=== PATIENT | female | born 1990 | race Caucasian/White ===

== ENCOUNTER 2020-09-10 03:43 | Emergency (ER) | payer OTHER, SELFPAY ==
[2020-09-10 03:48] VITALS: BP 121/89; PULSE 93; RESP 16; TEMP 37.6; O2SAT 97; BMI 42.9
--- NOTE | 2020-09-10 04:13 | ED.ABDPAIN ---
HPI - Abdominal Pain General Chief Complaint: Abdominal Pain Stated Complaint: Abd pain Time Seen by Provider: 09/10/20 04:13 Source: patient Mode of arrival: ambulatory Limitations: no limitations History of Present Illness MD elicited complaint: abdominal pain Pertinent past history: other (Crohn's disease) Onset (ago): day(s) (5 days started Monday) Pain Consistency: constant Location: epigastric Severity: moderate Quality: cramping Radiation: none Migration to: no migration Exacerbating factors: vomiting Relieving factors: nothing Associated symptoms: nausea and vomiting Related Data Allergies Allergy/AdvReac Type Severity Reaction Status Date / Time No Known Allergies Allergy Unknown UNKNOWN Verified 09/10/20 03:47 Review of Systems Review of Systems Constitutional : No Weight loss, No Fever, No Chills ENT/Mouth : No sore throat, No Rhinorrhea Eyes: No Swelling, No Redness Cardiovascular : No Chest Pain, No SOB, NoEdema Respiratory : No Cough, No Sputum, No Wheezing Gastrointestinal : Positive Nausea, Positive Vomiting, no Diarrhea, positive abdominal Pain, No Hematochezia, No Melena Genitourinary : No Dysuria, No Urinary Frequency, No Hematuria, No Urgency Musculoskeletal : No joint pain, No Myalgias, No Joint Swelling Skin : No Skin Lesions, No rash Neuro : No Weakness, No Numbness, No Dizziness, No Headache Psych : No Anxiety/Panic, No Depression All other systems reviewed and are negative. Physical Exam Vital Signs: Vital Signs: Vital Signs Temp Pulse Resp BP Pulse Ox 09/10/20 05:34 98.0 F 70 18 109/70 98 09/10/20 03:48 99.7 F 93 16 121/89 97 Body Mass Index 42.9 Appearance: Alert. Oriented X3. No acute distress. Eyes: Pupils equal, round and reactive to light. ENT: Pharynx normal. Neck: Normal inspection. Neck supple. CVS: Normal heart rate and rhythm. Pulses normal. Respiratory: No respiratory distress. Breath sounds normal. Abdomen: Soft and mild epigastric ttp, no RUQ pain, neg Olson's Skin: Skin warm and dry. Normal skin color. Normal skin turgor. Extremities: No lower extremity edema. No calf ttp Neuro: Oriented X 3. No motor deficit. No sensory deficit. Course Course Course Narrative: signed out to Dr. Martinez's pending CT scan MDM - Abdominal Pain MDM Narrative Medical decision making narrative: 30 yo female with epigastric pain n/v different from her Crohn's disease (no diarrhea/bloody stool this time) neg Olson's sign at this time will obtain labs, hydrate, IVF, IV morphine for pain Differential Diagnosis Differential diagnosis: Likely abdominal pain, gastritis, pancreatitis and peptic ulcer disease Lab Data Result diagrams: 09/10/20 04:31 09/10/20 04:31 Labs: Lab Results 09/10/20 09/10/20 09/10/20 Range/Units 04:31 04:31 04:31 WBC 10.8 (4.8-10.8) X10*3/uL RBC 4.16 L (4.20-5.50) X10*6/uL Hgb 13.5 (12.0-16.0) g/dl Hct 39.8 (37-47) % MCV 95.7 (80-98) fL MCH 32.5 (27.0-33.0) pg MCHC 33.9 (31.0-35.0) g/dl RDW 12.0 (11.0-16.0) % Plt Count 331 (160-400) X10*3/uL MPV 9.4 (9.4-12.3) fL Immature Gran % (Auto) 0.5 H (0.0-0.4) % Neut % (Auto) 63.7 (45-73) % Lymph % (Auto) 23.2 (20-40) % [place] % (Auto) 8.2 (2-11) % Eos % (Auto) 4.0 (0-4) % Baso % (Auto) 0.4 (0-2) % Lymph # (Auto) 2.5 (1.2-4.9) X10*3/uL [place] # (Auto) 0.9 (0.1-1.2) X10*3/uL Eos # (Auto) 0.4 (0.0-0.4) X10*3/uL Baso # (Auto) 0.0 (0.0-0.2) X10*3/uL Abs Immat Gran (auto) 0.05 H (0.00-0.03) X10*3/uL Absolute Neuts (auto) 6.9 (2.0-8.3) X10*3/uL Absolute Nucleated RBC 0.000 (0.0-0.012) X10*3/uL Nucleated RBC % (auto) 0.0 (0.0-0.2) /100WBC Hold Blue Top SEE NOTE Sodium 137 (135-145) mmol/L Potassium 4.1 (3.3-5.1) mmol/l Chloride 105 (96-108) mmol/L Carbon Dioxide 25 (22-29) mmol/L Anion Gap 11 L (12-20) BUN 17 H (9-16) mg/dL Creatinine 0.80 (0.5-1.4) mg/dL Estim Creat Clear Calc 124.5 Estimated GFR > 60 Random Glucose 114 (60-115) mg/dL Calcium 8.2 L (8.4-10.2) mg/dL Magnesium 2.0 (1.6-2.6) mg/dL Total Bilirubin 0.3 (0.0-1.0) mg/dL Direct Bilirubin < 0.2 (0.0-0.5) mg/dL AST 13 (5-31) U/L ALT 16 (0-31) U/L Alkaline Phosphatase 56 (39-117) U/L Total Protein 6.8 (6.5-8.0) g/dL Albumin 3.7 (3.5-5.0) g/dL Lipase 30 (8-78) U/L Urine Color Urine Appearance Urine pH (5.0-8.0) Ur Specific [place] (1.005-1.025) Urine Protein (NEG-TRACE) MG/DL Urine Glucose (UA) (NEG) MG/DL Urine Ketones (NEG) MG/DL Urine Blood (NEG) Urine Nitrite (NEG) Ur Leukocyte Esterase (NEG) Urine Test (NEGATIVE) 09/10/20 Range/Units 05:46 WBC (4.8-10.8) X10*3/uL RBC (4.20-5.50) X10*6/uL Hgb (12.0-16.0) g/dl Hct (37-47) % MCV (80-98) fL MCH (27.0-33.0) pg MCHC (31.0-35.0) g/dl RDW (11.0-16.0) % Plt Count (160-400) X10*3/uL MPV (9.4-12.3) fL Immature Gran % (Auto) (0.0-0.4) % Neut % (Auto) (45-73) % Lymph % (Auto) (20-40) % [place] % (Auto) (2-11) % Eos % (Auto) (0-4) % Baso % (Auto) (0-2) % Lymph # (Auto) (1.2-4.9) X10*3/uL [place] # (Auto) (0.1-1.2) X10*3/uL Eos # (Auto) (0.0-0.4) X10*3/uL Baso # (Auto) (0.0-0.2) X10*3/uL Abs Immat Gran (auto) (0.00-0.03) X10*3/uL Absolute Neuts (auto) (2.0-8.3) X10*3/uL Absolute Nucleated RBC (0.0-0.012) X10*3/uL Nucleated RBC % (auto) (0.0-0.2) /100WBC Hold Blue Top Sodium (135-145) mmol/L Potassium (3.3-5.1) mmol/l Chloride (96-108) mmol/L Carbon Dioxide (22-29) mmol/L Anion Gap (12-20) BUN (9-16) mg/dL Creatinine (0.5-1.4) mg/dL Estim Creat Clear Calc Estimated GFR Random Glucose (60-115) mg/dL Calcium (8.4-10.2) mg/dL Magnesium (1.6-2.6) mg/dL Total Bilirubin (0.0-1.0) mg/dL Direct Bilirubin (0.0-0.5) mg/dL AST (5-31) U/L ALT (0-31) U/L Alkaline Phosphatase (39-117) U/L Total Protein (6.5-8.0) g/dL Albumin (3.5-5.0) g/dL Lipase (8-78) U/L Urine Color YELLOW Urine Appearance HAZY Urine pH 6.0 (5.0-8.0) Ur Specific [place] >= 1.030 H (1.005-1.025) Urine Protein NEG (NEG-TRACE) MG/DL Urine Glucose (UA) NEG (NEG) MG/DL Urine Ketones NEG (NEG) MG/DL Urine Blood NEG (NEG) Urine Nitrite NEG (NEG) Ur Leukocyte Esterase NEG (NEG) Urine Test NEGATIVE (NEGATIVE) Discharge Plan Discharge Clinical Impression: Abdominal pain Qualifiers: Abdominal location: epigastric Qualified Code(s): R10.13 - Epigastric pain PMFSH Past Medical History Medical History Crohn's disease Multiple sclerosis Social History Social History (Updated 09/10/20 @ 04:23 by Sara Barboza DO) Alcohol intake: current Alcohol intake frequency: a few times a month Smoking Status: Current every day smoker Use of substances other than those prescribed or required for medical reasons: No Advance Directives: No Advance Directives Information Provided: No
--- NOTE | 2020-09-10 04:15 | CT_ITS ---
EXAMINATION: CT ABDOMEN AND PELVIS WITH CONTRAST CLINICAL INFORMATION: Abdominal pain. Diarrhea. Crohn's disease. COMPARISON: 06/06/2020 TECHNIQUE: Multidetector volumetric images were obtained from the superior aspect of the liver through the pubic symphysis following administration 85 mL ofOmnipaque 350 intravenous contrast. Sagittal and coronal reformatted images were obtained on the technologist's workstation. Oral contrast: No This CT examination was performed using dose optimization techniques as appropriate, variously including the following: *Automated exposure control *Adjustment of mA and/or kV according to patient size (this includes techniques or standardized protocols for targeted exams where dose is matched to indication/reason for exam; i.e. extremities or head) *Use of iterative reconstruction technique DLP: 1121 mGy-cm FINDINGS: LUNG BASES: The visualized lung bases are unremarkable. LIVER, GALLBLADDER, AND BILIARY TREE: The liver is normal in size, shape, and attenuation. No focal hepatic lesion or biliary ductal dilatation is present. The gallbladder is unremarkable with no evidence of radiopaque gallstones, gallbladder wall thickening, or obvious pericholecystic inflammatory changes. PANCREAS: Unremarkable. SPLEEN: Unremarkable. ADRENAL GLANDS: Unremarkable. KIDNEYS AND URETERS: The kidneys are normal in size, shape, and attenuation. No hydronephrosis, hydroureter, or calculi seen. No perinephric stranding. BLADDER: Unremarkable. GASTROINTESTINAL TRACT: The stomach is unremarkable. Normal caliber small bowel. There is no obstruction. The small bowel has no wall thickening. There is wall thickening involving the splenic flexure and descending colon. The remainder of the colon is unremarkable. No free air or free fluid. ABDOMINAL WALL: No significant hernia is appreciated. LYMPH NODES: Normal. VASCULAR: Unremarkable. PELVIC VISCERA: IUD in place in the uterus. No adnexal mass. OSSEOUS STRUCTURES: No acute or suspicious osseous abnormality. CT/CT abdomen pelvis w con IMPRESSION: Colitis involving the splenic flexure of the colon and descending colon.
[2020-09-10] MEDS: ondansetron HCL 4 MG/2 ML VIAL IVPUSH (04:34)
[2020-09-10] MEDS: Morphine Sulfate 4 MG/ML CARTRIDGE IVPUSH ×2 (04:34→07:43)
[2020-09-10] MEDS: 0.9 % Sodium Chloride 1,000 ML 999 ML IVCONT (04:34)
[2020-09-10 04:36] LABS: MANUAL DIFF FLAG NO
[2020-09-10 04:43] LABS: Basophils Percent Auto 0.4 % (0-2); Eosinophils Absolute Auto 0.4 X10*3/uL (0.0-0.4); Hematocrit 39.8 % (37-47); Hemoglobin 13.5 g/dl (12.0-16.0); Imm Gran Abs Auto 0.05 X10*3/uL (0.00-0.03); Imm Gran Pct Auto 0.5 % (0.0-0.4); Lymphocytes Absolute Auto 2.5 X10*3/uL (1.2-4.9); Lymphocytes Percent Auto 23.2 % (20-40); Mean Corpuscular HGB Conc 33.9 g/dl (31.0-35.0); Mean Corpuscular Hemoglobin 32.5 pg (27.0-33.0); Mean Corpuscular Volume 95.7 fL (80-98); Mean Platelet Volume 9.4 fL (9.4-12.3); Monocytes Absolute Auto 0.9 X10*3/uL (0.1-1.2); Monocytes Percent Auto 8.2 % (2-11); Neutrophils Absolute Auto 6.9 X10*3/uL (2.0-8.3); Neutrophils Percent Auto 63.7 % (45-73); Platelet Count 331 X10*3/uL (160-400); Red Blood Count 4.16 X10*6/uL (4.20-5.50); White Blood Count 10.8 X10*3/uL (4.8-10.8)
[2020-09-10 05:03] LABS: Alanine Aminotransferase 16 U/L (0-31); Albumin Level 3.7 g/dL (3.5-5.0); Alkaline Phosphatase 56 U/L (39-117); Anion Gap 11 (12-20); Aspartate Amino Transferase 13 U/L (5-31); Bilirubin Direct < 0.2 mg/dL (0.0-0.5); Bilirubin Total 0.3 mg/dL (0.0-1.0); Blood Urea Nitrogen 17 mg/dL (9-16); Calcium 8.2 mg/dL (8.4-10.2); Carbon Dioxide 25 mmol/L (22-29); Chloride 105 mmol/L (96-108); Creatinine Clr Calc Pharmacy 124.5; Estimated Glomerular Filt Rate > 60; Glucose Random 114 mg/dL (60-115); Lipase 30 U/L (8-78); Potassium 4.1 mmol/l (3.3-5.1); Sodium 137 mmol/L (135-145); Total Protein 6.8 g/dL (6.5-8.0)
[2020-09-10 05:34] VITALS: BP 109/70; PULSE 70; RESP 18; TEMP 36.7; O2SAT 98
[2020-09-10 05:58] LABS: Glucose Urine UA NEG (NEG); Leukocyte Esterase Urine NEG (NEG); Nitrite Urine NEG (NEG); Specific Gravity - Urine >= 1.030 (1.005-1.025); Urine Blood NEG (NEG); Urine Ketones NEG (NEG); Urine Protein NEG (NEG-TRACE)
[2020-09-10 06:02] LABS: Appearance Urine HAZY; Color Urine YELLOW; UACC Culture Trigger NO; UPreg QC Valid YES; Urine Pregnancy NEGATIVE (NEGATIVE)
[2020-09-10] MEDS: iohexoL 350 MG/ML 100 ML INFUS..BTL IV (06:37)
--- NOTE | 2020-09-10 07:22 | ED.ABDPAIN ---
HPI - Abdominal Pain General Chief Complaint: Abdominal Pain Stated Complaint: Abd pain Time Seen by Provider: 09/10/20 04:13 Source: patient Mode of arrival: ambulatory Limitations: no limitations History of Present Illness MD elicited complaint: abdominal pain Severity: moderate Quality: cramping Migration to: no migration Exacerbating factors: vomiting Relieving factors: nothing Associated symptoms: nausea and vomiting Related Data Previous Rx's Medication Instructions Recorded hyoscyamine sulfate 0.125 mg PO QID #10 tab 09/10/20 ondansetron 4 mg PO Q8H PRN #20 tab 09/10/20 Allergies Allergy/AdvReac Type Severity Reaction Status Date / Time No Known Allergies Allergy Unknown UNKNOWN Verified 09/10/20 03:47 Physical Exam Vital Signs: Vital Signs: Vital Signs Temp Pulse Resp BP Pulse Ox 09/10/20 05:34 98.0 F 70 18 109/70 98 09/10/20 03:48 99.7 F 93 16 121/89 97 Body Mass Index 42.9 Course Course Course Narrative: I received sign out drom DR. Barboza. scan shows colitis, patient has history of Crohn's disease, colitis is expected. Nothing additional on CT scan. At this time, patient is no longer vomiting, nausea, mild abdominal pain. Patient will follow-up with her primary care MDM - Abdominal Pain Lab Data Result diagrams: 09/10/20 04:31 09/10/20 04:31 Labs: Lab Results 09/10/20 09/10/20 09/10/20 Range/Units 04:31 04:31 04:31 WBC 10.8 (4.8-10.8) X10*3/uL RBC 4.16 L (4.20-5.50) X10*6/uL Hgb 13.5 (12.0-16.0) g/dl Hct 39.8 (37-47) % MCV 95.7 (80-98) fL MCH 32.5 (27.0-33.0) pg MCHC 33.9 (31.0-35.0) g/dl RDW 12.0 (11.0-16.0) % Plt Count 331 (160-400) X10*3/uL MPV 9.4 (9.4-12.3) fL Immature Gran % (Auto) 0.5 H (0.0-0.4) % Neut % (Auto) 63.7 (45-73) % Lymph % (Auto) 23.2 (20-40) % [place] % (Auto) 8.2 (2-11) % Eos % (Auto) 4.0 (0-4) % Baso % (Auto) 0.4 (0-2) % Lymph # (Auto) 2.5 (1.2-4.9) X10*3/uL [place] # (Auto) 0.9 (0.1-1.2) X10*3/uL Eos # (Auto) 0.4 (0.0-0.4) X10*3/uL Baso # (Auto) 0.0 (0.0-0.2) X10*3/uL Abs Immat Gran (auto) 0.05 H (0.00-0.03) X10*3/uL Absolute Neuts (auto) 6.9 (2.0-8.3) X10*3/uL Absolute Nucleated RBC 0.000 (0.0-0.012) X10*3/uL Nucleated RBC % (auto) 0.0 (0.0-0.2) /100WBC Hold Blue Top SEE NOTE Sodium 137 (135-145) mmol/L Potassium 4.1 (3.3-5.1) mmol/l Chloride 105 (96-108) mmol/L Carbon Dioxide 25 (22-29) mmol/L Anion Gap 11 L (12-20) BUN 17 H (9-16) mg/dL Creatinine 0.80 (0.5-1.4) mg/dL Estim Creat Clear Calc 124.5 Estimated GFR > 60 Random Glucose 114 (60-115) mg/dL Calcium 8.2 L (8.4-10.2) mg/dL Magnesium 2.0 (1.6-2.6) mg/dL Total Bilirubin 0.3 (0.0-1.0) mg/dL Direct Bilirubin < 0.2 (0.0-0.5) mg/dL AST 13 (5-31) U/L ALT 16 (0-31) U/L Alkaline Phosphatase 56 (39-117) U/L Total Protein 6.8 (6.5-8.0) g/dL Albumin 3.7 (3.5-5.0) g/dL Lipase 30 (8-78) U/L Urine Color Urine Appearance Urine pH (5.0-8.0) Ur Specific [place] (1.005-1.025) Urine Protein (NEG-TRACE) MG/DL Urine Glucose (UA) (NEG) MG/DL Urine Ketones (NEG) MG/DL Urine Blood (NEG) Urine Nitrite (NEG) Ur Leukocyte Esterase (NEG) Urine Test (NEGATIVE) 09/10/20 Range/Units 05:46 WBC (4.8-10.8) X10*3/uL RBC (4.20-5.50) X10*6/uL Hgb (12.0-16.0) g/dl Hct (37-47) % MCV (80-98) fL MCH (27.0-33.0) pg MCHC (31.0-35.0) g/dl RDW (11.0-16.0) % Plt Count (160-400) X10*3/uL MPV (9.4-12.3) fL Immature Gran % (Auto) (0.0-0.4) % Neut % (Auto) (45-73) % Lymph % (Auto) (20-40) % [place] % (Auto) (2-11) % Eos % (Auto) (0-4) % Baso % (Auto) (0-2) % Lymph # (Auto) (1.2-4.9) X10*3/uL [place] # (Auto) (0.1-1.2) X10*3/uL Eos # (Auto) (0.0-0.4) X10*3/uL Baso # (Auto) (0.0-0.2) X10*3/uL Abs Immat Gran (auto) (0.00-0.03) X10*3/uL Absolute Neuts (auto) (2.0-8.3) X10*3/uL Absolute Nucleated RBC (0.0-0.012) X10*3/uL Nucleated RBC % (auto) (0.0-0.2) /100WBC Hold Blue Top Sodium (135-145) mmol/L Potassium (3.3-5.1) mmol/l Chloride (96-108) mmol/L Carbon Dioxide (22-29) mmol/L Anion Gap (12-20) BUN (9-16) mg/dL Creatinine (0.5-1.4) mg/dL Estim Creat Clear Calc Estimated GFR Random Glucose (60-115) mg/dL Calcium (8.4-10.2) mg/dL Magnesium (1.6-2.6) mg/dL Total Bilirubin (0.0-1.0) mg/dL Direct Bilirubin (0.0-0.5) mg/dL AST (5-31) U/L ALT (0-31) U/L Alkaline Phosphatase (39-117) U/L Total Protein (6.5-8.0) g/dL Albumin (3.5-5.0) g/dL Lipase (8-78) U/L Urine Color YELLOW Urine Appearance HAZY Urine pH 6.0 (5.0-8.0) Ur Specific [place] >= 1.030 H (1.005-1.025) Urine Protein NEG (NEG-TRACE) MG/DL Urine Glucose (UA) NEG (NEG) MG/DL Urine Ketones NEG (NEG) MG/DL Urine Blood NEG (NEG) Urine Nitrite NEG (NEG) Ur Leukocyte Esterase NEG (NEG) Urine Test NEGATIVE (NEGATIVE) Imaging Data CT scan - abdomen: Radiologist's impression: Colitis involving the splenic flexure of the colon and descending colon. LUNG BASES: The visualized lung bases are unremarkable. LIVER, GALLBLADDER, AND BILIARY TREE: The liver is normal in size, shape, and attenuation. No focal hepatic lesion or biliary ductal dilatation is present. The gallbladder is unremarkable with no evidence of radiopaque gallstones, gallbladder wall thickening, or obvious pericholecystic inflammatory changes. PANCREAS: Unremarkable. SPLEEN: Unremarkable. ADRENAL GLANDS: Unremarkable. KIDNEYS AND URETERS: The kidneys are normal in size, shape, and attenuation. No hydronephrosis, hydroureter, or calculi seen. No perinephric stranding. BLADDER: Unremarkable. GASTROINTESTINAL TRACT: The stomach is unremarkable. Normal caliber small bowel. There is no obstruction. The small bowel has no wall thickening. There is wall thickening involving the splenic flexure and descending colon. The remainder of the colon is unremarkable. No free air or free fluid. ABDOMINAL WALL: No significant hernia is appreciated. LYMPH NODES: Normal. VASCULAR: Unremarkable. PELVIC VISCERA: IUD in place in the uterus. No adnexal mass. OSSEOUS STRUCTURES: No acute or suspicious osseous abnormality. Discharge Plan Discharge Clinical Impression: Colitis Abdominal pain Qualifiers: Abdominal location: epigastric Qualified Code(s): R10.13 - Epigastric pain Nausea & vomiting Qualifiers: Vomiting type: unspecified Vomiting Intractability: non-intractable Qualified Code(s): R11.2 - Nausea with vomiting, unspecified Patient Disposition: Home, Self-Care Instructions: Acute Nausea and Vomiting (ED), Abdominal Pain (ED) Prescriptions: New ondansetron 4 mg tablet,disintegrating 4 mg PO Q8H PRN (Reason: nausea and vomiting) Qty: 20 RF: 0 hyoscyamine sulfate 0.125 mg tablet 0.125 mg PO QID Qty: 10 RF: 0 Referrals: Kamran Rm MD [Primary Care Provider] - 2 days (if not better) Stand Alone Forms: Work/School Release [facility] Past Medical History Medical History Crohn's disease Multiple sclerosis Social History Social History (Updated 09/10/20 @ 04:23 by Sara Barboza DO) Alcohol intake: current Alcohol intake frequency: a few times a month Smoking Status: Current every day smoker Use of substances other than those prescribed or required for medical reasons: No Advance Directives: No Advance Directives Information Provided: No
[2020-09-10 07:46] VITALS: BP 112/70; PULSE 76; RESP 16; O2SAT 99
== END 2020-09-10 08:14 | disposition home or self-care (01) ==
PROVIDERS: Emergency Medicine; Emergency Provider Emergency Medicine; PCP Internal Medicine
DX: K52.9 Noninfective gastroenteritis and colitis, unspecified (principal); R10.13 Epigastric pain; R11.2 Nausea with vomiting, unspecified; F17.200 Nicotine dependence, unspecified, uncomplicated; Z71.6 Tobacco abuse counseling
CPT/HCPCS: 36415; 74177; 80048; 80076; 81003; 81025; 83690; 83735; 85025; 96361; 96374; 96375; 96376; 99284; J2270; J2405; Q9967

== ENCOUNTER 2020-09-13 16:55 | Emergency (ER) | payer OTHER, SELFPAY ==
[2020-09-13 17:09] VITALS: BP 127/62; PULSE 88; RESP 18; TEMP 36.9; O2SAT 98; BMI 44.6
--- NOTE | 2020-09-13 17:30 | XR_ITS ---
EXAMINATION: XR ABDOMEN KUB CLINICAL INDICATION: Constipation COMPARISON: CT abdomen pelvis 09/10/2020 TECHNIQUE: AP view of the abdomen. FINDINGS: The bowel gas pattern is normal with no evidence of ileus or obstruction. A moderate amount of stool is present in the right colon. No unusual soft tissue calcifications are noted. An IUD is present in the uterus. The bones are unremarkable. XR/XR KUB IMPRESSION: Unremarkable examination.
--- NOTE | 2020-09-13 17:42 | ED_ITS ---
HPI - Abdominal Pain General Chief Complaint: Abdominal Pain Stated Complaint: ABD PAIN Time Seen by Provider: 09/13/20 17:15 Source: patient Mode of arrival: ambulatory History of Present Illness HPI narrative: 30-year-old female with a past medical history of Crohn's disease, MS c/o diffuse abdominal pain, intermittent bloody diarrhea, and decreased PO intake x3 days. reports was recently seen in the ED for similar complaints on , had labs, and CT scan showing colitis, was prescribed outpatient medications with little relief. reports symptoms are similar to prior Crohn's flares which she has been admitted multiple times for in the past. Reports associated nausea, and constipation without BM in 4 days. Denies vomiting, lightheadedness/dizziness, CP / SOB, dysuria /hematuria Related Data Previous Rx's Medication Instructions Recorded ondansetron 4 mg PO Q8H PRN #20 tab 09/10/20 prednisone See Rx Instructions .ROUTE 09/13/20 .COMPLEX #36 tab Allergies Allergy/AdvReac Type Severity Reaction Status Date / Time No Known Allergies Allergy Unknown UNKNOWN Verified 09/10/20 03:47 Review of Systems Review of Systems Constitutional: No Weight loss, No Fever, No Chills Cardiovascular: No Chest Pain, No SOB, No Dyspnea on Exertion, No Palpitations Respiratory: No Cough, No Sputum, No Dyspnea Gastrointestinal: + Nausea, No Vomiting, No Diarrhea, + Constipation, +Abdominal pain, +bloody stool Genitourinary: No Dysuria, No Urinary Frequency, No Hematuria Musculoskeletal: No joint pain, No Myalgias, No Joint Swelling Skin: No Skin Lesions, No rash Yes all other systems are reviewed and are negative Physical Exam Vital Signs: Vital Signs: Vital Signs Temp Pulse Resp BP Pulse Ox 09/13/20 19:18 18 09/13/20 19:16 98.3 F 73 18 133/70 99 09/13/20 17:09 98.5 F 88 18 127/62 98 Body Mass Index 44.6 Const: General: cooperative and healthy appearing Orientation/con sciousness: patient oriented x3 Limitations: no limitations HENMT: Head: Yes normal to inspection Ears: hearing grossly normal bilaterally General nose exam: Normal external nose present Face and sinus: Yes normal facial exam Eyes: General: appearance normal, both eyes and all related structures EOM: EOMs intact bilaterally Neck: Neck: Yes normal visual inspection Resp: Effort & Inspection: normal respiratory effort GI: Inspection: Yes normal to inspection Palpation (GI): Soft to palpation, Tenderness to palpation present (GI) ( and lower abdomen) in the LLQ, no guarding and not rigid Skin: Rashes: no rashes Wounds: no wounds Neuro: General: patient oriented x3 Gait exam (Neuro): Normal gait present Extrem: General: Yes normal to inspection Course Course Course Narrative: - mild leukocytosis of 12.9, labs otherwise unremarkable, ESR/CRP pending, UA negative -1999-- ESR 14, CRP 11 KUB unremarkable, on re-evaluation patient reports symptomatic improvement after IV medications. Discussed follow-up with Dr. Null which patient reports she has. Will DC on prednisone taper. Worrisome signs and symptoms and strict return precautions discussed. Patient verbalized understanding feel safe for discharge home MDM - Abdominal Pain MDM Narrative Medical decision making narrative: 30-year-old female with a past medical history of Crohn's disease, MS c/o diffuse abdominal pain, intermittent bloody diarrhea, and decreased PO intake x3 days w/associated nausea, and constipation without BM in 4 days. On exam VSS, NAD/ nontoxic appearing, abdomen soft with lower/LLQ ttp, no rebound or guarding. Likely Crohn's flare/colitis vs SBO. Lower concern for acute diverticulitis / appendicitis with recent CT. Rule out other infectious etiology plan: Labs, UA, KUB, IVF, IV Solumedrol, IV morphine, reassess Differential Diagnosis Differential diagnosis: Likely abdominal pain Lab Data Result diagrams: 09/13/20 17:48 09/13/20 17:48 Labs: Lab Results 09/13/20 09/13/20 09/13/20 Range/Units 17:48 17:48 17:48 WBC 12.9 H (4.8-10.8) X10*3/uL RBC 4.16 L (4.20-5.50) X10*6/uL Hgb 13.1 (12.0-16.0) g/dl Hct 39.7 (37-47) % MCV 95.4 (80-98) fL MCH 31.5 (27.0-33.0) pg MCHC 33.0 (31.0-35.0) g/dl RDW 11.7 (11.0-16.0) % Plt Count 358 (160-400) X10*3/uL MPV 9.5 (9.4-12.3) fL Immature Gran % (Auto) 0.5 H (0.0-0.4) % Neut % (Auto) 74.0 H (45-73) % Lymph % (Auto) 16.8 L (20-40) % [place] % (Auto) 5.5 (2-11) % Eos % (Auto) 2.8 (0-4) % Baso % (Auto) 0.4 (0-2) % Lymph # (Auto) 2.2 (1.2-4.9) X10*3/uL [place] # (Auto) 0.7 (0.1-1.2) X10*3/uL Eos # (Auto) 0.4 (0.0-0.4) X10*3/uL Baso # (Auto) 0.1 (0.0-0.2) X10*3/uL Abs Immat Gran (auto) 0.06 H (0.00-0.03) X10*3/uL Absolute Neuts (auto) 9.5 H (2.0-8.3) X10*3/uL Absolute Nucleated RBC 0.000 (0.0-0.012) X10*3/uL Nucleated RBC % (auto) 0.0 (0.0-0.2) /100WBC ESR (0-20) MM/HR Hold Blue Top SEE NOTE Sodium 140 (135-145) mmol/L Potassium 3.9 (3.3-5.1) mmol/l Chloride 103 (96-108) mmol/L Carbon Dioxide 29 (22-29) mmol/L Anion Gap 12 (12-20) BUN 8 L D (9-16) mg/dL Creatinine 0.79 (0.5-1.4) mg/dL Estim Creat Clear Calc 129.0 Estimated GFR > 60 Random Glucose 94 (60-115) mg/dL Calcium 8.0 L (8.4-10.2) mg/dL Magnesium (1.6-2.6) mg/dL Total Bilirubin (0.0-1.0) mg/dL Direct Bilirubin (0.0-0.5) mg/dL AST (5-31) U/L ALT (0-31) U/L Alkaline Phosphatase (39-117) U/L C-Reactive Protein 11.00 H (< or = 0.50) mg/dL Total Protein (6.5-8.0) g/dL Albumin (3.5-5.0) g/dL Lipase (8-78) U/L Urine Color Urine Appearance Urine pH (5.0-8.0) Ur Specific [place] (1.005-1.025) Urine Protein (NEG-TRACE) MG/DL Urine Glucose (UA) (NEG) MG/DL Urine Ketones (NEG) MG/DL Urine Blood (NEG) Urine Nitrite (NEG) Ur Leukocyte Esterase (NEG) 09/13/20 09/13/20 09/13/20 Range/Units 17:48 17:48 19:09 WBC (4.8-10.8) X10*3/uL RBC (4.20-5.50) X10*6/uL Hgb (12.0-16.0) g/dl Hct (37-47) % MCV (80-98) fL MCH (27.0-33.0) pg MCHC (31.0-35.0) g/dl RDW (11.0-16.0) % Plt Count (160-400) X10*3/uL MPV (9.4-12.3) fL Immature Gran % (Auto) (0.0-0.4) % Neut % (Auto) (45-73) % Lymph % (Auto) (20-40) % [place] % (Auto) (2-11) % Eos % (Auto) (0-4) % Baso % (Auto) (0-2) % Lymph # (Auto) (1.2-4.9) X10*3/uL [place] # (Auto) (0.1-1.2) X10*3/uL Eos # (Auto) (0.0-0.4) X10*3/uL Baso # (Auto) (0.0-0.2) X10*3/uL Abs Immat Gran (auto) (0.00-0.03) X10*3/uL Absolute Neuts (auto) (2.0-8.3) X10*3/uL Absolute Nucleated RBC (0.0-0.012) X10*3/uL Nucleated RBC % (auto) (0.0-0.2) /100WBC ESR 14 (0-20) MM/HR Hold Blue Top Sodium (135-145) mmol/L Potassium (3.3-5.1) mmol/l Chloride (96-108) mmol/L Carbon Dioxide (22-29) mmol/L Anion Gap (12-20) BUN (9-16) mg/dL Creatinine (0.5-1.4) mg/dL Estim Creat Clear Calc Estimated GFR Random Glucose (60-115) mg/dL Calcium (8.4-10.2) mg/dL Magnesium 2.1 (1.6-2.6) mg/dL Total Bilirubin < 0.2 (0.0-1.0) mg/dL Direct Bilirubin < 0.2 (0.0-0.5) mg/dL AST 12 (5-31) U/L ALT 13 (0-31) U/L Alkaline Phosphatase 52 (39-117) U/L C-Reactive Protein (< or = 0.50) mg/dL Total Protein 6.9 (6.5-8.0) g/dL Albumin 3.8 (3.5-5.0) g/dL Lipase 18 (8-78) U/L Urine Color YELLOW Urine Appearance CLEAR Urine pH 6.5 (5.0-8.0) Ur Specific [place] 1.020 (1.005-1.025) Urine Protein NEG (NEG-TRACE) MG/DL Urine Glucose (UA) NEG (NEG) MG/DL Urine Ketones NEG (NEG) MG/DL Urine Blood NEG (NEG) Urine Nitrite NEG (NEG) Ur Leukocyte Esterase NEG (NEG) Discharge Plan Discharge Clinical Impression: Acute Crohn's disease Qualifiers: Digestive disease complication type: without complication Qualified Code(s): K50.90 - Crohn's disease, unspecified, without complications Patient Disposition: Home, Self-Care Instructions: Crohn Disease (ED) Additional Instructions: your blood work was reassuring today in the ED. You have mild elevation your inflammatory markers Take prednisone taper as prescribed Continue taking previously prescribed medications including Tylenol and Motrin at home You need to have close follow-up with Dr. Null If symptoms persist or worsen, you have fever, decreased oral intake, or not having bowel movement return to the ED Prescriptions: New prednisone 5 mg tablet See Rx Instructions .ROUTE .COMPLEX Qty: 36 RF: 0 No Action ondansetron 4 mg tablet,disintegrating 4 mg PO Q8H PRN (Reason: nausea and vomiting) Qty: 20 RF: 0 Referrals: Alexandr Null [Physician] - 5 days [facility] Past Medical History Medical History Crohn's disease Multiple sclerosis Social History Social History (Updated 09/10/20 @ 04:23 by Sara Barboza DO) Alcohol intake: unknown Smoking Status: Never smoker Use of substances other than those prescribed or required for medical reasons: No Advance Directives: No Advance Directives Information Provided: No
[2020-09-13] MEDS: 0.9 % Sodium Chloride 1,000 ML 999 ML IVCONT (17:53)
[2020-09-13] MEDS: Morphine Sulfate 4 MG/ML CARTRIDGE 2 MG IVPUSH (17:53)
[2020-09-13 18:08] LABS: MANUAL DIFF FLAG NO
[2020-09-13 18:11] LABS: Basophils Absolute Auto 0.1 X10*3/uL (0.0-0.2); Basophils Percent Auto 0.4 % (0-2); Eosinophils Absolute Auto 0.4 X10*3/uL (0.0-0.4); Eosinophils Percent Auto 2.8 % (0-4); Hematocrit 39.7 % (37-47); Hemoglobin 13.1 g/dl (12.0-16.0); Imm Gran Abs Auto 0.06 X10*3/uL (0.00-0.03); Imm Gran Pct Auto 0.5 % (0.0-0.4); Lymphocytes Absolute Auto 2.2 X10*3/uL (1.2-4.9); Lymphocytes Percent Auto 16.8 % (20-40); Mean Corpuscular Hemoglobin 31.5 pg (27.0-33.0); Mean Corpuscular Volume 95.4 fL (80-98); Mean Platelet Volume 9.5 fL (9.4-12.3); Monocytes Absolute Auto 0.7 X10*3/uL (0.1-1.2); Monocytes Percent Auto 5.5 % (2-11); Neutrophils Absolute Auto 9.5 X10*3/uL (2.0-8.3); Platelet Count 358 X10*3/uL (160-400); Red Blood Count 4.16 X10*6/uL (4.20-5.50); Red Cell Distribution Width 11.7 % (11.0-16.0); White Blood Count 12.9 X10*3/uL (4.8-10.8)
[2020-09-13 18:16] LABS: Glucose Urine UA NEG (NEG); Leukocyte Esterase Urine NEG (NEG); Nitrite Urine NEG (NEG); PH 6.5 (5.0-8.0); Urine Blood NEG (NEG); Urine Ketones NEG (NEG); Urine Protein NEG (NEG-TRACE)
[2020-09-13 18:18] LABS: Appearance Urine CLEAR; Color Urine YELLOW
[2020-09-13 18:34] LABS: Anion Gap 12 (12-20); Blood Urea Nitrogen 8 mg/dL (9-16); Carbon Dioxide 29 mmol/L (22-29); Chloride 103 mmol/L (96-108); Estimated Glomerular Filt Rate > 60; Glucose Random 94 mg/dL (60-115); Potassium 3.9 mmol/l (3.3-5.1); Sodium 140 mmol/L (135-145)
[2020-09-13 18:39] LABS: Alanine Aminotransferase 13 U/L (0-31); Albumin Level 3.8 g/dL (3.5-5.0); Alkaline Phosphatase 52 U/L (39-117); Aspartate Amino Transferase 12 U/L (5-31); Bilirubin Direct < 0.2 mg/dL (0.0-0.5); Bilirubin Total < 0.2 mg/dL (0.0-1.0); Lipase 18 U/L (8-78); Magnesium 2.1 mg/dL (1.6-2.6); Total Protein 6.9 g/dL (6.5-8.0)
[2020-09-13 19:16] VITALS: BP 133/70; PULSE 73; RESP 18; TEMP 36.8; O2SAT 99
[2020-09-13 19:18] VITALS: RESP 18
[2020-09-13] MEDS: Dicyclomine HCl 10 MG CAPSULE PO (19:18)
[2020-09-13] MEDS: methylPREDNISolone Sod Succ/PF 125 MG/2 ML VIAL IVPUSH (19:18)
[2020-09-13] MEDS: Morphine Sulfate 4 MG/ML CARTRIDGE IVPUSH (19:18)
[2020-09-13 19:48] LABS: Erythrocyte Sedimentation Rate 14 MM/HR (0-20)
== END 2020-09-13 20:27 | disposition home or self-care (01) ==
PROVIDERS: Physician Assistant; Emergency Provider Internal Medicine; PCP Internal Medicine
DX: K50.90 Crohn's disease, unspecified, without complications (principal); Z79.899 Other long term (current) drug therapy
CPT/HCPCS: 36415; 74018; 80048; 80076; 81003; 83690; 83735; 85025; 85652; 86140; 96361; 96374; 96375; 96376; 99284; J2270; J2930

== ENCOUNTER 2020-10-01 11:34 | Inpatient (IN) | payer OTHER, SELFPAY ==
[2020-10-01 14:01] VITALS: BP 128/83; PULSE 88; RESP 18; TEMP 36.7; O2SAT 97; BMI 42.9
--- NOTE | 2020-10-01 14:10 | ED_ITS ---
HPI - Abdominal Pain General Chief Complaint: Abdominal Pain Stated Complaint: chron's flare up Time Seen by Provider: 10/01/20 14:10 Source: patient Mode of arrival: ambulatory Limitations: no limitations History of Present Illness MD elicited complaint: abdominal pain Pertinent past history: other (Crohn's taking her mesalamine and does not want to take prednisone, missed her 09/[address] Null) Onset (ago): month(s) (1) Pain Consistency: constant Location: epigastric, LUQ and LLQ Severity: moderate Quality: cramping Radiation: none Migration to: no migration Exacerbating factors: movement Relieving factors: nothing Context: history of similar episodes Associated symptoms: nausea, diarrhea and hematochezia Treatments prior to arrival: other (mesalamine) Related Data Previous Rx's Medication Instructions Recorded ondansetron 4 mg PO Q8H PRN #20 tab 09/10/20 prednisone See Rx Instructions .ROUTE 09/13/20 .COMPLEX #36 tab Allergies Allergy/AdvReac Type Severity Reaction Status Date / Time No Known Allergies Allergy Unknown UNKNOWN Verified 09/10/20 03:47 Review of Systems Review of Systems Constitutional : No Weight loss, No Fever, No Chills ENT/Mouth : No sore throat, No Rhinorrhea Eyes: No Swelling, No Redness Cardiovascular : No Chest Pain, No SOB, NoEdema Respiratory : No Cough, No Sputum, No Wheezing Gastrointestinal : Positive Nausea, no Vomiting, positive Diarrhea, positive abdominal Pain, pos Hematochezia, No Melena Genitourinary : No Dysuria, No Urinary Frequency, No Hematuria, No Urgency Musculoskeletal : No joint pain, No Myalgias, No Joint Swelling Skin : No Skin Lesions, No rash Neuro : No Weakness, No Numbness, No Dizziness, No Headache Psych : No Anxiety/Panic, No Depression Heme/Lymph: No Bruising, No Lymphadenopathy Endocrine : No Polyuria, No Polydipsia All other systems reviewed and are negative. Physical Exam Vital Signs: Vital Signs: Last Vital Signs Temp 98.0 F 10/01/20 14:01 Pulse 88 10/01/20 14:01 Resp 18 10/01/20 14:01 BP 128/83 10/01/20 14:01 Pulse Ox 97 10/01/20 14:01 Body Mass Index 42.9 Appearance: Alert. Oriented X3. No acute distress. Eyes: Pupils equal, round and reactive to light. ENT: Pharynx normal. Neck: Normal inspection. Neck supple. CVS: Normal heart rate and rhythm. Pulses normal. Respiratory: No respiratory distress. Breath sounds normal. Abdomen: Soft and mild diffuse ttp no rebound or guarding Skin: Skin warm and dry. Normal skin color. Normal skin turgor. Extremities: No lower extremity edema. No calf ttp Neuro: Oriented X 3. No motor deficit. No sensory deficit. Course Course Course Narrative: Dr. Null aware, if needs admission would start IV steroids, the patient states she wants to be admitted at this time for pain control, WBC and CRP higher, has not taken steroids for this 1 month flare MDM - Abdominal Pain MDM Narrative Medical decision making narrative: 30 yo female with hx Crohn's on mesalamine does not want to take steroids missed her GI appoitment 4th ED visit in a month still c/o symptoms, will obtain labs and discuss with GI. Will avoid CT scan given 2 in last few weeks Lab Data Result diagrams: 10/01/20 14:19 10/01/20 14:19 Labs: Lab Results 10/01/20 10/01/20 10/01/20 Range/Units 14:19 14:19 14:19 WBC 13.8 H (4.8-10.8) X10*3/uL RBC 4.35 (4.20-5.50) X10*6/uL Hgb 13.7 (12.0-16.0) g/dl Hct 41.0 (37-47) % MCV 94.3 (80-98) fL MCH 31.5 (27.0-33.0) pg MCHC 33.4 (31.0-35.0) g/dl RDW 12.0 (11.0-16.0) % Plt Count 385 (160-400) X10*3/uL MPV 9.3 L (9.4-12.3) fL Immature Gran % (Auto) 0.5 H (0.0-0.4) % Neut % (Auto) 71.4 (45-73) % Lymph % (Auto) 16.2 L (20-40) % [place] % (Auto) 8.3 (2-11) % Eos % (Auto) 3.3 (0-4) % Baso % (Auto) 0.3 (0-2) % Lymph # (Auto) 2.2 (1.2-4.9) X10*3/uL [place] # (Auto) 1.1 (0.1-1.2) X10*3/uL Eos # (Auto) 0.5 H (0.0-0.4) X10*3/uL Baso # (Auto) 0.0 (0.0-0.2) X10*3/uL Abs Immat Gran (auto) 0.07 H (0.00-0.03) X10*3/uL Absolute Neuts (auto) 9.9 H (2.0-8.3) X10*3/uL Absolute Nucleated RBC 0.000 (0.0-0.012) X10*3/uL Nucleated RBC % (auto) 0.0 (0.0-0.2) /100WBC Hold Blue Top SEE NOTE Sodium 135 (135-145) mmol/L Potassium 4.1 (3.3-5.1) mmol/l Chloride 100 (96-108) mmol/L Carbon Dioxide 27 (22-29) mmol/L Anion Gap 12 (12-20) BUN 10 (9-16) mg/dL Creatinine 0.85 (0.5-1.4) mg/dL Estim Creat Clear Calc 117.2 Estimated GFR > 60 Random Glucose 98 (60-115) mg/dL Calcium 8.7 D (8.4-10.2) mg/dL Total Bilirubin 0.4 (0.0-1.0) mg/dL AST 11 (5-31) U/L ALT 16 (0-31) U/L Alkaline Phosphatase 66 D (39-117) U/L C-Reactive Protein (< or = 0.50) mg/dL Total Protein 7.0 (6.5-8.0) g/dL Albumin 3.8 (3.5-5.0) g/dL Lipase 14 (8-78) U/L // Range/Units 14:19 WBC (4.8-10.8) X10*3/uL RBC (4.20-5.50) X10*6/uL Hgb (12.0-16.0) g/dl Hct (37-47) % MCV (80-98) fL MCH (27.0-33.0) pg MCHC (31.0-35.0) g/dl RDW (11.0-16.0) % Plt Count (160-400) X10*3/uL MPV (9.4-12.3) fL Immature Gran % (Auto) (0.0-0.4) % Neut % (Auto) (45-73) % Lymph % (Auto) (20-40) % [place] % (Auto) (2-11) % Eos % (Auto) (0-4) % Baso % (Auto) (0-2) % Lymph # (Auto) (1.2-4.9) X10*3/uL [place] # (Auto) (0.1-1.2) X10*3/uL Eos # (Auto) (0.0-0.4) X10*3/uL Baso # (Auto) (0.0-0.2) X10*3/uL Abs Immat Gran (auto) (0.00-0.03) X10*3/uL Absolute Neuts (auto) (2.0-8.3) X10*3/uL Absolute Nucleated RBC (0.0-0.012) X10*3/uL Nucleated RBC % (auto) (0.0-0.2) /100WBC Hold Blue Top Sodium (135-145) mmol/L Potassium (3.3-5.1) mmol/l Chloride (96-108) mmol/L Carbon Dioxide (22-29) mmol/L Anion Gap (12-20) BUN (9-16) mg/dL Creatinine (0.5-1.4) mg/dL Estim Creat Clear Calc Estimated GFR Random Glucose (60-115) mg/dL Calcium (8.4-10.2) mg/dL Total Bilirubin (0.0-1.0) mg/dL AST (5-31) U/L ALT (0-31) U/L Alkaline Phosphatase (39-117) U/L C-Reactive Protein 15.40 H (< or = 0.50) mg/dL Total Protein (6.5-8.0) g/dL Albumin (3.5-5.0) g/dL Lipase (8-78) U/L Discharge Plan Discharge Clinical Impression: Crohn's disease, Abdominal pain Patient Disposition: Admitted As Inpatient Prescriptions: No Action ondansetron 4 mg tablet,disintegrating 4 mg PO Q8H PRN (Reason: nausea and vomiting) Qty: 20 RF: 0 prednisone 5 mg tablet See Rx Instructions .ROUTE .COMPLEX Qty: 36 RF: 0 PMFSH Past Medical History Attestation statement: The following information was validated with the patient. Medical History (Updated 10/01/20 @ 15:33 by Sara Barboza DO) Crohn's disease Multiple sclerosis Surgical History (Updated 10/01/20 @ 14:33 by Sara Barboza DO) Previous section Social History Social History Alcohol intake: never Smoking Status: Current every day smoker Use of substances other than those prescribed or required for medical reasons: Yes Substance Use Type: Marijuana Substance Use Frequency: Occasionally Advance Directives: Yes Advance Directives Information Provided: Yes Advance Directives on File: No
[2020-10-01] MEDS: 0.9 % Sodium Chloride 1,000 ML 999 ML IVCONT (14:28)
[2020-10-01] MEDS: ondansetron HCL 4 MG/2 ML VIAL IVPUSH (14:28)
[2020-10-01] MEDS: Morphine Sulfate 4 MG/ML CARTRIDGE IVPUSH (14:29)
[2020-10-01 14:30] LABS: MANUAL DIFF FLAG NO
[2020-10-01 14:34] LABS: Basophils Percent Auto 0.3 % (0-2); Eosinophils Absolute Auto 0.5 X10*3/uL (0.0-0.4); Eosinophils Percent Auto 3.3 % (0-4); Hemoglobin 13.7 g/dl (12.0-16.0); Imm Gran Abs Auto 0.07 X10*3/uL (0.00-0.03); Imm Gran Pct Auto 0.5 % (0.0-0.4); Lymphocytes Absolute Auto 2.2 X10*3/uL (1.2-4.9); Lymphocytes Percent Auto 16.2 % (20-40); Mean Corpuscular HGB Conc 33.4 g/dl (31.0-35.0); Mean Corpuscular Hemoglobin 31.5 pg (27.0-33.0); Mean Corpuscular Volume 94.3 fL (80-98); Mean Platelet Volume 9.3 fL (9.4-12.3); Monocytes Absolute Auto 1.1 X10*3/uL (0.1-1.2); Monocytes Percent Auto 8.3 % (2-11); Neutrophils Absolute Auto 9.9 X10*3/uL (2.0-8.3); Neutrophils Percent Auto 71.4 % (45-73); Platelet Count 385 X10*3/uL (160-400); Red Blood Count 4.35 X10*6/uL (4.20-5.50); White Blood Count 13.8 X10*3/uL (4.8-10.8)
[2020-10-01 15:03] LABS: Alanine Aminotransferase 16 U/L (0-31); Albumin Level 3.8 g/dL (3.5-5.0); Alkaline Phosphatase 66 U/L (39-117); Anion Gap 12 (12-20); Aspartate Amino Transferase 11 U/L (5-31); Bilirubin Total 0.4 mg/dL (0.0-1.0); Blood Urea Nitrogen 10 mg/dL (9-16); Calcium 8.7 mg/dL (8.4-10.2); Carbon Dioxide 27 mmol/L (22-29); Chloride 100 mmol/L (96-108); Creatinine Clr Calc Pharmacy 117.2; Estimated Glomerular Filt Rate > 60; Glucose Random 98 mg/dL (60-115); Lipase 14 U/L (8-78); Potassium 4.1 mmol/l (3.3-5.1); Sodium 135 mmol/L (135-145)
--- NOTE | 2020-10-01 15:09 | PC.NURSE ---
PT STS FEELING NO BETTER W PAIN MEDICATION
[2020-10-01] MEDS: methylPREDNISolone Sod Succ/PF 125 MG/2 ML VIAL 60 MG IVPUSH (15:53)
[2020-10-01] MEDS: HYDROmorphone HCl 1 MG/ML SYRINGE IVPUSH (15:53)
--- NOTE | 2020-10-01 17:20 | PC.NURSE ---
pt sts pain is tolerable, not worsening. plan for inpt admission. awaiting bed assignment
--- NOTE | 2020-10-01 17:36 | PM.IMHP ---
History of Present Illness Date of Service: 10/01/20 <CARLOS Oneal - Last Filed: 10/01/20 17:52> Chief Complaint: abdominal pain, diarrhea <CARLOS Oneal - Last Filed: 10/01/20 17:52> this is a 30-year-old female with history of Crohn's disease who presents to the emergency department with abdominal pain and diarrhea. She has been seen in the emergency department on September 10 in September 13 for the same. She has had 1 month of intermittent abdominal pain, diarrhea, bloody stools. Her pain is located in the periumbilical region. she has multiple episodes of diarrhea daily. She intermittently has dark blood mixed with her stool. She has had decreased p.o. intake. She denies any fever or chills. today her white count has increased to 13.8. Her CRP is trending up to 15.4. 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 she has been hesitant to use steroids to control her Crohn's disease. <CARLOS Oneal - Last Filed: 10/01/20 17:52> Review of Systems Review of Systems: Yes all other systems are reviewed and are negative <CARLOS Oneal - Last Filed: 10/01/20 17:52> Constitutional: Constitutional: Denies chills and Denies fever(s) <CARLOS Oneal - Last Filed: 10/01/20 17:52> Cardiovascular: Cardiovascular: Denies chest pain <CARLOS Oneal Last Filed: 10/01/20 17:52> Respiratory: Respiratory: Denies cough <CARLOS Oneal Last Filed: 10/01/20 17:52> Gastrointestinal: Gastrointestinal: Reports abdominal pain and Reports diarrhea <CARLOS Oneal Last Filed: 10/01/20 17:52> [facility] Medical History: Medical History Crohn's disease Multiple sclerosis <CARLOS Oneal Last Filed: 10/01/20 17:52> Functional capacity: independent ambulation <CARLOS Oneal - Last Filed: 10/01/20 17:52> Family History: Family History Maternal Grandmother Crohn's disease <CARLOS Oneal - Last Filed: 10/01/20 17:52> Surgical History: Surgical History History of tonsillectomy Previous section <CARLOS Oneal - Last Filed: 10/01/20 17:52> Social History: Social History Household Members: Children Housing: Apartment Do you presently have visiting nurse or other home services: No Alcohol intake: current Alcohol intake frequency: a few times a month Smoking Status: Current every day smoker Use of substances other than those prescribed or required for medical reasons: Yes Substance Use Type: Marijuana Substance Use Frequency: Daily Last Used Substance: Hours (ago) Currently Displaying Signs/Symptoms of Drug Intoxication Withdrawal: No Any prior treatment program specific to substance use: No Have you been hit, kicked, punched, or otherwise hurt by someone within the past year? If so, by whom?: No Do you feel safe in your current relationship?: No Current Relationship Is there a partner from a previous relationship who is making you feel unsafe now?: No Are you made to feel afraid or neglected: No Advance Directives: No Advance Directives Information Provided: No Advance Directives on File: No Do you have thoughts of harming others: None Do you have a plan to hurt others: No Plan Recently lost weight without trying: Yes service: No Current occupational status: unemployed <CARLOS Oneal - Last Filed: 10/01/20 17:52> Meds Allergies/Adverse reactions: Allergies Allergy/AdvReac Type Severity Reaction Status Date / Time No Known Allergies Allergy Unknown UNKNOWN Verified 09/10/20 03:47 <CARLOS Oneal - Last Filed: 10/01/20 17:52> Home medications: Home Medications Medication Instructions Recorded Confirmed Type St Marcial Wort 10/02/20 History mesalamine [Delzicol] 800 mg PO TID 10/02/20 10/02/20 History <CARLOS Oneal - Last Filed: 10/01/20 17:52> Physical Exam Vital Signs and Narrative: Vital Signs: Last Vital Signs Temp 98.0 F 10/01/20 14:01 Pulse 88 10/01/20 14:01 Resp 18 10/01/20 14:01 BP 128/83 10/01/20 14:01 Pulse Ox 97 10/01/20 14:01 Body Mass Index 42.9 <CARLOS Oneal - Last Filed: 10/01/20 17:52> Const: Nutritional Appearance: well nourished <CARLOS Oneal - Last Filed: 10/01/20 17:52> Orientation/consciousness: patient oriented x3 <CARLOS Oneal - Last Filed: 10/01/20 17:52> HENMT: Head: Yes normocephalic and Yes atraumatic <CARLOS Oneal - Last Filed: 10/01/20 17:52> Eyes: Sclerae: sclerae normal <CARLOS Oneal - Last Filed: 10/01/20 17:52> Chest: Chest palpation & inspection: normal inspection of the chest <CARLOS Oneal - Last Filed: 10/01/20 17:52> Resp: Effort & Inspection: normal respiratory effort and no respiratory distress <CARLOS Oneal - Last Filed: 10/01/20 17:52> Auscultation: clear to auscultation bilaterally <CARLOS Oneal - Last Filed: 10/01/20 17:52> Cardio: Rate: regular rate <CARLOS Oneal - Last Filed: 10/01/20 17:52> Rhythm: regular rhythm <CARLOS Oneal - Last Filed: 10/01/20 17:52> GI: Palpation (GI): Soft to palpation and Tenderness to palpation present (GI) in the LLQ and periumbilically <CARLOS Oneal - Last Filed: 10/01/20 17:52> Skin: General skin exam: no rashes or lesions noted <CARLOS Oneal - Last Filed: 10/01/20 17:52> Neuro: General: patient oriented x3 <CARLOS Oneal - Last Filed: 10/01/20 17:52> Cranial nerves: Yes CN's II-XII intact bilaterally and Yes Bilaterally intact EOM present <CARLOS Oneal - Last Filed: 10/01/20 17:52> Extrem: General: Yes normal to inspection <CARLOS Oneal - Last Filed: 10/01/20 17:52> Results Labs CBC and Chem 7: : 10/12/20 06:12 10/12/20 06:12 <CARLOS Oneal - Last Filed: 10/01/20 17:52> Labs: Laboratory Results - last 24 hr 10/01/20 10/01/20 10/01/20 14:19 14:19 14:19 MCV 94.3 MCH 31.5 MCHC 33.4 RDW 12.0 Plt Count 385 MPV 9.3 L Immature Gran % (Auto) 0.5 H Neut % (Auto) 71.4 Lymph % (Auto) 16.2 L [place] % (Auto) 8.3 Eos % (Auto) 3.3 Baso % (Auto) 0.3 Lymph # (Auto) 2.2 [place] # (Auto) 1.1 Eos # (Auto) 0.5 H Baso # (Auto) 0.0 Abs Immat Gran (auto) 0.07 H Absolute Neuts (auto) 9.9 H Absolute Nucleated RBC 0.000 Nucleated RBC % (auto) 0.0 Hold Blue Top SEE NOTE Anion Gap 12 Estim Creat Clear Calc 117.2 Estimated GFR > 60 Random Glucose 98 Calcium 8.7 D Total Bilirubin 0.4 AST 11 ALT 16 Alkaline Phosphatase 66 D C-Reactive Protein Total Protein 7.0 Albumin 3.8 Lipase 14 10/01/20 14:19 MCV MCH MCHC RDW Plt Count MPV Immature Gran % (Auto) Neut % (Auto) Lymph % (Auto) [place] % (Auto) Eos % (Auto) Baso % (Auto) Lymph # (Auto) [place] # (Auto) Eos # (Auto) Baso # (Auto) Abs Immat Gran (auto) Absolute Neuts (auto) Absolute Nucleated RBC Nucleated RBC % (auto) Hold Blue Top Anion Gap Estim Creat Clear Calc Estimated GFR Random Glucose Calcium Total Bilirubin AST ALT Alkaline Phosphatase C-Reactive Protein 15.40 H Total Protein Albumin Lipase <CARLOS Oneal - Last Filed: 10/01/20 17:52> Assessment and Plan (1) Crohn's disease: Qualifiers: Digestive disease complication type: with rectal bleeding Gastrointestinal tract location: small intestine Qualified Code(s): K50.011 - Crohn's disease of small intestine with rectal bleeding <CARLOS Oneal - Last Filed: 10/01/20 17:52> Status: Acute <CARLOS Oneal - Last Filed: 10/01/20 17:52> this is a 30-year-old female with a history of Crohn's disease and MS who presents to the emergency department for the 3rd time in 3 weeks with abdominal pain, diarrhea and bloody stool acute Crohn's flare - clear liquid diet, advance as tolerated -IV Solu-Cortef 100 mg q.8 hours - pain control - IV fluid -GI consultation to help direct further management MS Not currently on any medication DVT prophylaxis low risk- mechanical devices code status- full code this case was discussed with Dr. Morales <CARLOS Oneal - Last Filed: 10/01/20 17:52>
[2020-10-01] MEDS: Hydrocortisone Sod Succ/PF 100 MG VIAL IVPUSH (17:44)
[2020-10-01] MEDS: Lactated Ringers 1,000 ML 100 ML IVCONT (17:44)
--- NOTE | 2020-10-01 17:50 | PC.NURSE ---
hospitalist at bedside for eval. medicated per emar.
[2020-10-01 18:00] VITALS: BP 95/57; PULSE 96; RESP 16; O2SAT 97
--- NOTE | 2020-10-01 18:09 | PM.EVENT ---
Event Note Date of Service: 10/01/20 Event Note: Patient seen and examined. Case discussed with CARLOS Tapia. Agree with her history and physical. 30 yo F with Crohn's being admitted for flare. IV steriods IVF Diet as tolerated GI consult Remainder per H&P
[2020-10-01 19:21] VITALS: BP 135/77; PULSE 89; RESP 17; TEMP 37.4; O2SAT 97
[2020-10-01 19:29] VITALS: RESP 19
[2020-10-01] MEDS: Morphine Sulfate 2 MG/ML CARTRIDGE IVPUSH ×2 (19:29→23:56)
[2020-10-01 21:03] LABS: Appearance Urine HAZY; Color Urine YELLOW; Glucose Urine UA NEG (NEG); Leukocyte Esterase Urine NEG (NEG); Nitrite Urine NEG (NEG); PH 5.5 (5.0-8.0); Specific Gravity - Urine >= 1.030 (1.005-1.025); Urine Blood 2+ (NEG); Urine Ketones 15 MG/DL (NEG); Urine Protein TRACE MG/DL (NEG-TRACE)
[2020-10-01 21:05] LABS: UPreg QC Valid YES; Urine Pregnancy NEGATIVE (NEGATIVE)
[2020-10-01 21:10] LABS: Bacteria Urine 2+ /LPF; Mucus Urine 2+ /LPF; RBC Urine 0-2 /HPF (0); Squamous Epithelial Cell Urine 2+ /LPF; WBC Urine 0 /HPF (0-4)
[2020-10-01 21:26] LABS: COVID-19 Test Negative (Negative)
[2020-10-01 21:45] VITALS: BP 107/68; PULSE 83; RESP 20; TEMP 36.8; O2SAT 96
[2020-10-01 23:19] VITALS: BP 102/62; PULSE 100; RESP 19; TEMP 36.3; O2SAT 98
[2020-10-02] VITALS (8 sets, daily range): BP systolic 111–148; BP diastolic 70–88; PULSE 71–98; RESP 16–18; TEMP 36–36.7; O2SAT 95–99; BMI 42.9
--- NOTE | 2020-10-02 | XR_ITS ---
EXAMINATION: XR ABDOMEN KUB CLINICAL INDICATION: Crohn's flareup, not passing gas, rule out obstruction. COMPARISON: 09/13/2020 abdominal radiographs, the scan of the abdomen and pelvis dated 09/10/2020. TECHNIQUE: AP view of the abdomen. FINDINGS: There is been interval development of several mildly dilated gas-filled loops of small bowel. A phlebotomy services representative loop in the left midabdomen measures 3.8 cm. Gas and stool are seen within the colon distally to the rectum. The osseous structures are unremarkable. XR/XR KUB IMPRESSION: Interval development of several mildly dilated gas-filled loops of small bowel. Increased gas is seen within the colon, most pronounced in the transverse colon without significant dilatation. Mild mural thickening was seen at the level the colonic splenic flexure on the recent abdominal/pelvic CT scan. These findings could represent ileus however, developing bowel obstruction cannot be completely excluded. Short-term repeat supine/upright abdominal radiographs are recommended within 24 hours to assess for change.
--- NOTE | 2020-10-02 | CT_ITS ---
EXAMINATION: CT ABDOMEN AND PELVIS WITH CONTRAST CLINICAL INFORMATION: Crohn's flare. Abnormal KUB. COMPARISON: Previous KUB from earlier the same day and CT scan of the abdomen and pelvis most recent 09/10/2020 TECHNIQUE: Multidetector volumetric images were obtained from the superior aspect of the liver through the pubic symphysis following administration 85 mL of Omnipaque 350 intravenous contrast. Sagittal and coronal reformatted images were obtained on the technologist's workstation. Oral contrast: Yes This CT examination was performed using dose optimization techniques as appropriate, variously including the following: *Automated exposure control *Adjustment of mA and/or kV according to patient size (this includes techniques or standardized protocols for targeted exams where dose is matched to indication/reason for exam; i.e. extremities or head) *Use of iterative reconstruction technique DLP: 783 mGy-cm FINDINGS: LUNG BASES: The visualized lung bases are unremarkable. LIVER, GALLBLADDER, AND BILIARY TREE: The liver is normal in size, shape, and attenuation. No focal hepatic lesion or biliary ductal dilatation is present. The gallbladder is unremarkable with no evidence of radiopaque gallstones, gallbladder wall thickening, or obvious pericholecystic inflammatory changes. PANCREAS: Unremarkable. SPLEEN: Unremarkable. ADRENAL GLANDS: Unremarkable. KIDNEYS AND URETERS: The kidneys are normal in size, shape, and attenuation. No hydronephrosis, hydroureter, or calculi seen. No perinephric stranding. BLADDER: Unremarkable. GASTROINTESTINAL TRACT: There is increasing mild wall thickening of the left colon and stranding of the surrounding fat suggestive of worsening colitis. There is increasing dilatation of the transverse colon. There is prominent vasa recta adjacent to the colon and prominent pericolic lymph nodes. No evidence of obstruction, perforation or abscess is seen. The small bowel is unremarkable. The rectum is unremarkable. The appendix is unremarkable. The stomach is unremarkable. ABDOMINAL WALL: No significant hernia is appreciated. LYMPH NODES: Normal. VASCULAR: Unremarkable. PELVIC VISCERA: There is an IUD in the uterus in satisfactory position. There is a small amount of fluid in the pelvis. OSSEOUS STRUCTURES: Unremarkable. CT/CT abdomen pelvis w con IMPRESSION: Worsening colitis of the left colon with increased wall thickening and stranding of the surrounding fat and increasing dilatation of the transverse colon.
[2020-10-02] MEDS: Hydrocortisone Sod Succ/PF 100 MG VIAL IVPUSH ×3 (01:35→15:31)
[2020-10-02] MEDS: Lactated Ringers 1,000 ML 100 ML IVCONT ×3 (03:04→22:33)
[2020-10-02] MEDS: Morphine Sulfate 2 MG/ML CARTRIDGE IVPUSH (05:58)
[2020-10-02 06:10] LABS: MANUAL DIFF FLAG NO
[2020-10-02 06:17] LABS: Basophils Percent Auto 0.2 % (0-2); Hematocrit 37.8 % (37-47); Hemoglobin 12.6 g/dl (12.0-16.0); Imm Gran Abs Auto 0.06 X10*3/uL (0.00-0.03); Imm Gran Pct Auto 0.5 % (0.0-0.4); Lymphocytes Absolute Auto 1.3 X10*3/uL (1.2-4.9); Lymphocytes Percent Auto 11.8 % (20-40); Mean Corpuscular HGB Conc 33.3 g/dl (31.0-35.0); Mean Corpuscular Hemoglobin 31.3 pg (27.0-33.0); Mean Corpuscular Volume 93.8 fL (80-98); Mean Platelet Volume 9.2 fL (9.4-12.3); Monocytes Absolute Auto 0.4 X10*3/uL (0.1-1.2); Monocytes Percent Auto 3.4 % (2-11); Neutrophils Absolute Auto 9.5 X10*3/uL (2.0-8.3); Neutrophils Percent Auto 84.1 % (45-73); Platelet Count 370 X10*3/uL (160-400); Red Blood Count 4.03 X10*6/uL (4.20-5.50); Red Cell Distribution Width 11.8 % (11.0-16.0); White Blood Count 11.4 X10*3/uL (4.8-10.8)
[2020-10-02 06:46] LABS: Anion Gap 12 (12-20); Blood Urea Nitrogen 13 mg/dL (9-16); Calcium 8.4 mg/dL (8.4-10.2); Carbon Dioxide 25 mmol/L (22-29); Chloride 103 mmol/L (96-108); Creatinine Clr Calc Pharmacy 134.6; Estimated Glomerular Filt Rate > 60; Glucose Random 153 mg/dL (60-115); Potassium 4.6 mmol/l (3.3-5.1); Sodium 135 mmol/L (135-145)
--- NOTE | 2020-10-02 07:32 | PC.NURSE ---
In to see patient this morning. She states that the morphine she recieved helped but Dilaudid works better for her. Contacted Dr. Morales to see if we can get an order. She also mentioned she has frequent UTI's, alerted him to that as well. Call tristan in reach, will continue to monitor.
--- NOTE | 2020-10-02 09:34 | HO.PM.IMPN ---
Subjective Subjective Date of Service: 10/02/20 Interval History: Seen and examined this morning Reports severe left-sided abdominal pain. Denies any nausea or vomiting. For she has not moved her bowels since hospitalization. Denies passing flatus this morning. Requesting Dilaudid ROS General - no fevers or chills Cardiovascular - no chest pain Respiratory - no shortness of breath or cough Abdominal- abdominal pain, denies n/v/d Physical Exam Vital Signs: Vital Signs: Last Vital Signs Temp 96.8 F 10/02/20 07:11 Pulse 71 10/02/20 07:11 Resp 18 10/02/20 07:11 BP 121/88 10/02/20 07:11 Pulse Ox 97 10/02/20 07:11 Body Mass Index 42.9 General - no acute distress, appears comfortable Cardiovascular - regular rate and rhythm, S1-S2 Lungs - normal respiratory effort, clear to auscultation bilaterally, no wheezing Abdomen -left sided tenderness without rebound or guarding, not distended; hypoactive BS Extremities - no edema bilaterally Neuro - awake and alert, no focal deficits Objective Data Current Medications Generic Name Dose Route Start Last Admin Trade Name Freq PRN Reason Stop Dose Admin Acetaminophen 650 mg 10/01/20 21:40 Acetaminophen 325 Mg Tablet PO Q6H PRN Pain, Mild (Pain Scale 1-3) Docusate Sodium 100 mg 10/01/20 21:40 Docusate Sodium 100 Mg Capsule PO DAILY PRN Constipation Hydrocortisone Sodium Succinate 100 mg 10/01/20 17:20 10/02/20 01:35 Hydrocortisone Sod Succ/Pf 100 Mg Vial IVPUSH 100 mg Q8H JANE Administration Lactated Ringer's 1,000 mls @ 100 mls/hr 10/01/20 17:20 10/02/20 03:04 Lr IVCONT 100 mls/hr .Q10H JANE Administration Morphine Sulfate 4 mg 10/02/20 07:36 Morphine Sulfate 2 Mg/Ml Cartridge IVPUSH Q4H PRN Pain, Severe (Pain Scale 7-10) Ondansetron HCl 4 mg 10/01/20 21:40 Ondansetron Hcl 4 Mg/2 Ml Vial IVPUSH Q8H PRN Nausea and Vomiting Pharmacy Consult 1 each 10/01/20 15:31 Consult Rx Perform Med Rec MISCELLANE ONCE PRN Consult order Sodium Chloride 3 ml 10/02/20 00:00 10/02/20 07:22 0.9 % Sodium Chloride Flush 3 Ml Syringe IVFLUSH Not Given [facility]SHIFT [facility] Labs CBC & Chem 7: 10/02/20 05:55 10/02/20 05:55 Assessment and Plan (1) Crohn's disease: Status: Acute Assessment and Plan: This is a 30 yo F with a history of Crohn's disease who presents to the hospital with comlaints of abdominal pain and diarrhea. She is admitted for suspected Crohn's flare. 1. Suspected Crohn's flare IV steroids IVF pain control reports no diarrhea / flatus this AM; abdominal exam still remains largely unimpressive -- will start with KUB and if any concerns, will check CT scan clear liquids unclear her home meds for Crohn's -- med rec to be completed GI consult 2. ? history of MS -- per pt report doesnt appear to be on any home meds 3. Morbid Obesity needs to join a weight loss program as outpatient Full Code DVT pptx, low risk -- mechanical device + early ambulation
[2020-10-02] MEDS: Morphine Sulfate 2 MG/ML CARTRIDGE 4 MG IVPUSH ×4 (10:55→22:33)
[2020-10-02] MEDS: Acetaminophen 325 MG TABLET 650 MG PO ×2 (10:56→21:15)
--- NOTE | 2020-10-02 13:54 | MHC.CM.PN ---
Met with pt. Quite uncomfortable with Chron's flare-up. Willing to met with CM. Has been in ED 3 times in 3 weeks. Will be here through the weekend. D/C plan is home without services. Pt states she will arrange transportation home when discharged. No HCP. Explained and pt refused to complete HCP at this time. Will continue to follow for D/C needs.
[2020-10-02] MEDS: iohexoL 350 MG/ML 100 ML INFUS..BTL IV (14:23)
[2020-10-02] MEDS: Barium Sulfate Oral (Berry) 450 ML ORAL.SUSP 900 ML PO (14:24)
--- NOTE | 2020-10-02 17:17 | PM.EVENT ---
Event Note Date of Service: 10/02/20 Event Note: GI Consult-Full note dictated Hx via patient and EMR. Imp: Crohn's colitis with refractory symptoms of diarrhea and abdominal pain. Imaging studies show some dilatation of the SI and colon, but no sign of megacolon. Presently her abdominal exam has some left-sided tenderness but is nonacute. She appears well and is hungry. Rec: Continue IV steroids, Delzicol, and supportive care. Start full liquids. F/U labs and Abdominal xrays in AM. We did review that we'll look into starting one the biologic agents, such as Humira, as an outpatient. I will order a Hep B profile and TB test for that. I don't think she needs a colonoscopy at the present time. D/W patient in detail and she is comfortable with this plan. Thanks
[2020-10-02] MEDS: Mesalamine 400 MG CAP.DRTAB. 800 MG PO (19:31)
--- NOTE | 2020-10-02 20:34 | CONS_ITS ---
DATE OF SERVICE: 10/02/2020 REFERRING PHYSICIAN: Julien Morales MD REASON FOR CONSULTATION: Abdominal pain and Crohn's disease's. HISTORY OF PRESENT ILLNESS: The patient is a 30-year-old female, known to me with an underlying history of Crohn's colitis. This was diagnosed in 2014, at which time, she underwent a limited colonoscopy revealing very active Crohn's colitis with ulcerations up to 40 cm. There was colitis proximal to that as well, but the exam did not advance past 40 cm. The rectum was relatively spared. She was initially treated with some azathioprine and prednisone. Over the last few years, she had stopped her medication, but more recently has been using Delzicol. Over the past month or so, she has been having flare-ups of the colitis including abdominal pain, predominantly on the left side, and increasing diarrhea with occasional bleeding. She was seen in the ER several times and was admitted last evening. During this time, she has not had any nausea nor vomiting. Her appetite has actually been fairly good. She denies any melena. She has had no signs of jaundice, fevers, nor urinary complaints. She denies any ill contacts, antibiotic use, chronic use of NSAIDs, nor any travel. Since admission here, she has been started on IV steroids. She feels a little better and she is hungry. However, she is still having some abdominal pain mostly on the left side. She has had no nausea or vomiting. She has been afebrile. CURRENT MEDICATIONS: Her current medications include acetaminophen, hydrocortisone 100 mg IV q.8 hours, morphine p.r.n., Zofran p.r.n. PAST MEDICAL HISTORY: Multiple sclerosis. She describes that she is going to be starting Tysabri infusions. Crohn's disease as above. Status post and tonsillectomy. She denies any history of heart disease, diabetes, stroke, lung disease, nor kidney disease. SOCIAL HISTORY: She smokes marijuana. She does not use any alcohol. She lives by herself. FAMILY HISTORY: Notable for her grandmother with Crohn disease. REVIEW OF SYSTEMS: CONSTITUTIONAL: She has been feeling poorly at home in regard to her abdominal pain. SKIN: No rash. No pruritus. CARDIAC: No chest pain. PULMONARY: No coughing. No hemoptysis. GASTROINTESTINAL: As above. URINARY: No dysuria. No hematuria. PHYSICAL EXAMINATION: GENERAL: The patient is a pleasant, alert, comfortable-appearing female. SKIN: Warm and dry. Nonjaundiced. HEENT: Anicteric sclerae. Moist mucous membranes. CHEST: Clear. CARDIAC: Normal S1, S2. ABDOMEN: Soft. Normal bowel sounds and nondistended. She does have some left-sided tenderness, but there is no mass, rebound, or guarding. LABORATORY DATA: White blood cell count yesterday was 13.8 and today is 11.4. Hemoglobin 12.6. Platelets 370. Normal electrolytes. BUN 13, creatinine 0.7. Normal LFTs. Lipase 14. Her C-reactive protein was 15.4. She did have a CAT scan of the abdomen yesterday describing some wall thickening of the left colon with stranding of the surrounding fat consistent with colitis. There were some dilated areas of colon including the transverse colon. Small bowel appeared unremarkable. There is no intraabdominal fluid nor abscess. She did have a followup abdominal x-ray today that showed some dilated loops of small bowel as well as the transverse colon, but this was not felt to represent megacolon. There is no free air. IMPRESSION: The patient presents with recurrences and persistence of her active Crohn's colitis. Her abdominal exam is fairly benign, although her imaging studies do show some dilated areas of colon and small bowel, although not at the point of a megacolon. She does not appear toxic at all. At this point, I would recommend continue supportive care, IV steroids, and resumption of her outpatient Delzicol. I think she can start full liquids. I have ordered followup laboratories and abdominal x-ray for the morning. Given her clinical course with active Crohn's colitis that has been somewhat refractory to medication including Delzicol and courses of prednisone, I discussed with her the initiation of one of the biologic agents such as Humira as an outpatient. However, we'll have to make sure that doesn't conflict with her MS medication, Tsybari. I will order a hepatitis B profile and TB test in preparation for that. I do not think a colonoscopy is presently required. Hopefully, as things improve, we can advance her diet fairly rapidly and switch over to oral prednisone in preparation for discharge. This has been discussed with the patient in detail. She is comfortable with this plan. Thank you for the consultation. MD BRYSON Garza/JESUS / [id number] SUKH
[2020-10-03] VITALS (13 sets, daily range): BP systolic 101–158; BP diastolic 61–89; PULSE 20–87; RESP 16–76; TEMP 36.2–36.9; O2SAT 96–97
--- NOTE | 2020-10-03 | XR_ITS ---
EXAMINATION: XR ABDOMEN COMPLETE CLINICAL INDICATION: Abdominal pain. Crohn's colitis. COMPARISON: Previous CT of the abdomen and pelvis from yesterday TECHNIQUE: 2 views of the abdomen. FINDINGS: The proximal colon is dilated with air-fluid levels to the level of the splenic flexure. There is mild wall thickening of the left colon. There is a paucity of bowel gas seen in the distal colon. There is mild dilatation of the distal small bowel with air-fluid levels. There is excreted contrast in the bladder from previous CT scan. There is no evidence of free air. There is an IUD in the pelvis. Bony structures are unremarkable. XR/XR abdomen min 2V IMPRESSION: Dilated proximal large bowel with air-fluid levels and mild dilatation of the distal small bowel. Partial large bowel obstruction should be considered. This does not appear appreciably changed from yesterday's CT exam.
[2020-10-03] MEDS: HYDROmorphone HCl 0.5 MG/0.5 ML SYRINGE IVPUSH (00:36)
[2020-10-03] MEDS: Hydrocortisone Sod Succ/PF 100 MG VIAL IVPUSH ×3 (01:40→16:33)
[2020-10-03] MEDS: Morphine Sulfate 2 MG/ML CARTRIDGE 4 MG IVPUSH ×2 (03:55→08:02)
[2020-10-03] MEDS: Acetaminophen 325 MG TABLET 650 MG PO (03:55)
[2020-10-03] MEDS: Mesalamine 400 MG CAP.DRTAB. 800 MG PO ×3 (08:03→20:03)
[2020-10-03 08:42] LABS: MANUAL DIFF FLAG NO
[2020-10-03 08:57] LABS: Basophils Percent Auto 0.2 % (0-2); Eosinophils Percent Auto 0.1 % (0-4); Hematocrit 36.1 % (37-47); Hemoglobin 12.1 g/dl (12.0-16.0); Imm Gran Abs Auto 0.04 X10*3/uL (0.00-0.03); Imm Gran Pct Auto 0.5 % (0.0-0.4); Lymphocytes Absolute Auto 1.5 X10*3/uL (1.2-4.9); Lymphocytes Percent Auto 18.7 % (20-40); Mean Corpuscular HGB Conc 33.5 g/dl (31.0-35.0); Mean Corpuscular Hemoglobin 31.6 pg (27.0-33.0); Mean Corpuscular Volume 94.3 fL (80-98); Mean Platelet Volume 9.6 fL (9.4-12.3); Monocytes Absolute Auto 0.9 X10*3/uL (0.1-1.2); Monocytes Percent Auto 11.2 % (2-11); Neutrophils Absolute Auto 5.5 X10*3/uL (2.0-8.3); Neutrophils Percent Auto 69.3 % (45-73); Platelet Count 344 X10*3/uL (160-400); Red Blood Count 3.83 X10*6/uL (4.20-5.50); Red Cell Distribution Width 11.9 % (11.0-16.0)
[2020-10-03 09:29] LABS: Anion Gap 10 (12-20); Blood Urea Nitrogen 10 mg/dL (9-16); Calcium 7.9 mg/dL (8.4-10.2); Carbon Dioxide 29 mmol/L (22-29); Chloride 102 mmol/L (96-108); Creatinine Clr Calc Pharmacy 142.4; Estimated Glomerular Filt Rate > 60; Glucose Fasting 119 mg/dL (60-99); Potassium 3.9 mmol/l (3.3-5.1); Sodium 137 mmol/L (135-145)
[2020-10-03] MEDS: Lactated Ringers 1,000 ML 100 ML IVCONT ×2 (09:34→20:04)
--- NOTE | 2020-10-03 10:02 | HO.PM.IMPN ---
Subjective Subjective Date of Service: 10/03/20 Interval History: Seen and examined this AM reports she had a terrible night due to pain reports she moved her bowels over night denies any nausea or vomiting ROS General - no fevers or chills Cardiovascular - no chest pain Respiratory - no shortness of breath or cough Abdominal- + Physical Exam Vital Signs: Vital Signs: Last Vital Signs Temp 96.8 F 10/02/20 07:11 Pulse 71 10/02/20 07:11 Resp 18 10/02/20 07:11 BP 121/88 10/02/20 07:11 Pulse Ox 97 10/02/20 07:11 Body Mass Index 42.9 General - no acute distress, appears comfortable Cardiovascular - regular rate and rhythm, S1-S2 Lungs - normal respiratory effort, clear to auscultation bilaterally, no wheezing Abdomen -left sided tenderness without rebound or guarding, not distended; hypoactive BS Extremities - no edema bilaterally Neuro - awake and alert, no focal deficits Objective Data Current Medications Generic Name Dose Route Start Last Admin Trade Name Roelq PRN Reason Stop Dose Admin Acetaminophen 650 mg 10/01/20 21:40 10/03/20 03:55 Acetaminophen 325 Mg Tablet PO 650 mg Q6H PRN Administration Pain, Mild (Pain Scale 1-3) Docusate Sodium 100 mg 10/01/20 21:40 Docusate Sodium 100 Mg Capsule PO DAILY PRN Constipation Hydrocortisone Sodium Succinate 100 mg 10/01/20 17:20 10/03/20 08:04 Hydrocortisone Sod Succ/Pf 100 Mg Vial IVPUSH 100 mg Q8H JANE Administration Hydromorphone HCl 1 mg 10/03/20 09:55 Hydromorphone Hcl 1 Mg/Ml Syringe IVPUSH Q4H PRN Pain, Severe (Pain Scale 7-10) Lactated Ringer's 1,000 mls @ 100 mls/hr 10/01/20 17:20 10/03/20 09:34 Lr IVCONT 100 mls/hr .Q10H JANE Administration Mesalamine 800 mg 10/02/20 21:00 10/03/20 08:03 Mesalamine 400 Mg Cap.Drtab. PO 800 mg TID JANE Administration Ondansetron HCl 4 mg 10/01/20 21:40 Ondansetron Hcl 4 Mg/2 Ml Vial IVPUSH Q8H PRN Nausea and Vomiting Pharmacy Consult 1 each 10/01/20 15:31 Consult Rx Perform Med Rec MISCELLANE ONCE PRN Consult order Pharmacy Consult 1 each 10/02/20 09:37 Consult Rx Perform Med Rec MISCELLANE ONCE PRN Consult order Sodium Chloride 3 ml 10/02/20 00:00 10/03/20 07:26 0.9 % Sodium Chloride Flush 3 Ml Syringe IVFLUSH Not Given QSHIFT [facility] Labs CBC & Chem 7: 10/03/20 08:01 10/03/20 08:01 Assessment and Plan (1) Crohn's disease: Status: Acute Assessment and Plan: This is a 30 yo F with a history of Crohn's disease who presents to the hospital with comlaints of abdominal pain and diarrhea. She is admitted for suspected Crohn's flare. 1. Crohn's flare IV steroids IVF pain control - morphine not working, will change to dilaudid GI input appreciated, to f/u today repeat AXR unchanged 2. ? history of MS -- per pt report doesnt appear to be on any home meds 3. Morbid Obesity needs to join a weight loss program as outpatient Full Code DVT pptx, low risk -- mechanical device + early ambulation
[2020-10-03] MEDS: HYDROmorphone HCl 1 MG/ML SYRINGE IVPUSH ×4 (10:21→22:31)
[2020-10-04] VITALS (9 sets, daily range): BP systolic 109–164; BP diastolic 67–96; PULSE 70–98; RESP 16–22; TEMP 36.2–36.8; O2SAT 96–98
[2020-10-04] MEDS: HYDROmorphone HCl 1 MG/ML SYRINGE IVPUSH ×6 (02:11→22:43)
[2020-10-04] MEDS: Acetaminophen 325 MG TABLET 650 MG PO ×2 (02:12→23:51)
[2020-10-04] MEDS: Hydrocortisone Sod Succ/PF 100 MG VIAL IVPUSH ×3 (02:12→16:30)
[2020-10-04] MEDS: Lactated Ringers 1,000 ML 100 ML IVCONT ×2 (07:15→16:31)
[2020-10-04] MEDS: Mesalamine 400 MG CAP.DRTAB. 800 MG PO ×3 (08:25→21:16)
--- NOTE | 2020-10-04 12:03 | HO.PM.IMPN ---
Subjective Subjective Date of Service: 10/04/20 Interval History: seen and examined reports not feelign well still pain having diarrhea now again General - no fevers or chills Cardiovascular - no chest pain Respiratory - no shortness of breath or cough Abdominal- +abdominal, no n/v; +diarrhea Physical Exam Vital Signs: Vital Signs: Last Vital Signs Temp 98.1 F 10/03/20 23:09 Pulse 70 10/04/20 06:47 Resp 18 10/04/20 10:30 BP 149/80 H 10/04/20 06:47 Pulse Ox 96 10/03/20 23:09 Body Mass Index 42.9 General - no acute distress, appears comfortable Cardiovascular - regular rate and rhythm, S1-S2 Lungs - normal respiratory effort, clear to auscultation bilaterally, no wheezing Abdomen - remains with tenderness, no rebound or guarding Extremities - no edema bilaterally Neuro - awake and alert, no focal deficits Objective Data Current Medications Generic Name Dose Route Start Last Admin Trade Name Freq PRN Reason Stop Dose Admin Acetaminophen 650 mg 10/01/20 21:40 10/04/20 02:12 Acetaminophen 325 Mg Tablet PO 650 mg Q6H PRN Administration Pain, Mild (Pain Scale 1-3) Docusate Sodium 100 mg 10/01/20 21:40 Docusate Sodium 100 Mg Capsule PO DAILY PRN Constipation Hydrocortisone Sodium Succinate 100 mg 10/01/20 17:20 10/04/20 08:25 Hydrocortisone Sod Succ/Pf 100 Mg Vial IVPUSH 100 mg Q8H JANE Administration Hydromorphone HCl 1 mg 10/03/20 09:55 10/04/20 10:30 Hydromorphone Hcl 1 Mg/Ml Syringe IVPUSH 1 mg Q4H PRN Administration Pain, Severe (Pain Scale 7-10) Lactated Ringer's 1,000 mls @ 100 mls/hr 10/01/20 17:20 10/04/20 07:15 Lr IVCONT 100 mls/hr .Q10H JANE Administration Mesalamine 800 mg 10/02/20 21:00 10/04/20 08:25 Mesalamine 400 Mg Cap.Drtab. PO 800 mg TID JANE Administration Ondansetron HCl 4 mg 10/01/20 21:40 Ondansetron Hcl 4 Mg/2 Ml Vial IVPUSH Q8H PRN Nausea and Vomiting Pharmacy Consult 1 each 10/01/20 15:31 Consult Rx Perform Med Rec MISCELLANE ONCE PRN Consult order Pharmacy Consult 1 each 10/02/20 09:37 Consult Rx Perform Med Rec MISCELLANE ONCE PRN Consult order Sodium Chloride 3 ml 10/02/20 00:00 10/04/20 07:15 0.9 % Sodium Chloride Flush 3 Ml Syringe IVFLUSH Not Given QSHIFT [facility] Labs CBC & Chem 7: 10/03/20 08:01 10/03/20 08:01 Assessment and Plan (1) Crohn's disease: Status: Acute Assessment and Plan: This is a 30 yo F with a history of Crohn's disease who presents to the hospital with comlaints of abdominal pain and diarrhea. She is admitted for suspected Crohn's flare. 1. Crohn's flare No significant improvement yet IV steroids, mesalamine, IVF repeat labs, monitor lytes check stool studies, particulary c. diff GI on board 2. History of MS -- per pt report doesn't appear to be on any home meds 3. Morbid Obesity needs to join a weight loss program as outpatient 4. Intractable pain controlled with IV pain meds Full Code DVT pptx, low risk -- mechanical device + early ambulation
[2020-10-04 12:55] LABS: Hematocrit 37.3 % (37-47); Hemoglobin 12.5 g/dl (12.0-16.0); Mean Corpuscular HGB Conc 33.5 g/dl (31.0-35.0); Mean Corpuscular Hemoglobin 31.5 pg (27.0-33.0); Mean Platelet Volume 9.1 fL (9.4-12.3); Platelet Count 349 X10*3/uL (160-400); Red Blood Count 3.97 X10*6/uL (4.20-5.50); Red Cell Distribution Width 11.8 % (11.0-16.0); White Blood Count 7.5 X10*3/uL (4.8-10.8)
[2020-10-04 13:30] LABS: Anion Gap 13 (12-20); Blood Urea Nitrogen 11 mg/dL (9-16); Carbon Dioxide 28 mmol/L (22-29); Chloride 100 mmol/L (96-108); Creatinine Clr Calc Pharmacy 148.8; Estimated Glomerular Filt Rate > 60; Glucose Random 118 mg/dL (60-115); Potassium 3.7 mmol/l (3.3-5.1); Sodium 137 mmol/L (135-145)
--- NOTE | 2020-10-04 15:35 | P.PNGI_ITS ---
Subjective Subjective Date of Service: 10/04/20 Interval History: Patient still c/o left-sided abdominal pain. Had one episode of watery brown stool with some blood yesterday and today. Denies N/V. Physical Exam Vital Signs: Vital Signs: Last Vital Signs Temp 98.1 F 10/03/20 23:09 Pulse 70 10/04/20 06:47 Resp 18 10/04/20 14:28 BP 149/80 H 10/04/20 06:47 Pulse Ox 96 10/03/20 23:09 Body Mass Index 42.9 GI: Inspection: Yes normal to inspection Palpation (GI): Tenderness to palpation present (GI) (Left-sided abdominal tenderness, no mass, no rebound, no guarding) Percussion: Yes normal to percussion Auscultation: normal bowel sounds Skin: Lesions: other (Nonjaundice, warm/dry) Objective Data Labs CBC & Chem 7: 10/04/20 12:36 10/04/20 12:36 Labs: Laboratory Results - last 24 hr 10/04/20 10/04/20 12:36 12:36 WBC 7.5 RBC 3.97 L Hgb 12.5 Hct 37.3 MCV 94.0 MCH 31.5 MCHC 33.5 RDW 11.8 Plt Count 349 MPV 9.1 L Absolute Nucleated RBC 0.000 Nucleated RBC % (auto) 0.0 Sodium 137 Potassium 3.7 Chloride 100 Carbon Dioxide 28 Anion Gap 13 BUN 11 Creatinine 0.67 Estim Creat Clear Calc 148.8 Estimated GFR > 60 Random Glucose 118 H Calcium 8.0 L Progress Note: A&P Assessment and plan (1) Crohn's disease: Problem details: Improving slightly with IV steroids and mesalamine. Continue current treatment, check stools including Cdiff, and F/U labs. Status: Acute (2) Abdominal pain: Problem details: Her abdominal exam is benign despite her abdominal pain. Will repeat abdominal xray in AM. I don't think she needs a repeat CT at this time. Status: Acute Fall Risk Details Current Medications: Current Medications Generic Name Dose Route Start Last Admin Trade Name Freq PRN Reason Stop Dose Admin Acetaminophen 650 mg 10/01/20 21:40 10/04/20 02:12 Acetaminophen 325 Mg Tablet PO 650 mg Q6H PRN Administration Pain, Mild (Pain Scale 1-3) Docusate Sodium 100 mg 11/19/20 21:40 Docusate Sodium 100 Mg Capsule PO DAILY PRN Constipation Hydrocortisone Sodium Succinate 100 mg 10/01/20 17:20 10/04/20 08:25 Hydrocortisone Sod Succ/Pf 100 Mg Vial IVPUSH 100 mg Q8H JANE Administration Hydromorphone HCl 1 mg 10/03/20 09:55 10/04/20 14:28 Hydromorphone Hcl 1 Mg/Ml Syringe IVPUSH 1 mg Q4H PRN Administration Pain, Severe (Pain Scale 7-10) Lactated Ringer's 1,000 mls @ 100 mls/hr 10/01/20 17:20 10/04/20 14:21 Lr IVCONT Not Given .Q10H JANE Mesalamine 800 mg 10/02/20 21:00 10/04/20 14:28 Mesalamine 400 Mg Cap.Drtab. PO 800 mg TID JANE Administration Ondansetron HCl 4 mg 10/01/20 21:40 Ondansetron Hcl 4 Mg/2 Ml Vial IVPUSH Q8H PRN Nausea and Vomiting Pharmacy Consult 1 each 10/01/20 15:31 Consult Rx Perform Med Rec MISCELLANE ONCE PRN Consult order Pharmacy Consult 1 each 10/02/20 09:37 Consult Rx Perform Med Rec MISCELLANE ONCE PRN Consult order Sodium Chloride 3 ml 10/02/20 00:00 10/04/20 15:19 0.9 % Sodium Chloride Flush 3 Ml Syringe IVFLUSH Not Given QSHIFT [facility] Time Spent With Patient Time: Total time spent is greater than 50% in coordination of care (as documented) at patient's floor/unit and/or counseling patient: Time with patient: 15 - 24 minutes Procedures Abscess I/D Date of Service: 10/04/20
[2020-10-05 01:02] LABS: Leukocytes Stool Qualitative MANY: >10/OIF (NEGATIVE)
[2020-10-05 01:18] LABS: CDIFF Ag Negative (Negative)
[2020-10-05 01:19] LABS: CDIFF Internal ctrl Dots and bkg OK (V); CDiff Toxin Negative (Negative)
[2020-10-05] MEDS: Hydrocortisone Sod Succ/PF 100 MG VIAL IVPUSH ×3 (01:26→18:23)
[2020-10-05 03:24] VITALS: BP 132/79; PULSE 75; RESP 18; TEMP 37.2; O2SAT 97
[2020-10-05] MEDS: HYDROmorphone HCl 1 MG/ML SYRINGE IVPUSH ×2 (03:34→07:23)
[2020-10-05 06:51] VITALS: BP 141/70; PULSE 80; RESP 18; TEMP 36.2; O2SAT 97
[2020-10-05 06:53] LABS: Hematocrit 35.6 % (37-47); Hemoglobin 11.8 g/dl (12.0-16.0); Mean Corpuscular HGB Conc 33.1 g/dl (31.0-35.0); Mean Corpuscular Hemoglobin 31.1 pg (27.0-33.0); Mean Corpuscular Volume 93.9 fL (80-98); Mean Platelet Volume 9.2 fL (9.4-12.3); Platelet Count 322 X10*3/uL (160-400); Red Blood Count 3.79 X10*6/uL (4.20-5.50); Red Cell Distribution Width 11.8 % (11.0-16.0); White Blood Count 7.4 X10*3/uL (4.8-10.8)
--- NOTE | 2020-10-05 07:00 | XR_ITS ---
EXAMINATION: XR ABDOMEN WITH DECUBITUS VIEWS CLINICAL INDICATION: Crohn's colitis. Abdominal pain. COMPARISON: Previous abdominal x-ray from yesterday. TECHNIQUE: Supine and upright views of the abdomen and pelvis. FINDINGS: There are dilated loops of large bowel and air-fluid levels to the level of the splenic flexure. The colon is slightly more dilated than seen on prior exams, transverse colon measuring 9 cm compared to 7 cm on previous exam. There is a paucity of bowel gas seen in the distal colon. Appearance is worrisome for large bowel obstruction. There are dilated loops of distal small bowel with air-fluid levels, as well. There is no evidence of free air. No calcifications are seen. Bony structures are unremarkable. XR/XR abdomen w decubitus IMPRESSION: Increasing distal small and large bowel dilatation and air-fluid levels to the level of the splenic flexure. Appearance is concerning for large bowel obstruction.
[2020-10-05 07:22] LABS: Anion Gap 13 (12-20); Blood Urea Nitrogen 10 mg/dL (9-16); Calcium 7.8 mg/dL (8.4-10.2); Carbon Dioxide 27 mmol/L (22-29); Chloride 98 mmol/L (96-108); Creatinine Clr Calc Pharmacy 144.4; Estimated Glomerular Filt Rate > 60; Glucose Random 115 mg/dL (60-115); Potassium 3.4 mmol/l (3.3-5.1); Sodium 135 mmol/L (135-145)
[2020-10-05] MEDS: Mesalamine 400 MG CAP.DRTAB. 800 MG PO ×3 (07:23→20:20)
[2020-10-05] MEDS: 0.9 % Sodium Chloride Flush 3 ML SYRINGE IVFLUSH ×3 (07:23→20:24)
[2020-10-05 08:05] LABS: HBsAGNum1 0.19 S/CO (0.00-0.99); Hepatitis B Surface Antigen Negative (Negative)
[2020-10-05 08:32] LABS: HBS Num1 7.26 mIU/mL (0-7.99); ~Hepatitis B Surface Antibody NONREACTIVE (Nonreactive)
--- NOTE | 2020-10-05 09:53 | HO.PM.IMPN ---
Subjective Subjective Date of Service: 10/05/20 Interval History: seen and examined b/l LE quad pain this AM, dilaudid not working reports she is not taking anything by mouth out of fear loose BM x 1 this AM General - no fevers or chills Cardiovascular - no chest pain Respiratory - no shortness of breath or cough Abdominal- +abdominal pain Physical Exam Vital Signs: Vital Signs: Last Vital Signs Temp 97.1 F 10/05/20 06:51 Pulse 80 10/05/20 06:51 Resp 18 10/05/20 06:51 BP 141/70 H 10/05/20 06:51 Pulse Ox 97 10/05/20 06:51 Body Mass Index 42.9 General - no acute distress, appears comfortable Cardiovascular - regular rate and rhythm, S1-S2 Lungs - normal respiratory effort, clear to auscultation bilaterally, no wheezing Abdomen - bilateral lower abd tenerness without rebound or guarding, soft Extremities - no edema bilaterally Neuro - awake and alert, no focal deficits Objective Data Current Medications Generic Name Dose Route Start Last Admin Trade Name Roelq PRN Reason Stop Dose Admin Acetaminophen 650 mg 10/01/20 21:40 10/04/20 23:51 Acetaminophen 325 Mg Tablet PO 650 mg Q6H PRN Administration Pain, Mild (Pain Scale 1-3) Docusate Sodium 100 mg 10/01/20 21:40 Docusate Sodium 100 Mg Capsule PO DAILY PRN Constipation Hydrocortisone Sodium Succinate 100 mg 10/01/20 17:20 10/05/20 07:23 Hydrocortisone Sod Succ/Pf 100 Mg Vial IVPUSH 100 mg Q8H JANE Administration Hydromorphone HCl 1.5 mg 10/05/20 09:52 Hydromorphone Hcl 1 Mg/Ml Syringe IVPUSH Q4H PRN Pain, Severe (Pain Scale 7-10) Mesalamine 800 mg 10/02/20 21:00 10/05/20 07:23 Mesalamine 400 Mg Cap.Drtab. PO 800 mg TID JANE Administration Ondansetron HCl 4 mg 10/01/20 21:40 Ondansetron Hcl 4 Mg/2 Ml Vial IVPUSH Q8H PRN Nausea and Vomiting Pharmacy Consult 1 each 10/01/20 15:31 Consult Rx Perform Med Rec MISCELLANE ONCE PRN Consult order Pharmacy Consult 1 each 10/02/20 09:37 Consult Rx Perform Med Rec MISCELLANE ONCE PRN Consult order Sodium Chloride 3 ml 10/02/20 00:00 10/05/20 07:23 0.9 % Sodium Chloride Flush 3 Ml Syringe IVFLUSH 3 ml QSHIFT JANE Administration Labs CBC & Chem 7: 10/05/20 06:12 10/05/20 06:12 Microbiology Microbiology Results: Microbiology 10/04/20 23:30 Stool Stool Culture - Preliminary Assessment and Plan (1) Crohn's disease: Problem details: Improving slightly with IV steroids and mesalamine. Continue current treatment, check stools including Cdiff, and F/U labs. Status: Acute Assessment and Plan: This is a 30 yo F with a history of Crohn's disease who presents to the hospital with comlaints of abdominal pain and diarrhea. She is admitted for suspected Crohn's flare. 1. Crohn's flare still with pain, but exam benign IV steroids, mesalamine, IVF monitor lytes and replete as neede c. eiff negative f/u repeat KUB GI on board 2. History of MS -- per pt report doesn't appear to be on any home meds 3. Morbid Obesity needs to join a weight loss program as outpatient 4. Intractable pain controlled with IV pain meds Full Code DVT pptx, low risk -- mechanical device + early ambulation +
[2020-10-05 10:53] VITALS: BP 158/87; PULSE 82; RESP 18; TEMP 36.4; O2SAT 95
[2020-10-05] MEDS: HYDROmorphone HCl 2 MG/ML VIAL 1.5 MG IVPUSH ×4 (11:02→23:34)
--- NOTE | 2020-10-05 12:04 | MHC.CM.PN ---
Met with pt. Abdominal pain continues. Feels no better. Expect eventual D/C home without services. Per MD rounds, pt not improving. GI following. Will need several more days.
[2020-10-05] MEDS: Acetaminophen 325 MG TABLET 650 MG PO (15:07)
[2020-10-05 15:38] VITALS: BP 153/85; PULSE 82; RESP 17; TEMP 37.1; O2SAT 98
--- NOTE | 2020-10-05 17:13 | PM.GIPN ---
Subjective Subjective Date of Service: 10/05/20 Interval History: Patient still with abdominal pain, particularly in the left and periumbilical abdominal areas. Denies N/V. She describes passing flatus and watery BM's. She is receiving pain meds and has not really been getting out of bed very much. Physical Exam Vital Signs: Vital Signs: Last Vital Signs Temp 98.8 F 10/05/20 15:38 Pulse 82 10/05/20 15:38 Resp 17 10/05/20 15:38 BP 153/85 H 10/05/20 15:38 Pulse Ox 98 10/05/20 15:38 Body Mass Index 42.9 Const: General: cooperative, comfortable, no acute distress and alert Eyes: Sclerae: sclerae normal GI: Inspection: Yes normal to inspection Palpation (GI): Soft to palpation and Tenderness to palpation present (GI) (No mass, no reboung, no guarding) in the LLQ, in the LUQ and periumbilically Percussion: Yes tympanic to percussion Auscultation: Hypoactive bowel sounds present Objective Data Labs CBC & Chem 7: 10/05/20 06:12 10/05/20 06:12 Labs: Laboratory Results - last 24 hr 10/04/20 10/04/20 10/04/20 06:49 23:30 23:30 WBC RBC Hgb Hct MCV MCH MCHC RDW Plt Count MPV Absolute Nucleated RBC Nucleated RBC % (auto) Sodium Potassium Chloride Carbon Dioxide Anion Gap BUN Creatinine Estim Creat Clear Calc Estimated GFR Random Glucose Calcium Stool Leukocytes, Qual MANY: >10/OIF C. difficile Toxin A&B Negative C. difficile Antigen Negative C. difficile Interpret SEE NOTE Hep Bs Antigen Negative Hep Bs Antibody NONREACTIVE 10/05/20 10/05/20 06:12 06:12 WBC 7.4 RBC 3.79 L Hgb 11.8 L Hct 35.6 L MCV 93.9 MCH 31.1 MCHC 33.1 RDW 11.8 Plt Count 322 MPV 9.2 L Absolute Nucleated RBC 0.000 Nucleated RBC % (auto) 0.0 Sodium 135 Potassium 3.4 Chloride 98 Carbon Dioxide 27 Anion Gap 13 BUN 10 Creatinine 0.69 Estim Creat Clear Calc 144.4 Estimated GFR > 60 Random Glucose 115 Calcium 7.8 L Stool Leukocytes, Qual C. difficile Toxin A&B C. difficile Antigen C. difficile Interpret Hep Bs Antigen Hep Bs Antibody Microbiology Microbiology Results: Microbiology 10/04/20 23:30 Stool Stool Culture - Preliminary Progress Note: A&P Assessment and plan (1) Crohn's disease: Start date: 10/05/20 Problem details: She is still having significant abdominal discomfort and the abdominal xray today appears more worrisome with a more dilated proximal colon and SI. Her abdominal exam is otherwise benign and she does not describe obstructive symptoms. At this point I don't think she requires a NG tube for decompression. Continue IV steroids, F/U abdominal xrays, surgery consult, and F/U labs in AM. If things worsen we did review the potential need for a NG tube and/or repeat CT scan. I also advised the patient to ambulate in hallway with a mask and minimize use of pain meds to avoid any component of an ileus. D/W patient's RN. D/W patient in detail. Status: Acute Fall Risk Details Current Medications: Current Medications Generic Name Dose Route Start Last Admin Trade Name Roelq PRN Reason Stop Dose Admin Acetaminophen 650 mg 10/01/20 21:40 10/05/20 15:07 Acetaminophen 325 Mg Tablet PO 650 mg Q6H PRN Administration Pain, Mild (Pain Scale 1-3) Docusate Sodium 100 mg 10/01/20 21:40 Docusate Sodium 100 Mg Capsule PO DAILY PRN Constipation Hydrocortisone Sodium Succinate 100 mg 10/01/20 17:20 10/05/20 07:23 Hydrocortisone Sod Succ/Pf 100 Mg Vial IVPUSH 100 mg Q8H JANE Administration Hydromorphone HCl 1.5 mg 10/05/20 09:58 10/05/20 15:08 Hydromorphone Hcl 2 Mg/Ml Vial IVPUSH 1.5 mg Q4H PRN Administration Pain, Severe (Pain Scale 7-10) Mesalamine 800 mg 10/02/20 21:00 10/05/20 15:07 Mesalamine 400 Mg Cap.Drtab. PO 800 mg TID JANE Administration Ondansetron HCl 4 mg 10/01/20 21:40 Ondansetron Hcl 4 Mg/2 Ml Vial IVPUSH Q8H PRN Nausea and Vomiting Pharmacy Consult 1 each 10/01/20 15:31 Consult Rx Perform Med Rec MISCELLANE ONCE PRN Consult order Pharmacy Consult 1 each 10/02/20 09:37 Consult Rx Perform Med Rec MISCELLANE ONCE PRN Consult order Sodium Chloride 3 ml 10/02/20 00:00 10/05/20 15:09 0.9 % Sodium Chloride Flush 3 Ml Syringe IVFLUSH 3 ml QSHIFT JANE Administration Time Spent With Patient Time: Total time spent is greater than 50% in coordination of care (as documented) at patient's floor/unit and/or counseling patient: Time with patient: 15 - 24 minutes No Severe Sepsis: No Severe Sepsis Procedures Abscess I/D Date of Service: 10/05/20
[2020-10-05 20:00] VITALS: BP 157/81; PULSE 76; RESP 18; TEMP 37.2; O2SAT 96
[2020-10-05 23:58] VITALS: BP 156/81; PULSE 77; RESP 18; TEMP 36.6; O2SAT 95
[2020-10-06] VITALS (7 sets, daily range): BP systolic 119–166; BP diastolic 73–99; PULSE 67–86; RESP 17–19; TEMP 36.1–36.7; O2SAT 91–98
--- NOTE | 2020-10-06 | XR_ITS ---
EXAMINATION: XR ABDOMEN WITH DECUBITUS VIEWS CLINICAL INDICATION: Crohn's disease. Follow-up nondilated small and large bowel COMPARISON: Previous KUB most recent from yesterday TECHNIQUE: Supine and lateral decubitus views of the abdomen and pelvis FINDINGS: There are dilated loops of large bowel with air-fluid levels. The transverse colon measures 9.4 cm in diameter not appreciably changed from yesterday's exam. There are dilated loops of small bowel with air-fluid levels also unchanged. There is question of increased wall thickening or colitis of the left colon. There is no evidence of free air. There is oral contrast seen in the proximal right colon that is unchanged. No calcifications are seen. There is an IUD in the uterus. Bony structures are unremarkable. XR/XR abdomen w decubitus IMPRESSION: No appreciable change in distal small and large bowel dilatation and air-fluid levels from yesterday's exam. There may be increased wall thickening/colitis of the left colon. No free air.
[2020-10-06] MEDS: Hydrocortisone Sod Succ/PF 100 MG VIAL IVPUSH ×3 (01:53→17:21)
[2020-10-06] MEDS: HYDROmorphone HCl 2 MG/ML VIAL 1.5 MG IVPUSH ×5 (04:03→20:53)
[2020-10-06 07:09] LABS: Hematocrit 35.9 % (37-47); Mean Corpuscular HGB Conc 33.4 g/dl (31.0-35.0); Mean Corpuscular Volume 92.8 fL (80-98); Mean Platelet Volume 9.1 fL (9.4-12.3); Platelet Count 317 X10*3/uL (160-400); Red Blood Count 3.87 X10*6/uL (4.20-5.50); Red Cell Distribution Width 11.8 % (11.0-16.0); White Blood Count 8.1 X10*3/uL (4.8-10.8)
[2020-10-06] MEDS: Mesalamine 400 MG CAP.DRTAB. 800 MG PO ×3 (07:38→20:53)
[2020-10-06] MEDS: 0.9 % Sodium Chloride Flush 3 ML SYRINGE IVFLUSH ×3 (07:42→20:54)
[2020-10-06 07:44] LABS: Alanine Aminotransferase 8 U/L (0-31); Albumin Level 2.8 g/dL (3.5-5.0); Alkaline Phosphatase 49 U/L (39-117); Amylase 18 U/L (28-100); Anion Gap 14 (12-20); Aspartate Amino Transferase 9 U/L (5-31); Bilirubin Direct 0.2 mg/dL (0.0-0.5); Bilirubin Total 0.3 mg/dL (0.0-1.0); Blood Urea Nitrogen 9 mg/dL (9-16); C Reactive Protein 22.95 mg/dL (< or = 0.50); Calcium 7.6 mg/dL (8.4-10.2); Carbon Dioxide 28 mmol/L (22-29); Chloride 98 mmol/L (96-108); Creatinine Clr Calc Pharmacy 146.5; Estimated Glomerular Filt Rate > 60; Glucose Fasting 114 mg/dL (60-99); Potassium 3.5 mmol/l (3.3-5.1); Sodium 136 mmol/L (135-145); Total Protein 5.3 g/dL (6.5-8.0)
--- NOTE | 2020-10-06 08:02 | P.CONGS_ITS ---
History of Present Illness Consult details Consult date: 10/06/20 Narrative: Marianna Buckley is a 30-year-old female patient with a long history of Crohn's colitis 1st diagnosed in 2014 presenting with complaints of abdominal pain in the left lower quadrant with symptoms extending to the right upper quadrant. She made several visits to the emergency department and was recently admitted to the hospitalist service for further management of a Crohn's flare. Previous colonoscopies performed by Dr. Vergara revealed a colitis in the left colon with sparing of the rectum. She is being treated for a Crohn's flare with a steroid taper and does feel somewhat improved this morning. Pain is mainly in the left abdomen. She does report moving her bowels this morning but reports this was mostly liquid and blood. She denies Nausea, vomiting, fever or chills. CT of the abdomen and pelvis was reviewed and reveals thickening of the left colon with dilated small bowel. She wishes to avoid a nasogastric tube if at all possible. She denies a previous history of abdominal surgeries. Review of Systems Constitutional: Constitutional: Denies chills, Denies fever(s), Denies headache(s) and Denies poor appetite ENT: Denies dizziness and Denies headache(s) Cardiovascular: Cardiovascular: Denies chest pain, Denies rapid heart rate, Denies palpitations and Denies slow heart rate Respiratory: Respiratory: Denies chest congestion, Denies cough, Denies pain on inspiration and Denies wheezing Gastrointestinal: Gastrointestinal: Reports abdominal pain, Reports bloating, Reports change in stool character ( blood, mucus), Reports constipation, Reports diarrhea, Denies nausea, Denies vomiting and Denies hematemesis Musculoskeletal: Musculoskeletal: Denies back pain, Denies arthralgias, Denies joint swelling and Denies numbness Integumentary/Breasts: Skin/Breast: Denies change in pigmentation, Denies erythema and Denies rash Neurologic: Denies confusion, Denies dizziness, Denies headache(s) and Denies numbness Psychiatric: Psychiatric: Denies anxiety, Denies confusion and Denies depression Endocrine: Endocrine: Denies palpitations Hematologic/Lymphatic: Hematologic/Lymphatic: Denies easy bleeding, Denies easy bruising and Denies lymphadenopathy Allergic/Immunologic: Allergic/Immunologic: Denies wheezing PMFSH Past Medical History Medical History Crohn's disease Multiple sclerosis Functional capacity: independent ambulation Family History Family History Maternal Grandmother Crohn's disease Surgical History Surgical History History of tonsillectomy Previous section Social History Social History Household Members: Children Housing: Apartment Do you presently have visiting nurse or other home services: No Alcohol intake: current Alcohol intake frequency: a few times a month Smoking Status: Current every day smoker Use of substances other than those prescribed or required for medical reasons: Yes Substance Use Type: Marijuana Substance Use Frequency: Daily Last Used Substance: Hours (ago) Currently Displaying Signs/Symptoms of Drug Intoxication Withdrawal: No Any prior treatment program specific to substance use: No Have you been hit, kicked, punched, or otherwise hurt by someone within the past year? If so, by whom?: No Do you feel safe in your current relationship?: No Current Relationship Is there a partner from a previous relationship who is making you feel unsafe now?: No Are you made to feel afraid or neglected: No Advance Directives: No Advance Directives Information Provided: No Advance Directives on File: No Do you have thoughts of harming others: None Do you have a plan to hurt others: No Plan Recently lost weight without trying: Yes service: No Current occupational status: unemployed Meds Allergies Allergy/AdvReac Type Severity Reaction Status Date / Time No Known Allergies Allergy Unknown UNKNOWN Verified 09/10/20 03:47 Home Medications Medication Instructions Recorded Confirmed Type St Marcial Wort 10/02/20 History mesalamine [Delzicol] 800 mg PO TID 10/02/20 10/02/20 History Physical Exam Vital Signs: Vital Signs: Last Vital Signs Temp 98.1 F 10/06/20 03:52 Pulse 81 10/06/20 03:52 Resp 18 10/06/20 03:52 BP 139/99 H 10/06/20 03:52 Pulse Ox 96 10/06/20 03:52 Body Mass Index 42.9 Const: General: cooperative, comfortable and well developed; No confusion Nutritional Appearance: well nourished Orientation/consciousness: patient oriented x3 and No confusion Eyes: Sclerae: sclerae normal EOM: EOMs intact bilaterally Neck: Neck: Yes normal visual inspection Resp: Effort & Inspection: normal respiratory effort, no cough and no respiratory distress Cardio: Jugular venous distension: no JVD Rate: regular rate Rhythm: regular rhythm GI: Inspection: Yes normal to inspection Palpation (GI): Soft to palpation, Tenderness to palpation present (GI) in the LLQ and in the LUQ, no guarding and not rigid Percussion: Yes normal to percussion Auscultation: normal bowel sounds Skin: General skin exam: dry skin Rashes: no rashes Neuro: General: patient oriented x3, no focal motor deficits and No confusion Extrem: General: Yes no clubbing, cyanosis or edema Right upper extremity: normal capillary refill Left upper extremity: full ROM Results Labs Result diagrams: 10/06/20 06:34 10/06/20 06:34 Labs: Abnormal lab results 10/06/20 10/06/20 Range/Units 06:34 06:34 RBC 3.87 L (4.20-5.50) X10*6/uL Hct 35.9 L (37-47) % MPV 9.1 L (9.4-12.3) fL Fasting Glucose 114 H (60-99) mg/dL Calcium 7.6 L (8.4-10.2) mg/dL C-Reactive Protein 22.95 H (< or = 0.50) mg/dL Total Protein 5.3 L D (6.5-8.0) g/dL Albumin 2.8 L D (3.5-5.0) g/dL Amylase 18 L (28-100) U/L Short CBC 10/06/20 10/06/20 Range/Units 06:34 06:34 WBC Cancelled 8.1 Hgb Cancelled 12.0 Hct Cancelled 35.9 L Plt Count Cancelled 317 BMP 10/06/20 06:34 Sodium 136 Potassium 3.5 Chloride 98 Carbon Dioxide 28 BUN 9 Creatinine 0.68 Calcium 7.6 L Liver Function 10/06/20 Range/Units 06:34 Total Bilirubin 0.3 (0.0-1.0) mg/dL Direct Bilirubin 0.2 (0.0-0.5) mg/dL AST 9 (5-31) U/L ALT 8 (0-31) U/L Alkaline Phosphatase 49 D (39-117) U/L Albumin 2.8 L D (3.5-5.0) g/dL Urine 10/01/20 10/01/20 Range/Units 20:54 20:54 Urine Color YELLOW Urine Appearance HAZY Urine pH 5.5 (5.0-8.0) Ur Specific [place] >= 1.030 H (1.005-1.025) Urine Protein TRACE (NEG-TRACE) MG/DL Urine Glucose (UA) NEG (NEG) MG/DL Urine Test NEGATIVE (NEGATIVE) All other labs normal. Ordering Physician: ROSALINDA VERGARA MD Date of Service: 10/05/20 Procedure(s): XR abdomen w decubitus Accession Number(s): [id number] cc: ROSALINDA VERGARA MD~ EXAMINATION: XR ABDOMEN WITH DECUBITUS VIEWS CLINICAL INDICATION: Crohn's colitis. Abdominal pain. COMPARISON: Previous abdominal x-ray from yesterday. TECHNIQUE: Supine and upright views of the abdomen and pelvis. FINDINGS: There are dilated loops of large bowel and air-fluid levels to the level of the splenic flexure. The colon is slightly more dilated than seen on prior exams, transverse colon measuring 9 cm compared to 7 cm on previous exam. There is a paucity of bowel gas seen in the distal colon. Appearance is worrisome for large bowel obstruction. There are dilated loops of distal small bowel with air-fluid levels, as well. There is no evidence of free air. No calcifications are seen. Bony structures are unremarkable. XR/XR abdomen w decubitus IMPRESSION: Increasing distal small and large bowel dilatation and air-fluid levels to the level of the splenic flexure. Appearance is concerning for large bowel obstruction. Assessment and Plan (1) Crohn's disease: Qualifiers: Digestive disease complication type: with rectal bleeding David rointestinal tract location: small intestine Qualified Code(s): K50.011 - Crohn's disease of small intestine with rectal bleeding Status: Acute (2) Abdominal pain: Qualifiers: Abdominal location: generalized Qualified Code(s): R10.84 - Generalized abdominal pain Status: Acute 30-year-old female patient with a 5 year history of Crohn's colitis currently admitted for a Crohn's flare involving the left colon. Patient is currently on IV steroid and does feel somewhat improved today after bowel movement. Pain remains mainly in the left lower quadrant. On examination the patient is tender in left lower and left upper quadrants without rebound, guarding, or rigidity. Patient may require nasogastric tube if she develops nausea and vomiting. Surgical intervention is not anticipated at this time but we will follow along during her hospitalization. Procedures Abscess I/D Date of Service: 10/06/20
--- NOTE | 2020-10-06 08:14 | HO.PM.IMPN ---
Subjective Subjective Date of Service: 10/06/20 Interval History: seen and examined still with L sided pain, but reports it has improved had loose BM last night requesting to eat some toast denies nausea/vomiting reports she ambulated in the hallway yesterday General - no fevers or chills Cardiovascular - no chest pain Respiratory - no shortness of breath or cough Abdominal- +abdominal pain, diarrhea Physical Exam Vital Signs: Vital Signs: Last Vital Signs Temp 98.1 F 10/06/20 03:52 Pulse 81 10/06/20 03:52 Resp 18 10/06/20 03:52 BP 139/99 H 10/06/20 03:52 Pulse Ox 96 10/06/20 03:52 Body Mass Index 42.9 General - no acute distress, appears comfortable Cardiovascular - regular rate and rhythm, S1-S2 Lungs - normal respiratory effort, clear to auscultation bilaterally, no wheezing Abdomen - left sided tenderness without rebound or guarding, remains soft Extremities - no edema bilaterally Neuro - awake and alert, no focal deficits Objective Data Current Medications Generic Name Dose Route Start Last Admin Trade Name Roelq PRN Reason Stop Dose Admin Acetaminophen 650 mg 10/01/20 21:40 10/05/20 15:07 Acetaminophen 325 Mg Tablet PO 650 mg Q6H PRN Administration Pain, Mild (Pain Scale 1-3) Docusate Sodium 100 mg 10/01/20 21:40 Docusate Sodium 100 Mg Capsule PO DAILY PRN Constipation Hydrocortisone Sodium Succinate 100 mg 10/01/20 17:20 10/06/20 07:39 Hydrocortisone Sod Succ/Pf 100 Mg Vial IVPUSH 100 mg Q8H JANE Administration Hydromorphone HCl 1.5 mg 10/05/20 09:58 10/06/20 04:03 Hydromorphone Hcl 2 Mg/Ml Vial IVPUSH 1.5 mg Q4H PRN Administration Pain, Severe (Pain Scale 7-10) Mesalamine 800 mg 10/02/20 21:00 10/06/20 07:38 Mesalamine 400 Mg Cap.Drtab. PO 800 mg TID JANE Administration Ondansetron HCl 4 mg 10/01/20 21:40 Ondansetron Hcl 4 Mg/2 Ml Vial IVPUSH Q8H PRN Nausea and Vomiting Pharmacy Consult 1 each 10/01/20 15:31 Consult Rx Perform Med Rec MISCELLANE ONCE PRN Consult order Pharmacy Consult 1 each 10/02/20 09:37 Consult Rx Perform Med Rec MISCELLANE ONCE PRN Consult order Sodium Chloride 3 ml 10/02/20 00:00 10/06/20 07:42 0.9 % Sodium Chloride Flush 3 Ml Syringe IVFLUSH 3 ml QSHIFT JANE Administration Labs CBC & Chem 7: 10/06/20 06:34 10/06/20 06:34 Microbiology Microbiology Results: Microbiology 10/04/20 23:30 Stool Stool Culture - Preliminary Assessment and Plan (1) Crohn's disease: Status: Acute Assessment and Plan: This is a 30 yo F with a history of Crohn's disease who presents to the hospital with comlaints of abdominal pain and diarrhea. She is admitted for suspected Crohn's flare. 1. Crohn's flare pt reports some improvement in her pain IV steroids, mesalamine, IVF monitor lytes and replete as neede c. diff negative serial abdominal XR GI/Gen Surg on board 2. History of MS -- per pt report doesn't appear to be on any home meds 3. Morbid Obesity needs to join a weight loss program as outpatient 4. Intractable pain controlled with IV pain meds Full Code DVT pptx, low risk -- mechanical device + early ambulation (contraindication to pharmacological due to her bloody diarrhea)
[2020-10-06 08:34] LABS: Band Neutrophils Percent 8 % (3-5); Eosinophils Absolute Manual 0.2 X10*3/UL (0.0-0.8); Eosinophils Percent Manual 2 % (0-4); Lymphocytes Percent Manual 12 % (20-40); Monocytes Absolute Manual 0.9 X10*3/uL (0.0-1.2); Monocytes Percent Manual 11 % (2-11); Neutrophils Absolute Manual 6.1 X10*3/uL (2.2-7.9); Neutrophils Percent Manual 67 % (45-73); Platelet Estimate NORMAL (NORMAL)
[2020-10-06 08:35] LABS: Platelet Morphology Comment NORMAL; RBC Morphology NORMAL
--- NOTE | 2020-10-06 15:59 | MHC.CM.PN ---
Pt slowly improving and feels a bit better. Per MD rounds, will probably d/c by . Plan is home without services.
[2020-10-06] MEDS: Acetaminophen 325 MG TABLET 650 MG PO (16:58)
[2020-10-06] MEDS: ondansetron HCL 4 MG/2 ML VIAL IVPUSH (17:14)
--- NOTE | 2020-10-06 18:38 | PM.GIPN ---
Subjective Subjective Date of Service: 10/06/20 Interval History: Patient doing about the same. Still having intermittent bouts of severe abdominal pain, greatest on the left side and midabdomen. Denies N/V. Not passing much flatus nor stool. Physical Exam Vital Signs: Vital Signs: Last Vital Signs Temp 97 F 10/06/20 15:29 Pulse 86 10/06/20 15:29 Resp 18 10/06/20 15:29 BP 132/73 10/06/20 15:29 Pulse Ox 91 L 10/06/20 15:29 Body Mass Index 42.9 Const: General: cooperative, comfortable and well developed Eyes: Sclerae: sclerae normal GI: Inspection: Yes normal to inspection Palpation (GI): Soft to palpation and Tenderness to palpation present (GI) (Tender to palpation along left side and midabdomen--no rebound/guarding) Percussion: Yes normal to percussion Auscultation: Hypoactive bowel sounds present Skin: General skin exam: other (warm and dry) Objective Data Labs CBC & Chem 7: 10/06/20 06:34 10/06/20 06:34 Labs: Laboratory Results - last 24 hr 10/06/20 10/06/20 10/06/20 06:34 06:34 06:34 WBC Cancelled 8.1 RBC Cancelled 3.87 L Hgb Cancelled 12.0 Hct Cancelled 35.9 L MCV Cancelled 92.8 MCH Cancelled 31.0 MCHC Cancelled 33.4 RDW Cancelled 11.8 Plt Count Cancelled 317 MPV Cancelled 9.1 L Immature Gran % (Auto) Cancelled Neut % (Auto) Cancelled Lymph % (Auto) Cancelled [place] % (Auto) Cancelled Eos % (Auto) Cancelled Baso % (Auto) Cancelled Lymph # (Auto) Cancelled [place] # (Auto) Cancelled Eos # (Auto) Cancelled Baso # (Auto) Cancelled Abs Immat Gran (auto) Cancelled Absolute Neuts (auto) Cancelled Absolute Nucleated RBC Cancelled 0.000 Nucleated RBC % (auto) Cancelled 0.0 Neutrophils % (Manual) 67 Band Neutrophils % 8 H Lymphocytes % (Manual) 12 L Monocytes % (Manual) 11 Eosinophils % (Manual) 2 Abs Neuts (Manual) 6.1 Lymphocytes # (Manual) 1.0 Monocytes # (Manual) 0.9 Eosinophils # (Manual) 0.2 Platelet Estimate NORMAL Plt Morphology Comment NORMAL RBC Morphology NORMAL Sodium 136 Potassium 3.5 Chloride 98 Carbon Dioxide 28 Anion Gap 14 BUN 9 Creatinine 0.68 Estim Creat Clear Calc 146.5 Estimated GFR > 60 Fasting Glucose 114 H Calcium 7.6 L Total Bilirubin 0.3 Direct Bilirubin 0.2 AST 9 ALT 8 Alkaline Phosphatase 49 D C-Reactive Protein 22.95 H Total Protein 5.3 L D Albumin 2.8 L D Amylase 18 L Microbiology Microbiology Results: Microbiology 10/04/20 23:30 Stool Stool Culture - Preliminary Culture in progress. Progress Note: A&P Assessment and plan (1) Crohn's disease: Problem details: Clinically patient appears stable but her xrays and pain are not improving despite five days of IV steroids. Also, her CRP has risen and she has a bandemia on her WBC count. Appreciate Dr. Goyal's input. However, I'm concerned she isn't turning the corner. Therefore, I will recheck her CT in AM. May need to consider initiating a biologic, but that may be difficult due to her underlying MS and the fact that she is an inpatient. I will consult neurology to get their opinion re: her MS and use of an anti-TNF agent such as Remicade. Her Hep B is negative and the TB test is pending re: starting a biologic agent. May need to consult pharmacy as well. D/W patient in detail. Thanks Status: Acute Fall Risk Details Current Medications: Current Medications Generic Name Dose Route Start Last Admin Trade Name Freq PRN Reason Stop Dose Admin Acetaminophen 650 mg 10/01/20 21:40 10/06/20 16:58 Acetaminophen 325 Mg Tablet PO 650 mg Q6H PRN Administration Pain, Mild (Pain Scale 1-3) Docusate Sodium 100 mg 10/01/20 21:40 Docusate Sodium 100 Mg Capsule PO DAILY PRN Constipation Hydrocortisone Sodium Succinate 100 mg 10/01/20 17:20 10/06/20 17:21 Hydrocortisone Sod Succ/Pf 100 Mg Vial IVPUSH 100 mg Q8H JANE Administration Hydromorphone HCl 1.5 mg 10/06/20 17:28 Hydromorphone Hcl 2 Mg/Ml Vial IVPUSH Q3H PRN Pain, Severe (Pain Scale 7-10) Mesalamine 800 mg 10/02/20 21:00 10/06/20 14:04 Mesalamine 400 Mg Cap.Drtab. PO 800 mg TID JANE Administration Ondansetron HCl 4 mg 10/01/20 21:40 10/06/20 17:14 Ondansetron Hcl 4 Mg/2 Ml Vial IVPUSH 4 mg Q8H PRN Administration Nausea and Vomiting Pharmacy Consult 1 each 10/01/20 15:31 Consult Rx Perform Med Rec MISCELLANE ONCE PRN Consult order Pharmacy Consult 1 each 10/02/20 09:37 Consult Rx Perform Med Rec MISCELLANE ONCE PRN Consult order Sodium Chloride 3 ml 10/02/20 00:00 10/06/20 14:05 0.9 % Sodium Chloride Flush 3 Ml Syringe IVFLUSH 3 ml QSHIFT JANE Administration Time Spent With Patient Time: Total time spent is greater than 50% in coordination of care (as documented) at patient's floor/unit and/or counseling patient: Time with patient: 15 - 24 minutes
[2020-10-07] VITALS (8 sets, daily range): BP systolic 142–157; BP diastolic 79–83; PULSE 72–94; RESP 16–19; TEMP 36.2–36.9; O2SAT 96–98
--- NOTE | 2020-10-07 | CT_ITS ---
EXAMINATION: CT ABDOMEN AND PELVIS WITH CONTRAST CLINICAL INFORMATION: Crohn's colitis COMPARISON: Previous CT scan most recent 10/02/2020 and previous KUBs most recent 10/06/2020 TECHNIQUE: Multidetector volumetric images were obtained from the superior aspect of the liver through the pubic symphysis following administration 85 mL of Omnipaque 350 intravenous contrast. Sagittal and coronal reformatted images were obtained on the technologist's workstation. Oral contrast: No This CT examination was performed using dose optimization techniques as appropriate, variously including the following: *Automated exposure control *Adjustment of mA and/or kV according to patient size (this includes techniques or standardized protocols for targeted exams where dose is matched to indication/reason for exam; i.e. extremities or head) *Use of iterative reconstruction technique DLP: 2000 mGy-cm FINDINGS: LUNG BASES: The visualized lung bases are unremarkable. LIVER, GALLBLADDER, AND BILIARY TREE: The liver is normal in size, shape, and attenuation. No focal hepatic lesion or biliary ductal dilatation is present. The gallbladder is unremarkable with no evidence of radiopaque gallstones, gallbladder wall thickening, or obvious pericholecystic inflammatory changes. PANCREAS: Unremarkable. SPLEEN: Unremarkable. ADRENAL GLANDS: Unremarkable. KIDNEYS AND URETERS: The kidneys are normal in size, shape, and attenuation. No hydronephrosis, hydroureter, or calculi seen. No perinephric stranding. BLADDER: Unremarkable. GASTROINTESTINAL TRACT: There is increased wall thickening and edema of the transverse colon and left colon. There is minimal stranding of the surrounding fat. There is prominent vasa recta. Findings are consistent with a inflammatory colitis. The transverse colon measures maximum 6.3 cm, distal transverse colon coronal reconstructed image 28. This is slightly increased from 5 cm on September 2020 exam and not appreciably changed from previous KUB exams. There is increasing dilatation of the left colon. There is oral contrast seen in the small and proximal proximal large bowel to the level of the transverse colon/splenic flexure. The small bowel is unremarkable. The appendix is unremarkable. The stomach is unremarkable. There is no evidence of free air. There is trace ascites in the pelvis. ABDOMINAL WALL: No significant hernia is appreciated. LYMPH NODES: There are prominent mesenteric lymph nodes. Larger lymph nodes are upper normal in size measuring 1 cm. There are left upper abdominal retroperitoneal lymph nodes that are upper normal in size as well. VASCULAR: Unremarkable. PELVIC VISCERA: There is an IUD in the uterus. The uterus and adnexa are otherwise unremarkable. OSSEOUS STRUCTURES: Unremarkable. CT/CT abdomen pelvis w con IMPRESSION: Inflammatory colitis of the transverse and left colon. Transverse and left colon appears slightly more dilated than on recent CT 10/02/2020 and not appreciably changed from previous KUBs. There is oral contrast seen in the transverse colon to the level of the splenic flexure. There is no free air. There is trace ascites in the pelvis.
[2020-10-07] MEDS: HYDROmorphone HCl 2 MG/ML VIAL 1.5 MG IVPUSH ×8 (00:07→23:42)
[2020-10-07] MEDS: Acetaminophen 325 MG TABLET 650 MG PO ×2 (00:07→22:08)
[2020-10-07] MEDS: Hydrocortisone Sod Succ/PF 100 MG VIAL IVPUSH ×3 (02:02→16:58)
[2020-10-07 06:47] LABS: Hematocrit 38.5 % (37-47); Mean Corpuscular HGB Conc 33.8 g/dl (31.0-35.0); Mean Corpuscular Hemoglobin 31.2 pg (27.0-33.0); Mean Corpuscular Volume 92.3 fL (80-98); Mean Platelet Volume 9.1 fL (9.4-12.3); Platelet Count 368 X10*3/uL (160-400); Red Blood Count 4.17 X10*6/uL (4.20-5.50); Red Cell Distribution Width 11.8 % (11.0-16.0); White Blood Count 9.6 X10*3/uL (4.8-10.8)
[2020-10-07] MEDS: 0.9 % Sodium Chloride Flush 3 ML SYRINGE IVFLUSH ×3 (07:17→23:43)
[2020-10-07 07:28] LABS: Anion Gap 12 (12-20); Blood Urea Nitrogen 14 mg/dL (9-16); Calcium 7.6 mg/dL (8.4-10.2); Carbon Dioxide 28 mmol/L (22-29); Chloride 97 mmol/L (96-108); Creatinine Clr Calc Pharmacy 144.4; Estimated Glomerular Filt Rate > 60; Glucose Random 142 mg/dL (60-115); Potassium 3.3 mmol/l (3.3-5.1); Sodium 134 mmol/L (135-145)
--- NOTE | 2020-10-07 08:04 | PM.PNGS ---
Subjective Subjective Date of Service: 10/07/20 Interval history: abdominal pain continues today mainly in the left lower, left upper quadrants. Pain seems to improve when lying still. She is requiring pain medication every 3 hours. Did pass a liquid bowel movement and no flatus. Physical Exam Vital Signs: Vital Signs: Last Vital Signs Temp 97.1 F 10/07/20 07:15 Pulse 75 10/07/20 07:15 Resp 17 10/07/20 07:15 BP 144/79 H 10/07/20 07:15 Pulse Ox 97 10/07/20 07:15 Body Mass Index 42.9 Const: Other: Well-nourished, well-developed, in no apparent distress Eyes: Other: sclera nonicteric, normal extraocular motion Neck: Other: normal inspection, no JVD Resp: Other: breathing comfortably on room air, no respiratory distress, no stridor GI: Other: soft, nondistended, tender in the left upper and left lower quadrant, no rebound, no guarding Skin: Other: warm and dry, no rash Extrem: Other: no edema, full range of motion Progress Note: A&P Assessment and plan (1) Abdominal pain: Status: Acute Assessment and Plan: Abdominal pain due to Crohn's flare now much improved this morning. Patient continues to have tenderness on the left side but no peritoneal signs. Patient is having liquid bowel movements with some bleeding. Discussed the possible need for surgery should her symptoms not improve which may include a temporary diverting ostomy. Dr. Null' input appreciated. Fall Risk Details Current Medications: Current Medications Generic Name Dose Route Start Last Admin Trade Name Freq PRN Reason Stop Dose Admin Acetaminophen 650 mg 10/01/20 21:40 10/07/20 00:07 Acetaminophen 325 Mg Tablet PO 650 mg Q6H PRN Administration Pain, Mild (Pain Scale 1-3) Docusate Sodium 100 mg 10/01/20 21:40 Docusate Sodium 100 Mg Capsule PO DAILY PRN Constipation Hydrocortisone Sodium Succinate 100 mg 10/01/20 17:20 10/07/20 02:02 Hydrocortisone Sod Succ/Pf 100 Mg Vial IVPUSH 100 mg Q8H JANE Administration Hydromorphone HCl 1.5 mg 10/06/20 17:28 10/07/20 07:14 Hydromorphone Hcl 2 Mg/Ml Vial IVPUSH 1.5 mg Q3H PRN Administration Pain, Severe (Pain Scale 7-10) Mesalamine 800 mg 10/02/20 21:00 10/06/20 20:53 Mesalamine 400 Mg Cap.Drtab. PO 800 mg TID JANE Administration Ondansetron HCl 4 mg 10/01/20 21:40 10/06/20 17:14 Ondansetron Hcl 4 Mg/2 Ml Vial IVPUSH 4 mg Q8H PRN Administration Nausea and Vomiting Pharmacy Consult 1 each 10/01/20 15:31 Consult Rx Perform Med Rec MISCELLANE ONCE PRN Consult order Pharmacy Consult 1 each 10/02/20 09:37 Consult Rx Perform Med Rec MISCELLANE ONCE PRN Consult order Sodium Chloride 3 ml 10/02/20 00:00 10/07/20 07:17 0.9 % Sodium Chloride Flush 3 Ml Syringe IVFLUSH 3 ml QSHIFT JANE Administration Time Spent With Patient Time: Total time spent is greater than 50% in coordination of care (as documented) at patient's floor/unit and/or counseling patient: Time with patient: 15 - 24 minutes
[2020-10-07] MEDS: Mesalamine 400 MG CAP.DRTAB. 800 MG PO ×3 (09:04→20:12)
--- NOTE | 2020-10-07 10:20 | P.CNNE_ITS ---
History of Present Illness Data of Consult Service Date: 10/07/20 Primary Care Provider: Kamran Rm MD 30 years old woman who I had seen couple of times in 2015 with diagnosis of multiple sclerosis. Presently she was seeing a neurologist at [facility] and wanted to continue with that care. She was hesitant to talk can be interviewed or examined. This consultation was not completed. Apparently she was taking Tysabri for multiple sclerosis and the question was if she could take Humira for her GI problems. I would be very reluctant to use these 2 medicines together. But my recommendation is to consult her primary neurologist for proper onset. I have not seen her for many years and I am not aware of her overall clinical situation. Review of Systems Constitutional: Constitutional: Denies headache(s) ENT: Denies dizziness and Denies headache(s) Musculoskeletal: Musculoskeletal: Denies numbness Neurologic: Denies confusion, Denies dizziness, Denies headache(s) and Denies numbness Psychiatric: Psychiatric: Denies confusion PMFSH Past Medical History Medical History Crohn's disease Multiple sclerosis Functional capacity: independent ambulation Family History Family History Maternal Grandmother Crohn's disease Surgical History Surgical History History of tonsillectomy Previous section Social History Social History Household Members: Children Housing: Apartment Do you presently have visiting nurse or other home services: No Alcohol intake: current Alcohol intake frequency: a few times a month Smoking Status: Current every day smoker Use of substances other than those prescribed or required for medical reasons: Yes Substance Use Type: Marijuana Substance Use Frequency: Daily Last Used Substance: Hours (ago) Currently Displaying Signs/Symptoms of Drug Intoxication Withdrawal: No Any prior treatment program specific to substance use: No Have you been hit, kicked, punched, or otherwise hurt by someone within the past year? If so, by whom?: No Do you feel safe in your current relationship?: No Current Relationship Is there a partner from a previous relationship who is making you feel unsafe now?: No Are you made to feel afraid or neglected: No Advance Directives: No Advance Directives Information Provided: No Advance Directives on File: No Do you have thoughts of harming others: None Do you have a plan to hurt others: No Plan Recently lost weight without trying: Yes service: No Current occupational status: unemployed Meds Allergies Allergy/AdvReac Type Severity Reaction Status Date / Time No Known Allergies Allergy Unknown UNKNOWN Verified 09/10/20 03:47 Home Medications Medication Instructions Recorded Confirmed Type St Marcial Wort 10/02/20 History mesalamine [Delzicol] 800 mg PO TID 10/02/20 10/02/20 History Physical Exam Vital Signs: Vital Signs: Last Vital Signs Temp 97.1 F 10/07/20 07:15 Pulse 75 10/07/20 07:15 Resp 17 10/07/20 07:15 BP 144/79 H 10/07/20 07:15 Pulse Ox 97 10/07/20 07:15 Body Mass Index 42.9 Const: General: No confusion Orientation/consciousness: No confusion Neuro: General: No confusion Results Labs CBC & Chem 7: 10/07/20 06:26 10/07/20 06:26 Labs: Short CBC 10/07/20 Range/Units 06:26 WBC 9.6 (4.8-10.8) X10*3/uL Hgb 13.0 (12.0-16.0) g/dl Hct 38.5 (37-47) % Plt Count 368 (160-400) X10*3/uL BMP 10/07/20 06:26 Sodium 134 L Potassium 3.3 Chloride 97 Carbon Dioxide 28 BUN 14 D Creatinine 0.69 Calcium 7.6 L Microbiology Microbiology Results: Microbiology 10/04/20 23:30 Stool Stool Culture - Preliminary Normal so far.
--- NOTE | 2020-10-07 10:21 | HO.PM.IMPN ---
Subjective Subjective Date of Service: 10/07/20 Interval History: still with pain, no appetite Cardiovascular Cardiovascular: Reports no additional cardiovascular complaints Respiratory Respiratory: Reports no additional respiratory complaints Physical Exam Vital Signs: Vital Signs: Last Vital Signs Temp 97.1 F 10/07/20 07:15 Pulse 75 10/07/20 07:15 Resp 17 10/07/20 07:15 BP 144/79 H 10/07/20 07:15 Pulse Ox 97 10/07/20 07:15 Body Mass Index 42.9 General: lethargic, oriented times 3 Resp: CTA bilateral CVS: S1,S2,RRR GI: soft, diffusely tender, non distended Neuro: motor grossly intact Psych: appropriate affect Objective Data Current Medications Generic Name Dose Route Start Last Admin Trade Name Freq PRN Reason Stop Dose Admin Acetaminophen 650 mg 10/01/20 21:40 10/07/20 00:07 Acetaminophen 325 Mg Tablet PO 650 mg Q6H PRN Administration Pain, Mild (Pain Scale 1-3) Docusate Sodium 100 mg 10/01/20 21:40 Docusate Sodium 100 Mg Capsule PO DAILY PRN Constipation Hydrocortisone Sodium Succinate 100 mg 10/01/20 17:20 10/07/20 09:18 Hydrocortisone Sod Succ/Pf 100 Mg Vial IVPUSH 100 mg Q8H JANE Administration Hydromorphone HCl 1.5 mg 10/06/20 17:28 10/07/20 07:14 Hydromorphone Hcl 2 Mg/Ml Vial IVPUSH 1.5 mg Q3H PRN Administration Pain, Severe (Pain Scale 7-10) Mesalamine 800 mg 10/02/20 21:00 10/07/20 09:04 Mesalamine 400 Mg Cap.Drtab. PO 800 mg TID JANE Administration Ondansetron HCl 4 mg 10/01/20 21:40 10/06/20 17:14 Ondansetron Hcl 4 Mg/2 Ml Vial IVPUSH 4 mg Q8H PRN Administration Nausea and Vomiting Pharmacy Consult 1 each 10/01/20 15:31 Consult Rx Perform Med Rec MISCELLANE ONCE PRN Consult order Pharmacy Consult 1 each 10/02/20 09:37 Consult Rx Perform Med Rec MISCELLANE ONCE PRN Consult order Sodium Chloride 3 ml 10/02/20 00:00 10/07/20 07:17 0.9 % Sodium Chloride Flush 3 Ml Syringe IVFLUSH 3 ml QSHIFT JANE Administration Labs CBC & Chem 7: 10/07/20 06:26 10/07/20 06:26 Microbiology Microbiology Results: Microbiology 10/04/20 23:30 Stool Stool Culture - Preliminary Normal so far. Assessment and Plan (1) Crohn's disease: Status: Acute Assessment and Plan: 30 yo F with a history of Crohn's disease who presents to the hospital with complaints of abdominal pain and diarrhea. Crohn's flare minimal improvement IV steroids, mesalamine, IVF monitor lytes and replete as needed c. 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
[2020-10-07] MEDS: ondansetron HCL 4 MG/2 ML VIAL IVPUSH ×2 (10:33→20:12)
[2020-10-07] MEDS: iohexoL 350 MG/ML 100 ML INFUS..BTL 85 ML IV (12:07)
[2020-10-07] MEDS: Barium Sulfate Oral (Vanilla) 450 ML ORAL.SUSP 900 ML PO (12:08)
--- NOTE | 2020-10-07 14:19 | MHC.CLN ---
F/U VARIABLE PO DIET RX: F/L-APPROPRIATE RECOMMEND 1200 CALORIES PER DAY TO PROMOTE SLOW WT LOSS MAY BENEFIT FROM REFERRAL TO WT MANAGEMENT PROGRAM FOLLOWING
--- NOTE | 2020-10-07 14:35 | MHC.CM.PN ---
Pt continues to have pain needing IV pain medication. Per MD rounds, pt is not improving and my need surgical intervention. Met with patient. Pt does not want a colostomy and is hoping with time, this flare will improve. States surgery would be last option. No D/C at this time. Will continue to follow for D/C needs.
--- NOTE | 2020-10-07 14:50 | P.PNGI_ITS ---
Subjective Subjective Date of Service: 10/07/20 Interval History: Patient still having left-sided and periumbilical abdominal discomfort. Had loose brown stool today, but no bleeding. Denies N/V. Not eating much but wants toast. Afebrile. Physical Exam Vital Signs: Vital Signs: Last Vital Signs Temp 97.1 F 10/07/20 07:15 Pulse 75 10/07/20 07:15 Resp 17 10/07/20 07:15 BP 144/79 H 10/07/20 07:15 Pulse Ox 97 10/07/20 07:15 Body Mass Index 42.9 GI: Inspection: Yes normal to inspection Palpation (GI): Tenderness to palpation present (GI) (Tender along left abdomen), No hepatosplenomegaly present and Other GI palpation findings present (No guarding, no mass, no rebound) Percussion: Yes normal to percussion Auscultation: normal bowel sounds Skin: General skin exam: other (Warm and dry) Objective Data Labs CBC & Chem 7: 10/07/20 06:26 10/07/20 06:26 Labs: Laboratory Results - last 24 hr 10/07/20 10/07/20 06:26 06:26 WBC 9.6 RBC 4.17 L Hgb 13.0 Hct 38.5 MCV 92.3 MCH 31.2 MCHC 33.8 RDW 11.8 Plt Count 368 MPV 9.1 L Absolute Nucleated RBC 0.000 Nucleated RBC % (auto) 0.0 Sodium 134 L Potassium 3.3 Chloride 97 Carbon Dioxide 28 Anion Gap 12 BUN 14 D Creatinine 0.69 Estim Creat Clear Calc 144.4 Estimated GFR > 60 Random Glucose 142 H Calcium 7.6 L Microbiology Microbiology Results: Microbiology 10/04/20 23:30 Stool Stool Culture - Preliminary Normal so far. Progress Note: A&P Assessment and plan (1) Crohn's disease: Problem details: Things seem stable overall, but without significant improvement. Her abdominal exam is somewhat improved with good BS today as compared to yesterday. Her CT scan from earlier today still shows inflammatory changes with a possible component of functional obstruction at the area of the splenic flexure as oral contrast does not seem to progress beyond this area. However, she continues with BM's, she is nondistended, and is without N/V. I remain hesitant to start a biologic agent due to the possibility of exacerbating her MS(we will need to speak to her [facility] neurologist, Dr. Avina). I will continue her IV steroids and Mesalamine, and add nutritional supplements and toast. F/U labs, including CRP, in AM. If things remain stable and she improves somewhat then we can try to advance the diet. I did review Dr. Goyal's note regarding potential surgery if things worsen. Dr. Turpin covering the holiday stretch . D/W patient in detail. Thanks Status: Acute Fall Risk Details Current Medications: Current Medications Generic Name Dose Route Start Last Admin Trade Name Freq PRN Reason Stop Dose Admin Acetaminophen 650 mg 10/01/20 21:40 10/07/20 00:07 Acetaminophen 325 Mg Tablet PO 650 mg Q6H PRN Administration Pain, Mild (Pain Scale 1-3) Docusate Sodium 100 mg 10/01/20 21:40 Docusate Sodium 100 Mg Capsule PO DAILY PRN Constipation Hydrocortisone Sodium Succinate 100 mg 10/01/20 17:20 10/07/20 09:18 Hydrocortisone Sod Succ/Pf 100 Mg Vial IVPUSH 100 mg Q8H JNAE Administration Hydromorphone HCl 1.5 mg 10/06/20 17:28 10/07/20 14:03 Hydromorphone Hcl 2 Mg/Ml Vial IVPUSH 1.5 mg Q3H PRN Administration Pain, Severe (Pain Scale 7-10) Mesalamine 800 mg 10/02/20 21:00 10/07/20 14:41 Mesalamine 400 Mg Cap.Drtab. PO 800 mg TID JANE Administration Ondansetron HCl 4 mg 10/01/20 21:40 10/07/20 10:33 Ondansetron Hcl 4 Mg/2 Ml Vial IVPUSH 4 mg Q8H PRN Administration Nausea and Vomiting Pharmacy Consult 1 each 10/01/20 15:31 Consult Rx Perform Med Rec MISCELLANE ONCE PRN Consult order Pharmacy Consult 1 each 10/02/20 09:37 Consult Rx Perform Med Rec MISCELLANE ONCE PRN Consult order Sodium Chloride 3 ml 10/02/20 00:00 10/07/20 14:42 0.9 % Sodium Chloride Flush 3 Ml Syringe IVFLUSH 3 ml QSHIFT JANE Administration Time Spent With Patient Time: Total time spent is greater than 50% in coordination of care (as documented) at patient's floor/unit and/or counseling patient: Time with patient: 15 - 24 minutes
--- NOTE | 2020-10-08 | XR_ITS ---
EXAMINATION: XR ABDOMEN COMPLETE CLINICAL INDICATION: Crohn's colitis. Reassess colon COMPARISON: October 07, 2020 and October 06, 2020 TECHNIQUE: Supine and upright views of the abdomen. FINDINGS: No free air is identified. There has been some improvement in dilated loops of bowel. Contrast remains within the right colon with no contrast appreciated within the transverse and descending colon and with a small amount within the rectum. There appears to be some thumbprinting about the transverse colon and proximal descending colon related to wall thickening/edema. XR/XR abdomen 3V IMPRESSION: Improving bowel dilatation. Limited transit of contrast within the colon as described. Findings consistent with wall thickening/edema within the transverse and descending colon. There are some remaining loops of bowel with air-fluid levels consistent with some degree of ileus or partial obstruction.
[2020-10-08] MEDS: Hydrocortisone Sod Succ/PF 100 MG VIAL IVPUSH ×3 (01:08→18:30)
[2020-10-08 03:00] VITALS: BP 145/79; PULSE 87; RESP 18; TEMP 36.2; O2SAT 97
[2020-10-08 07:50] VITALS: BP 156/98; PULSE 86; RESP 18; TEMP 36.1; O2SAT 96
[2020-10-08] MEDS: HYDROmorphone HCl 2 MG/ML VIAL 1.5 MG IVPUSH ×2 (08:08→12:13)
[2020-10-08] MEDS: 0.9 % Sodium Chloride Flush 3 ML SYRINGE IVFLUSH ×2 (08:08→15:36)
[2020-10-08 09:40] LABS: Baso%MD 0.7 %; Eos%MD 0.4 %; Hematocrit 37.9 % (37-47); Hemoglobin 12.7 g/dl (12.0-16.0); IG%MD 4.6 %; Lymph%MD 16.7 %; Mean Corpuscular HGB Conc 33.5 g/dl (31.0-35.0); Mean Corpuscular Hemoglobin 31.1 pg (27.0-33.0); Mean Corpuscular Volume 92.7 fL (80-98); Mean Platelet Volume 9.1 fL (9.4-12.3); Mono%MD 12.1 %; Neut%MD 65.5 %; Platelet Count 335 X10*3/uL (160-400); Red Blood Count 4.09 X10*6/uL (4.20-5.50); Red Cell Distribution Width 11.9 % (11.0-16.0); White Blood Count 10.2 X10*3/uL (4.8-10.8)
[2020-10-08] MEDS: Mesalamine 400 MG CAP.DRTAB. 800 MG PO ×3 (10:00→21:48)
[2020-10-08 10:03] LABS: Band Neutrophils Percent 34 % (3-5); Lymphocytes Absolute Manual 1.8 X10*3/uL (0.6-4.8); Lymphocytes Percent Manual 18 % (20-40); Monocytes Absolute Manual 0.7 X10*3/uL (0.0-1.2); Monocytes Percent Manual 7 % (2-11); Neutrophils Absolute Manual 7.7 X10*3/uL (2.2-7.9); Neutrophils Percent Manual 41 % (45-73)
[2020-10-08 10:04] LABS: RBC Morphology NOTED
[2020-10-08 10:05] LABS: Hypochromasia 1+; Platelet Estimate NORMAL (NORMAL); Platelet Morphology Comment NORMAL; Polychromasia 1+
[2020-10-08 10:06] LABS: Toxic Granulation PRESENT; Toxic Vacuolation PRES
[2020-10-08 10:13] LABS: Anion Gap 11 (12-20); Blood Urea Nitrogen 13 mg/dL (9-16); C Reactive Protein 26.83 mg/dL (< or = 0.50); Calcium 7.4 mg/dL (8.4-10.2); Carbon Dioxide 29 mmol/L (22-29); Chloride 97 mmol/L (96-108); Creatinine Clr Calc Pharmacy 160.7; Estimated Glomerular Filt Rate > 60; Glucose Fasting 107 mg/dL (60-99); Magnesium 2.3 mg/dL (1.6-2.6); Potassium 3.4 mmol/l (3.3-5.1); Sodium 134 mmol/L (135-145)
--- NOTE | 2020-10-08 10:18 | HO.PM.IMPN ---
Subjective Subjective Date of Service: 10/08/20 Interval History: unchanged Cardiovascular Cardiovascular: Reports no additional cardiovascular complaints Respiratory Respiratory: Reports no additional respiratory complaints Physical Exam Vital Signs: Vital Signs: Last Vital Signs Temp 97 F 10/08/20 07:50 Pulse 86 10/08/20 07:50 Resp 18 10/08/20 07:50 BP 156/98 H 10/08/20 07:50 Pulse Ox 96 10/08/20 07:50 Body Mass Index 42.9 General: AO X 3, no acute distress Resp: CTA bilateral CVS: S1,S2,RRR GI: soft, tender, non distended Neuro: motor grossly intact Psych: appropriate affect Objective Data Current Medications Generic Name Dose Route Start Last Admin Trade Name Freq PRN Reason Stop Dose Admin Acetaminophen 650 mg 10/01/20 21:40 10/07/20 22:08 Acetaminophen 325 Mg Tablet PO 650 mg Q6H PRN Administration Pain, Mild (Pain Scale 1-3) Docusate Sodium 100 mg 10/01/20 21:40 Docusate Sodium 100 Mg Capsule PO DAILY PRN Constipation Hydrocortisone Sodium Succinate 100 mg 10/01/20 17:20 10/08/20 10:00 Hydrocortisone Sod Succ/Pf 100 Mg Vial IVPUSH 100 mg Q8H JANE Administration Hydromorphone HCl 1.5 mg 10/06/20 17:28 10/08/20 08:08 Hydromorphone Hcl 2 Mg/Ml Vial IVPUSH 1.5 mg Q3H PRN Administration Pain, Severe (Pain Scale 7-10) Mesalamine 800 mg 10/02/20 21:00 10/08/20 10:00 Mesalamine 400 Mg Cap.Drtab. PO 800 mg TID JANE Administration Ondansetron HCl 4 mg 10/01/20 21:40 10/07/20 20:12 Ondansetron Hcl 4 Mg/2 Ml Vial IVPUSH 4 mg Q8H PRN Administration Nausea and Vomiting Pharmacy Consult 1 each 10/01/20 15:31 Consult Rx Perform Med Rec MISCELLANE ONCE PRN Consult order Pharmacy Consult 1 each 10/02/20 09:37 Consult Rx Perform Med Rec MISCELLANE ONCE PRN Consult order Sodium Chloride 3 ml 10/02/20 00:00 10/08/20 08:08 0.9 % Sodium Chloride Flush 3 Ml Syringe IVFLUSH 3 ml QSHIFT JANE Administration Labs CBC & Chem 7: 10/08/20 09:20 10/08/20 09:20 Microbiology Microbiology Results: Microbiology 10/04/20 23:30 Stool Stool Culture - Final Assessment and Plan (1) Crohn's disease: Status: Acute Assessment and Plan: 30 yo F with a history of Crohn's disease who presents to the hospital with complaints of abdominal pain and diarrhea. Crohn's flare minimal improvement conitnue IV steroids, mesalamine, monitor lytes and replete as needed c. diff negative repeat ct showing persistent inflammation will change to NPO and restart IVF GI/Gen Surg on board History of MS neuro eval appreciated Morbid Obesity needs to join a weight loss program as outpatient Full Code DVT pptx, low risk -- mechanical device + early ambulation (contraindication to pharmacological due to her bloody diarrhea)
--- NOTE | 2020-10-08 10:30 | PM.PNGS ---
Subjective Subjective Date of Service: 10/08/20 Interval history: says she still has abdl pain passing watery stools no vomitting feels frustrated Physical Exam Vital Signs: Vital Signs: Last Vital Signs Temp 97 F 10/08/20 07:50 Pulse 86 10/08/20 07:50 Resp 18 10/08/20 07:50 BP 156/98 H 10/08/20 07:50 Pulse Ox 96 10/08/20 07:50 Body Mass Index 42.9 Const: Other: looks depressed General: No no acute distress Cardio: Rhythm: regular rhythm GI: Other: soft, no guarding or rebound, tender on left side and upper abd Progress Note: A&P Assessment and plan (1) Crohn's disease: Problem details: Things seem stable overall, but without significant improvement. Her abdominal exam is somewhat improved with good BS today as compared to yesterday. Her CT scan from earlier today still shows inflammatory changes with a possible component of functional obstruction at the area of the splenic flexure as oral contrast does not seem to progress beyond this area. However, she continues with BM's, she is nondistended, and is without N/V. I remain hesitant to start a biologic agent due to the possibility of exacerbating her MS(we will need to speak to her [facility] neurologist, Dr. Avina). I will continue her IV steroids and Mesalamine, and add nutritional supplements and toast. F/U labs, including CRP, in AM. If things remain stable and she improves somewhat then we can try to advance the diet. I did review Dr. Goyal's note regarding potential surgery if things worsen. Dr. Turpin covering the holiday stretch . D/W patient in detail. Thanks Status: Acute Assessment and Plan: with left sided colitis; review of CT suggests segment of sigmoid with colitis as well CT from last night - suggests some obstruction from the inflamed segment of left colon pt feels frustrated on steroids, but not on biologic agent may need diverting stoma of persistent symptoms keep NPO cecum not markedly dilated Fall Risk Details Current Medications: Current Medications Generic Name Dose Route Start Last Admin Trade Name Freq PRN Reason Stop Dose Admin Acetaminophen 650 mg 10/01/20 21:40 10/07/20 22:08 Acetaminophen 325 Mg Tablet PO 650 mg Q6H PRN Administration Pain, Mild (Pain Scale 1-3) Docusate Sodium 100 mg 10/01/20 21:40 Docusate Sodium 100 Mg Capsule PO DAILY PRN Constipation Hydrocortisone Sodium Succinate 100 mg 10/01/20 17:20 10/08/20 10:00 Hydrocortisone Sod Succ/Pf 100 Mg Vial IVPUSH 100 mg Q8H JANE Administration Hydromorphone HCl 1.5 mg 10/06/20 17:28 10/08/20 08:08 Hydromorphone Hcl 2 Mg/Ml Vial IVPUSH 1.5 mg Q3H PRN Administration Pain, Severe (Pain Scale 7-10) Mesalamine 800 mg 10/02/20 21:00 10/08/20 10:00 Mesalamine 400 Mg Cap.Drtab. PO 800 mg TID JANE Administration Ondansetron HCl 4 mg 10/01/20 21:40 10/07/20 20:12 Ondansetron Hcl 4 Mg/2 Ml Vial IVPUSH 4 mg Q8H PRN Administration Nausea and Vomiting Pharmacy Consult 1 each 10/01/20 15:31 Consult Rx Perform Med Rec MISCELLANE ONCE PRN Consult order Pharmacy Consult 1 each 10/02/20 09:37 Consult Rx Perform Med Rec MISCELLANE ONCE PRN Consult order Sodium Chloride 3 ml 10/02/20 00:00 10/08/20 08:08 0.9 % Sodium Chloride Flush 3 Ml Syringe IVFLUSH 3 ml QSHIFT JANE Administration Time Spent With Patient Time: Total time spent is greater than 50% in coordination of care (as documented) at patient's floor/unit and/or counseling patient: Time with patient: 15 - 24 minutes
[2020-10-08 11:57] VITALS: BP 147/88; PULSE 83; RESP 18; TEMP 36.9; O2SAT 96
[2020-10-08] MEDS: Sodium Chloride 0.45 % 1,000 ML 80 ML IVCONT (12:12)
[2020-10-08] MEDS: HYDROmorphone HCl 2 MG/ML VIAL IVPUSH ×3 (15:27→21:48)
[2020-10-08 15:28] VITALS: BP 136/99; PULSE 87; RESP 18; TEMP 36.2; O2SAT 97
[2020-10-08 20:00] VITALS: BP 148/88; PULSE 84; RESP 18; TEMP 36.2; O2SAT 97
[2020-10-08 20:54] LABS: CDIFF Ag Negative (Negative); CDIFF Internal ctrl Dots and bkg OK (V); CDiff Toxin Negative (Negative)
[2020-10-08 23:34] VITALS: BP 157/93; PULSE 98; RESP 18; TEMP 37.2; O2SAT 98
[2020-10-08] MEDS: ondansetron HCL 4 MG/2 ML VIAL IVPUSH (23:56)
[2020-10-09] VITALS (10 sets, daily range): BP systolic 128–181; BP diastolic 74–86; PULSE 64–111; RESP 16–19; TEMP 35.8–37.3; O2SAT 95–96
[2020-10-09] MEDS: HYDROmorphone HCl 1 MG/ML SYRINGE IVPUSH (00:24)
[2020-10-09] MEDS: Sodium Chloride 0.45 % 1,000 ML 80 ML IVCONT ×2 (00:36→12:48)
[2020-10-09] MEDS: HYDROmorphone HCl 2 MG/ML VIAL IVPUSH ×8 (01:36→23:19)
[2020-10-09] MEDS: Hydrocortisone Sod Succ/PF 100 MG VIAL IVPUSH ×3 (01:37→17:09)
[2020-10-09] MEDS: Acetaminophen 325 MG TABLET 650 MG PO (04:51)
--- NOTE | 2020-10-09 06:25 | PC.NURSE ---
Patient vomiting and diarrhea earlier in 11-7 shift. c.o severe pain. Now dose of Dilaudid ordered and administered. patient requesting to see MD, stating we are not doing enough for her. Carpentry Teacher notified and MD in room. Hospitlaist and I at bedside. Patient was very rude to the MD, told MD she wanted surgery and stated that she wanted to talk to another doctor and dismissed the hospitalist. Patient told doctor that she felt ignored and called the doctor dude , impatient and raised voice when she was speaking with MD. I notified the fast food supervisor of the interaction.
[2020-10-09 07:19] LABS: Hematocrit 38.1 % (37-47); Hemoglobin 12.7 g/dl (12.0-16.0); Mean Corpuscular HGB Conc 33.3 g/dl (31.0-35.0); Mean Corpuscular Hemoglobin 31.1 pg (27.0-33.0); Mean Corpuscular Volume 93.2 fL (80-98); Mean Platelet Volume 9.1 fL (9.4-12.3); Platelet Count 362 X10*3/uL (160-400); Red Blood Count 4.09 X10*6/uL (4.20-5.50); Red Cell Distribution Width 12.1 % (11.0-16.0)
[2020-10-09 08:05] LABS: Anion Gap 12 (12-20); Blood Urea Nitrogen 15 mg/dL (9-16); Calcium 7.1 mg/dL (8.4-10.2); Carbon Dioxide 28 mmol/L (22-29); Chloride 96 mmol/L (96-108); Creatinine Clr Calc Pharmacy 146.5; Estimated Glomerular Filt Rate > 60; Glucose Fasting 113 mg/dL (60-99); Magnesium 2.1 mg/dL (1.6-2.6); Potassium 3.3 mmol/l (3.3-5.1); Sodium 133 mmol/L (135-145)
[2020-10-09 08:08] LABS: Band Neutrophils Percent 37 % (3-5); Lymphocytes Absolute Manual 0.7 X10*3/uL (0.6-4.8); Lymphocytes Percent Manual 6 % (20-40); Monocytes Absolute Manual 1.4 X10*3/uL (0.0-1.2); Monocytes Percent Manual 12 % (2-11); Neutrophils Absolute Manual 9.8 X10*3/uL (2.2-7.9); Neutrophils Percent Manual 45 % (45-73)
[2020-10-09 08:09] LABS: Platelet Estimate NORMAL (NORMAL); Platelet Morphology Comment NORMAL
[2020-10-09 08:10] LABS: RBC Morphology NORMAL
[2020-10-09] MEDS: Mesalamine 400 MG CAP.DRTAB. 800 MG PO ×3 (08:10→20:13)
--- NOTE | 2020-10-09 08:54 | PM.PNGS ---
Subjective Subjective Date of Service: 10/09/20 Interval history: Bad night last night with increased pain, nausea, vomiting. Feels improved this morning. Watching the clock for next dose of medication. Reports pain level 4/10 this morning Physical Exam Vital Signs: Vital Signs: Last Vital Signs Temp 96.4 F L 10/09/20 08:14 Pulse 80 10/09/20 08:14 Resp 18 10/09/20 08:14 BP 129/79 10/09/20 08:14 Pulse Ox 95 10/09/20 08:14 Body Mass Index 42.9 Const: Other: awake and alert; lying very still in bed. General: cooperative Nutritional Appearance: well nourished Orientation/consciousness: patient oriented x3 Eyes: Sclerae: sclerae normal EOM: EOMs intact bilaterally GI: Other: soft, distended, bowel sounds present, tender in the left upper abdomen, no peritoneal signs Skin: General skin exam: no rashes or lesions noted and no erythema Neuro: General: patient oriented x3 Extrem: General: Yes full ROM and No edema Progress Note: A&P Assessment and plan (1) Crohn's disease: Status: Acute (2) Abdominal pain: Status: Acute Assessment and Plan: Marianna continues to report episodes of increased abdominal pain associated with nausea and vomiting. She was very miserable last night and doesn't think she can undergo another night like last night. I again discussed the surgical option which may require a temporary ostomy due to her obstructed bowel, with or without a resection. The patient expressed her understanding of the situation but is not ready to agree wo surgery just let. She wishes to think about her options. Fall Risk Details Current Medications: Current Medications Generic Name Dose Route Start Last Admin Trade Name Freq PRN Reason Stop Dose Admin Acetaminophen 650 mg 10/01/20 21:40 10/09/20 04:51 Acetaminophen 325 Mg Tablet PO 650 mg Q6H PRN Administration Pain, Mild (Pain Scale 1-3) Docusate Sodium 100 mg 10/01/20 21:40 Docusate Sodium 100 Mg Capsule PO DAILY PRN Constipation Hydrocortisone Sodium Succinate 100 mg 10/01/20 17:20 10/09/20 08:10 Hydrocortisone Sod Succ/Pf 100 Mg Vial IVPUSH 100 mg Q8H JANE Administration Hydromorphone HCl 2 mg 10/08/20 12:23 10/09/20 08:10 Hydromorphone Hcl 2 Mg/Ml Vial IVPUSH 2 mg Q3H PRN Administration Pain, Severe (Pain Scale 7-10) Sodium Chloride 1,000 mls @ 80 mls/hr 10/08/20 10:45 10/09/20 00:36 IVCONT 80 mls/hr .[id number] JANE Administration Mesalamine 800 mg 10/02/20 21:00 10/09/20 08:10 Mesalamine 400 Mg Cap.Drtab. PO 800 mg TID JANE Administration Ondansetron HCl 4 mg 10/01/20 21:40 10/08/20 23:56 Ondansetron Hcl 4 Mg/2 Ml Vial IVPUSH 4 mg Q8H PRN Administration Nausea and Vomiting Pharmacy Consult 1 each 10/01/20 15:31 Consult Rx Perform Med Rec MISCELLANE ONCE PRN Consult order Pharmacy Consult 1 each 10/02/20 09:37 Consult Rx Perform Med Rec MISCELLANE ONCE PRN Consult order Sodium Chloride 3 ml 10/02/20 00:00 10/09/20 08:14 0.9 % Sodium Chloride Flush 3 Ml Syringe IVFLUSH Not Given QSHIFT JANE Time Spent With Patient Time: Total time spent is greater than 50% in coordination of care (as documented) at patient's floor/unit and/or counseling patient: Time with patient: 25 - 35 minutes
--- NOTE | 2020-10-09 09:46 | HO.PM.IMPN ---
Subjective Subjective Date of Service: 10/09/20 Interval History: unchnged Cardiovascular Cardiovascular: Reports no additional cardiovascular complaints Respiratory Respiratory: Reports no additional respiratory complaints Physical Exam Vital Signs: Vital Signs: Last Vital Signs Temp 96.4 F L 10/09/20 08:14 Pulse 80 10/09/20 08:14 Resp 18 10/09/20 08:14 BP 129/79 10/09/20 08:14 Pulse Ox 95 10/09/20 08:14 Body Mass Index 42.9 General: AO X 3, no acute distress Resp: CTA bilateral CVS: S1,S2,RRR GI: soft, tender, non distended Neuro: motor grossly intact Psych: appropriate affect Objective Data Current Medications Generic Name Dose Route Start Last Admin Trade Name Freq PRN Reason Stop Dose Admin Acetaminophen 650 mg 10/01/20 21:40 10/09/20 04:51 Acetaminophen 325 Mg Tablet PO 650 mg Q6H PRN Administration Pain, Mild (Pain Scale 1-3) Docusate Sodium 100 mg 10/01/20 21:40 Docusate Sodium 100 Mg Capsule PO DAILY PRN Constipation Hydrocortisone Sodium Succinate 100 mg 10/01/20 17:20 10/09/20 08:10 Hydrocortisone Sod Succ/Pf 100 Mg Vial IVPUSH 100 mg Q8H JANE Administration Hydromorphone HCl 2 mg 10/08/20 12:23 10/09/20 08:10 Hydromorphone Hcl 2 Mg/Ml Vial IVPUSH 2 mg Q3H PRN Administration Pain, Severe (Pain Scale 7-10) Sodium Chloride 1,000 mls @ 80 mls/hr 10/08/20 10:45 10/09/20 00:36 IVCONT 80 mls/hr .[id number] JANE Administration Mesalamine 800 mg 10/02/20 21:00 10/09/20 08:10 Mesalamine 400 Mg Cap.Drtab. PO 800 mg TID JANE Administration Ondansetron HCl 4 mg 10/01/20 21:40 10/08/20 23:56 Ondansetron Hcl 4 Mg/2 Ml Vial IVPUSH 4 mg Q8H PRN Administration Nausea and Vomiting Pharmacy Consult 1 each 10/01/20 15:31 Consult Rx Perform Med Rec MISCELLANE ONCE PRN Consult order Pharmacy Consult 1 each 10/02/20 09:37 Consult Rx Perform Med Rec MISCELLANE ONCE PRN Consult order Sodium Chloride 3 ml 10/02/20 00:00 10/09/20 08:14 0.9 % Sodium Chloride Flush 3 Ml Syringe IVFLUSH Not Given QSHIFT JANE Labs CBC & Chem 7: 10/09/20 06:14 10/09/20 06:14 Microbiology Microbiology Results: Microbiology 10/04/20 23:30 Stool Stool Culture - Final Assessment and Plan (1) Crohn's disease: Status: Acute Assessment and Plan: 30 yo F with a history of Crohn's disease who presents to the hospital with complaints of abdominal pain and diarrhea. Crohn's flare minimal improvement continue IV steroids, mesalamine, monitor lytes and replete as needed c. diff negative repeat ct showing persistent inflammation NPO and IVF GI/Gen Surg on board patient to decide on surgery History of MS neuro eval appreciated Morbid Obesity needs to join a weight loss program as outpatient
--- NOTE | 2020-10-09 11:24 | P.PNGI_ITS ---
Subjective Subjective Date of Service: 10/09/20 Interval History: sharp pain last night feels better after bm today Physical Exam Vital Signs: Vital Signs: Last Vital Signs Temp 96.4 F L 10/09/20 08:14 Pulse 80 10/09/20 08:14 Resp 18 10/09/20 08:14 BP 129/79 10/09/20 08:14 Pulse Ox 95 10/09/20 08:14 Body Mass Index 42.9 Const: Other: alert, appears comfortable GI: Other: abd soft, mild l side tenderness Objective Data Labs CBC & Chem 7: 10/09/20 06:14 10/09/20 06:14 Labs: Laboratory Results - last 24 hr 10/08/20 10/09/20 10/09/20 19:54 06:14 06:14 WBC Cancelled 12.0 H RBC Cancelled 4.09 L Hgb Cancelled 12.7 Hct Cancelled 38.1 MCV Cancelled 93.2 MCH Cancelled 31.1 MCHC Cancelled 33.3 RDW Cancelled 12.1 Plt Count Cancelled 362 MPV Cancelled 9.1 L Immature Gran % (Auto) Cancelled Neut % (Auto) Cancelled Lymph % (Auto) Cancelled [place] % (Auto) Cancelled Eos % (Auto) Cancelled Baso % (Auto) Cancelled Lymph # (Auto) Cancelled [place] # (Auto) Cancelled Eos # (Auto) Cancelled Baso # (Auto) Cancelled Abs Immat Gran (auto) Cancelled Absolute Neuts (auto) Cancelled Absolute Nucleated RBC Cancelled 0.000 Nucleated RBC % (auto) Cancelled 0.0 Neutrophils % (Manual) 45 Band Neutrophils % 37 H Lymphocytes % (Manual) 6 L Monocytes % (Manual) 12 H Abs Neuts (Manual) 9.8 H Lymphocytes # (Manual) 0.7 Monocytes # (Manual) 1.4 H Platelet Estimate NORMAL Plt Morphology Comment NORMAL RBC Morphology NORMAL Sodium Potassium Chloride Carbon Dioxide Anion Gap BUN Creatinine Estim Creat Clear Calc Estimated GFR Fasting Glucose Calcium Magnesium C. difficile Toxin A&B Negative C. difficile Antigen Negative C. difficile Interpret SEE NOTE 10/09/20 06:14 WBC RBC Hgb Hct MCV MCH MCHC RDW Plt Count MPV Immature Gran % (Auto) Neut % (Auto) Lymph % (Auto) [place] % (Auto) Eos % (Auto) Baso % (Auto) Lymph # (Auto) [place] # (Auto) Eos # (Auto) Baso # (Auto) Abs Immat Gran (auto) Absolute Neuts (auto) Absolute Nucleated RBC Nucleated RBC % (auto) Neutrophils % (Manual) Band Neutrophils % Lymphocytes % (Manual) Monocytes % (Manual) Abs Neuts (Manual) Lymphocytes # (Manual) Monocytes # (Manual) Platelet Estimate Plt Morphology Comment RBC Morphology Sodium 133 L Potassium 3.3 Chloride 96 Carbon Dioxide 28 Anion Gap 12 BUN 15 Creatinine 0.68 Estim Creat Clear Calc 146.5 Estimated GFR > 60 Fasting Glucose 113 H Calcium 7.1 L Magnesium 2.1 C. difficile Toxin A&B C. difficile Antigen C. difficile Interpret Microbiology Microbiology Results: Microbiology 10/04/20 23:30 Stool Stool Culture - Final Progress Note: A&P Assessment and plan (1) Crohn's disease: Status: Acute Assessment and Plan: labs and xrays reviewed discussed with Dr Goyal continue iv steroids. try to advance diet tomorrow if clinically better. Fall Risk Details Current Medications: Current Medications Generic Name Dose Route Start Last Admin Trade Name Freq PRN Reason Stop Dose Admin Acetaminophen 650 mg 10/01/20 21:40 10/09/20 04:51 Acetaminophen 325 Mg Tablet PO 650 mg Q6H PRN Administration Pain, Mild (Pain Scale 1-3) Docusate Sodium 100 mg 10/01/20 21:40 Docusate Sodium 100 Mg Capsule PO DAILY PRN Constipation Hydrocortisone Sodium Succinate 100 mg 10/01/20 17:20 10/09/20 08:10 Hydrocortisone Sod Succ/Pf 100 Mg Vial IVPUSH 100 mg Q8H JANE Administration Hydromorphone HCl 2 mg 10/08/20 12:23 10/09/20 11:02 Hydromorphone Hcl 2 Mg/Ml Vial IVPUSH 2 mg Q3H PRN Administration Pain, Severe (Pain Scale 7-10) Sodium Chloride 1,000 mls @ 80 mls/hr 10/08/20 10:45 10/09/20 00:36 IVCONT 80 mls/hr .[id number] JANE Administration Mesalamine 800 mg 10/02/20 21:00 10/09/20 08:10 Mesalamine 400 Mg Cap.Drtab. PO 800 mg TID JANE Administration Ondansetron HCl 4 mg 10/01/20 21:40 10/08/20 23:56 Ondansetron Hcl 4 Mg/2 Ml Vial IVPUSH 4 mg Q8H PRN Administration Nausea and Vomiting Pharmacy Consult 1 each 10/01/20 15:31 Consult Rx Perform Med Rec MISCELLANE ONCE PRN Consult order Pharmacy Consult 1 each 10/02/20 09:37 Consult Rx Perform Med Rec MISCELLANE ONCE PRN Consult order Sodium Chloride 3 ml 10/02/20 00:00 10/09/20 08:14 0.9 % Sodium Chloride Flush 3 Ml Syringe IVFLUSH Not Given QSHIFT JANE Time Spent With Patient Time: Total time spent is greater than 50% in coordination of care (as docume nted) at patient's floor/unit and/or counseling patient: Time with patient: less than 15 minutes
--- NOTE | 2020-10-09 14:11 | MHC.CLN ---
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 discharge plan home 1-2 days once titrated diet advancement, switchinh over to oral analgeics, pcp patient instructed to call for post hospital discharge follow up transporttion family
--- NOTE | 2020-10-09 14:58 | MHC.CM.PN ---
Pt had a very bad night last night, but feels slightly better today. Dr. Goyal met with pt to discuss possible surgery. Pt refuses surgery at this time. Does not want colostomy. Understands she may need to consider this option if she doesn't improve. A bit teary today. Plans to go home without services when discharged. Will continue to follow for d/c needs.
[2020-10-09] MEDS: 0.9 % Sodium Chloride Flush 3 ML SYRINGE IVFLUSH (23:25)
[2020-10-10] VITALS (7 sets, daily range): BP systolic 139–161; BP diastolic 77–91; PULSE 64–85; RESP 16–20; TEMP 36–37.1; O2SAT 69–99
[2020-10-10] MEDS: Sodium Chloride 0.45 % 1,000 ML 80 ML IVCONT ×2 (00:50→12:49)
[2020-10-10] MEDS: Hydrocortisone Sod Succ/PF 100 MG VIAL IVPUSH ×3 (01:15→15:47)
[2020-10-10] MEDS: Acetaminophen 325 MG TABLET 650 MG PO ×2 (01:16→18:10)
[2020-10-10] MEDS: HYDROmorphone HCl 2 MG/ML VIAL IVPUSH ×7 (02:30→22:07)
[2020-10-10 07:34] LABS: Hematocrit 36.4 % (37-47); Hemoglobin 12.2 g/dl (12.0-16.0); Mean Corpuscular HGB Conc 33.5 g/dl (31.0-35.0); Mean Corpuscular Volume 92.6 fL (80-98); Mean Platelet Volume 8.9 fL (9.4-12.3); Platelet Count 332 X10*3/uL (160-400); Red Blood Count 3.93 X10*6/uL (4.20-5.50); Red Cell Distribution Width 11.9 % (11.0-16.0); White Blood Count 8.4 X10*3/uL (4.8-10.8)
[2020-10-10 08:05] LABS: Anion Gap 14 (12-20); Blood Urea Nitrogen 14 mg/dL (9-16); Calcium 7.3 mg/dL (8.4-10.2); Carbon Dioxide 28 mmol/L (22-29); Chloride 95 mmol/L (96-108); Creatinine Clr Calc Pharmacy 155.7; Estimated Glomerular Filt Rate > 60; Glucose Fasting 105 mg/dL (60-99); Potassium 3.5 mmol/l (3.3-5.1); Sodium 133 mmol/L (135-145)
[2020-10-10 08:21] LABS: Band Neutrophils Percent 18 % (3-5); Lymphocytes Absolute Manual 0.8 X10*3/uL (0.6-4.8); Lymphocytes Percent Manual 9 % (20-40); Monocytes Absolute Manual 0.6 X10*3/uL (0.0-1.2); Monocytes Percent Manual 7 % (2-11); Neutrophils Absolute Manual 7.1 X10*3/uL (2.2-7.9); Neutrophils Percent Manual 66 % (45-73)
[2020-10-10 08:22] LABS: Platelet Estimate NORMAL (NORMAL); Platelet Morphology Comment NORMAL; RBC Morphology NORMAL
--- NOTE | 2020-10-10 08:44 | PM.PNGS ---
Subjective Subjective Date of Service: 10/10/20 Interval history: I feel hungry today, reports decreased abdominal pain and continued bowel movements. Does not feel like she needs surgery at this time. Physical Exam Vital Signs: Vital Signs: Last Vital Signs Temp 97.0 F 10/10/20 07:42 Pulse 64 10/10/20 07:42 Resp 18 10/10/20 07:42 BP 141/87 H 10/10/20 07:42 Pulse Ox 96 10/10/20 07:42 Body Mass Index 42.9 Const: Other: Awake, alert, no acute distress, appears well rested Eyes: Other: normal extraocular muscles, normal sclera Resp: Other: breathing comfortably on room air, no respiratory distress GI: Other: soft, mild tenderness in the left lower quadrant, no rebound, no guarding, no palpable mass Skin: Other: warm and dry, no rash Extrem: Other: no edema, full range of motion Psych: Speech and movement: Normal speech and movement present Affect: normal affect Progress Note: A&P Assessment and plan (1) Abdominal pain: Status: Acute Assessment and Plan: overall the patient appears improved today with decreased abdominal discomfort reported. She also reports being hungry and is requesting toast. Abdominal exam is also improved with decreased tenderness and no peritoneal signs. Recommend advancing diet to full liquid diet with the addition of toast. Patient encouraged to stop beating if the pain returns. Patient understands and agrees with the plan. Discussed with Dr. Ball this morning (2) Crohn's disease: Status: Acute Fall Risk Details Current Medications: Current Medications Generic Name Dose Route Start Last Admin Trade Name Freq PRN Reason Stop Dose Admin Acetaminophen 650 mg 10/09/20 20:27 10/10/20 01:16 Acetaminophen 325 Mg Tablet PO 650 mg Q6H PRN Administration Pain and Fever Docusate Sodium 100 mg 10/01/20 21:40 Docusate Sodium 100 Mg Capsule PO DAILY PRN Constipation Hydrocortisone Sodium Succinate 100 mg 10/01/20 17:20 10/10/20 01:15 Hydrocortisone Sod Succ/Pf 100 Mg Vial IVPUSH 100 mg Q8H JANE Administration Hydromorphone HCl 2 mg 10/08/20 12:23 10/10/20 06:39 Hydromorphone Hcl 2 Mg/Ml Vial IVPUSH 2 mg Q3H PRN Administration Pain, Severe (Pain Scale 7-10) Sodium Chloride 1,000 mls @ 80 mls/hr 10/08/20 10:45 10/10/20 00:50 IVCONT 80 mls/hr .[id number] JANE Administration Mesalamine 800 mg 10/02/20 21:00 10/09/20 20:13 Mesalamine 400 Mg Cap.Drtab. PO 800 mg TID JANE Administration Ondansetron HCl 4 mg 10/01/20 21:40 10/08/20 23:56 Ondansetron Hcl 4 Mg/2 Ml Vial IVPUSH 4 mg Q8H PRN Administration Nausea and Vomiting Pharmacy Consult 1 each 10/01/20 15:31 Consult Rx Perform Med Rec MISCELLANE ONCE PRN Consult order Pharmacy Consult 1 each 10/02/20 09:37 Consult Rx Perform Med Rec MISCELLANE ONCE PRN Consult order Sodium Chloride 3 ml 10/02/20 00:00 10/09/20 23:25 0.9 % Sodium Chloride Flush 3 Ml Syringe IVFLUSH 3 ml QSHIFT JANE Administration Time Spent With Patient Time: Total time spent is greater than 50% in coordination of care (as documented) at patient's floor/unit and/or counseling patient: Time with patient: 15 - 24 minutes
--- NOTE | 2020-10-10 09:21 | P.PNIM_ITS ---
Subjective Subjective Date of Service: 10/10/20 Interval History: improved, now hungry Cardiovascular Cardiovascular: Reports no additional cardiovascular complaints Respiratory Respiratory: Reports no additional respiratory complaints Physical Exam Vital Signs: Vital Signs: Last Vital Signs Temp 97.0 F 10/10/20 07:42 Pulse 64 10/10/20 07:42 Resp 18 10/10/20 07:42 BP 141/87 H 10/10/20 07:42 Pulse Ox 96 10/10/20 07:42 Body Mass Index 42.9 General: AO X 3, no acute distress Resp: CTA bilateral CVS: S1,S2,RRR GI: soft, improved tenderness, non distended Neuro: motor grossly intact Psych: appropriate affect Objective Data Current Medications Generic Name Dose Route Start Last Admin Trade Name Freq PRN Reason Stop Dose Admin Acetaminophen 650 mg 10/09/20 20:27 10/10/20 01:16 Acetaminophen 325 Mg Tablet PO 650 mg Q6H PRN Administration Pain and Fever Docusate Sodium 100 mg 10/01/20 21:40 Docusate Sodium 100 Mg Capsule PO DAILY PRN Constipation Hydrocortisone Sodium Succinate 100 mg 10/01/20 17:20 10/10/20 01:15 Hydrocortisone Sod Succ/Pf 100 Mg Vial IVPUSH 100 mg Q8H JANE Administration Hydromorphone HCl 2 mg 10/08/20 12:23 10/10/20 06:39 Hydromorphone Hcl 2 Mg/Ml Vial IVPUSH 2 mg Q3H PRN Administration Pain, Severe (Pain Scale 7-10) Sodium Chloride 1,000 mls @ 80 mls/hr 10/08/20 10:45 10/10/20 00:50 IVCONT 80 mls/hr .[id number] JANE Administration Mesalamine 800 mg 10/02/20 21:00 10/09/20 20:13 Mesalamine 400 Mg Cap.Drtab. PO 800 mg TID JANE Administration Ondansetron HCl 4 mg 10/01/20 21:40 10/08/20 23:56 Ondansetron Hcl 4 Mg/2 Ml Vial IVPUSH 4 mg Q8H PRN Administration Nausea and Vomiting Pharmacy Consult 1 each 10/01/20 15:31 Consult Rx Perform Med Rec MISCELLANE ONCE PRN Consult order Pharmacy Consult 1 each 10/02/20 09:37 Consult Rx Perform Med Rec MISCELLANE ONCE PRN Consult order Sodium Chloride 3 ml 10/02/20 00:00 10/09/20 23:25 0.9 % Sodium Chloride Flush 3 Ml Syringe IVFLUSH 3 ml QSHIFT [facility] Administration Labs CBC & Chem 7: 10/10/20 07:02 10/10/20 07:02 Microbiology Microbiology Results: Microbiology 10/04/20 23:30 Stool Stool Culture - Final Assessment and Plan (1) Crohn's disease: Status: Acute Assessment and Plan: 30 yo F with a history of Crohn's disease who presents to the hospital with complaints of abdominal pain and diarrhea. Crohn's flare minimal improvement continue IV steroids, mesalamine, monitor lytes and replete as needed c. diff negative improved symptoms, will start full liquids GI/Gen Surg on board History of MS neuro eval appreciated Morbid Obesity needs to join a weight loss program as outpatient
[2020-10-10] MEDS: Mesalamine 400 MG CAP.DRTAB. 800 MG PO ×3 (09:28→21:21)
--- NOTE | 2020-10-10 14:39 | MHC.CM.PN ---
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 MET WITH PATIENT . SHE REPORTED FEELING MUCH BETTER TODAY, PER DOCUMENTATION DECREASED ABDOMINAL PAIN ,CONTINUES WITH BOWEL MOVEMENTS, REPORTS BEING HUNGRY AND ASKING FOR FOOD ADVANCING DIET TO FULL LIQUIDS AND T PATIENT WALKING IN THE [address] WAY, PLAN PER DOCUMENTATIONS-CONTINUE WITH IV STEROID Q8HRS,IV HYDROMORPHONE Q3 HRS PRN PAIN MANAGEMENT IV FLUIDS AT 80CC IV ZOFRAN PRN DISCHARGE PLAN 1.ANTICIPATE HOME NO SERVICES VS POSSIBLE NEED FOR VNA (IF PATIENT CONTINUES WITH NO IMPROVEMENT PER DR HUA SURGERY RECOMENDED,(AT THIS TIME PATIENT IS NOT YET WILING TO CONSENT TO SURGERY WITH THE POSSIBILITY OF TEMPORARY OR PERMANENT OSTOMY) PCP -PATIENT TO [facility] DISCHARGE FOLLOW UP TRANSPORTATION FAMILY
--- NOTE | 2020-10-10 15:58 | PM.GIPN ---
Subjective Subjective Date of Service: 10/10/20 Interval History: ate toast and liquids this am feels like she is unable to pass gas rectally. Physical Exam Vital Signs: Vital Signs: Last Vital Signs Temp 96.8 F 10/10/20 15:25 Pulse 80 10/10/20 15:25 Resp 19 10/10/20 15:25 BP 161/89 H 10/10/20 15:25 Pulse Ox 96 10/10/20 15:25 Body Mass Index 42.9 Const: Other: looks comfortable GI: Other: soft bs present, no guarding or rebound Skin: Other: tattoos present Objective Data Labs CBC & Chem 7: 10/10/20 07:02 10/10/20 07:02 Progress Note: A&P Assessment and plan (1) Crohn's disease: Status: Acute Assessment and Plan: continue steroids advised pt to get out of bed and ambulate as narcotics and bedrest are risk factors for ileus in the setting of crohns Time Spent With Patient Time: Total time spent is greater than 50% in coordination of care (as documented) at patient's floor/unit and/or counseling patient: Time with patient: less than 15 minutes
[2020-10-11] VITALS (7 sets, daily range): BP systolic 125–154; BP diastolic 69–87; PULSE 72–93; RESP 16–20; TEMP 36.1–37; O2SAT 96–98
[2020-10-11] MEDS: ondansetron HCL 4 MG/2 ML VIAL IVPUSH (00:25)
[2020-10-11] MEDS: Sodium Chloride 0.45 % 1,000 ML 80 ML IVCONT (01:51)
[2020-10-11] MEDS: Hydrocortisone Sod Succ/PF 100 MG VIAL IVPUSH ×3 (01:51→16:18)
[2020-10-11] MEDS: HYDROmorphone HCl 2 MG/ML VIAL IVPUSH ×2 (02:03→06:16)
[2020-10-11 07:40] LABS: Hematocrit 38.1 % (37-47); Hemoglobin 12.7 g/dl (12.0-16.0); Mean Corpuscular HGB Conc 33.3 g/dl (31.0-35.0); Mean Corpuscular Hemoglobin 30.3 pg (27.0-33.0); Mean Corpuscular Volume 90.9 fL (80-98); Mean Platelet Volume 8.7 fL (9.4-12.3); Platelet Count 401 X10*3/uL (160-400); Red Blood Count 4.19 X10*6/uL (4.20-5.50); Red Cell Distribution Width 11.9 % (11.0-16.0)
[2020-10-11 07:48] LABS: WBC ABN SCTR FOR CBC 1
[2020-10-11 08:07] LABS: Anion Gap 11 (12-20); Blood Urea Nitrogen 11 mg/dL (9-16); Calcium 7.2 mg/dL (8.4-10.2); Carbon Dioxide 26 mmol/L (22-29); Chloride 96 mmol/L (96-108); Creatinine Clr Calc Pharmacy 166.1; Estimated Glomerular Filt Rate > 60; Glucose Fasting 142 mg/dL (60-99); Potassium 3.3 mmol/l (3.3-5.1); Sodium 130 mmol/L (135-145)
[2020-10-11 08:13] LABS: Band Neutrophils Percent 30 % (3-5); Dohle Bodies PRESENT; Lymphocytes Percent Manual 10 % (20-40); Monocytes Percent Manual 12 % (2-11); Neutrophils Percent Manual 48 % (45-73); Toxic Vacuolation PRESENT
[2020-10-11 08:14] LABS: Platelet Estimate SLIGHTLY INCREASED (NORMAL); Platelet Morphology Comment NORMAL; RBC Morphology NORMAL
[2020-10-11 08:15] LABS: Lymphocytes Absolute Manual 0.9 X10*3/uL (0.6-4.8); Neutrophils Absolute Manual 6.8 X10*3/uL (2.2-7.9); White Blood Count 8.7 X10*3/uL (4.8-10.8)
[2020-10-11] MEDS: Mesalamine 400 MG CAP.DRTAB. 800 MG PO ×3 (08:29→19:54)
--- NOTE | 2020-10-11 09:01 | PM.PNGS ---
Subjective Subjective Date of Service: 10/11/20 Interval history: patient reports several liquid bowel movements during the night with crampy abdominal pain in the upper abdomen. Denies blood in her stools. Physical Exam Vital Signs: Vital Signs: Last Vital Signs Temp 97.0 F 10/11/20 07:36 Pulse 79 10/11/20 07:36 Resp 18 10/11/20 07:36 BP 149/77 H 10/11/20 07:36 Pulse Ox 96 10/11/20 07:36 Body Mass Index 42.9 Const: General: cooperative and no acute distress Eyes: Sclerae: sclerae normal Resp: Effort & Inspection: normal respiratory effort and no cough GI: Palpation (GI): Soft to palpation, Tenderness to palpation present (GI) in the LUQ and in the RUQ and no guarding Skin: General skin exam: no rashes or lesions noted and no erythema Extrem: General: Yes full ROM and Yes no pedal edema Progress Note: A&P Assessment and plan (1) Crohn's disease: Status: Acute Assessment and Plan: Slight increased abdominal pain after restarting diet yesterday. Patient reports multiple bowel movements which were liquidy. Encourage patient to get out of bed and ambulate, limit narcotics as recommended by Dr. Turpin. Continue current diet and reassess in a.m.. Discussed with Dr. Ball. Fall Risk Details Current Medications: Current Medications Generic Name Dose Route Start Last Admin Trade Name Freq PRN Reason Stop Dose Admin Acetaminophen 650 mg 10/09/20 20:27 10/10/20 18:10 Acetaminophen 325 Mg Tablet PO 650 mg Q6H PRN Administration Pain and Fever Docusate Sodium 100 mg 10/01/20 21:40 Docusate Sodium 100 Mg Capsule PO DAILY PRN Constipation Hydrocortisone Sodium Succinate 100 mg 10/01/20 17:20 10/11/20 01:51 Hydrocortisone Sod Succ/Pf 100 Mg Vial IVPUSH 100 mg Q8H JANE Administration Hydromorphone HCl 2 mg 10/08/20 12:23 10/11/20 06:16 Hydromorphone Hcl 2 Mg/Ml Vial IVPUSH 2 mg Q3H PRN Administration Pain, Severe (Pain Scale 7-10) Sodium Chloride 1,000 mls @ 80 mls/hr 10/08/20 10:45 10/11/20 01:51 IVCONT 80 mls/hr .[id number] JANE Administration Mesalamine 800 mg 10/02/20 21:00 10/11/20 08:29 Mesalamine 400 Mg Cap.Drtab. PO 800 mg TID JANE Administration Ondansetron HCl 4 mg 10/01/20 21:40 10/11/20 00:25 Ondansetron Hcl 4 Mg/2 Ml Vial IVPUSH 4 mg Q8H PRN Administration Nausea and Vomiting Pharmacy Consult 1 each 10/01/20 15:31 Consult Rx Perform Med Rec MISCELLANE ONCE PRN Consult order Pharmacy Consult 1 each 10/02/20 09:37 Consult Rx Perform Med Rec MISCELLANE ONCE PRN Consult order Sodium Chloride 3 ml 10/02/20 00:00 10/11/20 07:40 0.9 % Sodium Chloride Flush 3 Ml Syringe IVFLUSH Not Given QSHIFT JANE Time Spent With Patient Time: Total time spent is greater than 50% in coordination of care (as documented) at patient's floor/unit and/or counseling patient: Time with patient: 15 - 24 minutes
--- NOTE | 2020-10-11 09:37 | P.PNIM_ITS ---
Subjective Subjective Date of Service: 10/11/20 Interval History: worse today Cardiovascular Cardiovascular: Reports no additional cardiovascular complaints Respiratory Respiratory: Reports no additional respiratory complaints Physical Exam Vital Signs: Vital Signs: Last Vital Signs Temp 97.0 F 10/11/20 07:36 Pulse 79 10/11/20 07:36 Resp 18 10/11/20 07:36 BP 149/77 H 10/11/20 07:36 Pulse Ox 96 10/11/20 07:36 Body Mass Index 42.9 General: AO X 3, no acute distress Resp: CTA bilateral CVS: S1,S2,RRR GI: soft, mildly tender, non distended Neuro: motor grossly intact Psych: appropriate affect Objective Data Current Medications Generic Name Dose Route Start Last Admin Trade Name Freq PRN Reason Stop Dose Admin Acetaminophen 650 mg 10/09/20 20:27 10/10/20 18:10 Acetaminophen 325 Mg Tablet PO 650 mg Q6H PRN Administration Pain and Fever Docusate Sodium 100 mg 10/01/20 21:40 Docusate Sodium 100 Mg Capsule PO DAILY PRN Constipation Hydrocortisone Sodium Succinate 100 mg 10/01/20 17:20 10/11/20 01:51 Hydrocortisone Sod Succ/Pf 100 Mg Vial IVPUSH 100 mg Q8H JANE Administration Hydromorphone HCl 2 mg 10/08/20 12:23 10/11/20 06:16 Hydromorphone Hcl 2 Mg/Ml Vial IVPUSH 2 mg Q3H PRN Administration Pain, Severe (Pain Scale 7-10) Sodium Chloride 1,000 mls @ 80 mls/hr 10/08/20 10:45 10/11/20 01:51 IVCONT 80 mls/hr .[id number] JANE Administration Mesalamine 800 mg 10/02/20 21:00 10/11/20 08:29 Mesalamine 400 Mg Cap.Drtab. PO 800 mg TID JANE Administration Ondansetron HCl 4 mg 10/01/20 21:40 10/11/20 00:25 Ondansetron Hcl 4 Mg/2 Ml Vial IVPUSH 4 mg Q8H PRN Administration Nausea and Vomiting Pharmacy Consult 1 each 10/01/20 15:31 Consult Rx Perform Med Rec MISCELLANE ONCE PRN Consult order Pharmacy Consult 1 each 10/02/20 09:37 Consult Rx Perform Med Rec MISCELLANE ONCE PRN Consult order Sodium Chloride 3 ml 10/02/20 00:00 10/11/20 07:40 0.9 % Sodium Chloride Flush 3 Ml Syringe IVFLUSH Not Given QSHIFT [facility] Labs CBC & Chem 7: 10/11/20 07:28 10/11/20 07:28 Microbiology Microbiology Results: Microbiology 10/04/20 23:30 Stool Stool Culture - Final Assessment and Plan (1) Crohn's disease: Status: Acute Assessment and Plan: 30 yo F with a history of Crohn's disease who presents to the hospital with complaints of abdominal pain and diarrhea. Crohn's flare had some improvement yesterday and started on liquids with toast, but now feeling worse today continue current diet, IV steroids, mesalamine will start weaning dilaudid, decreased from 2gm q3h to 1.5gm gi/surgery following History of MS neuro eval appreciated Morbid Obesity needs to join a weight loss program as outpatient
[2020-10-11] MEDS: HYDROmorphone HCl 2 MG/ML VIAL 1.5 MG IVPUSH ×5 (09:44→23:26)
[2020-10-11] MEDS: Acetaminophen 325 MG TABLET 650 MG PO ×2 (11:04→17:27)
--- NOTE | 2020-10-11 11:27 | MHC.CM.PN ---
nurse urgent care physician note electronic medical record reviewed and case discussed with staff nurse and met with patient , yesterday she was advanced to full liquid dietand with p[atietns request toast, she was taking small intervals at a time and was seen ambulating in the [place]. per [place] as the day went on and through the niught she started to have abdominal craming pain, and liquid stools. per documentation plan is to keep on current diet , increase ambulation and titrate down the use of narcotics . meications remain the same , discharge payne anticipate discharge home no services
--- NOTE | 2020-10-11 12:32 | PM.GIPN ---
Subjective Subjective Date of Service: 10/11/20 Interval History: multiple bm's last night no bleeding feels better ths am Physical Exam Vital Signs: Vital Signs: Last Vital Signs Temp 96.9 F 10/11/20 11:50 Pulse 72 10/11/20 11:50 Resp 18 10/11/20 11:50 BP 146/77 H 10/11/20 11:50 Pulse Ox 96 10/11/20 11:50 Body Mass Index 42.9 Cardio: Other: s1 s2 regular GI: Other: soft nontender focally, bs present Skin: Other: pale Objective Data Labs CBC & Chem 7: 10/11/20 07:28 10/11/20 07:28 Progress Note: A&P Assessment and plan (1) Crohn's disease: Status: Acute Assessment and Plan: advancing diet per patient request continue steroids, consider transition to prednisone when tolerating diet ambulate Time Spent With Patient Time: Total time spent is greater than 50% in coordination of care (as documented) at patient's floor/unit and/or counseling patient: Time with patient: less than 15 minutes
[2020-10-11] MEDS: 0.9 % Sodium Chloride Flush 3 ML SYRINGE IVFLUSH ×2 (16:18→19:55)
[2020-10-11 16:51] LABS: TS Negative Control Passed; TS Panel A 0; TS Panel B 1; TS Positive Control Passed; TSpotTB Negative (SeeBelow)
[2020-10-12] VITALS (7 sets, daily range): BP systolic 122–151; BP diastolic 67–94; PULSE 68–82; RESP 17–20; TEMP 35.7–37; O2SAT 95–98
--- NOTE | 2020-10-12 | XR_ITS ---
EXAMINATION: XR ABDOMEN KUB CLINICAL INDICATION: Abdominal pain COMPARISON: KUB 10/08/[address] abdomen 10/07/2020 TECHNIQUE: AP view of the abdomen. FINDINGS: Dilute barium is present in the right colon as was seen yesterday. Air in nondilated loops of small bowel which appear less distended than on yesterday's CT scan. Left: In rectosigmoid are decompressed. An IUD is present in the uterus. XR/XR KUB IMPRESSION: Air in nondilated small bowel. The left: is empty. No bowel obstruction.
[2020-10-12] MEDS: Hydrocortisone Sod Succ/PF 100 MG VIAL IVPUSH ×3 (01:51→16:25)
[2020-10-12] MEDS: Acetaminophen 325 MG TABLET 650 MG PO ×3 (01:51→16:25)
[2020-10-12] MEDS: HYDROmorphone HCl 2 MG/ML VIAL 1.5 MG IVPUSH ×2 (02:58→07:30)
[2020-10-12 06:46] LABS: Hematocrit 35.3 % (37-47); Hemoglobin 11.7 g/dl (12.0-16.0); Mean Corpuscular HGB Conc 33.1 g/dl (31.0-35.0); Mean Corpuscular Hemoglobin 30.5 pg (27.0-33.0); Mean Corpuscular Volume 91.9 fL (80-98); Mean Platelet Volume 8.9 fL (9.4-12.3); Platelet Count 321 X10*3/uL (160-400); Red Blood Count 3.84 X10*6/uL (4.20-5.50); Red Cell Distribution Width 12.1 % (11.0-16.0); White Blood Count 6.7 X10*3/uL (4.8-10.8)
[2020-10-12 06:53] LABS: Anion Gap 11 (12-20); Blood Urea Nitrogen 9 mg/dL (9-16); Calcium 7.1 mg/dL (8.4-10.2); Carbon Dioxide 29 mmol/L (22-29); Chloride 98 mmol/L (96-108); Creatinine Clr Calc Pharmacy 181.2; Estimated Glomerular Filt Rate > 60; Glucose Fasting 133 mg/dL (60-99); Potassium 3.5 mmol/l (3.3-5.1); Sodium 134 mmol/L (135-145)
[2020-10-12] MEDS: 0.9 % Sodium Chloride Flush 3 ML SYRINGE IVFLUSH ×3 (07:30→21:07)
[2020-10-12 08:05] LABS: Band Neutrophils Percent 26 % (3-5); Eosinophils Absolute Manual 0.1 X10*3/UL (0.0-0.8); Eosinophils Percent Manual 1 % (0-4); Lymphocytes Absolute Manual 0.9 X10*3/uL (0.6-4.8); Lymphocytes Percent Manual 13 % (20-40); Monocytes Absolute Manual 0.7 X10*3/uL (0.0-1.2); Monocytes Percent Manual 10 % (2-11); Neutrophils Absolute Manual 5.1 X10*3/uL (2.2-7.9); Neutrophils Percent Manual 50 % (45-73)
[2020-10-12 08:07] LABS: Platelet Estimate NORMAL (NORMAL); Platelet Morphology Comment NORMAL; RBC Morphology NORMAL
[2020-10-12] MEDS: Mesalamine 400 MG CAP.DRTAB. 800 MG PO ×3 (09:26→21:06)
--- NOTE | 2020-10-12 10:16 | HO.PM.IMPN ---
Subjective Subjective Date of Service: 10/12/20 Interval History: seen and examined reports she feels better daily, but still no where near baseline reports pain improving and diarrhea still watery, but less so hoping she can be discharged over next 1-2 days General - no fevers or chills Cardiovascular - no chest pain Respiratory - no shortness of breath or cough Abdominal- +abdominal pain, diarrhea Physical Exam Vital Signs: Vital Signs: Last Vital Signs Temp 96.8 F 10/12/20 08:00 Pulse 69 10/12/20 08:00 Resp 20 10/12/20 08:00 BP 148/92 H 10/12/20 08:00 Pulse Ox 95 10/12/20 08:00 Body Mass Index 42.9 General - no acute distress, appears comfortable Cardiovascular - regular rate and rhythm, S1-S2 Lungs - normal respiratory effort, clear to auscultation bilaterally, no wheezing Abdomen - L sided tenderness improving Extremities - no edema bilaterally Neuro - awake and alert, no focal deficits Objective Data Current Medications Generic Name Dose Route Start Last Admin Trade Name Roelq PRN Reason Stop Dose Admin Acetaminophen 650 mg 10/09/20 20:27 10/12/20 09:31 Acetaminophen 325 Mg Tablet PO 650 mg Q6H PRN Administration Pain and Fever Docusate Sodium 100 mg 10/01/20 21:40 Docusate Sodium 100 Mg Capsule PO DAILY PRN Constipation Hydrocortisone Sodium Succinate 100 mg 10/01/20 17:20 10/12/20 09:27 Hydrocortisone Sod Succ/Pf 100 Mg Vial IVPUSH 100 mg Q8H JANE Administration Mesalamine 800 mg 10/02/20 21:00 10/12/20 09:26 Mesalamine 400 Mg Cap.Drtab. PO 800 mg TID JANE Administration Ondansetron HCl 4 mg 10/01/20 21:40 10/11/20 00:25 Ondansetron Hcl 4 Mg/2 Ml Vial IVPUSH 4 mg Q8H PRN Administration Nausea and Vomiting Pharmacy Consult 1 each 10/01/20 15:31 Consult Rx Perform Med Rec MISCELLANE ONCE PRN Consult order Pharmacy Consult 1 each 10/02/20 09:37 Consult Rx Perform Med Rec MISCELLANE ONCE PRN Consult order Sodium Chloride 3 ml 10/02/20 00:00 10/12/20 07:30 0.9 % Sodium Chloride Flush 3 Ml Syringe IVFLUSH 3 ml QSHIFT JANE Administration Labs CBC & Chem 7: 10/12/20 06:12 10/12/20 06:12 Microbiology Microbiology Results: Microbiology 10/04/20 23:30 Stool Stool Culture - Final Assessment and Plan (1) Crohn's disease: Status: Acute Assessment and Plan: This is a 30 yo F with a history of Crohn's disease who presents to the hospital with comlaints of abdominal pain and diarrhea. She is admitted for suspected Crohn's flare. 1. Crohn's flare feeling better continue diet, continue steroids on tapering recommendations, continue mesalamine change to PO dilaudid in preparation for d/c GI/Surg inputs apreciated 2. History of MS seen by Neurology. Outpatient f/u with her own neurologist has been recommended 3. Morbid Obesity needs to join a weight loss program as outpatient 4. Intractable pain improving, change to PO Full Code DVT pptx, low risk -- mechanical device + early ambulation (contraindication to pharmacological due to her bloody diarrhea) dispo: hopefully home in the next 1-2 days
--- NOTE | 2020-10-12 11:08 | PC.NURSE ---
Pt refused SCD's Dr. Morales made aware via [place] Text. NNO.
[2020-10-12] MEDS: HYDROmorphone HCl 2 MG TABLET PO ×2 (11:15→16:26)
--- NOTE | 2020-10-12 12:56 | PM.PNGS ---
Subjective Subjective Date of Service: 10/12/20 Interval history: Patient reports decreased abdominal pain but continued abdominal pain in the upper abdomen. This pain comes in waves. She does report liquid bowel movements on a daily basis. She tolerated the full liquid diet without nausea or vomiting. She is considering discharge in the next day or 2. Physical Exam Vital Signs: Vital Signs: Last Vital Signs Temp 96.3 F L 10/12/20 12:00 Pulse 82 10/12/20 12:00 Resp 20 10/12/20 12:00 BP 122/67 10/12/20 12:00 Pulse Ox 96 10/12/20 12:00 Body Mass Index 42.9 Const: Other: awake and alert, no acute distress Resp: Other: breathing comfortably on room air, no respiratory distress GI: Other: soft, nondistended, mild tenderness to deep palpation left lower quadrant. No palpable mass, no rebound, no rigidity. Skin: Other: Warm and dry, no rash Neuro: Other: alert and oriented x3 Progress Note: A&P Assessment and plan (1) Crohn's disease: Status: Acute Assessment and Plan: patient presents with abdominal pain and obstructive symptoms related to her left colonic Crohn's inflammation. She has been on a steroid bolus is now passing liquid stools. She reports improvement in her abdominal pain although not back to baseline. She is tolerating a full liquid diet and probably could be advanced to a low residue diet. We again discussed the surgical options which she wishes to avoid unless absolutely necessary. (2) Abdominal pain: Status: Acute Fall Risk Details Current Medications: Current Medications Generic Name Dose Route Start Last Admin Trade Name Freq PRN Reason Stop Dose Admin Acetaminophen 650 mg 10/09/20 20:27 10/12/20 09:31 Acetaminophen 325 Mg Tablet PO 650 mg Q6H PRN Administration Pain and Fever Docusate Sodium 100 mg 10/01/20 21:40 Docusate Sodium 100 Mg Capsule PO DAILY PRN Constipation Hydrocortisone Sodium Succinate 100 mg 10/01/20 17:20 10/12/20 09:27 Hydrocortisone Sod Succ/Pf 100 Mg Vial IVPUSH 100 mg Q8H JANE Administration Hydromorphone HCl 2 mg 10/12/20 10:15 10/12/20 11:15 Hydromorphone Hcl 2 Mg Tablet PO 2 mg Q6H PRN Administration Pain, Severe (Pain Scale 7-10) Mesalamine 800 mg 10/02/20 21:00 10/12/20 09:26 Mesalamine 400 Mg Cap.Drtab. PO 800 mg TID JANE Administration Ondansetron HCl 4 mg 10/01/20 21:40 10/11/20 00:25 Ondansetron Hcl 4 Mg/2 Ml Vial IVPUSH 4 mg Q8H PRN Administration Nausea and Vomiting Pharmacy Consult 1 each 10/01/20 15:31 Consult Rx Perform Med Rec MISCELLANE ONCE PRN Consult order Pharmacy Consult 1 each 10/02/20 09:37 Consult Rx Perform Med Rec MISCELLANE ONCE PRN Consult order Sodium Chloride 3 ml 10/02/20 00:00 10/12/20 07:30 0.9 % Sodium Chloride Flush 3 Ml Syringe IVFLUSH 3 ml QSHIFT JANE Administration Time Spent With Patient Time: Total time spent is greater than 50% in coordination of care (as documented) at patient's floor/unit and/or counseling patient: Time with patient: 15 - 24 minutes
--- NOTE | 2020-10-12 14:10 | MHC.CM.PN ---
Pt states feeling a bit better today and was able to eat a bit. Is going to rest a bit. Hopeful for d/c tomorrow. Plan is home without services
--- NOTE | 2020-10-12 15:13 | MHC.CLN ---
F/U 100% PO DIET RX: REGULAR-MAY BENEFIT FROM LOW RESIDUE RECOMMEND 1200 CALORIES PER DAY TO PROMOTE SLOW WT LOSS REFERRAL TO WT MANAGEMENT PROGRAM FOLLOWING
--- NOTE | 2020-10-12 16:31 | PC.NURSE ---
Dr. Morales contacted via [employer] text due to patient's pain, gave order to give PO dilaudid 2mg now.
--- NOTE | 2020-10-12 16:38 | P.PNGI_ITS ---
Subjective Subjective Date of Service: 10/12/20 Interval History: Course noted from over the holiday weekend. Patient is still having left-sided abdominal pain, but is tolerating her diet without N/V nor fevers. She reports one loose BM today, but without bleeding. Denies sx. She is obviousy upset about her ongoing pain and being switched to po Dilaudid Physical Exam Vital Signs: Vital Signs: Last Vital Signs Temp 96.8 F 10/12/20 15:27 Pulse 76 10/12/20 15:27 Resp 17 10/12/20 15:27 BP 151/86 H 10/12/20 15:27 Pulse Ox 95 10/12/20 15:27 Body Mass Index 42.9 Const: General: cooperative, healthy appearing, well developed and alert GI: Inspection: Yes normal to inspection Palpation (GI): Soft to palpation and Tenderness to palpation present (GI) (Left-sided tenderness is without change-there is no mass, rebound/guarding) Auscultation: normal bowel sounds Objective Data Labs CBC & Chem 7: 10/12/20 06:12 10/12/20 06:12 Labs: Laboratory Results - last 24 hr 10/05/20 10/12/20 10/12/20 06:12 06:12 06:12 WBC 6.7 RBC 3.84 L Hgb 11.7 L Hct 35.3 L MCV 91.9 MCH 30.5 MCHC 33.1 RDW 12.1 Plt Count 321 MPV 8.9 L Immature Gran % (Auto) Cancelled Neut % (Auto) Cancelled Lymph % (Auto) Cancelled [place] % (Auto) Cancelled Eos % (Auto) Cancelled Baso % (Auto) Cancelled Lymph # (Auto) Cancelled [place] # (Auto) Cancelled Eos # (Auto) Cancelled Baso # (Auto) Cancelled Abs Immat Gran (auto) Cancelled Absolute Neuts (auto) Cancelled Absolute Nucleated RBC 0.000 Nucleated RBC % (auto) 0.0 Neutrophils % (Manual) 50 Band Neutrophils % 26 H Lymphocytes % (Manual) 13 L Monocytes % (Manual) 10 Eosinophils % (Manual) 1 Abs Neuts (Manual) 5.1 Lymphocytes # (Manual) 0.9 Monocytes # (Manual) 0.7 Eosinophils # (Manual) 0.1 Platelet Estimate NORMAL Plt Morphology Comment NORMAL RBC Morphology NORMAL Sodium 134 L Potassium 3.5 Chloride 98 Carbon Dioxide 29 Anion Gap 11 L BUN 9 Creatinine 0.55 Estim Creat Clear Calc 181.2 Estimated GFR > 60 Random Glucose Fasting Glucose 133 H Calcium 7.1 L TB Test (T-Spot) Com Negative TB Test Nil Control Passed TB Test Panel A 0 TB Test Panel B 1 TB Test Positive Cntrl Passed 10/12/20 10/12/20 06:12 06:12 WBC Cancelled RBC Cancelled Hgb Cancelled Hct Cancelled MCV Cancelled MCH Cancelled MCHC Cancelled RDW Cancelled Plt Count Cancelled MPV Cancelled Immature Gran % (Auto) Neut % (Auto) Lymph % (Auto) [place] % (Auto) Eos % (Auto) Baso % (Auto) Lymph # (Auto) [place] # (Auto) Eos # (Auto) Baso # (Auto) Abs Immat Gran (auto) Absolute Neuts (auto) Absolute Nucleated RBC Cancelled Nucleated RBC % (auto) Cancelled Neutrophils % (Manual) Band Neutrophils % Lymphocytes % (Manual) Monocytes % (Manual) Eosinophils % (Manual) Abs Neuts (Manual) Lymphocytes # (Manual) Monocytes # (Manual) Eosinophils # (Manual) Platelet Estimate Plt Morphology Comment RBC Morphology Sodium Cancelled Potassium Cancelled Chloride Cancelled Carbon Dioxide Cancelled Anion Gap Cancelled BUN Cancelled Creatinine Cancelled Estim Creat Clear Calc Cancelled Estimated GFR Cancelled Random Glucose Cancelled Fasting Glucose Calcium Cancelled TB Test (T-Spot) Com TB Test Nil Control TB Test Panel A TB Test Panel B TB Test Positive Cntrl Microbiology Microbiology Results: Microbiology 10/04/20 23:30 Stool Stool Culture - Final Progress Note: A&P Assessment and plan (1) Crohn's disease: Problem details: Imp/Recs: Her Crohn's disease seems clinically stable in regard to her tolerating her diet and her abdominal exam remaining unchanged, albeit still with some tenderness. Will plan to recheck labs and an abdominal xray in the AM. I will try to switch her over to oral prednisone for the AM as well. If stable, she can be discharged. She will need addressing of her pain med regimen. I will speak with her neurologist and try to get her started on Humira for the Crohn's LAURA. She would prefer doing the Humira injections at home, as opposed to the Remicade infusions in Short Stay. D/W patient in detail. D/W her RN. Thanks Status: Acute Fall Risk Details Current Medications: Current Medications Generic Name Dose Route Start Last Admin Trade Name Freq PRN Reason Stop Dose Admin Acetaminophen 650 mg 10/09/20 20:27 10/12/20 16:25 Acetaminophen 325 Mg Tablet PO 650 mg Q6H PRN Administration Pain and Fever Docusate Sodium 100 mg 10/01/20 21:40 Docusate Sodium 100 Mg Capsule PO DAILY PRN Constipation Hydrocortisone Sodium Succinate 100 mg 10/01/20 17:20 10/12/20 16:25 Hydrocortisone Sod Succ/Pf 100 Mg Vial IVPUSH 10/13/20 03:00 100 mg Q8H JANE Administration Hydromorphone HCl 2 mg 10/12/20 10:15 10/12/20 16:26 Hydromorphone Hcl 2 Mg Tablet PO 2 mg Q6H PRN Administration Pain, Severe (Pain Scale 7-10) Mesalamine 800 mg 10/02/20 21:00 10/12/20 14:28 Mesalamine 400 Mg Cap.Drtab. PO 800 mg TID JANE Administration Ondansetron HCl 4 mg 10/01/20 21:40 10/11/20 00:25 Ondansetron Hcl 4 Mg/2 Ml Vial IVPUSH 4 mg Q8H PRN Administration Nausea and Vomiting Pharmacy Consult 1 each 10/01/20 15:31 Consult Rx Perform Med Rec MISCELLANE ONCE PRN Consult order Pharmacy Consult 1 each 10/02/20 09:37 Consult Rx Perform Med Rec MISCELLANE ONCE PRN Consult order Sodium Chloride 3 ml 10/02/20 00:00 10/12/20 16:25 0.9 % Sodium Chloride Flush 3 Ml Syringe IVFLUSH 3 ml QSHIFT JANE Administration Time Spent With Patient Time: Total time spent is greater than 50% in coordination of care (as documented) at patient's floor/unit and/or counseling patient: Time with patient: 15 - 24 minutes
[2020-10-12] MEDS: HYDROmorphone HCl 2 MG TABLET 3 MG PO (21:07)
--- NOTE | 2020-10-13 | XR_ITS ---
EXAMINATION: XR ABDOMEN COMPLETE CLINICAL INDICATION: Crohn's disease. Abdominal pain. Assess distention. COMPARISON: Previous KUB most recent from yesterday TECHNIQUE: Supine and upright views of the abdomen and pelvis FINDINGS: There are slightly dilated loops of small bowel and proximal large bowel with air-fluid levels. This is seen to the level of the splenic flexure. No air in the colon is seen distal to this region. Bowel distention appears similar to yesterday's KUB and decreased from older exam 10/08/2020 There is no evidence of free air. There is an IUD in the pelvis. Bony structures are unremarkable. XR/XR abdomen 3V IMPRESSION: Distended loops of small bowel and proximal large bowel with air-fluid levels. This is seen to the level of the splenic flexure. No air in the colon is seen distal to this region. This is not appreciably changed from yesterday's exam.
[2020-10-13] MEDS: HYDROmorphone HCl 1 MG/ML SYRINGE IVPUSH (00:15)
[2020-10-13] MEDS: Hydrocortisone Sod Succ/PF 100 MG VIAL IVPUSH (00:35)
[2020-10-13 04:00] VITALS: BP 146/83; PULSE 89; RESP 20; TEMP 36.9; O2SAT 98
[2020-10-13 06:53] LABS: Baso%MD 0.5 %; Eos%MD 0.2 %; Hematocrit 33.2 % (37-47); Hemoglobin 11.1 g/dl (12.0-16.0); IG%MD 6.1 %; Lymph%MD 20.5 %; Mean Corpuscular HGB Conc 33.4 g/dl (31.0-35.0); Mean Corpuscular Hemoglobin 30.6 pg (27.0-33.0); Mean Corpuscular Volume 91.5 fL (80-98); Mono%MD 13.5 %; Neut%MD 59.2 %; Platelet Count 327 X10*3/uL (160-400); Red Blood Count 3.63 X10*6/uL (4.20-5.50); Red Cell Distribution Width 12.1 % (11.0-16.0); White Blood Count 6.4 X10*3/uL (4.8-10.8)
[2020-10-13 07:09] LABS: Anion Gap 11 (12-20); Blood Urea Nitrogen 8 mg/dL (9-16); Calcium 7.2 mg/dL (8.4-10.2); Carbon Dioxide 28 mmol/L (22-29); Chloride 100 mmol/L (96-108); Estimated Glomerular Filt Rate > 60; Glucose Fasting 122 mg/dL (60-99); Potassium 3.3 mmol/l (3.3-5.1); Sodium 136 mmol/L (135-145)
[2020-10-13 07:10] LABS: Anion Gap 9 (12-20); Blood Urea Nitrogen 8 mg/dL (9-16); Calcium 7.2 mg/dL (8.4-10.2); Carbon Dioxide 30 mmol/L (22-29); Chloride 100 mmol/L (96-108); Creatinine Clr Calc Pharmacy 181.2; Estimated Glomerular Filt Rate > 60; Glucose Random 122 mg/dL (60-115); Potassium 3.2 mmol/l (3.3-5.1); Sodium 136 mmol/L (135-145)
[2020-10-13] MEDS: Acetaminophen 325 MG TABLET 650 MG PO (07:44)
[2020-10-13] MEDS: HYDROmorphone HCl 2 MG TABLET 3 MG PO (07:44)
[2020-10-13] MEDS: 0.9 % Sodium Chloride Flush 3 ML SYRINGE IVFLUSH (07:44)
[2020-10-13] MEDS: Mesalamine 400 MG CAP.DRTAB. 800 MG PO (07:45)
[2020-10-13] MEDS: predniSONE 20 MG TABLET 40 MG PO (07:45)
--- NOTE | 2020-10-13 07:51 | PM.PNGS ---
Subjective Subjective Date of Service: 10/13/20 Interval history: Patient reports abdominal pain, multiple bowel movements this morning. Just wants to go home today. Feels the oral pain medication is not helping. Understands that she cannot have IV pain meds at home. Not interested in surgery. Physical Exam Vital Signs: Vital Signs: Last Vital Signs Temp 98.4 F 10/13/20 04:00 Pulse 89 10/13/20 04:00 Resp 20 10/13/20 04:00 BP 146/83 H 10/13/20 04:00 Pulse Ox 98 10/13/20 04:00 Body Mass Index 42.9 Const: Other: Sleepy, uncomfortable, in no acute distress, tearful Eyes: Sclerae: sclerae normal EOM: EOMs intact bilaterally Neck: Neck: Yes normal visual inspection and Yes trachea midline Resp: Effort & Inspection: normal respiratory effort Auscultation: no wheezes GI: Other: soft, mild distention, tender to palpation in upper abdomen, no rebound Extrem: Other: no edema Progress Note: A&P Assessment and plan (1) Crohn's disease: Status: Acute Assessment and Plan: left colonic Crohn's disease with obstructive symptoms initially now passing liquid stools. Patient switch to oral pain medications yesterday. Patient wishes to be discharged to home today. She should follow up with surgery as needed. (2) Abdominal pain: Status: Acute Fall Risk Details Current Medications: Current Medications Generic Name Dose Route Start Last Admin Trade Name Freq PRN Reason Stop Dose Admin Acetaminophen 650 mg 10/09/20 20:27 10/13/20 07:44 Acetaminophen 325 Mg Tablet PO 650 mg Q6H PRN Administration Pain and Fever Docusate Sodium 100 mg 10/01/20 21:40 Docusate Sodium 100 Mg Capsule PO DAILY PRN Constipation Hydromorphone HCl 3 mg 10/12/20 18:23 10/13/20 07:44 Hydromorphone Hcl 2 Mg Tablet PO 3 mg Q4H PRN Administration Pain, Severe (Pain Scale 7-10) Mesalamine 800 mg 10/02/20 21:00 10/13/20 07:45 Mesalamine 400 Mg Cap.Drtab. PO 800 mg TID JANE Administration Ondansetron HCl 4 mg 10/01/20 21:40 10/11/20 00:25 Ondansetron Hcl 4 Mg/2 Ml Vial IVPUSH 4 mg Q8H PRN Administration Nausea and Vomiting Pharmacy Consult 1 each 10/01/20 15:31 Consult Rx Perform Med Rec MISCELLANE ONCE PRN Consult order Pharmacy Consult 1 each 10/02/20 09:37 Consult Rx Perform Med Rec MISCELLANE ONCE PRN Consult order Prednisone 40 mg 10/13/20 09:00 10/13/20 07:45 Prednisone 20 Mg Tablet PO 40 mg DAILY JANE Administration Sodium Chloride 3 ml 10/02/20 00:00 10/13/20 07:44 0.9 % Sodium Chloride Flush 3 Ml Syringe IVFLUSH 3 ml QSHIFT JANE Administration Time Spent With Patient Time: Total time spent is greater than 50% in coordination of care (as documented) at patient's floor/unit and/or counseling patient: Time with patient: 15 - 24 minutes
--- NOTE | 2020-10-13 08:15 | HO.PM.IMPN ---
Subjective Subjective Date of Service: 10/13/20 Interval History: seen and examined wants to go home requesting oxycodone instead of dilaudid, denies bloody bowel movements General - no fevers or chills Cardiovascular - no chest pain Respiratory - no shortness of breath or cough Abdominal- non bloody BM, abdominal pain+ Physical Exam Vital Signs: Vital Signs: Last Vital Signs Temp 98.4 F 10/13/20 04:00 Pulse 89 10/13/20 04:00 Resp 20 10/13/20 04:00 BP 146/83 H 10/13/20 04:00 Pulse Ox 98 10/13/20 04:00 Body Mass Index 42.9 Const: Other: General - no acute distress, appears comfortable Cardiovascular - regular rate and rhythm, S1-S2 Lungs - normal respiratory effort, clear to auscultation bilaterally, no wheezing Abdomen - L sided tenderness improving, no rebound or guarding, soft non distended Extremities - no edema bilaterally Neuro - awake and alert, no focal deficits Objective Data Current Medications Generic Name Dose Route Start Last Admin Trade Name Roelq PRN Reason Stop Dose Admin Acetaminophen 650 mg 10/09/20 20:27 10/13/20 07:44 Acetaminophen 325 Mg Tablet PO 650 mg Q6H PRN Administration Pain and Fever Docusate Sodium 100 mg 10/01/20 21:40 Docusate Sodium 100 Mg Capsule PO DAILY PRN Constipation Mesalamine 800 mg 10/02/20 21:00 10/13/20 07:45 Mesalamine 400 Mg Cap.Drtab. PO 800 mg TID JANE Administration Ondansetron HCl 4 mg 10/01/20 21:40 10/11/20 00:25 Ondansetron Hcl 4 Mg/2 Ml Vial IVPUSH 4 mg Q8H PRN Administration Nausea and Vomiting Oxycodone HCl 10 mg 10/13/20 08:09 Oxycodone Hcl Immed Release 5 Mg Tablet PO Q4H PRN Pain, Severe (Pain Scale 7-10) Pharmacy Consult 1 each 10/01/20 15:31 Consult Rx Perform Med Rec MISCELLANE ONCE PRN Consult order Pharmacy Consult 1 each 10/02/20 09:37 Consult Rx Perform Med Rec MISCELLANE ONCE PRN Consult order Prednisone 40 mg 10/13/20 09:00 10/13/20 07:45 Prednisone 20 Mg Tablet PO 40 mg DAILY JANE Administration Sodium Chloride 3 ml 10/02/20 00:00 10/13/20 07:44 0.9 % Sodium Chloride Flush 3 Ml Syringe IVFLUSH 3 ml QSHIFT JANE Administration Labs CBC & Chem 7: 10/13/20 06:18 10/13/20 06:18 Microbiology Microbiology Results: Microbiology 10/04/20 23:30 Stool Stool Culture - Final Assessment and Plan (1) Crohn's disease: Status: Acute Assessment and Plan: This is a 30 yo F with a history of Crohn's disease who presents to the hospital with comlaints of abdominal pain and diarrhea. She is admitted for suspected Crohn's flare. 1. Crohn's flare asking for discharge home changed to oral prednisone change from PO dilaudid to oxycodone, reports oxycodone working better plan for d/c today after her 3 view XR if stable with tapering doses of prednisone. 2. History of MS seen by Neurology. Outpatient f/u with her own neurologist has been recommended 3. Morbid Obesity needs to join a weight loss program as outpatient 4. Intractable pain improving, change to PO Full Code DVT pptx, low risk -- mechanical device + early ambulation (contraindication to pharmacological due to her bloody diarrhea) dispo: possibly d/c home today pending repeat imaging
[2020-10-13 08:18] LABS: Band Neutrophils Percent 17 % (3-5); Lymphocytes Absolute Manual 1.1 X10*3/uL (0.6-4.8); Lymphocytes Percent Manual 17 % (20-40); Monocytes Absolute Manual 0.6 X10*3/uL (0.0-1.2); Monocytes Percent Manual 10 % (2-11); Neutrophils Absolute Manual 4.7 X10*3/uL (2.2-7.9); Neutrophils Percent Manual 56 % (45-73)
[2020-10-13 08:19] LABS: Hypochromasia 1+; Macrocytosis 1+; Platelet Estimate NORMAL (NORMAL); Platelet Morphology Comment NORMAL; RBC Morphology NOTED
--- NOTE | 2020-10-13 10:34 | P.DS_ITS ---
DS: Providers Provider Date of admission: 10/01/20 17:20 Primary care physician: Kamran Rm MD Consults: 10/01/20 17:20 Consult to Gastroenterology Routine Consulting Provider: Alexandr Null Reason for consultation: Crohn's flare 10/05/20 17:04 Consult to General Surgery Routine Consulting Provider: Neville Goyal Reason for consultation: Crohn's disease,progressive colonic and small bowel distention Has provider been notified: No 10/06/20 18:34 Consult to Neurology Routine Consulting Provider: [facility] Reason for consultation: Crohn's disease and history of Multiple sclerosis--? use of Remicade Has provider been notified: No DS: Diagnosis Discharge Diagnosis (1) Crohn's disease: Status: Acute (2) Intractable pain: Status: Acute (3) Morbid obesity: Status: Acute DS: Medications Discharge Medications Home Medications: Home Medications Medication Instructions Recorded Confirmed [facility] 10/02/20 mesalamine 800 mg PO TID 10/02/20 10/02/20 Previous Rx's Medication Instructions Recorded oxycodone 10 mg PO Q6H PRN #20 tab 10/13/20 prednisone See Rx Instructions .ROUTE 10/13/20 .COMPLEX #252 tab DS: Summary Hospital Course Hospital Course: HPI: this is a 30-year-old female with history of Crohn's disease who presents to the emergency department with abdominal pain and diarrhea. She has been seen in the emergency department on September 10 in September 13 for the same. She has had 1 month of intermittent abdominal pain, diarrhea, bloody stools. Her pain is located in the periumbilical region. she has multiple episodes of diarrhea daily. She intermittently has dark blood mixed with her stool. She has had decreased p.o. intake. She denies any fever or chills. today her white count has increased to 13.8. Her CRP is trending up to 15.4. 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 she has been hesitant to use steroids to control her Crohn's disease. Hospital Course: patient was started on IV Solu-Cortef and continued on her home mesalamine. She was treated with increasing doses of IV opiates to control her pain. her hospital course showed very slow progress and improvement in her symptoms. She was followed by both Gastroenterology and General surgery. She had serial abdominal imaging and blood work which guided management. Over the course of 12 days in the hospital, patient's condition slowly improved. He was tolerating solid meals and her diarrhea had improved and no longer had any blood in the stools. clinically her abdominal exam was benign and her abdominal XR imaging showed stability. She will be discharged home with a prednisone taper as recommended by Gastroenterology as follows. 40 mg for 7 days followed by a taper of 5 mg weekly. In regards to the use of Humira as an outpatient, discussion is to be held with her neurologist ( to be done by GI, Dr. Null). she will also be discharged on short course of oral narcotics to control her pain. Time Spent with Patient Time attestation: Total time spent providing and/or coordinating discharge services: Physical Exam Vital Signs: Vital Signs: Last Vital Signs Temp 98.4 F 10/13/20 04:00 Pulse 89 10/13/20 04:00 Resp 20 10/13/20 04:00 BP 146/83 H 10/13/20 04:00 Pulse Ox 98 10/13/20 04:00 Body Mass Index 42.9 General - no acute distress, appears comfortable Cardiovascular - regular rate and rhythm, S1-S2 Lungs - normal respiratory effort, clear to auscultation bilaterally, no wheezing Abdomen - soft, ND; mild L sided tenderness without rebound or guarding Extremities - no edema bilaterally Neuro - awake and alert, no focal deficits DS: Data Data Completed and Pending Labs on day of discharge: Laboratory Last Values WBC 6.4 X10*3/uL (4.8-10.8) 10/13/20 06:18 WBC Cancelled 10/13/20 06:18 RBC 3.63 X10*6/uL (4.20-5.50) L 10/13/20 06:18 RBC Cancelled 10/13/20 06:18 Hgb 11.1 g/dl (12.0-16.0) L 10/13/20 06:18 Hgb Cancelled 10/13/20 06:18 Hct 33.2 % (37-47) L 10/13/20 06:18 Hct Cancelled 10/13/20 06:18 MCV 91.5 fL (80-98) 10/13/20 06:18 MCV Cancelled 10/13/20 06:18 MCH 30.6 pg (27.0-33.0) 10/13/20 06:18 MCH Cancelled 10/13/20 06:18 MCHC 33.4 g/dl (31.0-35.0) 10/13/20 06:18 MCHC Cancelled 10/13/20 06:18 RDW 12.1 % (11.0-16.0) 10/13/20 06:18 RDW Cancelled 10/13/20 06:18 Plt Count 327 X10*3/uL (160-400) 10/13/20 06:18 Plt Count Cancelled 10/13/20 06:18 MPV 9.0 fL (9.4-12.3) L 10/13/20 06:18 MPV Cancelled 10/13/20 06:18 Immature Gran % (Auto) Cancelled 10/12/20 06:12 Neut % (Auto) Cancelled 10/12/20 06:12 Lymph % (Auto) Cancelled 10/12/20 06:12 [place] % (Auto) Cancelled 10/12/20 06:12 Eos % (Auto) Cancelled 10/12/20 06:12 Baso % (Auto) Cancelled 10/12/20 06:12 Lymph # (Auto) Cancelled 10/12/20 06:12 [place] # (Auto) Cancelled 10/12/20 06:12 Eos # (Auto) Cancelled 10/12/20 06:12 Baso # (Auto) Cancelled 10/12/20 06:12 Abs Immat Gran (auto) Cancelled 10/12/20 06:12 Absolute Neuts (auto) Cancelled 10/12/20 06:12 Absolute Nucleated RBC 0.000 X10*3/uL (0.0-0.012) 10/13/20 06:18 Absolute Nucleated RBC Cancelled 10/13/20 06:18 Nucleated RBC % (auto) 0.0 /100WBC (0.0-0.2) 10/13/20 06:18 Nucleated RBC % (auto) Cancelled 10/13/20 06:18 Neutrophils % (Manual) 56 % (45-73) 10/13/20 06:18 Band Neutrophils % 17 % (3-5) H 10/13/20 06:18 Lymphocytes % (Manual) 17 % (20-40) L 10/13/20 06:18 Monocytes % (Manual) 10 % (2-11) 10/13/20 06:18 Eosinophils % (Manual) 1 % (0-4) 10/12/20 06:12 Abs Neuts (Manual) 4.7 X10*3/uL (2.2-7.9) 10/13/20 06:18 Lymphocytes # (Manual) 1.1 X10*3/uL (0.6-4.8) 10/13/20 06:18 Monocytes # (Manual) 0.6 X10*3/uL (0.0-1.2) 10/13/20 06:18 Eosinophils # (Manual) 0.1 X10*3/UL (0.0-0.8) 10/12/20 06:12 Toxic Granulation PRESENT 10/08/20 09:20 Toxic Vacuolation PRESENT 10/11/20 07:28 Dohle Bodies PRESENT 10/11/20 07:28 Platelet Estimate NORMAL (NORMAL) 10/13/20 06:18 Plt Morphology Comment NORMAL 10/13/20 06:18 RBC Morphology NOTED 10/13/20 06:18 Polychromasia 1+ 10/08/20 09:20 Hypochromasia 1+ 10/13/20 06:18 Macrocytosis 1+ 10/13/20 06:18 Hold Blue Top SEE NOTE 10/01/20 14:19 Sodium 136 mmol/L (135-145) 10/13/20 06:18 Sodium 136 mmol/L (135-145) 10/13/20 06:18 Potassium 3.2 mmol/l (3.3-5.1) L 10/13/20 06:18 Potassium 3.3 mmol/l (3.3-5.1) 10/13/20 06:18 Chloride 100 mmol/L (96-108) 10/13/20 06:18 Chloride 100 mmol/L (96-108) 10/13/20 06:18 Carbon Dioxide 28 mmol/L (22-29) 10/13/20 06:18 Carbon Dioxide 30 mmol/L (22-29) H 10/13/20 06:18 Anion Gap 9 (12-20) L 10/13/20 06:18 Anion Gap 11 (12-20) L 10/13/20 06:18 BUN 8 mg/dL (9-16) L 10/13/20 06:18 BUN 8 mg/dL (9-16) L 10/13/20 06:18 Creatinine 0.55 mg/dL (0.5-1.4) 10/13/20 06:18 Creatinine 0.56 mg/dL (0.5-1.4) 10/13/20 06:18 Estim Creat Clear Calc 178.0 10/13/20 06:18 Estim Creat Clear Calc 181.2 10/13/20 06:18 Estimated GFR > 60 10/13/20 06:18 Estimated GFR > 60 10/13/20 06:18 Random Glucose 122 mg/dL (60-115) H 10/13/20 06:18 Fasting Glucose 122 mg/dL (60-99) H 10/13/20 06:18 Calcium 7.2 mg/dL (8.4-10.2) L 10/13/20 06:18 Calcium 7.2 mg/dL (8.4-10.2) L 10/13/20 06:18 Magnesium 2.1 mg/dL (1.6-2.6) 10/09/20 06:14 Total Bilirubin 0.3 mg/dL (0.0-1.0) 10/06/20 06:34 Direct Bilirubin 0.2 mg/dL (0.0-0.5) 10/06/20 06:34 AST 9 U/L (5-31) 10/06/20 06:34 ALT 8 U/L (0-31) 10/06/20 06:34 Alkaline Phosphatase 49 U/L (39-117) D 10/06/20 06:34 C-Reactive Protein 19.00 mg/dL (< or = 0.50) H 10/13/20 06:18 Total Protein 5.3 g/dL (6.5-8.0) L D 10/06/20 06:34 Albumin 2.8 g/dL (3.5-5.0) L D 10/06/20 06:34 Amylase 18 U/L (28-100) L 10/06/20 06:34 Lipase 14 U/L (8-78) 10/01/20 14:19 Urine Color YELLOW 10/01/20 20:54 Urine Appearance HAZY 10/01/20 20:54 Urine pH 5.5 (5.0-8.0) 10/01/20 20:54 Ur Specific Sanders >= 1.030 (1.005-1.025) H 10/01/20 20:54 Urine Protein TRACE MG/DL (NEG-TRACE) 10/01/20 20:54 Urine Glucose (UA) NEG MG/DL (NEG) 10/01/20 20:54 Urine Ketones 15 MG/DL (NEG) 10/01/20 20:54 Urine Blood 2+ (NEG) H 10/01/20 20:54 Urine Nitrite NEG (NEG) 10/01/20 20:54 Ur Leukocyte Esterase NEG (NEG) 10/01/20 20:54 Urine RBC 0-2 /HPF (0) 10/01/20 20:54 Urine WBC 0 /HPF (0-4) 10/01/20 20:54 Ur Squamous Epith Cells 2+ /LPF 10/01/20 20:54 Urine Bacteria 2+ /LPF 10/01/20 20:54 Urine Mucus 2+ /LPF 10/01/20 20:54 Urine Test NEGATIVE (NEGATIVE) 10/01/20 20:54 Stool Leukocytes, Qual MANY: >10/OIF (NEGATIVE) 10/04/20 23:30 C. difficile Toxin A&B Negative (Negative) 10/08/20 19:54 C. difficile Antigen Negative (Negative) 10/08/20 19:54 C. difficile Interpret SEE NOTE 10/08/20 19:54 COVID-19 (ALEJANDRA) Negative (Negative) 10/01/20 20:48 COVID-19 Clin Com See Note 10/01/20 20:48 Hep Bs Antigen Negative (Negative) 10/04/20 06:49 Hep Bs Antibody NONREACTIVE (Nonreactive) 10/04/20 06:49 TB Test (T-Spot) Com Negative (SeeBelow) 10/05/20 06:12 TB Test Nil Control Passed 10/05/20 06:12 TB Test Panel A 0 10/05/20 06:12 TB Test Panel B 1 10/05/20 06:12 TB Test Positive Cntrl Passed 10/05/20 06:12 Discharge Plan Discharge Patient Disposition: Home, Self-Care Referrals: Kamran Rm MD [Primary Care Provider] - Alexandr Null [Physician] - Discharge Medications: New oxycodone 10 mg tablet 10 mg PO Q6H PRN (Reason: pain) Qty: 20 RF: 0 prednisone 5 mg tablet See Rx Instructions .ROUTE .COMPLEX Qty: 252 RF: 0 Continued mesalamine 400 mg Capsule,Delayed Release(Dr/Ec) 800 mg PO TID RF: [address] [facility] RF: 0 Discharge Orders: Discharge Order (Routine); Ordered 10/13/20 Ordered By: Julien Morales Diet: advance to usual diet Activity on Discharge: As tolerated Visit Report Forms: Patient Portal Discharge page Care Plan Goals: To stay healthy and out of the hospital. Health Concerns: Crohn's Disease -- Take Prednisone 40mg daily. Decrease by 5mg every 7 days and stop after you get down to 5mg for 7 days. Follow up with GI clinic. Plan of Treatment: Crohn's Disease -- Take Prednisone 40mg daily. Decrease by 5mg every 7 days and stop after you get down to 5mg for 7 days. Follow up with GI clinic.
[2020-10-13] MEDS: oxyCODONE HCl Immed Release 5 MG TABLET 10 MG PO (11:15)
--- NOTE | 2020-10-13 11:52 | MHC.CM.PN ---
Pt d/c home without services. Spoke with patient at length regarding here continuing pain, her Chron's disease, and that she does not need to live in pain. Pt remains hesitatnt to have any surgery but admits it may be in her future. Will f/u with GI.
== END 2020-10-13 11:35 | disposition home or self-care (01) | DRG 245 ==
LOC: HO.ED 15:33 → HO.S3 20:20
PROVIDERS: Internal Medicine; Physician Assistant Medical; Admitting Provider Family Medicine; Emergency Provider Emergency Medicine; PCP Internal Medicine; Visit Provider Family Medicine
DX: K50.112 Crohn's disease of large intestine with intestinal obstruction (principal); E66.01 Morbid (severe) obesity due to excess calories; K50.111 Crohn's disease of large intestine with rectal bleeding; G35 Multiple sclerosis; F17.210 Nicotine dependence, cigarettes, uncomplicated; Z20.828 Contact with and (suspected) exposure to other viral communicable diseases; Z71.6 Tobacco abuse counseling; Z68.41 Body mass index [BMI] 40.0-44.9, adult; Z79.899 Other long term (current) drug therapy
CPT/HCPCS: 36415; 74018; 74019; 74021; 74177; 80048; 80053; 80076; 81001; 81003; 81025; 82150; 83690; 83735; 85007; 85025; 85027; 86140; 86481; 86706; 87045; 87046; 87077; 87324; 87340; 87449; 87635; 89055; 96361; 96374; 96375; 99232; 99285; J1170; J2270; J2405; J2930; Q9967

== ENCOUNTER 2020-10-19 18:30 | Inpatient (IN) | payer OTHER, SELFPAY ==
[2020-10-19 19:14] VITALS: BP 117/84; PULSE 102; RESP 18; TEMP 36.9; O2SAT 97; BMI 42.9
[2020-10-19 20:45] VITALS: BP 129/75; PULSE 82; RESP 18; TEMP 36.6; O2SAT 100
--- NOTE | 2020-10-19 20:48 | ED_ITS ---
HPI - Abdominal Pain General Chief Complaint: Abdominal Pain Stated Complaint: chron's flare up Time Seen by Provider: 10/19/20 20:48 Source: patient Mode of arrival: ambulatory Limitations: no limitations History of Present Illness HPI narrative: with history of Crohn's disease since 2014 been on Delzicol and intermittent steroids treatment also she has history of MS and she was on Tysabri which is not taking for last few months just discharged on 10/13 after 12 days of stay for acute flare-up of Crohn disease with CRP in the range of [address] scan showed diffuse inflammation transverse colon. Since discharge patient has been on prednisone 40 mg daily and pain control with oxycodone and according to her she is not feeling better vomiting all the time and not able to eat much having 4-5 bowel movements every day without any blood. Since discharge patient followed by a neurologist and plan is to start her on Humira. Patient denies any fever MD elicited complaint: abdominal pain Location: diffuse Severity: moderate Quality: cramping Exacerbating factors: eating Relieving factors: nothing Related Data Home Medications Medication Instructions Recorded Confirmed [facility] Marcial Wort 1 tab PO DAILY 10/02/20 10/19/20 mesalamine 800 mg PO TID 10/02/20 10/19/20 ergocalciferol (vitamin D2) 400 unit PO DAILY 10/19/20 10/19/20 [Vitamin D2] prednisone 40 mg PO DAILY 10/19/20 10/19/20 Allergies Allergy/AdvReac Type Severity Reaction Status Date / Time No Known Allergies Allergy Unknown UNKNOWN Verified 09/10/20 03:47 Review of Systems Review of Systems REVIEW OF SYSTEMS: Pertinent positives and negatives are stated above in the history. GEN: no fevers, chills, fatigue HEENT: no nasal congestion, sore throat, ear pain NEURO: no headache, dizziness, focal weakness PULM: no cough, shortness of breath CV: no chest pain, palpitations, LE edema ABD: vomiting+ diarrhea++ : no dysuria, urgency, frequency SKIN: no rash ROS otherwise negative x 10 Physical Exam Vital Signs: Vital Signs: Last Vital Signs Temp 99.3 F 10/19/20 21:54 Pulse 92 10/19/20 21:54 Resp 16 10/19/20 22:33 BP 133/73 10/19/20 21:54 Pulse Ox 96 10/19/20 21:54 Body Mass Index 42.9 VITAL SIGNS: Reviewed. GENERAL: Well developed, well nourished, in moderate distress. HEAD: Normocephalic/atraumatic, EYES: PERRLA No pallor/icterus noted OROPHARYNX: Oral mucosa moist no oral lesions NECK: Supple, no adenopathy LUNGS: Normal breath sounds. No adventitious sounds or accessory muscle use CARDIOVASCULAR: Regular rate and rhythm without noted murmurs, no JVD or lower extremity edema. ABDOMEN: Soft, diffuse tenderness, non-distended with normal bowel sounds. No rigidity. No guarding. No palpable masses or hernias noted MUSCULOSKELETAL: No tenderness, deformities, EXTREMITIES: No cyanosis or edema. SKIN: no rashes, ulcerations, jaundice, pallor, or petechiae NEUROLOGIC: Alert and oriented x 3. Strength and sensation to light touch were grossly intact Course Reevaluation(s) Reevaluation #1: patient is still complaining of pain asking for pain medication all the labs are stable except for elevated LFTs etiology not very clear CRP is improved. Will admit patient for pain control and Crohn's disease flare up Reevaluation #2: patient is COVID positive denies any respiratory symptoms no fever no hypoxia will admit to Isolation MDM - Abdominal Pain MDM Narrative Medical decision making narrative: patient with Crohn disease flare up just discharged after 12 hours of stay which check her labs to the KUB check the CRP and give IV Solu-Cortef and pain medication plan to admit as patient not able to eat anything for last 1 week Lab Data Result diagrams: 10/19/20 21:13 10/19/20 21:13 Labs: Lab Results 10/19/20 10/19/20 10/19/20 Range/Units 21:13 21:13 23:19 WBC 8.8 (4.8-10.8) X10*3/uL RBC 4.37 D (4.20-5.50) X10*6/uL Hgb 13.1 (12.0-16.0) g/dl Hct 41.6 D (37-47) % MCV 95.2 (80-98) fL MCH 30.0 (27.0-33.0) pg MCHC 31.5 (31.0-35.0) g/dl RDW 12.6 (11.0-16.0) % Plt Count 389 (160-400) X10*3/uL MPV 8.4 L (9.4-12.3) fL Immature Gran % (Auto) 3.2 H (0.0-0.4) % Neut % (Auto) 65.3 (45-73) % Lymph % (Auto) 23.1 (20-40) % [place] % (Auto) 8.2 (2-11) % Eos % (Auto) 0.0 (0-4) % Baso % (Auto) 0.2 (0-2) % Lymph # (Auto) 2.0 (1.2-4.9) X10*3/uL [place] # (Auto) 0.7 (0.1-1.2) X10*3/uL Eos # (Auto) 0.0 (0.0-0.4) X10*3/uL Baso # (Auto) 0.0 (0.0-0.2) X10*3/uL Abs Immat Gran (auto) 0.28 H (0.00-0.03) X10*3/uL Absolute Neuts (auto) 5.7 (2.0-8.3) X10*3/uL Absolute Nucleated RBC 0.000 (0.0-0.012) X10*3/uL Nucleated RBC % (auto) 0.0 (0.0-0.2) /100WBC Sodium 137 (135-145) mmol/L Potassium 4.4 D (3.3-5.1) mmol/l Chloride 96 (96-108) mmol/L Carbon Dioxide 29 (22-29) mmol/L Anion Gap 16 (12-20) BUN 13 D (9-16) mg/dL Creatinine 0.74 (0.5-1.4) mg/dL Estim Creat Clear Calc 134.6 Estimated GFR > 60 Random Glucose 107 (60-115) mg/dL Calcium 8.3 L D (8.4-10.2) mg/dL Total Bilirubin 0.2 (0.0-1.0) mg/dL AST 128 H (5-31) U/L ALT 248 H (0-31) U/L Alkaline Phosphatase 140 H D (39-117) U/L C-Reactive Protein 8.31 H (< or = 0.50) mg/dL Total Protein 6.7 D (6.5-8.0) g/dL Albumin 3.2 L (3.5-5.0) g/dL Lipase 56 (8-78) U/L COVID-19 (ALEJANDRA) Positive A (Negative) COVID-19 Clin Com See Note Discharge Plan Discharge Clinical Impression: COVID-19 Crohn's disease Qualifiers: Gastrointestinal tract location: large intestine Digestive disease complication type: without complication Qualified Code(s): K50.10 - Crohn's disease of large intestine without complications Patient Disposition: Admitted As Inpatient [facility] Past Medical History Medical History Crohn's disease Multiple sclerosis Surgical History History of tonsillectomy Previous section Family History Family History Maternal Grandmother Crohn's disease Social History Social History Household Members: Children Housing: Apartment Alcohol intake: current Alcohol intake frequency: a few times a month Smoking Status: Current every day smoker Substance Use Type: Marijuana Advance Directives: No service: No Current occupational status: unemployed
--- NOTE | 2020-10-19 20:59 | XR_ITS ---
EXAMINATION: XR ABDOMEN KUB CLINICAL INDICATION: Crohn's colitis COMPARISON: Abdomen 10/13/2020, 10/12/2020. TECHNIQUE: AP view of the abdomen. FINDINGS: There is a dilated bowel loop in the left midabdomen is gas filled measuring about 8 cm in diameter. This is indeterminate whether this is a small and large bowel loop, though suspect this is a dilated loop of colon. On the prior abdomen study there there was a larger volume of gas both in large and small bowel loops but none of the bowel loops were previously dilated. There is a small volume of scattered stool and gas in the colon An IUD which was seen on the exam of 10/13/2020 within the pelvis is no longer evident. XR/XR KUB IMPRESSION: 1. Dilated bowel loop in the left midabdomen which is new since prior study 10/13/2020. The volume of gas in the abdomen however has diminished since prior study. 2. Previously seen IUD is no longer evident.
[2020-10-19] MEDS: 0.9 % Sodium Chloride 1,000 ML 999 ML IVCONT (21:12)
[2020-10-19 21:14] VITALS: BP 134/87; PULSE 106; RESP 20; TEMP 37.1; O2SAT 97
[2020-10-19 21:19] LABS: MANUAL DIFF FLAG NO
[2020-10-19 21:23] LABS: Basophils Percent Auto 0.2 % (0-2); Hematocrit 41.6 % (37-47); Hemoglobin 13.1 g/dl (12.0-16.0); Imm Gran Abs Auto 0.28 X10*3/uL (0.00-0.03); Imm Gran Pct Auto 3.2 % (0.0-0.4); Lymphocytes Percent Auto 23.1 % (20-40); Mean Corpuscular HGB Conc 31.5 g/dl (31.0-35.0); Mean Corpuscular Volume 95.2 fL (80-98); Mean Platelet Volume 8.4 fL (9.4-12.3); Monocytes Absolute Auto 0.7 X10*3/uL (0.1-1.2); Monocytes Percent Auto 8.2 % (2-11); Neutrophils Absolute Auto 5.7 X10*3/uL (2.0-8.3); Neutrophils Percent Auto 65.3 % (45-73); Platelet Count 389 X10*3/uL (160-400); Red Blood Count 4.37 X10*6/uL (4.20-5.50); Red Cell Distribution Width 12.6 % (11.0-16.0); White Blood Count 8.8 X10*3/uL (4.8-10.8)
[2020-10-19] MEDS: Hydrocortisone Sod Succ/PF 100 MG VIAL IVPUSH (21:28)
[2020-10-19] MEDS: ondansetron HCL 4 MG/2 ML VIAL IVPUSH (21:28)
[2020-10-19] MEDS: Morphine Sulfate 4 MG/ML CARTRIDGE IVPUSH (21:29)
[2020-10-19 21:54] VITALS: BP 133/73; PULSE 92; RESP 16; TEMP 37.4; O2SAT 96
[2020-10-19 22:00] LABS: Alanine Aminotransferase 248 U/L (0-31); Albumin Level 3.2 g/dL (3.5-5.0); Alkaline Phosphatase 140 U/L (39-117); Anion Gap 16 (12-20); Aspartate Amino Transferase 128 U/L (5-31); Bilirubin Total 0.2 mg/dL (0.0-1.0); Blood Urea Nitrogen 13 mg/dL (9-16); C Reactive Protein 8.31 mg/dL (< or = 0.50); Calcium 8.3 mg/dL (8.4-10.2); Carbon Dioxide 29 mmol/L (22-29); Chloride 96 mmol/L (96-108); Creatinine Clr Calc Pharmacy 134.6; Estimated Glomerular Filt Rate > 60; Glucose Random 107 mg/dL (60-115); Lipase 56 U/L (8-78); Potassium 4.4 mmol/l (3.3-5.1); Sodium 137 mmol/L (135-145); Total Protein 6.7 g/dL (6.5-8.0)
[2020-10-19 22:33] VITALS: RESP 16
[2020-10-19] MEDS: HYDROmorphone HCl 1 MG/ML SYRINGE IVPUSH (22:33)
--- NOTE | 2020-10-19 23:33 | P.HPHOSP_ITS ---
History of Present Illness Date of Service: 10/19/20 Chief Complaint: abdominal pain 30-year-old female with past medical history of Crohn's and MS who presents to the hospital with complaints of abdominal pain. Patient reports that after being discharged on 10/13 she continued to have abdominal pain but has worsened over the past few days. She has no more diarrhea, she has no nausea or vomiting. She describes the pain 10/10, located in the epigastric, left upper and lower abdominal as well as periumbilical. She reports is that she call Dr. Null and he advised her to come to the hospital. She has no fever or chills. No urinary symptoms and no lower extremity edema. She has no shortness of breath, and no chest pain. of note patient was discharged from the hospital on October 13 after a very long hospital stay of 12 days for Crohn's flare. At that time patient was treated with Solu-Cortef and was sent home on steroid taper. 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 She is an ticipated to start this medication in November. On arrival to the ED hemodynamically stable with no significant abnormal vitals except for heart rate of 102. labs are significant for AST of 128, ALT of 248, alk-phos of 140, C-reactive protein of 831 which is significantly lower than her discharge they result which was 19, patient is COVID19 positive, but she is completely asymptomatic past medical history: MS, Crohn's disease past surgical history: family history: Diabetes social history: Comes from home, denies tobacco alcohol or illicit drugs Review of Systems Review of Systems: Yes all other systems are reviewed and are negative [facility] Medical History Crohn's disease Multiple sclerosis Family History Maternal Grandmother Crohn's disease Surgical History History of tonsillectomy Previous section Social History Household Members: Children Housing: Apartment Alcohol intake: current Alcohol intake frequency: a few times a month Smoking Status: Current every day smoker Substance Use Type: Marijuana Advance Directives: No service: No Current occupational status: unemployed Meds Allergies Allergy/AdvReac Type Severity Reaction Status Date / Time No Known Allergies Allergy Unknown UNKNOWN Verified 09/10/20 03:47 Home Medications Medication Instructions Recorded Confirmed Type St Marcial Wort 1 tab PO DAILY 10/02/20 10/19/20 History mesalamine 800 mg PO TID 10/02/20 10/19/20 History ergocalciferol (vitamin D2) 400 unit PO DAILY 10/19/20 10/19/20 History [Vitamin D2] prednisone 40 mg PO DAILY 10/19/20 10/19/20 History Physical Exam Vital Signs and Narrative: Vital Signs: Last Vital Signs Temp 99.3 F 10/19/20 21:54 Pulse 92 10/19/20 21:54 Resp 16 10/19/20 22:33 BP 133/73 10/19/20 21:54 Pulse Ox 96 10/19/20 21:54 Body Mass Index 42.9 Results Labs CBC and Chem 7: 10/19/20 21:13 10/19/20 21:13 Labs: Laboratory Results - last 24 hr 10/19/20 10/19/20 21:13 21:13 MCV 95.2 MCH 30.0 MCHC 31.5 RDW 12.6 Plt Count 389 MPV 8.4 L Immature Gran % (Auto) 3.2 H Neut % (Auto) 65.3 Lymph % (Auto) 23.1 Mcnairy % (Auto) 8.2 Eos % (Auto) 0.0 Baso % (Auto) 0.2 Lymph # (Auto) 2.0 Mcnairy # (Auto) 0.7 Eos # (Auto) 0.0 Baso # (Auto) 0.0 Abs Immat Gran (auto) 0.28 H Absolute Neuts (auto) 5.7 Absolute Nucleated RBC 0.000 Nucleated RBC % (auto) 0.0 Anion Gap 16 Estim Creat Clear Calc 134.6 Estimated GFR > 60 Random Glucose 107 Calcium 8.3 L D Total Bilirubin 0.2 AST 128 H ALT 248 H Alkaline Phosphatase 140 H D C-Reactive Protein 8.31 H Total Protein 6.7 D Albumin 3.2 L Lipase 56 Imaging Radiologist's Impressions: Impressions KUB X-Ray 10/19/20 20:59 IMPRESSION: 1. Dilated bowel loop in the left midabdomen which is new since prior study 10/13/2020. The volume of gas in the abdomen however has diminished since prior study. 2. Previously seen IUD is no longer evident. Assessment and Plan (1) Abdominal pain: Qualifiers: Abdominal location: generalized Qualified Code(s): R10.84 - Generalized abdominal pain Status: Acute (2) COVID-19: Status: Acute (3) Intractable pain: Status: Acute (4) Crohn's disease: Qualifiers: Digestive disease complication type: without complication Gastrointestinal tract location: large intestine Qualified Code(s): K50.10 - Crohn's disease of large intestine without complications Status: Acute 30-year-old female with past medical history of Crohn's, as well as MS who presents to the hospital with intractable abdominal pain # intractable abdominal pain - appears to be secondary to Crohn's disease, although her other symptoms of bloody diarrhea has resolved since being discharged from the hospital on October 13 plan: - will try to control her pain, - treat her underlying Crohn's with steroids # Crohn's disease - the flare appears to be in control, as her bloody diarrhea has resolved, her CRP is also decreased from discharge Plan: - Continue mesalamine - started on Solu-Cortef - will hold off on consulting GI is patient has no acute symptoms and cannot be started on Humira per patient at this time due to insurance issues # MS - no flare at this time DVT prophylaxis: Lovenox
[2020-10-19 23:40] LABS: COVID-19 Test Positive (Negative)
[2020-10-20] VITALS (12 sets, daily range): BP systolic 112–135; BP diastolic 55–78; PULSE 58–84; RESP 12–16; TEMP 35.6–36.8; O2SAT 94–97; BMI 42.9
--- NOTE | 2020-10-20 | CT_ITS ---
EXAMINATION: CT ABDOMEN AND PELVIS WITH CONTRAST CLINICAL INFORMATION: Crohn's colitis. Abdominal pain. COMPARISON: Multiple priors, most recently 10/07/2020 TECHNIQUE: Multidetector volumetric images were obtained from the superior aspect of the liver through the pubic symphysis following administration 85 mL of Omnipaque 350 intravenous contrast. Sagittal and coronal reformatted images were obtained on the technologist's workstation. Oral contrast: No This CT examination was performed using dose optimization techniques as appropriate, variously including the following: *Automated exposure control *Adjustment of mA and/or kV according to patient size (this includes techniques or standardized protocols for targeted exams where dose is matched to indication/reason for exam; i.e. extremities or head) *Use of iterative reconstruction technique DLP: 852 mGy-cm FINDINGS: LUNG BASES: There are rounded groundglass opacities within the lower lungs bilaterally new from the prior exam. LIVER, GALLBLADDER, AND BILIARY TREE: The liver is normal in size, shape, and attenuation. No focal hepatic lesion or biliary ductal dilatation is present. The gallbladder is unremarkable with no evidence of radiopaque gallstones, gallbladder wall thickening, or obvious pericholecystic inflammatory changes. PANCREAS: Unremarkable. SPLEEN: Unremarkable. ADRENAL GLANDS: Unremarkable. KIDNEYS AND URETERS: The kidneys are normal in size, shape, and attenuation. No hydronephrosis, hydroureter, or calculi seen. No perinephric stranding. BLADDER: Unremarkable. GASTROINTESTINAL TRACT: There is mild wall thickening and pericolic fat stranding throughout the transverse and descending colon which appears slightly improved from the prior examination, without dilatation of the current exam. The appendix is normal. Stomach is normal. Small bowel is unremarkable. ABDOMINAL WALL: No significant hernia is appreciated. LYMPH NODES: Mildly prominent but nonpathologically enlarged mesenteric and retroperitoneal lymph nodes redemonstrated, likely reactive. VASCULAR: Unremarkable. PELVIC VISCERA: IUD present within the uterus. Ovaries unremarkable. OSSEOUS STRUCTURES: No acute or suspicious osseous abnormalities. CT/CT abdomen pelvis w con IMPRESSION: * New rounded groundglass opacities within the lower lungs bilaterally. The appearance and pattern of these findings is suggestive of a viral pneumonia, such as can be seen with COVID. * Mildly improved transverse and descending colitis compared 10/07/2020.
[2020-10-20] MEDS: 0.9 % Sodium Chloride 1,000 ML 999 ML IVCONT (00:13)
[2020-10-20] MEDS: Morphine Sulfate 4 MG/ML CARTRIDGE IVPUSH ×4 (00:52→19:45)
[2020-10-20] MEDS: Enoxaparin Sodium 40 MG/0.4 ML SYRINGE SUBCUT (00:53)
[2020-10-20] MEDS: 0.9 % Sodium Chloride Flush 3 ML SYRINGE IVFLUSH ×4 (00:54→23:53)
[2020-10-20] MEDS: Hydrocortisone Sod Succ/PF 100 MG VIAL IVPUSH ×3 (00:54→17:11)
[2020-10-20] MEDS: oxyCODONE HCl Immed Release 5 MG TABLET PO ×3 (05:54→21:37)
[2020-10-20] MEDS: Acetaminophen 325 MG TABLET 650 MG PO (07:35)
--- NOTE | 2020-10-20 08:28 | PC.NURSE ---
nurse to nurse given to socorro (rn), pt aware of plan of care for admission to hosp.
[2020-10-20] MEDS: HYDROmorphone HCl 0.5 MG/0.5 ML SYRINGE IVPUSH ×2 (09:17→17:19)
[2020-10-20 10:09] LABS: Alanine Aminotransferase 148 U/L (0-31); Albumin Level 2.4 g/dL (3.5-5.0); Alkaline Phosphatase 90 U/L (39-117); Anion Gap 12 (12-20); Aspartate Amino Transferase 52 U/L (5-31); Bilirubin Direct < 0.2 mg/dL (0.0-0.5); Bilirubin Total 0.4 mg/dL (0.0-1.0); Blood Urea Nitrogen 13 mg/dL (9-16); Calcium 7.1 mg/dL (8.4-10.2); Carbon Dioxide 24 mmol/L (22-29); Chloride 99 mmol/L (96-108); Creatinine Clr Calc Pharmacy 184.5; Estimated Glomerular Filt Rate > 60; Glucose Random 115 mg/dL (60-115); Potassium 4.2 mmol/l (3.3-5.1); Sodium 131 mmol/L (135-145); Total Protein 5.1 g/dL (6.5-8.0)
[2020-10-20 11:35] LABS: Glucose Urine UA NEG (NEG); Leukocyte Esterase Urine NEG (NEG); Nitrite Urine POS (NEG); Specific Gravity - Urine >= 1.030 (1.005-1.025); Urine Blood NEG (NEG); Urine Ketones NEG (NEG); Urine Protein NEG (NEG-TRACE)
[2020-10-20 11:36] LABS: Appearance Urine HAZY; Color Urine YELLOW
[2020-10-20 11:44] LABS: Bacteria Urine 3+ /LPF; Mucus Urine TRACE /LPF; RBC Urine 0 /HPF (0); Squamous Epithelial Cell Urine 2+ /LPF; WBC Urine 0-2 /HPF (0-4)
[2020-10-20] MEDS: Mesalamine 400 MG CAP.DRTAB. 800 MG PO ×2 (14:17→20:55)
--- NOTE | 2020-10-20 14:27 | MHC.CM.PN ---
Pt readmitted to ICU with continued GI / Crohns flare/abd pain and new COVID + Information obtained from EMR, limited pt via phone, and from pt's mother, Eleonora via phone. Pt resides alone above [place]. She is independent with all care needs including transportation. Eleonora states pt is in process of applying for disability. At this time it is expected that the pt will be able to return to home once medically stable. No services are anticipated however, this may change should pt develop COVID symptoms and decompensate. CM to follow. Family to transport home.
--- NOTE | 2020-10-20 14:57 | PC.NURSE ---
pt A & O x 3. lungs clear bilat, denies SOB. endorses mainly left side abd pain, abd tender to touch and BS active x 4. medicated with PRN diaudid and morphine for 7/10 pain. steady gait, denies any dizziness or h/a.
--- NOTE | 2020-10-20 18:44 | PM.EVENT ---
Event Note Date of Service: 10/20/20 Event Note: Imp: Crohn's colitis/Abdominal pain. +COVID, although asymptomatic. She is not having any active symptoms of Crohn's such as diarrhea, fevers, nor bleeding. Her CRP is much lower than last admission. Her main issue is abdominal pain. Rec: CT abd/pelvis to compare to previous admission. F/U labs in AM. Trial of an antispasmodic for the abdominal pain and possible intestinal spasm. Advance diet and change to oral prednisone tomorrow, 10/21, if CT looks OK and things are stable. She has been approved for the [place] for the Crohn's through her insurance company and we can start that LAURA once she is discharged and the COVID is negative. Please recheck COVID to see if the first one was a false + since she is asymptomatic. D/W patient in detail and she is comfortable with this plan. Thanks
[2020-10-21] VITALS (9 sets, daily range): BP systolic 111–140; BP diastolic 65–81; PULSE 69–98; RESP 13–20; TEMP 36.9–38.9; O2SAT 91–99
[2020-10-21] MEDS: Enoxaparin Sodium 40 MG/0.4 ML SYRINGE SUBCUT ×2 (00:04→23:54)
[2020-10-21] MEDS: Hydrocortisone Sod Succ/PF 100 MG VIAL IVPUSH ×3 (00:05→16:29)
[2020-10-21] MEDS: HYDROmorphone HCl 0.5 MG/0.5 ML SYRINGE IVPUSH ×4 (00:05→20:30)
[2020-10-21] MEDS: iohexoL 350 MG/ML 100 ML INFUS..BTL 85 ML IV (00:44)
[2020-10-21] MEDS: Morphine Sulfate 4 MG/ML CARTRIDGE IVPUSH ×3 (04:01→23:54)
[2020-10-21 05:26] LABS: Baso%MD 0.1 %; Hematocrit 33.9 % (37-47); IG%MD 1.5 %; Lymph%MD 13.5 %; Mean Corpuscular HGB Conc 32.4 g/dl (31.0-35.0); Mean Corpuscular Hemoglobin 30.5 pg (27.0-33.0); Mean Corpuscular Volume 93.9 fL (80-98); Mean Platelet Volume 8.3 fL (9.4-12.3); Mono%MD 5.6 %; Neut%MD 79.3 %; Platelet Count 267 X10*3/uL (160-400); Red Blood Count 3.61 X10*6/uL (4.20-5.50); Red Cell Distribution Width 12.7 % (11.0-16.0); White Blood Count 7.9 X10*3/uL (4.8-10.8)
[2020-10-21 06:02] LABS: Alanine Aminotransferase 113 U/L (0-31); Albumin Level 2.5 g/dL (3.5-5.0); Alkaline Phosphatase 84 U/L (39-117); Amylase 35 U/L (28-100); Anion Gap 14 (12-20); Aspartate Amino Transferase 30 U/L (5-31); Bilirubin Direct < 0.2 mg/dL (0.0-0.5); Bilirubin Total 0.2 mg/dL (0.0-1.0); Blood Urea Nitrogen 12 mg/dL (9-16); C Reactive Protein 3.77 mg/dL (< or = 0.50); Calcium 7.2 mg/dL (8.4-10.2); Carbon Dioxide 24 mmol/L (22-29); Chloride 95 mmol/L (96-108); Creatinine Clr Calc Pharmacy 160.7; Estimated Glomerular Filt Rate > 60; Glucose Fasting 141 mg/dL (60-99); Lipase 8 U/L (8-78); Potassium 3.9 mmol/l (3.3-5.1); Sodium 129 mmol/L (135-145)
[2020-10-21 06:03] LABS: Erythrocyte Sedimentation Rate 26 MM/HR (0-20)
[2020-10-21] MEDS: 0.9 % Sodium Chloride Flush 3 ML SYRINGE IVFLUSH ×3 (07:44→20:30)
[2020-10-21] MEDS: Mesalamine 400 MG CAP.DRTAB. 800 MG PO ×2 (07:44→14:33)
--- NOTE | 2020-10-21 07:59 | PC.NURSE ---
Addendum entered by Carlyn Campoverde RN 10/21/20 16:32: Pt given PRN pain medication for abdomen stating that she felt the Bentyl worked the best for her pain. She was able to eat about 50% of her meals and tolerating them well. She had one large diarrhea BM this shift. VSS. Pt's fever is increasing. Pt moved to isolation unit per request of nursing supervisor cab. Original Note: Pt c/o 08/22 abd pain that is campy/sharp. PRN Dilauded given. CCT sent to basement for heating pad. Pt encouraged and eucated on deep breathing and coughing. This increases her pain but she was educated on splinting her abdomen when doing so.
[2020-10-21] MEDS: Dicyclomine HCl 10 MG CAPSULE PO ×2 (09:22→14:33)
--- NOTE | 2020-10-21 10:09 | P.CDIC_ITS ---
CDI Concurrent Query Service Date: 10/21/20 Documentation Clarification: Please clarify if you are treating a proba ble/suspected/likely or confirmed: BODY MASS INDEX: Morbid obesity Please specify if known PLEASE DO NOT DELETE/MODIFY EXISTING CONTENT Additional information is needed in order to code to the highest accuracy and appropriate Severity of Illness (SOI). Please clarify the information noted below in your progress notes and discharge summary. Risk Factors/Clinical Indicators/Treatments BMI 42.9 Crohns disease CDS: Ale Moctezuma CCS, CDIS Contact Number: [phone] Please Review the information above and exercise your independent professional judgment in responding to the query. If you concur, pleas document in the PROGRESS NOTES and DISCHARGE SUMMARY. If you do not agree with the query, please document in the query above. THIS QUERY IS PART OF THE PERMANENT MEDICAL RECORD
--- NOTE | 2020-10-21 10:48 | HO.PM.IMPN ---
Subjective Subjective Date of Service: 10/21/20 Interval History: abdominal pain, cant tolerate going home Cardiovascular Cardiovascular: Reports no additional cardiovascular complaints Respiratory Respiratory: Reports no additional respiratory complaints Physical Exam Vital Signs: Vital Signs: Last Vital Signs Temp 98.5 F 10/21/20 08:00 Pulse 69 10/21/20 08:00 Resp 20 10/21/20 08:00 BP 129/78 10/21/20 08:00 Pulse Ox 97 10/21/20 08:00 Body Mass Index 42.9 General: AO X 3, no acute distress Resp: CTA bilateral CVS: S1,S2,RRR GI: soft, tender, non distended Neuro: motor grossly intact Psych: appropriate affect Objective Data Current Medications Generic Name Dose Route Start Last Admin Trade Name Freq PRN Reason Stop Dose Admin Acetaminophen 650 mg 10/20/20 00:40 10/20/20 07:35 Acetaminophen 325 Mg Tablet PO 650 mg Q6H PRN Administration Pain, Mild (Pain Scale 1-3) Dicyclomine HCl 10 mg 10/20/20 18:41 10/21/20 09:22 Dicyclomine Hcl 10 Mg Capsule PO 10 mg QIDACHS PRN Administration abdominal pain Docusate Sodium 100 mg 10/20/20 00:40 Docusate Sodium 100 Mg Capsule PO DAILY PRN Constipation Enoxaparin Sodium 40 mg 10/20/20 00:40 10/21/20 00:04 Enoxaparin Sodium 40 Mg/0.4 Ml Syringe SUBCUT 40 mg Q24H JANE Administration Hydrocortisone Sodium Succinate 100 mg 10/20/20 00:40 10/21/20 07:44 Hydrocortisone Sod Succ/Pf 100 Mg Vial IVPUSH 100 mg Q8H JANE Administration Hydromorphone HCl 0.5 mg 10/20/20 00:40 10/21/20 07:44 Hydromorphone Hcl 0.5 Mg/0.5 Ml Syringe IVPUSH 0.5 mg Q4H PRN Administration Pain, Severe (Pain Scale 7-10) Mesalamine 800 mg 10/20/20 15:00 10/21/20 07:44 Mesalamine 400 Mg Cap.Drtab. PO 800 mg TID JANE Administration Morphine Sulfate 4 mg 10/20/20 00:40 10/21/20 04:01 Morphine Sulfate 4 Mg/Ml Cartridge IVPUSH 4 mg Q3H PRN Administration Pain, Severe (Pain Scale 7-10) Ondansetron HCl 4 mg 10/20/20 00:40 Ondansetron Hcl 4 Mg/2 Ml Vial IVPUSH Q8H PRN Nausea and Vomiting Oxycodone HCl 5 mg 10/20/20 00:40 10/20/20 21:37 Oxycodone Hcl Immed Release 5 Mg Tablet PO 5 mg Q6H PRN Administration Pain, Moderate (Pain Scale 4-6 Sodium Chloride 3 ml 10/20/20 00:40 10/21/20 07:44 0.9 % Sodium Chloride Flush 3 Ml Syringe IVFLUSH 3 ml QSHIFT JANE Administration Labs CBC & Chem 7: 10/21/20 05:10 10/21/20 05:10 Assessment and Plan (1) Multiple sclerosis: Status: Acute (2) COVID-19: Status: Acute (3) Morbid obesity: Status: Acute (4) Intractable pain: Status: Acute (5) Crohn's disease: Status: Acute (6) Abdominal pain: Status: Acute Assessment and Plan: 30F presented with persistent abdominal pain after prolonged hopsitalization for crohns flare, also screened in for covid but is asymptomatic crohns inflammatory markers decreased, but still with pain gi following covid given positive test and CT findings, believe this to be true positive, so far asymptomatic, monitor obesity weight loss
[2020-10-21 12:29] LABS: Band Neutrophils Percent 3 % (3-5); Lymphocytes Absolute Manual 0.9 X10*3/uL (0.6-4.8); Lymphocytes Percent Manual 12 % (20-40); Monocytes Absolute Manual 0.2 X10*3/uL (0.0-1.2); Monocytes Percent Manual 2 % (2-11); Neutrophils Absolute Manual 6.8 X10*3/uL (2.2-7.9); Neutrophils Percent Manual 83 % (45-73); Platelet Estimate NORMAL (NORMAL); Platelet Morphology Comment NORMAL; RBC Morphology NORMAL
[2020-10-21] MEDS: oxyCODONE HCl Immed Release 5 MG TABLET PO (14:33)
[2020-10-21] MEDS: Acetaminophen 325 MG TABLET 650 MG PO (17:05)
--- NOTE | 2020-10-21 18:42 | PM.GIPN ---
Subjective Subjective Date of Service: 10/21/20 Interval History: Patient seen at 11:00 AM this morning---She is still having her left-sided abdominal pain but reports that things seem somewhat better. Reports 2 loose BM's this AM but no bleeding. She thinks the dicyclomine helped the abdominal pain somewhat. She ate some food and denies N/V. She denies any respiratory symptoms. Physical Exam Vital Signs: Vital Signs: Last Vital Signs Temp 102.1 F H 10/21/20 16:00 Pulse 81 10/21/20 16:00 Resp 18 10/21/20 16:00 BP 140/77 H 10/21/20 16:00 Pulse Ox 99 10/21/20 16:00 Body Mass Index 42.9 Const: General: cooperative, comfortable and no acute distress GI: Inspection: Yes normal to inspection Palpation (GI): Soft to palpation and Tenderness to palpation present (GI) in the LLQ, in the LUQ and periumbilically Percussion: Yes normal to percussion Auscultation: normal bowel sounds Objective Data Labs CBC & Chem 7: 10/21/20 05:10 10/21/20 05:10 Labs: Laboratory Results - last 24 hr 10/21/20 10/21/20 10/21/20 05:10 05:10 05:10 WBC 7.9 RBC 3.61 L Hgb 11.0 L Hct 33.9 L MCV 93.9 MCH 30.5 MCHC 32.4 RDW 12.7 Plt Count 267 D MPV 8.3 L Absolute Nucleated RBC 0.000 Nucleated RBC % (auto) 0.0 Neutrophils % (Manual) 83 H Band Neutrophils % 3 Lymphocytes % (Manual) 12 L Monocytes % (Manual) 2 Abs Neuts (Manual) 6.8 Lymphocytes # (Manual) 0.9 Monocytes # (Manual) 0.2 Platelet Estimate NORMAL Plt Morphology Comment NORMAL RBC Morphology NORMAL ESR 26 H Sodium 129 L Potassium 3.9 Chloride 95 L Carbon Dioxide 24 Anion Gap 14 BUN 12 Creatinine 0.62 Estim Creat Clear Calc 160.7 Estimated GFR > 60 Fasting Glucose 141 H Calcium 7.2 L Total Bilirubin 0.2 Direct Bilirubin < 0.2 AST 30 D ALT 113 H Alkaline Phosphatase 84 C-Reactive Protein 3.77 H Total Protein 5.0 L Albumin 2.5 L Amylase 35 D Lipase 8 Microbiology Microbiology Results: Microbiology 12/08/20 09:46 Urine clean catch - Clean Catch Midstream Urine Culture - Preliminary Culture in progress. Her CT scan showed less intestinal dilatation and somewhat less changes of colitis. There was no bowel obstruction, abscess, nor intraabdominal fluid. Progress Note: A&P Assessment and plan (1) Crohn's disease: Problem details: Imp/Recs: She seems to be clinically improved, albeit still with abdominal pain. She is not having any significant diarrhea nor bleeding. Her CRP and bandemia have improved significantly. At this point I will change her over to oral steroids and increase the Mesalamine. I would continue the dicyclomine. I will plan to initiate the Humira as an outpatient once she has documented clearance of the COVID infection. D/W patient in detail and she seems comfortable with this plan. Thanks Status: Acute Fall Risk Details Current Medications: Current Medications Generic Name Dose Route Start Last Admin Trade Name Freq PRN Reason Stop Dose Admin Acetaminophen 650 mg 10/20/20 00:40 10/21/20 17:05 Acetaminophen 325 Mg Tablet PO 650 mg Q6H PRN Administration Pain, Mild (Pain Scale 1-3) Dicyclomine HCl 10 mg 10/20/20 18:41 10/21/20 14:33 Dicyclomine Hcl 10 Mg Capsule PO 10 mg QIDACHS PRN Administration abdominal pain Docusate Sodium 100 mg 10/20/20 00:40 Docusate Sodium 100 Mg Capsule PO DAILY PRN Constipation Enoxaparin Sodium 40 mg 10/20/20 00:40 10/21/20 00:04 Enoxaparin Sodium 40 Mg/0.4 Ml Syringe SUBCUT 40 mg Q24H JANE Administration Hydromorphone HCl 0.5 mg 10/20/20 00:40 10/21/20 11:55 Hydromorphone Hcl 0.5 Mg/0.5 Ml Syringe IVPUSH 0.5 mg Q4H PRN Administration Pain, Severe (Pain Scale 7-10) Mesalamine 1,600 mg 10/21/20 21:00 Mesalamine 400 Mg Cap.Drtab. PO TID JANE Morphine Sulfate 4 mg 10/20/20 00:40 10/21/20 16:35 Morphine Sulfate 4 Mg/Ml Cartridge IVPUSH 4 mg Q3H PRN Administration Pain, Severe (Pain Scale 7-10) Ondansetron HCl 4 mg 10/20/20 00:40 Ondansetron Hcl 4 Mg/2 Ml Vial IVPUSH Q8H PRN Nausea and Vomiting Oxycodone HCl 5 mg 10/20/20 00:40 10/21/20 14:33 Oxycodone Hcl Immed Release 5 Mg Tablet PO 5 mg Q6H PRN Administration Pain, Moderate (Pain Scale 4-6 Prednisone 40 mg 10/22/20 09:00 Prednisone 20 Mg Tablet PO DAILY JANE Sodium Chloride 3 ml 10/20/20 00:40 10/21/20 16:29 0.9 % Sodium Chloride Flush 3 Ml Syringe IVFLUSH 3 ml QSHIFT JANE Administration Time Spent With Patient Time: Total time spent is greater than 50% in coordination of care (as documented) at patient's floor/unit and/or counseling patient: Time with patient: 15 - 24 minutes
[2020-10-21] MEDS: Mesalamine 400 MG CAP.DRTAB. 1600 MG PO (20:30)
[2020-10-22 03:30] VITALS: BP 138/81; PULSE 91; RESP 12; TEMP 37.9; O2SAT 96
[2020-10-22] MEDS: Dicyclomine HCl 10 MG CAPSULE PO ×4 (04:04→20:53)
[2020-10-22] MEDS: Acetaminophen 325 MG TABLET 650 MG PO (04:04)
[2020-10-22] MEDS: HYDROmorphone HCl 0.5 MG/0.5 ML SYRINGE IVPUSH ×3 (04:12→20:53)
[2020-10-22 07:58] VITALS: BP 138/80; PULSE 85; RESP 14; TEMP 37.4; O2SAT 95
[2020-10-22] MEDS: Morphine Sulfate 4 MG/ML CARTRIDGE IVPUSH ×2 (08:38→16:51)
[2020-10-22] MEDS: Mesalamine 400 MG CAP.DRTAB. 1600 MG PO ×3 (08:39→20:53)
[2020-10-22] MEDS: predniSONE 20 MG TABLET 40 MG PO (08:40)
[2020-10-22] MEDS: 0.9 % Sodium Chloride Flush 3 ML SYRINGE IVFLUSH ×3 (08:40→21:03)
[2020-10-22 10:36] LABS: MANUAL DIFF FLAG NO
[2020-10-22 10:40] LABS: Hematocrit 35.1 % (37-47); Hemoglobin 11.3 g/dl (12.0-16.0); Imm Gran Abs Auto 0.07 X10*3/uL (0.00-0.03); Imm Gran Pct Auto 1.4 % (0.0-0.4); Lymphocytes Absolute Auto 1.3 X10*3/uL (1.2-4.9); Lymphocytes Percent Auto 25.2 % (20-40); Mean Corpuscular HGB Conc 32.2 g/dl (31.0-35.0); Mean Corpuscular Hemoglobin 29.9 pg (27.0-33.0); Mean Corpuscular Volume 92.9 fL (80-98); Mean Platelet Volume 8.3 fL (9.4-12.3); Monocytes Absolute Auto 0.2 X10*3/uL (0.1-1.2); Monocytes Percent Auto 4.7 % (2-11); Neutrophils Absolute Auto 3.6 X10*3/uL (2.0-8.3); Neutrophils Percent Auto 68.7 % (45-73); Platelet Count 250 X10*3/uL (160-400); Red Blood Count 3.78 X10*6/uL (4.20-5.50); Red Cell Distribution Width 12.7 % (11.0-16.0); White Blood Count 5.2 X10*3/uL (4.8-10.8)
--- NOTE | 2020-10-22 11:06 | CONS_ITS ---
DATE OF SERVICE: 10/20/2020 REQUESTING PHYSICIAN: Jim Ball MD REASON FOR CONSULTATION: Crohn disease and abdominal pain. HISTORY OF PRESENT ILLNESS: The patient is a 30-year-old female well known to me with underlying history of Crohn's colitis. I last saw her when she was hospitalized at the end of September and early October with a flare of the Crohn's colitis. She was here for about 10 days, requiring a long course of IV steroids. She was followed by surgery. Her imaging study showed a somewhat dilated colon and small bowel, but without any definitive obstruction. She eventually improved to the point where she could be discharged on oral prednisone and her oral mesalamine. She did require pain medication. Since being home for about a week now, she did improve in regard to no further diarrhea or bleeding. However, the abdominal pain persisted and required to come back to the ER. She subsequently was admitted. She incidentally tested positive for COVID in the ER. However, she has had no COVID related symptoms such as shortness of breath nor any cardiac issues. Since admission here, she has had no diarrhea, vomiting, nor bleeding. However, she has been requiring a significant amount of pain medications with the left-sided abdominal pain. However she does state that she is actually hungry. MEDICATIONS: At home included prednisone 40 mg daily and mesalamine 800 mg t.i.d. Her current medications include hydrocortisone 100 mg IV q.8 hours, oxycodone p.r.n., Zofran p.r.n., morphine p.r.n., Dilaudid p.r.n., and acetaminophen. PAST MEDICAL HISTORY: Crohn's colitis, obesity, multiple sclerosis. She has a history of . There is no reported history of diabetes, heart disease nor stroke. SOCIAL HISTORY: She does not smoke nor use any significant amounts of alcohol. FAMILY HISTORY: Noncontributory. REVIEW OF SYSTEMS: CONSTITUTIONAL: She has been feeling poorly at home in regard to the abdominal pain. SKIN: No rash. No pruritus. CARDIAC: No chest pain. PULMONARY: No coughing or hemoptysis. GI: As above. URINARY: No dysuria, hematuria. PHYSICAL EXAMINATION: GENERAL: The patient is a pleasant, alert, cooperative female, in no distress. SKIN: Warm and dry. Anicteric sclerae. ABDOMEN: Soft. Normal bowel sounds. She does have a fairly diffuse tenderness but predominantly on the left side. There is no mass nor rebound. She does have some guarding. LABORATORY DATA: White blood cell count 8.8, hemoglobin 13.1, platelets 389,000. Differential showed 65 neutrophils and 23% lymphocytes. Normal electrolytes except for sodium 131. Calcium 7.1. AST 52, ALT 148. AST was 128 with ALT 248 on admission. Total bilirubin 0.4. Albumin 2.4. Alkaline phosphatase 90. C-reactive protein was 8.3. More recent labs during her admission earlier this month, her C-reactive protein is much improved compared to 19 on October 13. She also had a bandemia and that has improved as well in regard to her white blood cell count. Her abdominal x-ray from yesterday described dilated loops of colon although this appeared to be improved compared to the previous studies done during her earlier admission. There is no sign of any obstruction or free air. IMPRESSION: Given the patient's presentation, her Crohn disease does appear to be somewhat improved from a symptomatic standpoint in the sense that her diarrhea and bleeding have seemingly resolved. She is complaining of her ongoing abdominal pain. However, the abdominal exam seems to be fairly benign. At this point, I would recommend continuing the IV steroids. However, I would obtain a CAT scan so we can better objectively assess her abdominal discomfort and compare the imaging to the previous scans on her last admission earlier this month. If things look improved, then we could advance her diet and change her to oral steroids. I will add a low-dose of an antispasmodic to use for abdominal pain in the event, she is having some discomfort in relation to intestinal spasm. I shall also order a followup laboratories in the morning including CBC, sedimentation rate and C-reactive protein. In regard to the elevated LFTs, I suspect this is in relation to perhaps some component of steatohepatitis since she has been on steroids for nearly 3 weeks now. The numbers do seem to be improving. I do not think this reflects any type of biliary disease. She will have repeat LFTs in the morning. In regard to the positive COVID, this is asymptomatic. Of note, she has been approved for Humira injections for the Crohn disease, but we would need to be sure that is negative before starting the Humira. I would recommend repeating a COVID test to see if the 1st was a false-positive. She would need outpatient followup in that regard if the COVID test remains positive here in the hospital. This has all been discussed with her in detail. MD BRYSON Garza/JESUS / [id number]
[2020-10-22 11:17] LABS: Anion Gap 14 (12-20); Blood Urea Nitrogen 8 mg/dL (9-16); Calcium 7.3 mg/dL (8.4-10.2); Carbon Dioxide 28 mmol/L (22-29); Chloride 95 mmol/L (96-108); Creatinine Clr Calc Pharmacy 160.7; Estimated Glomerular Filt Rate > 60; Glucose Fasting 87 mg/dL (60-99); Potassium 3.7 mmol/l (3.3-5.1); Sodium 133 mmol/L (135-145)
[2020-10-22 11:33] VITALS: BP 127/80; PULSE 102; RESP 18; TEMP 37.4; O2SAT 95
--- NOTE | 2020-10-22 13:02 | HO.PM.IMPN ---
Subjective Subjective Date of Service: 10/22/20 Interval History: abd pain Cardiovascular Cardiovascular: Reports no additional cardiovascular complaints Respiratory Respiratory: Reports no additional respiratory complaints Physical Exam Vital Signs: Vital Signs: Last Vital Signs Temp 99.4 F 10/22/20 11:33 Pulse 102 H 10/22/20 11:33 Resp 18 10/22/20 11:33 BP 127/80 10/22/20 11:33 Pulse Ox 95 10/22/20 11:33 Body Mass Index 42.9 General: AO X 3, no acute distress Resp: CTA bilateral CVS: S1,S2,RRR GI: tender Neuro: motor grossly intact Psych: appropriate affect Objective Data Current Medications Generic Name Dose Route Start Last Admin Trade Name Freq PRN Reason Stop Dose Admin Acetaminophen 650 mg 10/20/20 00:40 10/22/20 04:04 Acetaminophen 325 Mg Tablet PO 650 mg Q6H PRN Administration Pain, Mild (Pain Scale 1-3) Dicyclomine HCl 10 mg 10/20/20 18:41 10/22/20 12:35 Dicyclomine Hcl 10 Mg Capsule PO 10 mg QIDACHS PRN Administration abdominal pain Docusate Sodium 100 mg 10/20/20 00:40 Docusate Sodium 100 Mg Capsule PO DAILY PRN Constipation Enoxaparin Sodium 40 mg 10/20/20 00:40 10/21/20 23:54 Enoxaparin Sodium 40 Mg/0.4 Ml Syringe SUBCUT 40 mg Q24H JANE Administration Hydromorphone HCl 0.5 mg 10/20/20 00:40 10/22/20 12:35 Hydromorphone Hcl 0.5 Mg/0.5 Ml Syringe IVPUSH 0.5 mg Q4H PRN Administration Pain, Severe (Pain Scale 7-10) Mesalamine 1,600 mg 10/21/20 21:00 10/22/20 08:39 Mesalamine 400 Mg Cap.Drtab. PO 1,600 mg TID JANE Administration Morphine Sulfate 4 mg 10/20/20 00:40 10/22/20 08:38 Morphine Sulfate 4 Mg/Ml Cartridge IVPUSH 4 mg Q3H PRN Administration Pain, Severe (Pain Scale 7-10) Ondansetron HCl 4 mg 10/20/20 00:40 Ondansetron Hcl 4 Mg/2 Ml Vial IVPUSH Q8H PRN Nausea and Vomiting Oxycodone HCl 5 mg 10/20/20 00:40 10/21/20 14:33 Oxycodone Hcl Immed Release 5 Mg Tablet PO 5 mg Q6H PRN Administration Pain, Moderate (Pain Scale 4-6 Prednisone 40 mg 10/22/20 09:00 10/22/20 08:40 Prednisone 20 Mg Tablet PO 40 mg DAILY JANE Administration Sodium Chloride 3 ml 10/20/20 00:40 10/22/20 08:40 0.9 % Sodium Chloride Flush 3 Ml Syringe IVFLUSH 3 ml QSHIFT JANE Administration Labs CBC & Chem 7: 10/22/20 10:01 10/22/20 10:01 Microbiology Microbiology Results: Microbiology 10/20/20 09:46 Urine clean catch - Clean Catch Midstream Urine Culture - Final Assessment and Plan (1) Multiple sclerosis: Status: Acute (2) COVID-19: Status: Acute (3) Morbid obesity: Status: Acute (4) Intractable pain: Status: Acute (5) Crohn's disease: Problem details: Imp/Recs: She seems to be clinically improved, albeit still with abdominal pain. She is not having any significant diarrhea nor bleeding. Her CRP and bandemia have improved significantly. At this point I will change her over to oral steroids and increase the Mesalamine. I would continue the dicyclomine. I will plan to initiate the Humira as an outpatient once she has documented clearance of the COVID infection. D/W patient in detail and she seems comfortable with this plan. Thanks Status: Acute (6) Abdominal pain: Status: Acute Assessment and Plan: 30F presented with persistent abdominal pain after prolonged hopsitalization for crohns flare, also screened in for covid but is asymptomatic crohns inflammatory markers decreased, but still with pain, not comfortable leaving today, will observe one more day gi following, continue prednisone, mesalamine, bentyl covid given positive test and CT findings, believe this to be true positive, so far asymptomatic, monitor obesity weight loss
[2020-10-22 16:00] VITALS: BP 119/70; PULSE 86; RESP 21; TEMP 36.8; O2SAT 96
[2020-10-22 19:48] VITALS: BP 120/72; PULSE 94; RESP 18; TEMP 36.6; O2SAT 97
[2020-10-22 20:53] VITALS: RESP 20
[2020-10-23] VITALS (10 sets, daily range): BP systolic 115–139; BP diastolic 70–84; PULSE 78–113; RESP 16–22; TEMP 37–38.8; O2SAT 92–94
[2020-10-23] MEDS: Enoxaparin Sodium 40 MG/0.4 ML SYRINGE SUBCUT (00:24)
[2020-10-23] MEDS: Acetaminophen 325 MG TABLET 650 MG PO ×2 (00:30→13:38)
[2020-10-23] MEDS: Morphine Sulfate 4 MG/ML CARTRIDGE IVPUSH ×2 (00:30→06:37)
[2020-10-23] MEDS: HYDROmorphone HCl 0.5 MG/0.5 ML SYRINGE IVPUSH ×2 (03:13→09:29)
[2020-10-23] MEDS: Mesalamine 400 MG CAP.DRTAB. 1600 MG PO (09:30)
[2020-10-23] MEDS: predniSONE 20 MG TABLET 40 MG PO (09:31)
[2020-10-23] MEDS: 0.9 % Sodium Chloride Flush 3 ML SYRINGE IVFLUSH (09:31)
--- NOTE | 2020-10-23 10:57 | P.DS_ITS ---
DS: Providers Provider Date of admission: 10/19/20 22:52 Primary care physician: Kamran Rm MD Consults: 10/20/20 07:00 Consult to Gastroenterology Routine Consulting Provider: Alexandr Null Reason for consultation: crohns DS: Diagnosis Discharge Diagnosis (1) Multiple sclerosis: Status: Acute (2) COVID-19: Status: Acute (3) Morbid obesity: Status: Acute (4) Intractable pain: Status: Acute (5) Crohn's disease: Status: Acute Problem details: Imp/Recs: She seems to be clinically improved, albeit still with abdominal pain. She is not having any significant diarrhea nor bleeding. Her CRP and bandemia have improved significantly. At this point I will change her over to oral steroids and increase the Mesalamine. I would continue the dicyclomine. I will plan to initiate the Humira as an outpatient once she has documented clearance of the COVID infection. D/W patient in detail and she seems comfortable with this plan. Thanks (6) Abdominal pain: Status: Acute DS: Medications Discharge Medications Home Medications: Home Medications Medication Instructions Recorded Confirmed [facility] Marcial Wort 1 tab PO DAILY 10/02/20 10/19/20 ergocalciferol (vitamin D2) 400 unit PO DAILY 10/19/20 10/19/20 Previous Rx's Medication Instructions Recorded dicyclomine 10 mg PO QIDACHS PRN #90 cap 10/23/20 mesalamine [Delzicol] 1,600 mg PO TID #90 ea 10/23/20 oxycodone 5 mg PO Q6H PRN #30 tab 10/23/20 prednisone 40 mg PO DAILY #20 tab 10/23/20 DS: Summary Hospital Course Hospital Course: Patient was admitted for abdominal pain due to continued Crohn's flare. Inflammatory markers were consistent with improving flare. However patient was still in pain. She was seen by Gastroenterology who recommended increasing mesalamine and starting Bentyl. Patient noted improvement on this. She was transitioned from IV steroids to prednisone. Patient was also screened in for COVID on admission. She had minimal symptoms. Towards end of hospitalizations start to have some fevers. But never had any shortness of breath or hypoxia. Patient will be discharged home on prednisone taper, she will follow-up with Gastroenterology. For her COVID she will maintain isolation and monitor her symptoms. Time Spent with Patient Time attestation: Total time spent providing and/or coordinating discharge services: Physical Exam Vital Signs: Vital Signs: Last Vital Signs Temp 99.1 F 10/23/20 08:00 Pulse 78 10/23/20 08:00 Resp 20 10/23/20 09:29 BP 130/70 10/23/20 08:00 Pulse Ox 94 10/23/20 08:00 Body Mass Index 42.9 General: AO X 3, no acute distress Resp: CTA bilateral CVS: S1,S2,RRR GI: soft, non tender, non distended Neuro: motor grossly intact Psych: appropriate affect DS: Data Data Completed and Pending Labs on day of discharge: 10/19/20 20:59 XR KUB Stat 10/19/20 21:00 Hydrocortisone Sod Succ/PF [SOLU-Cortef] 100 mg IVPUSH ONCE ONE Morphine Sulfate 4 mg IVPUSH ONCE ONE ondansetron HCL [Zofran] 4 mg IVPUSH ONCE ONE 10/19/20 21:13 C Reactive Protein Stat Complete Blood Count Auto Diff Stat Comprehensive Met. Panel Stat Lipase Stat 10/19/20 21:15 0.9 % Sodium Chloride [Ns] 1,000 ml IVCONT 999 mls/hr 10/19/20 22:26 HYDROmorphone HCl [Dilaudid] 1 mg IVPUSH ONCE ONE 10/19/20 22:30 0.9 % Sodium Chloride [Ns] 1,000 ml IVCONT 999 mls/hr 10/19/20 22:48 Transfer Order Routine 10/19/20 23:19 COVID-19 ID NOW (Marcelino) Stat 10/20/20 CT abdomen pelvis w con Stat 10/20/20 00:40 Hydrocortisone Sod Succ/PF [SOLU-Cortef] 100 mg IVPUSH Q8H 10/20/20 09:25 Basic Metabolic Panel Routine Liver Panel Stat 10/20/20 09:46 Urine Culture Routine 10/20/20 Breakfast Clear Liquid Diet 10/20/20 15:00 Mesalamine [Delzicol] 800 mg PO TID 10/21/20 00:43 iohexoL 350 MG/ML [Omnipaque 350 MG/ML] 85 ml IV ONCE ONE 10/21/20 05:10 Amylase Routine Basic Metabolic Panel Fasting Routine C Reactive Protein Routine Complete Blood Count Man Dif Routine Erythrocyte Sedimentation Rate Routine Lipase Routine Liver Panel Routine 10/22/20 10:01 BMP [Basic Metabolic Panel Fasting] Routine Complete Blood Count Auto Diff Routine Laboratory Last Values WBC 5.2 X10*3/uL (4.8-10.8) 10/22/20 10: RBC 3.78 X10*6/uL (4.20-5.50) L 10/22/20 10:01 Hgb 11.3 g/dl (12.0-16.0) L 10/22/20 10:01 Hct 35.1 % (37-47) L 10/22/20 10: MCV 92.9 fL (80-98) 10/22/20 10: MCH 29.9 pg (27.0-33.0) 10/22/20 10: MCHC 32.2 g/dl (31.0-35.0) 10/22/20 10: RDW 12.7 % (11.0-16.0) 10/22/20 10:01 Plt Count 250 X10*3/uL (160-400) 10/22/20 10:01 MPV 8.3 fL (9.4-12.3) L 10/22/20 10:01 Immature Gran % (Auto) 1.4 % (0.0-0.4) H 10/22/20 10: Neut % (Auto) 68.7 % (45-73) 10/22/20 10:01 Lymph % (Auto) 25.2 % (20-40) 10/22/20 10:01 [place] % (Auto) 4.7 % (2-11) 10/22/20 10:01 Eos % (Auto) 0.0 % (0-4) 10/22/20 10:01 Baso % (Auto) 0.0 % (0-2) 10/22/20 10:01 Lymph # (Auto) 1.3 X10*3/uL (1.2-4.9) 10/22/20 10: [place] # (Auto) 0.2 X10*3/uL (0.1-1.2) 10/22/20 10:01 Eos # (Auto) 0.0 X10*3/uL (0.0-0.4) 10/22/20 10:01 Baso # (Auto) 0.0 X10*3/uL (0.0-0.2) 10/22/20 10:01 Abs Immat Gran (auto) 0.07 X10*3/uL (0.00-0.03) H 10/22/20 10:01 Absolute Neuts (auto) 3.6 X10*3/uL (2.0-8.3) 10/22/20 10:01 Absolute Nucleated RBC 0.000 X10*3/uL (0.0-0.012) 10/22/20 10:01 Nucleated RBC % (auto) 0.0 /100WBC (0.0-0.2) 10/22/20 10:01 Neutrophils % (Manual) 83 % (45-73) H 10/21/20 05:10 Band Neutrophils % 3 % (3-5) 10/21/20 05:10 Lymphocytes % (Manual) 12 % (20-40) L 10/21/20 05:10 Monocytes % (Manual) 2 % (2-11) 10/21/20 05:10 Abs Neuts (Manual) 6.8 X10*3/uL (2.2-7.9) 10/21/20 05:10 Lymphocytes # (Manual) 0.9 X10*3/uL (0.6-4.8) 10/21/20 05:10 Monocytes # (Manual) 0.2 X10*3/uL (0.0-1.2) 10/21/20 05:10 Platelet Estimate NORMAL (NORMAL) 10/21/20 05:10 Plt Morphology Comment NORMAL 10/21/20 05:10 RBC Morphology NORMAL 10/21/20 05:10 ESR 26 MM/HR (0-20) H 10/21/20 05:10 Sodium 133 mmol/L (135-145) L 10/22/20 10:01 Potassium 3.7 mmol/l (3.3-5.1) 10/22/20 10:01 Chloride 95 mmol/L (96-108) L 10/22/20 10:01 Carbon Dioxide 28 mmol/L (22-29) 10/22/20 10:01 Anion Gap 14 (12-20) 10/22/20 10:01 BUN 8 mg/dL (9-16) L 10/22/20 10:01 Creatinine 0.62 mg/dL (0.5-1.4) 10/22/20 10:01 Estim Creat Clear Calc 160.7 10/22/20 10:01 Estimated GFR > 60 10/22/20 10:01 Random Glucose 115 mg/dL (60-115) 10/20/20 09:25 Fasting Glucose 87 mg/dL (60-99) D 10/22/20 10:01 Calcium 7.3 mg/dL (8.4-10.2) L 10/22/20 10:01 Total Bilirubin 0.2 mg/dL (0.0-1.0) 10/21/20 05:10 Direct Bilirubin < 0.2 mg/dL (0.0-0.5) 10/21/20 05:10 AST 30 U/L (5-31) D 10/21/20 05:10 ALT 113 U/L (0-31) H 10/21/20 05:10 Alkaline Phosphatase 84 U/L (39-117) 10/21/20 05:10 C-Reactive Protein 3.77 mg/dL (< or = 0.50) H 10/21/20 05:10 Total Protein 5.0 g/dL (6.5-8.0) L 10/21/20 05:10 Albumin 2.5 g/dL (3.5-5.0) L 10/21/20 05:10 Amylase 35 U/L (28-100) D 10/21/20 05:10 Lipase 8 U/L (8-78) 10/21/20 05:10 Urine Color YELLOW 10/20/20 09:48 Urine Appearance HAZY 10/20/20 09:48 Urine pH 6.0 (5.0-8.0) 10/20/20 09:48 Ur Specific [place] >= 1.030 (1.005-1.025) H 10/20/20 09:48 Urine Protein NEG MG/DL (NEG-TRACE) 10/20/20 09:48 Urine Glucose (UA) NEG MG/DL (NEG) 10/20/20 09:48 Urine Ketones NEG MG/DL (NEG) 10/20/20 09:48 Urine Blood NEG (NEG) 10/20/20 09:48 Urine Nitrite POS (NEG) H 10/20/20 09:48 Ur Leukocyte Esterase NEG (NEG) 10/20/20 09:48 Urine RBC 0 /HPF (0) 10/20/20 09:48 Urine WBC 0-2 /HPF (0-4) 10/20/20 09:48 Ur Squamous Epith Cells 2+ /LPF 10/20/20 09:48 Urine Bacteria 3+ /LPF 10/20/20 09:48 Urine Mucus TRACE /LPF 10/20/20 09:48 COVID-19 (ALEJANDRA) Positive (Negative) A 10/19/20 23:19 COVID-19 Clin Com See Note 10/19/20 23:19 Discharge Plan Discharge Patient Disposition: Home, Self-Care Referrals: Kamran Rm MD [Primary Care Provider] - 1 Week (11/03/2020 3:15pm Please call and reschedule if you can't keep this appointment.) Alexandr Null [Physician] - Discharge Medications: New dicyclomine 10 mg Capsule 10 mg PO QIDACHS PRN (Reason: abdominal pain) Qty: 90 RF: 0 oxycodone 5 mg Tablet 5 mg PO Q6H PRN (Reason: Pain, Moderate) Qty: 30 RF: 0 mesalamine [Delzicol] 400 mg Capsule (With Del Rel Tablets) 1,600 mg PO TID Qty: 90 RF: 0 prednisone 20 mg Tablet 40 mg PO DAILY Qty: 20 RF: 0 Continued ergocalciferol (vitamin D2) 400 unit Capsule 400 unit PO DAILY RF: 0 St Marcial Wort 1 tab PO DAILY RF: 0 Discontinued prednisone 5 mg tablet 40 mg PO DAILY RF: 0 mesalamine 400 mg Capsule,Delayed Release(Dr/Ec) 800 mg PO TID RF: 0 Discharge Orders: Discharge Order (Routine); Ordered 10/23/20 Ordered By: Jim Ball Activity on Discharge: As tolerated Visit Report Forms: Patient Portal Discharge page Care Plan Goals: Recovery Health Concerns: Crohn's and COVID Plan of Treatment: Increase mesalamine, started on Bentyl, oxycodone for breakthrough pain, follow- up with Gastroenterology. Isolation for COVID, monitor breathing, return to ED if worsening breathing.
--- NOTE | 2020-10-23 11:51 | MHC.CM.PN ---
Pt is medically ready to d/c to home today without services needed. Pt will transfer via [facility] d/t need for isolation precautions r/t + COVID. She will follow up with GI for Crohns issues and contact her PCP if she experiences worsening symptoms. Pt and [facility] RN aware and in agreement of plan.
[2020-10-23] MEDS: Dicyclomine HCl 10 MG CAPSULE PO (13:49)
[2020-10-23] MEDS: oxyCODONE HCl Immed Release 5 MG TABLET PO (13:49)
== END 2020-10-23 16:30 | disposition home or self-care (01) | DRG 245 ==
LOC: HO.ED 22:49 → HO.ICU 10-20 07:28 → HO.ISO 10-21 14:21
PROVIDERS: Internal Medicine; Admitting Provider Internal Medicine; Emergency Provider Internal Medicine; PCP Internal Medicine; Visit Provider Internal Medicine
DX: K50.90 Crohn's disease, unspecified, without complications (principal); U07.1 COVID-19; E66.01 Morbid (severe) obesity due to excess calories; G35 Multiple sclerosis; Z68.41 Body mass index [BMI] 40.0-44.9, adult; Z79.899 Other long term (current) drug therapy
CPT/HCPCS: 36415; 74018; 74177; 80048; 80053; 80076; 81001; 82150; 83690; 85007; 85025; 85027; 85652; 86140; 87086; 87635; 96361; 96374; 96375; 99232; 99284; 99285; J1170; J1650; J2270; J2405; Q9967

== ENCOUNTER 2020-10-30 02:34 | Emergency (ER) | payer OTHER, SELFPAY ==
[2020-10-30 02:42] VITALS: BP 119/86; PULSE 100; RESP 18; TEMP 36.8; O2SAT 96; BMI 42.9
[2020-10-30 02:48] VITALS: BP 119/86; PULSE 101; RESP 18; TEMP 36.8; O2SAT 96
--- NOTE | 2020-10-30 02:54 | ED.ABDPAIN ---
HPI - Abdominal Pain General Chief Complaint: Abdominal Pain Stated Complaint: Abd pain Time Seen by Provider: 10/30/20 02:39 Source: patient Mode of arrival: ambulatory Limitations: no limitations History of Present Illness HPI narrative: This is a 30-year-old female with past medical history significant for MS, Crohn's, and recent COVID-19 infection. She presents this morning with complaints regarding the sensation of stomach fullness and pressure like pain at the epigastrium that she states she has been having for the past 2 weeks but during this time it was noted that she had a Crohn's flare of the transverse and descending colon. However, patient states that this symptom has persisted and ?she does can not take it anymore?. She is still completing her steroid taper and states that today was actually the best that she has felt since she was discharged except for the epigastric discomfort. This is not been associated with any fevers, chills, nausea, vomiting. Related Data Home Medications Medication Instructions Recorded Confirmed ergocalciferol (vitamin D2) 400 unit PO DAILY 10/19/20 10/30/20 prednisone 35 mg PO DAILY 10/30/20 10/30/20 Previous Rx's Medication Instructions Recorded dicyclomine 10 mg PO QIDACHS PRN #90 cap 10/23/20 mesalamine [Delzicol] 1,600 mg PO TID #90 ea 10/23/20 Allergies Allergy/AdvReac Type Severity Reaction Status Date / Time No Known Allergies Allergy Unknown UNKNOWN Verified 09/10/20 03:47 Review of Systems Review of Systems Pertinent positives and negatives as stated in HPI and 10 point review of systems is otherwise negative. Physical Exam Vital Signs: Vital Signs: Last Vital Signs Temp 98.0 F 10/30/20 07:37 Pulse 83 10/30/20 07:37 Resp 15 10/30/20 07:37 BP 129/75 10/30/20 07:37 Pulse Ox 95 10/30/20 07:37 Body Mass Index 42.9 VITAL SIGNS: Reviewed. GENERAL: Well developed, well nourished, in no acute distress. HEAD: Normocephalic/atraumatic, EYES: PERRLA, EOMI intact without pain, no nystagmus/pallor/icterus noted EARS: Ext canals without abnormality, TMs non-bulging and non-erythematous NOSE: Nares patent bilateral OROPHARYNX: no oral lesions noted, posterior pharynx clear and non-erythematous without noted tonsillar enlargement/erythema/exudates NECK: Supple, no adenopathy LUNGS: Normal breath sounds. No adventitious sounds or accessory muscle use. SpO2<96> CARDIOVASCULAR: Regular rate and rhythm without noted murmurs, no JVD or lower extremity edema. ABDOMEN: Soft, mild tenderness to palpation at the epigastrium without rebound, non-distended with bowel sounds. No rigidity. No guarding. No palpable masses or hernias noted MUSCULOSKELETAL: No tenderness, deformities, or effusions noted on gross inspection. EXTREMITIES: No cyanosis, clubbing or edema. SKIN: Inspection of the skin reveals no rashes, ulcerations, jaundice, pallor, or petechiae. NEUROLOGIC: Alert and oriented x 4. Strength and sensation to light touch were grossly intact x 4. Course Course Course Narrative: This is a 30-year-old female with history and clinical presentation consistent with possible dyspepsia, gastritis, ulcer. -labs, inflammatory markers, GI cocktail On review of all investigations there is no leukocytosis an the anemia is chronically stable although there is a noted platelet elevation (acute phase reactant) in combination with rise in both ESR and CRP. Due to patient's continued discomfort despite receiving a GI cocktail as well as Carafate an abdominal ultrasound was ordered and was negative for any acute findings. Patient appeared to be having worsening discomfort and was provided with 5 mg of oxycodone and on review of the CT scan there is an area of stranding at the right hepatic flexure and this was discussed with Dr. Null, gastroenterology. He recommends that patient should continue with the increased dosage of mesalamine as well as bringing her prednisone back up to 40 mg a day for 1 week and to call the office today to schedule for Humira. All these results and findings were discussed with the patient at bedside and she was very frustrated but agreed with the current plan. MDM - Abdominal Pain Lab Data Result diagrams: 10/30/20 03:46 10/30/20 03:46 Labs: Lab Results 10/30/20 10/30/20 10/30/20 Range/Units 03:46 03:46 03:46 WBC 8.4 (4.8-10.8) X10*3/uL RBC 3.65 L (4.20-5.50) X10*6/uL Hgb 11.0 L (12.0-16.0) g/dl Hct 34.0 L (37-47) % MCV 93.2 (80-98) fL MCH 30.1 (27.0-33.0) pg MCHC 32.4 (31.0-35.0) g/dl RDW 12.7 (11.0-16.0) % Plt Count 425 H D (160-400) X10*3/uL MPV 8.3 L (9.4-12.3) fL Immature Gran % (Auto) 1.2 H (0.0-0.4) % Neut % (Auto) 51.4 (45-73) % Lymph % (Auto) 37.0 (20-40) % [place] % (Auto) 9.6 (2-11) % Eos % (Auto) 0.8 (0-4) % Baso % (Auto) 0.0 (0-2) % Lymph # (Auto) 3.1 (1.2-4.9) X10*3/uL [place] # (Auto) 0.8 (0.1-1.2) X10*3/uL Eos # (Auto) 0.1 (0.0-0.4) X10*3/uL Baso # (Auto) 0.0 (0.0-0.2) X10*3/uL Abs Immat Gran (auto) 0.10 H (0.00-0.03) X10*3/uL Absolute Neuts (auto) 4.3 (2.0-8.3) X10*3/uL Absolute Nucleated RBC 0.000 (0.0-0.012) X10*3/uL Nucleated RBC % (auto) 0.0 (0.0-0.2) /100WBC ESR 59 H (0-20) MM/HR Sodium (135-145) mmol/L Potassium (3.3-5.1) mmol/l Chloride (96-108) mmol/L Carbon Dioxide (22-29) mmol/L Anion Gap (12-20) BUN (9-16) mg/dL Creatinine (0.5-1.4) mg/dL Estim Creat Clear Calc Estimated GFR Random Glucose (60-115) mg/dL Calcium (8.4-10.2) mg/dL Total Bilirubin (0.0-1.0) mg/dL AST (5-31) U/L ALT (0-31) U/L Alkaline Phosphatase (39-117) U/L C-Reactive Protein Cancelled Total Protein (6.5-8.0) g/dL Albumin (3.5-5.0) g/dL 18/20 Range/Units 03:46 WBC (4.8-10.8) X10*3/uL RBC (4.20-5.50) X10*6/uL Hgb (12.0-16.0) g/dl Hct (37-47) % MCV (80-98) fL MCH (27.0-33.0) pg MCHC (31.0-35.0) g/dl RDW (11.0-16.0) % Plt Count (160-400) X10*3/uL MPV (9.4-12.3) fL Immature Gran % (Auto) (0.0-0.4) % Neut % (Auto) (45-73) % Lymph % (Auto) (20-40) % [place] % (Auto) (2-11) % Eos % (Auto) (0-4) % Baso % (Auto) (0-2) % Lymph # (Auto) (1.2-4.9) X10*3/uL [place] # (Auto) (0.1-1.2) X10*3/uL Eos # (Auto) (0.0-0.4) X10*3/uL Baso # (Auto) (0.0-0.2) X10*3/uL Abs Immat Gran (auto) (0.00-0.03) X10*3/uL Absolute Neuts (auto) (2.0-8.3) X10*3/uL Absolute Nucleated RBC (0.0-0.012) X10*3/uL Nucleated RBC % (auto) (0.0-0.2) /100WBC ESR (0-20) MM/HR Sodium 137 (135-145) mmol/L Potassium 4.4 (3.3-5.1) mmol/l Chloride 101 (96-108) mmol/L Carbon Dioxide 27 (22-29) mmol/L Anion Gap 13 (12-20) BUN 15 D (9-16) mg/dL Creatinine 0.66 (0.5-1.4) mg/dL Estim Creat Clear Calc 151.0 Estimated GFR > 60 Random Glucose 100 (60-115) mg/dL Calcium 8.1 L D (8.4-10.2) mg/dL Total Bilirubin 0.2 (0.0-1.0) mg/dL AST 16 D (5-31) U/L ALT 33 H (0-31) U/L Alkaline Phosphatase 80 (39-117) U/L C-Reactive Protein 7.07 H Total Protein 6.0 L (6.5-8.0) g/dL Albumin 2.9 L (3.5-5.0) g/dL Discharge Plan Discharge Clinical Impression: Epigastric pressure, Continuous epigastric pain Patient Disposition: Home, Self-Care Additional Instructions: 1. Eat smaller meals more often, avoid fatty foods and carbonated drinks. Dr. Null recommends: -please start the meds alanine that was sent to your pharmacy yesterday. -increase your prednisone to 40 mg/day for 1 week and then resume the 5 mg decrease taper dosing. -call Dr. Null is office to further discuss timing and delivery of the Humira Have been tested for COVID-19 today in an effort to initiate the required negative results to start Humira. Please do not hesitate to return to the emergency department for any acute development of fever, chills, shortness of breath, or abdominal pain. Prescriptions: No [facility] ergocalciferol (vitamin D2) 400 unit Capsule 400 unit PO DAILY RF: 0 dicyclomine 10 mg Capsule 10 mg PO QIDACHS PRN (Reason: abdominal pain) Qty: 90 RF: 0 mesalamine [Delzicol] 400 mg Capsule (With Del Rel Tablets) 1,600 mg PO TID Qty: 90 RF: 0 prednisone 20 mg tablet 35 mg PO DAILY RF: 0 Referrals: Alexandr Null [Physician] - 2 days (Re-evaluation) [facility] Past Medical History Source: nursing notes reviewed Medical History Crohn's disease Crohn's disease Multiple sclerosis Surgical History History of tonsillectomy Previous section Family History Family History Maternal Grandmother Crohn's disease Social History Social History Household Members: Family Housing: House Alcohol intake: never Smoking Status: Never smoker Smoked in Last 30 Days: No Use of substances other than those prescribed or required for medical reasons: Yes Substance Use Type: Marijuana Substance Use Frequency: Socially Last Used Substance: Hours (ago) Advance Directives: No Advance Directives Information Provided: No service: No Current occupational status: unemployed
[2020-10-30] MEDS: Magnesium Hydrox/Alum Hydrox 30 ML ORAL.SUSP PO (03:48)
[2020-10-30] MEDS: Lidocaine HCl Viscous 2 % 15 ML SOLUTION 10 ML MUCOUS MEM (03:48)
[2020-10-30 03:54] VITALS: BP 125/82; PULSE 86; RESP 20; O2SAT 98
[2020-10-30 04:05] LABS: MANUAL DIFF FLAG NO
--- NOTE | 2020-10-30 04:07 | PC.NURSE ---
Patient line and lab'd and patient medicated per emar. Patient states she is having waves of acute pain. Respiratory rate is slightly elevated due to abdominal pain
[2020-10-30 04:12] LABS: Eosinophils Absolute Auto 0.1 X10*3/uL (0.0-0.4); Eosinophils Percent Auto 0.8 % (0-4); Imm Gran Pct Auto 1.2 % (0.0-0.4); Lymphocytes Absolute Auto 3.1 X10*3/uL (1.2-4.9); Mean Corpuscular HGB Conc 32.4 g/dl (31.0-35.0); Mean Corpuscular Hemoglobin 30.1 pg (27.0-33.0); Mean Corpuscular Volume 93.2 fL (80-98); Mean Platelet Volume 8.3 fL (9.4-12.3); Monocytes Absolute Auto 0.8 X10*3/uL (0.1-1.2); Monocytes Percent Auto 9.6 % (2-11); Neutrophils Absolute Auto 4.3 X10*3/uL (2.0-8.3); Neutrophils Percent Auto 51.4 % (45-73); Platelet Count 425 X10*3/uL (160-400); Red Blood Count 3.65 X10*6/uL (4.20-5.50); Red Cell Distribution Width 12.7 % (11.0-16.0); White Blood Count 8.4 X10*3/uL (4.8-10.8)
[2020-10-30 04:33] LABS: Alanine Aminotransferase 33 U/L (0-31); Albumin Level 2.9 g/dL (3.5-5.0); Alkaline Phosphatase 80 U/L (39-117); Anion Gap 13 (12-20); Aspartate Amino Transferase 16 U/L (5-31); Bilirubin Total 0.2 mg/dL (0.0-1.0); Blood Urea Nitrogen 15 mg/dL (9-16); C Reactive Protein 7.07 mg/dL (< or = 0.50); Calcium 8.1 mg/dL (8.4-10.2); Carbon Dioxide 27 mmol/L (22-29); Chloride 101 mmol/L (96-108); Estimated Glomerular Filt Rate > 60; Glucose Random 100 mg/dL (60-115); Potassium 4.4 mmol/l (3.3-5.1); Sodium 137 mmol/L (135-145)
[2020-10-30 04:59] LABS: Erythrocyte Sedimentation Rate 59 MM/HR (0-20)
[2020-10-30] MEDS: Simethicone 80 MG TAB.CHEW PO (05:00)
[2020-10-30] MEDS: Sucralfate Oral Suspension 1 GM/10 ML ORAL.SUSP PO (05:00)
--- NOTE | 2020-10-30 05:03 | PC.NURSE ---
Patient continues to complain of stomach pain not controlled with medication previously administered. Patient medicated per emar as noted. Will reassess in a half hour
--- NOTE | 2020-10-30 05:08 | US_ITS ---
EXAMINATION: ABDOMINAL ULTRASOUND LIMITED CLINICAL INFORMATION: Right upper quadrant pain. COMPARISON: 10/20/2020. TECHNIQUE: Real-time imaging of the right upper quadrant abdominal viscera. FINDINGS: PANCREAS: The visualized pancreatic head and body are normal in appearance. The remainder of the pancreas is obscured from visualization by the overlying bowel gas. LIVER: The liver is of normal size and mild diffuse increased echogenicity without focal lesions nor intrahepatic biliary ductal dilation. GALLBLADDER: Normal. The gallbladder is physiologically distended without evidence of stones, sludge, polyps, wall thickening or pericholecystic fluid. COMMON BILE DUCT: Normal in caliber measuring 0.2 cm in diameter. RIGHT KIDNEY: Normal. No hydronephrosis. No renal calculi or focal parenchymal lesions. The kidney measures 10.2 cm in maximum dimension. FREE FLUID: None. US/US abdomen limited IMPRESSION: Liver of mild diffuse increased echogenicity without focal lesions. The appearance is nonspecific, but consistent with fatty infiltration. Neither cholelithiasis nor cholecystitis.
[2020-10-30 06:35] VITALS: BP 126/78; PULSE 83; RESP 22; TEMP 37.2; O2SAT 100
--- NOTE | 2020-10-30 06:36 | CT_ITS ---
EXAMINATION: CT ABDOMEN AND PELVIS WITH CONTRAST CLINICAL INFORMATION: Epigastric pain. Known Crohn's disease. COMPARISON: None TECHNIQUE: Multidetector volumetric images were obtained from the superior aspect of the liver through the pubic symphysis following administration 85 mL of Omnipaque 350 intravenous contrast. Sagittal and coronal reformatted images were obtained on the technologist's workstation. Oral contrast: No This CT examination was performed using dose optimization techniques as appropriate, variously including the following: *Automated exposure control *Adjustment of mA and/or kV according to patient size (this includes techniques or standardized protocols for targeted exams where dose is matched to indication/reason for exam; i.e. extremities or head) *Use of iterative reconstruction technique DLP: 1044 mGy-cm FINDINGS: LUNG BASES: There is patchy bibasilar, right middle lobe and lingular infiltrates. LIVER, GALLBLADDER, AND BILIARY TREE: The liver is normal in size, shape, and attenuation. No focal hepatic lesion or biliary ductal dilatation is present. The gallbladder is unremarkable with no evidence of radiopaque gallstones, gallbladder wall thickening, or obvious pericholecystic inflammatory changes. PANCREAS: Unremarkable. SPLEEN: Spleen is unremarkable. There is a small accessory splenic nodule inferior to the hilum. ADRENAL GLANDS: Unremarkable. KIDNEYS AND URETERS: The kidneys are normal in size, shape, and attenuation. No hydronephrosis, hydroureter, or calculi seen. No perinephric stranding. BLADDER: Unremarkable. GASTROINTESTINAL TRACT: There is scattered stool and gas seen throughout the colon without any distention. There is nonspecific mild pericolic fat stranding along the hepatic flexure image 38/3 and coronal image 27/7. A punctate 5 mm nodule is seen in the right mesentery axial image 36/3 Small bowel loops are normal caliber. The stomach is nondistended. Appendix is normal caliber. ABDOMINAL WALL: No significant hernia is appreciated. LYMPH NODES: Noted. Lymph nodes seen. A final right mesocolon lymph node seen. VASCULAR: Unremarkable. PELVIC VISCERA: The uterus is anteverted with an IUD well located in endometrial canal. OSSEOUS STRUCTURES: No lytic or sclerotic process seen. CT/CT abdomen pelvis w con IMPRESSION: Nonspecific mild pericolic fat stranding around right hepatic flexure. Nonspecific colitis. No mural thickening. There is scattered stool in the right colon and cecum. Otherwise no acute intra-abdominal process seen. BILATERAL LOWER LOBE INFILTRATES. Correlate with chest x-ray.
[2020-10-30] MEDS: iohexoL 350 MG/ML 100 ML INFUS..BTL 85 ML IV (07:00)
[2020-10-30] MEDS: oxyCODONE HCl Immed Release 5 MG TABLET PO (07:35)
[2020-10-30 07:37] VITALS: BP 129/75; PULSE 83; RESP 15; TEMP 36.7; O2SAT 95
[2020-10-30 08:38] LABS: Lipase 24 U/L (8-78)
== END 2020-10-30 09:09 | disposition home or self-care (01) ==
PROVIDERS: Emergency Provider Student in an Organized Health Care Education/Training Program
DX: U07.1 COVID-19 (principal); R10.13 Epigastric pain; G35 Multiple sclerosis; K50.90 Crohn's disease, unspecified, without complications
CPT/HCPCS: 36415; 74177; 76705; 80053; 83690; 85025; 85652; 86140; 99285; Q9967; U0003

== ENCOUNTER 2021-02-16 11:03 | Outpatient (REF) | payer OTHER, SELFPAY ==
--- NOTE | 2021-02-16 | PFT_ITS ---
Forced vital capacity and FEV1 are slightly increased. PPR36-94 and MVV are normal. Post bronchodilator therapy, there is no change. Total lung capacity and residual volume normal. Diffusion capacity normal. CONCLUSION: Normal pulmonary function test. No evidence of obstructive or restrictive pulmonary disorder. Dave Mcguire MD [facility] / [id number]
== END 2021-02-16 11:04 | disposition home or self-care (01) ==
LOC: HO.RESP 11:03
PROVIDERS: PCP Internal Medicine; Visit Provider Internal Medicine
DX: R06.02 Shortness of breath (principal); Z86.16 Personal history of COVID-19; Z87.891 Personal history of nicotine dependence; R05 Cough
CPT/HCPCS: 94060; 94727; 94729

== ENCOUNTER → 2021-05-28 10:59 | Outpatient (BNVA) | payer OTHER, SELFPAY | PROVIDERS: PCP Internal Medicine; Referring Provider Internal Medicine; Visit Provider Physician Assistant | DX: E66.01 Morbid (severe) obesity due to excess calories (principal); G35 Multiple sclerosis; K50.10 Crohn's disease of large intestine without complications | CPT/HCPCS: 99202 ==

== ENCOUNTER 2021-07-28 09:49 | Outpatient (REF) | payer OTHER, SELFPAY ==
[2021-07-28 10:43] LABS: MANUAL DIFF FLAG NO
[2021-07-28 10:48] LABS: Basophils Percent Auto 0.5 % (0-2); Eosinophils Absolute Auto 0.3 X10*3/uL (0.0-0.4); Eosinophils Percent Auto 3.8 % (0-4); Hematocrit 38.3 % (37-47); Imm Gran Abs Auto 0.03 X10*3/uL (0.00-0.03); Imm Gran Pct Auto 0.4 % (0.0-0.4); Lymphocytes Absolute Auto 2.9 X10*3/uL (1.2-4.9); Lymphocytes Percent Auto 35.7 % (20-40); Mean Corpuscular HGB Conc 33.9 g/dl (31.0-35.0); Mean Corpuscular Volume 94.3 fL (80-98); Mean Platelet Volume 10.3 fL (9.4-12.3); Monocytes Absolute Auto 0.6 X10*3/uL (0.1-1.2); Monocytes Percent Auto 7.3 % (2-11); Neutrophils Absolute Auto 4.3 X10*3/uL (2.0-8.3); Neutrophils Percent Auto 52.3 % (45-73); Platelet Count 285 X10*3/uL (160-400); Red Blood Count 4.06 X10*6/uL (4.20-5.50); White Blood Count 8.2 X10*3/uL (4.8-10.8)
[2021-07-28 10:52] LABS: Estimated Average Glucose 91 mg/dL; Hemoglobin A1c % 4.8 %
[2021-07-28 11:24] LABS: Alanine Aminotransferase 18 U/L (0-31); Albumin Level 3.6 g/dL (3.5-5.0); Alkaline Phosphatase 74 U/L (39-117); Anion Gap 11 (12-20); Aspartate Amino Transferase 17 U/L (5-31); Bilirubin Total 0.5 mg/dL (0.0-1.0); Blood Urea Nitrogen 16 mg/dL (9-16); C Reactive Protein 1.68 mg/dL (< or = 0.50); Calcium 8.4 mg/dL (8.4-10.2); Carbon Dioxide 24 mmol/L (22-29); Chloride 107 mmol/L (96-108); Cholesterol 179 mg/dL; Estimated Glomerular Filt Rate > 60; Glucose Random 105 mg/dL (60-115); HDL Cholesterol 44 mg/dL; Iron 104 mcg/dL (30-160); LDL Cholesterol Calculated 88 mg/dl; Percent Iron Saturation 34 % (15-50); Potassium 4.1 mmol/L (3.3-5.1); Sodium 138 mmol/L (135-145); Total Iron Binding Capacity 304 mcg/dL (228-428); Total Protein 6.6 g/dL (6.5-8.0); Triglycerides 237 mg/dL; Unsaturated Iron Binding 200 ug/dL
[2021-07-28 11:34] LABS: Ferritin 57 ng/mL (10-122); TSH reflex Free T4 1.43 uIU/mL (0.32-4.0); Vitamin D 25-OH Total 22.9 ng/mL (>30)
[2021-07-28 11:52] LABS: Folate 6.8 ng/mL (> or = 4.0); Vitamin B12 244 pg/mL (200-900)
[2021-07-29 17:35] LABS: Insulin Level Total 17.5 uIU/mL
[2021-07-30 12:12] LABS: Calcium (PTHI) 8.6 mg/dL (8.6-10.2); PTHI 52 pg/mL (14-64)
[2021-08-01 01:32] LABS: Zinc 61 mcg/dL (60-130)
[2021-08-01 10:46] LABS: Vitamin B1 15 nmol/L (8-30)
[2021-08-03 16:01] LABS: Vitamin A 37 mcg/dL (38-98)
== END 2021-07-28 09:50 | disposition home or self-care (01) ==
LOC: HO.LAB 09:49
PROVIDERS: PCP Internal Medicine; Visit Provider Physician Assistant
DX: E66.01 Morbid (severe) obesity due to excess calories (principal); Z68.43 Body mass index [BMI] 50.0-59.9, adult; K50.10 Crohn's disease of large intestine without complications; E73.9 Lactose intolerance, unspecified; E55.9 Vitamin D deficiency, unspecified; G35 Multiple sclerosis
CPT/HCPCS: 36415; 80053; 80061; 82306; 82607; 82728; 82746; 83036; 83525; 83540; 83970; 84425; 84443; 84590; 84630; 85025; 86140; 99212

== ENCOUNTER → 2021-08-11 08:08 | Outpatient (BNVA) | payer OTHER, SELFPAY | PROVIDERS: PCP Internal Medicine; Visit Provider Dietitian, Registered ==

== ENCOUNTER → 2021-08-12 11:12 | Outpatient (REF) | payer OTHER, SELFPAY ==
--- NOTE | 2021-08-12 11:16 | ECG_ITS ---
Test Reason : e66.01 Blood Pressure : / mmHG Vent. Rate : 067 BPM Atrial Rate : 067 BPM P-R Int : 140 ms QRS Dur : 090 ms QT Int : 376 ms P-R-T Axes : 033 -07 037 degrees QTc Int : 397 ms Normal sinus rhythm Normal ECG When compared with ECG of 19-MAY-2013 12:38, No significant change was found Referred By: Magalys Brown Electronically Signed By:ROSALINDA CORBIN
[2021-08-13 12:09] LABS: H Pylori Breath Test Negative (Negative)
== END ==
LOC: HO.CARD 11:12
PROVIDERS: PCP Internal Medicine; Visit Provider Physician Assistant
DX: E66.01 Morbid (severe) obesity due to excess calories (principal)
CPT/HCPCS: 36415; 83013; 93005; 99211

== ENCOUNTER → 2021-08-13 08:11 | Outpatient (BNVA) | payer OTHER, SELFPAY | PROVIDERS: PCP Internal Medicine; Visit Provider Dietitian, Registered | DX: E66.01 Morbid (severe) obesity due to excess calories (principal) | CPT/HCPCS: 97802 ==

== ENCOUNTER → 2021-09-15 08:15 | Outpatient (BNVA) | payer OTHER, SELFPAY | PROVIDERS: PCP Internal Medicine; Referring Provider Surgery; Visit Provider Dietitian, Registered | DX: E66.01 Morbid (severe) obesity due to excess calories (principal) | CPT/HCPCS: 97803 ==

== ENCOUNTER 2022-01-19 21:16 | Emergency (ER) | payer OTHER, SELFPAY ==
--- NOTE | 2022-01-19 21:20 | ED.GENADULT ---
HPI - General Adult General Chief complaint: Wound/Laceration Stated complaint: Finger lac at work Time Seen by Provider: 01/19/22 21:19 Source: patient Mode of arrival: ambulatory Limitations: no limitations History of Present Illness HPI narrative: Patient is a 31 year old female presenting to the emergency department today with a left middle finger laceration. Patient states that she was at work this evening when she cut her left middle finger. Patient denies any loss of consciousness with the incident or any other injuries from the incident. Patient states that the pain feels like a stinging pain and she rates it a 3/10. Patient denies any dizziness, lightheadedness, abdominal pain, nausea, vomiting, fever, chills, blurry vision, double vision, loss of vision, chest pain, difficulty breathing, shortness of breath, back pain, night sweats, pain with urination, increased urinary frequency, increased urinary urgency, blood in her urine or stool, syncope or a near syncopal episode, bowel incontinence, bladder incontinence, bowel retention, bladder retention, or any other complaints at this time. Onset (ago): minute(s) Severity: mild Severity scale (1-10): 3 Quality: sharp Pain Consistency: intermittent Relieving factors: none Exacerbating factors: none Associated symptoms: denies other symptoms Related Data Home Medications Medication Instructions Recorded Confirmed ergocalciferol (vitamin D2) 400 400 unit PO DAILY 10/19/20 10/30/20 unit capsule prednisone 20 mg tablet 35 mg PO DAILY 10/30/20 10/30/20 adalimumab 40 mg/0.8 mL 40 mg SUBCUT Q2W 05/24/21 subcutaneous pen kit (Humira Pen) Previous Rx's Medication Instructions Recorded dicyclomine 10 mg capsule 10 mg PO QIDACHS PRN #90 cap 10/23/20 mesalamine 400 mg capsule (with 1,600 mg PO TID #90 ea 10/23/20 delayed release tablets inside) (Delzicol) ketoconazole 2 % topical cream 1 appl TOPICAL BID #60 g 06/28/21 cyanocobalamin (vitamin B-12) 50 50 mcg PO DAILY #30 ea 07/28/21 mcg lozenges (Vitamin B-12) vitamin A palmitate 10,000 unit 10,000 unit PO DAILY 14 Days #14 08/04/21 capsule cap Allergies Allergy/AdvReac Type Severity Reaction Status Date / Time No Known Allergies Allergy Unknown UNKNOWN Verified 01/19/22 21:29 Review of Systems Constitutional: Constitutional: Reports no additional constitutional complaints, Denies chills, Denies fever(s) and Denies night sweats Eyes: Eyes: Reports no additional eye complaints, Denies blurry vision, Denies change in vision, Denies diplopia, Denies eye discharge, Denies loss of vision and Denies eye pain ENT: Denies dizziness Cardiovascular: Cardiovascular: Reports no additional cardiovascular complaints, Denies chest pain, Denies lightheadedness, Denies Loss of Consciousness and Denies dyspnea Respiratory: Respiratory: Reports no additional respiratory complaints and Denies dyspnea Gastrointestinal: Gastrointestinal: Reports no additional gastrointestinal complaints, Denies abdominal pain, Denies melena, Denies hematochezia, Denies change in bowel habits and Denies change in stool character Genitourinary: Genitourinary: Denies hematuria, Denies urinary frequency, Denies dysuria, Denies urinary incontinence, Denies urinary hesitancy and Denies urinary urgency Musculoskeletal: Musculoskeletal: Reports no additional musculoskeletal complaints, Denies numbness and Denies tingling Integumentary/Breasts: Comments: 0.25 laceration to the radial side of the left middle finger Neurologic: Denies dizziness, Denies loss of vision, Denies numbness and Denies tingling Psychiatric: Psychiatric: Reports no additional psychiatric complaints Endocrine: Endocrine: Reports no additional endocrine complaints Hematologic/Lymphatic: Hematologic/Lymphatic: Reports no additional hematologic/lymphatic complaints Allergic/Immunologic: Allergic/Immunologic: Reports no additional allergic/immunologic complaints [facility] Past Medical History Attestation statement: The following information was validated with the patient. Medical History Crohn's disease Crohn's disease Multiple sclerosis Surgical History History of tonsillectomy Previous section Family History Family History Maternal Grandmother Crohn's disease Mother H/O: hysterectomy Primary fibromyalgia Father Diabetes Sister Murder Brother No problems noted. Son No problems noted. Social History Social History (Updated 07/28/21 @ 10:45 by [employer]) Household Members: Family Housing: House Do you presently have visiting nurse or other home services: No Alcohol intake: current Alcohol intake frequency: does not drink Patient Tobacco Use Status: Former Tobacco user Years Smoked: 10 Substance Use Type: Marijuana Advance Directives: No Advance Directives Information Provided: No service: No Current occupational status: unemployed Physical Exam ED Vital Signs: Vital Signs - 24 hr 01/19/22 21:25 Temperature 98 F Pulse Rate 88 Respiratory Rate 18 Blood Pressure 149/95 H Pulse Oximetry 98 BMI result Body Mass Index 54.1 Const General: cooperative, no acute distress, alert and awake Nutritional Appearance: well nourished Orientation/consciousness: patient oriented x3 Limitations: no limitations HENMT Head: Yes normal to inspection and Yes atraumatic Ears: hearing grossly normal bilaterally and external ears normal General nose exam: Normal external nose present, no nasal discharge noted and no epistaxis Face and sinus: Yes normal facial exam, No abrasion and No laceration Mouth: Normal oral and palatal mucosa present, no drooling and no muffled voice Eyes General: appearance normal, both eyes and all related structures Periorbital: periorbital findings normal Eyelids: Yes eyelids normal Conjunctivae: conjunctivae normal Pupils: Equal, round and reactive pupils present EOM: EOMs intact bilaterally Neck Neck: Yes normal visual inspection, Yes full ROM and Yes no lymphadenopathy Chest Chest palpation & inspection: normal inspection of the chest Resp Effort & Inspection: normal respiratory effort and able to speak in complete sentences GI Inspection: Yes normal to inspection Skin Other: left middle finger 0.25 laceration to the radial aspect of the tip of the finger. No finger nail or nail matrix involvement. No active bleeding. No gaping areas. Neuro General: patient oriented x3 and moves all extremities Cranial nerves: Yes Equal, round and reactive pupils present Cognition (Neuro): normal cognition Motor exam (neuro): 5/5 motor strength present throughout Sensory Exam: Normal double simultaneous stimulation for sensation Coordination: [id number] test normal Extrem General: Yes normal to inspection, Yes full ROM and Yes capillary refill normal Psych Appearance: grossly normal Mental Status: mental status grossly normal Affect: normal affect Attitude: cooperative Thought process: Normal thought process present Thought content: Normal thought content present Insight: Good insight present (Psych) Procedures Laceration Laceration 1: Site: other (middle finger) Side (If applicable): left Size (cm): 0.25 Description: linear Depth: simple, single layer Pre-repair: irrigated extensively Skin layer closed with: other (dermabond) Medical Decision Making MDM Narrative Medical decision making narrative: Patient is a 31 year old female presenting to the emergency department today with a left middle finger laceration. Patient's physical exam showed a left middle finger 0.25 laceration to the radial aspect of the tip of the finger, no finger nail or nail matrix involvement. No active bleeding. No gaping areas. I explained my physical exam findings to the patient. I answered all questions asked by the patient. Patient's laceration was repaired via dermabond, per procedure note, without incident I stressed the importance of the patient taking her medication as prescribed. I stressed the importance of the patient keeping the repaired area dry for 7 days and NOT soaking it. I stressed the importance of the patient following up with her primary care provider. I stressed the importance of the patient returning to the emergency department immediately if her symptoms were to worsen or if she were to develop any dizziness, shortness of breath, difficulty breathing, chest pain, blurry vision, loss of vision, nausea, vomiting, abdominal pain, fever, chills, back pain, or any other complaints. Patient verbalized agreement and understanding with this treatment plan and discharge. Differential Diagnosis Differential Diagnosis: laceration, abrasion Medical Records Medical records reviewed: Yes I reviewed the patient's medical records. Discharge Plan Discharge Clinical Impression: Laceration of finger Patient Disposition: Home, Self-Care Instructions: Finger Laceration (ED), Skin Adhesive Care (ED) Additional Instructions: Do NOT get the reparied area wet for 7 days. Do not soak the repaired area for 7 days. Follow up with your primary care provider. Return to the emergency department immediately if your symptoms worsen or if you develop any dizziness, shortness of breath, difficulty breathing, chest pain, blurry vision, loss of vision, nausea, vomiting, abdominal pain, fever, chills, back pain, or any other complaints. Prescriptions: No Action Vitamin B-12 50 mcg lozenge 50 mcg PO DAILY Qty: 30 6RF vitamin A palmitate 10,000 unit capsule 10,000 unit PO DAILY 14 Days Qty: 14 0RF ergocalciferol (vitamin D2) 400 unit Capsule 400 unit PO DAILY 0RF dicyclomine 10 mg Capsule 10 mg PO QIDACHS PRN (Reason: abdominal pain) Qty: 90 0RF mesalamine [Delzicol] 400 mg Capsule (With Del Rel Tablets) 1,600 mg PO TID Qty: 90 0RF prednisone 20 mg tablet 35 mg PO DAILY 0RF ketoconazole 2 % cream 1 appl topical BID Qty: 60 2RF Referrals: Kamran Rm MD [Primary Care Provider] - 2 days Print Language: Macedonian
[2022-01-19 21:25] VITALS: BP 149/95; PULSE 88; RESP 18; TEMP 36.6; O2SAT 98; BMI 54.1
[2022-01-19] MEDS: Diphth,Pertus(ACell),Tet Adult 0.5 ML SYRINGE IM (21:43)
== END 2022-01-19 21:49 | disposition home or self-care (01) ==
PROVIDERS: Emergency Provider Emergency Medicine Emergency Medical Services; PCP Internal Medicine
DX: S61.213A Laceration without foreign body of left middle finger without damage to nail, initial encounter (principal); S60.512A Abrasion of left hand, initial encounter; M79.642 Pain in left hand; W26.9XXA Contact with unspecified sharp object(s), initial encounter; Y99.0 Civilian activity done for income or pay; Y93.9 Activity, unspecified; Y92.9 Unspecified place or not applicable; Z79.899 Other long term (current) drug therapy; Z87.891 Personal history of nicotine dependence
CPT/HCPCS: 90471; 90715; 99283; 99284

== ENCOUNTER 2022-06-02 13:16 | Outpatient (REF) | payer OTHER, SELFPAY ==
[2022-06-02 13:46] LABS: MANUAL DIFF FLAG NO
[2022-06-02 13:58] LABS: Basophils Percent Auto 0.4 % (0-2); Eosinophils Absolute Auto 0.2 X10*3/uL (0.0-0.4); Eosinophils Percent Auto 2.4 % (0-4); Hematocrit 40.4 % (37.0-47.0); Hemoglobin 13.6 g/dl (12.0-16.0); Imm Gran Abs Auto 0.08 X10*3/uL (0.00-0.03); Imm Gran Pct Auto 0.8 % (0.0-0.4); Lymphocytes Absolute Auto 2.5 X10*3/uL (1.2-4.9); Lymphocytes Percent Auto 25.7 % (20-40); Mean Corpuscular HGB Conc 33.7 g/dl (31.0-35.0); Mean Corpuscular Hemoglobin 31.6 pg (27.0-33.0); Mean Platelet Volume 9.6 fL (9.4-12.3); Monocytes Absolute Auto 0.6 X10*3/uL (0.1-1.2); Monocytes Percent Auto 6.3 % (2-11); Neutrophils Absolute Auto 6.4 x10*3/uL (2.0-8.3); Neutrophils Percent Auto 64.4 % (45-73); Platelet Count 309 X10*3/uL (160-400); Red Cell Distribution Width 11.9 % (11.0-16.0); White Blood Count 9.9 X10*3/uL (4.8-10.8)
[2022-06-02 14:27] LABS: Alanine Aminotransferase 29 U/L (0-31); Albumin Level 3.8 g/dL (3.5-5.0); Alkaline Phosphatase 75 U/L (39-117); Aspartate Amino Transferase 22 U/L (5-31); Bilirubin Direct 0.2 mg/dL (0.0-0.5); Bilirubin Total 0.5 mg/dL (0.0-1.0); C Reactive Protein 2.53 mg/dL (< or = 0.50); Total Protein 7.2 g/dL (6.5-8.0)
[2022-06-02 14:40] LABS: Erythrocyte Sedimentation Rate 12 MM/HR (0-20)
== END 2022-06-02 13:17 | disposition home or self-care (01) ==
LOC: HO.HMGCLDS 13:16
PROVIDERS: PCP Internal Medicine; Visit Provider Internal Medicine
DX: K50.10 Crohn's disease of large intestine without complications (principal)
CPT/HCPCS: 36415; 80076; 85025; 85652; 86140

== ENCOUNTER 2022-08-17 12:01 | Outpatient (REF) | payer OTHER, SELFPAY ==
[2022-08-17 14:16] LABS: MANUAL DIFF FLAG NO
[2022-08-17 14:23] LABS: Basophils Absolute Auto 0.1 X10*3/uL (0.0-0.2); Basophils Percent Auto 0.7 % (0-2); Eosinophils Absolute Auto 0.3 X10*3/uL (0.0-0.4); Eosinophils Percent Auto 3.8 % (0-4); Hematocrit 40.7 % (37.0-47.0); Hemoglobin 13.7 g/dl (12.0-16.0); Imm Gran Abs Auto 0.05 X10*3/uL (0.00-0.03); Imm Gran Pct Auto 0.6 % (0.0-0.4); Lymphocytes Absolute Auto 2.5 X10*3/uL (1.2-4.9); Lymphocytes Percent Auto 27.2 % (20-40); Mean Corpuscular HGB Conc 33.7 g/dl (31.0-35.0); Mean Corpuscular Hemoglobin 32.1 pg (27.0-33.0); Mean Corpuscular Volume 95.3 fL (80.0-98.0); Mean Platelet Volume 10.6 fL (9.4-12.3); Monocytes Absolute Auto 0.8 X10*3/uL (0.1-1.2); Monocytes Percent Auto 8.3 % (2-11); Neutrophils Absolute Auto 5.4 x10*3/uL (2.0-8.3); Neutrophils Percent Auto 59.4 % (45-73); Platelet Count 300 X10*3/uL (160-400); Red Blood Count 4.27 X10*6/uL (4.20-5.50); Red Cell Distribution Width 12.5 % (11.0-16.0)
[2022-08-17 14:45] LABS: Alanine Aminotransferase 18 U/L (0-31); Albumin Level 3.9 g/dL (3.5-5.0); Alkaline Phosphatase 83 U/L (39-117); Anion Gap 14 (12-20); Aspartate Amino Transferase 19 U/L (5-31); Bilirubin Total 0.3 mg/dL (0.0-1.0); Blood Urea Nitrogen 15 mg/dL (9-16); Calcium 8.8 mg/dL (8.4-10.2); Carbon Dioxide 25 mmol/L (22-29); Chloride 106 mmol/L (96-108); Cholesterol 190 mg/dL; Estimated Glomerular Filt Rate > 60; Glucose Random 101 mg/dL (60-115); Potassium 4.6 mmol/L (3.3-5.1); Sodium 140 mmol/L (135-145); Total Protein 7.2 g/dL (6.5-8.0)
[2022-08-17 15:06] LABS: Thyroid Stimulating Hormone 1.18 uIU/mL (0.32-4.0)
[2022-08-17 15:16] LABS: Vitamin B12 292 pg/mL (200-900)
== END 2022-08-17 12:02 | disposition home or self-care (01) ==
LOC: HO.HMGCLDS 12:01
PROVIDERS: PCP Internal Medicine; Visit Provider Internal Medicine
DX: G35 Multiple sclerosis (principal); M79.606 Pain in leg, unspecified; K50.90 Crohn's disease, unspecified, without complications
CPT/HCPCS: 36415; 80053; 82465; 82550; 82607; 84443; 85025; 86140

== ENCOUNTER 2022-10-16 16:03 | Emergency (ER) | payer OTHER, SELFPAY ==
--- NOTE | ~2022-10-16 | CT_ITS ---
EXAMINATION: CT ABDOMEN AND PELVIS WITH CONTRAST CLINICAL INFORMATION: Abdominal pain with history of Crohn's disease COMPARISON: 10/30/2020 TECHNIQUE: Multidetector volumetric images were obtained from the superior aspect of the liver through the pubic symphysis following administration 100 mL of Omnipaque 350 intravenous contrast. Sagittal and coronal reformatted images were obtained on the technologist's workstation. Oral contrast: No This CT examination was performed using dose optimization techniques as appropriate, variously including the following: *Automated exposure control *Adjustment of mA and/or kV according to patient size (this includes techniques or standardized protocols for targeted exams where dose is matched to indication/reason for exam; i.e. extremities or head) *Use of iterative reconstruction technique DLP: 1749 mGy-cm FINDINGS: LUNG BASES: The visualized lung bases are unremarkable. LIVER, GALLBLADDER, AND BILIARY TREE: The liver is normal in size, shape, and attenuation. No focal hepatic lesion or biliary ductal dilatation is present. The gallbladder is unremarkable with no evidence of radiopaque gallstones, gallbladder wall thickening, or obvious pericholecystic inflammatory changes. PANCREAS: Unremarkable. SPLEEN: Unremarkable. ADRENAL GLANDS: Unremarkable. KIDNEYS AND URETERS: The kidneys are normal in size, shape, and attenuation. No hydronephrosis, hydroureter, or calculi seen. No perinephric stranding. BLADDER: Unremarkable. GASTROINTESTINAL TRACT: The small and large bowel are unremarkable. The appendix is not identified and may be absent. ABDOMINAL WALL: No significant hernia is appreciated. LYMPH NODES: Normal. VASCULAR: Unremarkable. PELVIC VISCERA: Unremarkable. OSSEOUS STRUCTURES: Unremarkable. CT/CT abdomen pelvis w IV con IMPRESSION: No focal inflammatory process or obstruction.
[2022-10-16 16:06] VITALS: BP 138/77; PULSE 87; RESP 18; TEMP 36.6; O2SAT 97; BMI 51.5
--- NOTE | 2022-10-16 16:07 | ED_ITS ---
HPI - Abdominal Pain General Chief Complaint: Abdominal Pain <Natasha Fernandes NP - Last Filed: 10/16/22 16:08> Stated Complaint: ? Crohn's flareup <Natasha Fernandes NP - Last Filed: 10/16/22 16:08> Time Seen by Provider: 10/16/22 19:42 <Natasha Fernandes NP - Last Filed: 10/16/22 16:08> Source: patient <Zelalem Lee MD - Last Filed: 10/17/22 01:26> Mode of arrival: ambulatory <Zelalem Lee MD - Last Filed: 10/17/22 01:26> Limitations: no limitations <Zelalem Lee MD - Last Filed: 10/17/22 01:26> History of Present Illness HPI narrative: With history of Crohn's disease diagnosed in 2016 on Humira for last 1 year did not have any flare up since then since yesterday patient noticed diffuse abdominal cramping pain with blood in the stool last night today has had more diarrhea with diffuse cramping no fever no chills <Zelalem Lee MD - Last Filed: 10/17/22 01:26> Related Data Home Medications: Home Medications Medication Instructions Recorded Confirmed ergocalciferol (vitamin D2) 400 400 unit PO DAILY 10/19/20 10/30/20 unit capsule prednisone 20 mg tablet 35 mg PO DAILY 10/30/20 10/30/20 adalimumab 40 mg/0.8 mL 40 mg subcut Q2W 05/24/21 subcutaneous pen kit (Humira Pen) Previous Rx's Medication Instructions Recorded dicyclomine 10 mg capsule 10 mg PO QIDACHS PRN abdominal 10/23/20 pain #90 caps mesalamine 400 mg capsule (with 1,600 mg PO TID #90 ea 10/23/20 delayed release tablets inside) (Delzicol) ketoconazole 2 % topical cream 1 appl topical BID #60 grams 06/28/21 cyanocobalamin (vitamin B-12) 50 50 mcg PO DAILY #30 ea 07/28/21 mcg lozenges (Vitamin B-12) vitamin A palmitate 10,000 unit 10,000 unit PO DAILY 2 weeks #14 08/04/21 capsule caps oxycodone 5 mg tablet 5 mg PO Q6H PRN pain #20 tabs 10/16/22 prednisone 20 mg tablet 40 mg PO DAILY #10 tabs 10/16/22 <Natasha Fernandes NP - Last Filed: 10/16/22 16:08> Allergies/Adverse Reactions: Allergies Allergy/AdvReac Type Severity Reaction Status Date / Time No Known Allergies Allergy Unknown UNKNOWN Verified 01/19/22 21:29 <Natasha Fernandes NP - Last Filed: 10/16/22 16:08> Review of Systems Review of Systems Yes all other systems are reviewed and are negative <Zelalem Lee MD - Last Filed: 10/17/22 01:26> [facility] Past Medical History Medical History: Medical History Crohn's disease Crohn's disease Multiple sclerosis <Natasha Fernnades NP - Last Filed: 10/16/22 16:08> Surgical History: Surgical History History of tonsillectomy Previous section <Natasha Fernandes NP - Last Filed: 10/16/22 16:08> Family History Family History: Family History Maternal Grandmother Crohn's disease Mother H/O: hysterectomy Primary fibromyalgia Father Diabetes Sister Murder Brother No problems noted. Son No problems noted. <Natasha Fernandes NP - Last Filed: 10/16/22 16:08> Social History Social History: Social History Household Members: Family Housing: House Do you presently have visiting nurse or other home services: No Alcohol intake: current Alcohol intake frequency: does not drink Patient Tobacco Use Status: Former Tobacco user Years Smoked: 10 Substance Use Type: Marijuana Advance Directives: No Advance Directives Information Provided: Yes service: No Current occupational status: unemployed <Natasha Fernandes NP - Last Filed: 10/16/22 16:08> Physical Exam ED Vital Signs: Vital Signs - 24 hr 10/16/22 16:06 12/04/22 20:36 10/16/22 23:14 Temperature 97.9 F 98.9 F 98.8 F Pulse Rate 87 87 74 Respiratory Rate 18 17 16 Blood Pressure 138/77 154/99 H Pulse Oximetry 97 97 97 Oxygen Delivery Method Room Air Room Air Room Air BMI result Body Mass Index 51.5 <Natasha Fernandes NP - Last Filed: 10/16/22 16:08> Vital Signs - 24 hr 10/16/22 16:06 10/16/22 20:36 10/16/22 23:14 Temperature 97.9 F 98.9 F 98.8 F Pulse Rate 87 87 74 Respiratory Rate 18 17 16 Blood Pressure 138/77 154/99 H Pulse Oximetry 97 97 97 Oxygen Delivery Method Room Air Room Air Room Air BMI result Body Mass Index 51.5 <Zelalem Lee MD - Last Filed: 10/17/22 01:26> Appearance: Alert. Oriented X3. No acute distress. Eyes: No pallor or icterus ENT: Pharynx normal. Oral Mucosa moist Neck: Normal inspection. Neck supple. CVS: Normal heart rate and rhythm. Pulses normal. Respiratory: No respiratory distress. Equal air entry bilateral, no wheezing/rales/rhonchi Abdomen: Soft diffuse upper abdominal tenderness no rebound tenderness guarding. Bowel sounds are increased no mass palpable, no CVA tenderness Skin: Skin warm and dry. Normal skin color. Normal skin turgor. Extremities: No lower extremity edema. Neuro: Oriented X 3. <Zelalem Lee MD - Last Filed: 10/17/22 01:26> Course Course Course Narrative: This is a rapid medical exam. Deferred HPI, ROS, PE to primary provider. 32 yo female with history of chrohns on humira here with bloody stools, abdominal cramping with concern for flare. GI is Dr Null. Will check labs, UA, ur preg. VSS <Natasha Fernandes NP - Last Filed: 10/16/22 16:08> Medications Administered Discontinued Medications Generic Name Dose Route Start Last Admin Trade Name Freq PRN Reason Stop Dose Admin Sodium Chloride 1,000 mls @ 999 mls/hr 10/16/22 20:00 10/16/22 21:37 Ns IV 10/16/22 21:00 Infused .Q1H1M ONE Infusion Iohexol 100 ml 10/16/22 21:32 10/16/22 21:32 Iohexol 350 Mg/Ml 100 Ml Infus..Btl IV 10/16/22 21:33 100 ml ONCE ONE Administration Methylprednisolone Sodium Succinate 125 mg 10/16/22 20:00 10/16/22 20:24 Methylprednisolone Sod Succ 125 Mg/2 Ml Vial IVPUSH 10/16/22 20:01 125 mg ONCE ONE Administration Morphine Sulfate 4 mg 10/16/22 20:00 10/16/22 20:24 Morphine Sulfate 4 Mg/Ml Cartridge IVPUSH 10/16/22 20:01 4 mg ONCE ONE Administration Protocol Ondansetron HCl 4 mg 10/16/22 20:00 10/16/22 20:24 Ondansetron Hcl 4 Mg/2 Ml Vial IVPUSH 10/16/22 20:01 4 mg ONCE ONE Administration <Natasha Fernandes NP - Last Filed: 10/16/22 16:08> Medications Administered Discontinued Medications Generic Name Dose Route Start Last Admin Trade Name Freq PRN Reason Stop Dose Admin Sodium Chloride 1,000 mls @ 999 mls/hr 10/16/22 20:00 10/16/22 21:37 Ns IV 10/16/22 21:00 Infused .Q1H1M ONE Infusion Iohexol 100 ml 10/16/22 21:32 10/16/22 21:32 Iohexol 350 Mg/Ml 100 Ml Infus..Btl IV 10/16/22 21:33 100 ml ONCE ONE Administration Methylprednisolone Sodium Succinate 125 mg 10/16/22 20:00 10/16/22 20:24 Methylprednisolone Sod Succ 125 Mg/2 Ml Vial IVPUSH 10/16/22 20:01 125 mg ONCE ONE Administration Morphine Sulfate 4 mg 10/16/22 20:00 10/16/22 20:24 Morphine Sulfate 4 Mg/Ml Cartridge IVPUSH 10/16/22 20:01 4 mg ONCE ONE Administration Protocol Ondansetron HCl 4 mg 10/16/22 20:00 10/16/22 20:24 Ondansetron Hcl 4 Mg/2 Ml Vial IVPUSH 10/16/22 20:01 4 mg ONCE ONE Administration <Zelalem Lee MD - Last Filed: 10/17/22 01:26> MDM - Abdominal Pain MDM Narrative Medical decision making narrative: Patient's CT scan negative for any acute had slightly elevated CRP with history of Crohn disease discharge patient home on prednisone patient feeling much better now will follow with columnist/commentator <Zelalem Lee MD - Last Filed: 10/17/22 01:26> Differential Diagnosis Differential diagnosis: Likely abdominal pain <Zelalem Lee MD - Last Filed: 10/17/22 01:26> Lab Data Attestation: I reviewed the patient's lab results. <Zelalem Lee MD - Last Filed: 10/17/22 01:26> Result diagrams: : 10/16/22 16:17 10/16/22 16:17 <Natasha Fernandes NP - Last Filed: 10/16/22 16:08> Labs: Lab Results 10/16/22 10/16/22 10/16/22 Range/Units 16:17 16:17 16:18 WBC 14.4 H (4.8-10.8) X10*3/uL RBC 4.48 (4.20-5.50) X10*6/uL Hgb 14.4 (12.0-16.0) g/dl Hct 41.5 (37.0-47.0) % MCV 92.6 (80.0-98.0) fL MCH 32.1 (27.0-33.0) pg MCHC 34.7 (31.0-35.0) g/dl RDW 12.0 (11.0-16.0) % Plt Count 336 (160-400) X10*3/uL MPV 9.6 (9.4-12.3) fL Immature Gran % (Auto) 0.5 H (0.0-0.4) % Neut % (Auto) 68.1 (45-73) % Lymph % (Auto) 22.4 (20-40) % [place] % (Auto) 6.8 (2-11) % Eos % (Auto) 1.7 (0-4) % Baso % (Auto) 0.5 (0-2) % Lymph # (Auto) 3.2 (1.2-4.9) X10*3/uL [place] # (Auto) 1.0 (0.1-1.2) X10*3/uL Eos # (Auto) 0.2 (0.0-0.4) X10*3/uL Baso # (Auto) 0.1 (0.0-0.2) X10*3/uL Abs Immat Gran (auto) 0.07 H (0.00-0.03) X10*3/uL Absolute Neuts (auto) 9.8 H (2.0-8.3) x10*3/uL Absolute Nucleated RBC 0.000 (0.0-0.012) X10*3/uL Nucleated RBC % (auto) 0.0 (0.0-0.2) /100WBC Sodium 132 L (135-145) mmol/L Potassium 4.2 (3.3-5.1) mmol/L Chloride 104 (96-108) mmol/L Carbon Dioxide 23 (22-29) mmol/L Anion Gap 9 L (12-20) BUN 17 H (9-16) mg/dL Creatinine 0.83 (0.5-1.4) mg/dL Estim Creat Clear Calc 131.5 Estimated GFR > 60 Random Glucose 102 (60-115) mg/dL Calcium 9.6 D (8.4-10.2) mg/dL Total Bilirubin 0.5 (0.0-1.0) mg/dL Direct Bilirubin < 0.2 (0.0-0.5) mg/dL AST 22 (5-31) U/L ALT 30 (0-31) U/L Alkaline Phosphatase 92 (39-117) U/L C-Reactive Protein 2.26 H (< or = 0.50) mg/dL Total Protein 7.7 (6.5-8.0) g/dL Albumin 4.2 (3.5-5.0) g/dL Lipase 13 (8-78) U/L Urine Color Urine Appearance Urine pH (5.0-9.0) Ur Specific [place] (1.005-1.025) Urine Protein (Neg-Trace) mg/dL Urine Glucose (UA) (Negative) mg/dL Urine Ketones (Negative) mg/dL Urine Blood (Negative) Urine Nitrite (Negative) Ur Leukocyte Esterase (Negative) Urine RBC (0-2) /HPF Urine WBC (0-5) /HPF Ur Squamous Epith Cells (0-2) /HPF Urine Bacteria (None Seen) Hyaline Casts (0-2) /LPF Urine Test (NEGATIVE) COVID-19 (ALEJANDRA) Negative (Negative) COVID-19 Clin Com See Note 10/16/22 10/16/22 Range/Units 16:18 16:18 WBC (4.8-10.8) X10*3/uL RBC (4.20-5.50) X10*6/uL Hgb (12.0-16.0) g/dl Hct (37.0-47.0) % MCV (80.0-98.0) fL MCH (27.0-33.0) pg MCHC (31.0-35.0) g/dl RDW (11.0-16.0) % Plt Count (160-400) X10*3/uL MPV (9.4-12.3) fL Immature Gran % (Auto) (0.0-0.4) % Neut % (Auto) (45-73) % Lymph % (Auto) (20-40) % [place] % (Auto) (2-11) % Eos % (Auto) (0-4) % Baso % (Auto) (0-2) % Lymph # (Auto) (1.2-4.9) X10*3/uL [place] # (Auto) (0.1-1.2) X10*3/uL Eos # (Auto) (0.0-0.4) X10*3/uL Baso # (Auto) (0.0-0.2) X10*3/uL Abs Immat Gran (auto) (0.00-0.03) X10*3/uL Absolute Neuts (auto) (2.0-8.3) x10*3/uL Absolute Nucleated RBC (0.0-0.012) X10*3/uL Nucleated RBC % (auto) (0.0-0.2) /100WBC Sodium (135-145) mmol/L Potassium (3.3-5.1) mmol/L Chloride (96-108) mmol/L Carbon Dioxide (22-29) mmol/L Anion Gap (12-20) BUN (9-16) mg/dL Creatinine (0.5-1.4) mg/dL Estim Creat Clear Calc Estimated GFR Random Glucose (60-115) mg/dL Calcium (8.4-10.2) mg/dL Total Bilirubin (0.0-1.0) mg/dL Direct Bilirubin (0.0-0.5) mg/dL AST (5-31) U/L ALT (0-31) U/L Alkaline Phosphatase (39-117) U/L C-Reactive Protein (< or = 0.50) mg/dL Total Protein (6.5-8.0) g/dL Albumin (3.5-5.0) g/dL Lipase (8-78) U/L Urine Color Dark Yellow Urine Appearance Cloudy Urine pH 5.5 (5.0-9.0) Ur Specific [place] >= 1.030 H (1.005-1.025) Urine Protein 30 (1+) H (Neg-Trace) mg/dL Urine Glucose (UA) Negative (Negative) mg/dL Urine Ketones Negative (Negative) mg/dL Urine Blood Negative (Negative) Urine Nitrite Negative (Negative) Ur Leukocyte Esterase Negative (Negative) Urine RBC 0-2 (0-2) /HPF Urine WBC 6-10 H (0-5) /HPF Ur Squamous Epith Cells >20 (0-2) /HPF Urine Bacteria 4+ (None Seen) Hyaline Casts 0-2 (0-2) /LPF Urine Test NEGATIVE (NEGATIVE) COVID-19 (ALEJANDRA) (Negative) COVID-19 Clin Com <Natasha Fernandes, [employer]GET[employer]OR - Last Filed: 10/16/22 16:08> Lab Results 10/16/22 10/16/22 10/16/22 Range/Units 16:17 16:17 16:18 WBC 14.4 H (4.8-10.8) X10*3/uL RBC 4.48 (4.20-5.50) X10*6/uL Hgb 14.4 (12.0-16.0) g/dl Hct 41.5 (37.0-47.0) % MCV 92.6 (80.0-98.0) fL MCH 32.1 (27.0-33.0) pg MCHC 34.7 (31.0-35.0) g/dl RDW 12.0 (11.0-16.0) % Plt Count 336 (160-400) X10*3/uL MPV 9.6 (9.4-12.3) fL Immature Gran % (Auto) 0.5 H (0.0-0.4) % Neut % (Auto) 68.1 (45-73) % Lymph % (Auto) 22.4 (20-40) % [place] % (Auto) 6.8 (2-11) % Eos % (Auto) 1.7 (0-4) % Baso % (Auto) 0.5 (0-2) % Lymph # (Auto) 3.2 (1.2-4.9) X10*3/uL [place] # (Auto) 1.0 (0.1-1.2) X10*3/uL Eos # (Auto) 0.2 (0.0-0.4) X10*3/uL Baso # (Auto) 0.1 (0.0-0.2) X10*3/uL Abs Immat Gran (auto) 0.07 H (0.00-0.03) X10*3/uL Absolute Neuts (auto) 9.8 H (2.0-8.3) x10*3/uL Absolute Nucleated RBC 0.000 (0.0-0.012) X10*3/uL Nucleated RBC % (auto) 0.0 (0.0-0.2) /100WBC Sodium 132 L (135-145) mmol/L Potassium 4.2 (3.3-5.1) mmol/L Chloride 104 (96-108) mmol/L Carbon Dioxide 23 (22-29) mmol/L Anion Gap 9 L (12-20) BUN 17 H (9-16) mg/dL Creatinine 0.83 (0.5-1.4) mg/dL Estim Creat Clear Calc 131.5 Estimated GFR > 60 Random Glucose 102 (60-115) mg/dL Calcium 9.6 D (8.4-10.2) mg/dL Total Bilirubin 0.5 (0.0-1.0) mg/dL Direct Bilirubin < 0.2 (0.0-0.5) mg/dL AST 22 (5-31) U/L ALT 30 (0-31) U/L Alkaline Phosphatase 92 (39-117) U/L C-Reactive Protein 2.26 H (< or = 0.50) mg/dL Total Protein 7.7 (6.5-8.0) g/dL Albumin 4.2 (3.5-5.0) g/dL Lipase 13 (8-78) U/L Urine Color Urine Appearance Urine pH (5.0-9.0) Ur Specific [place] (1.005-1.025) Urine Protein (Neg-Trace) mg/dL Urine Glucose (UA) (Negative) mg/dL Urine Ketones (Negative) mg/dL Urine Blood (Negative) Urine Nitrite (Negative) Ur Leukocyte Esterase (Negative) Urine RBC (0-2) /HPF Urine WBC (0-5) /HPF Ur Squamous Epith Cells (0-2) /HPF Urine Bacteria (None Seen) Hyaline Casts (0-2) /LPF Urine Test (NEGATIVE) COVID-19 (ALEJANDRA) Negative (Negative) COVID-19 Clin Com See Note 10/16/22 10/16/22 Range/Units 16:18 16:18 WBC (4.8-10.8) X10*3/uL RBC (4.20-5.50) X10*6/uL Hgb (12.0-16.0) g/dl Hct (37.0-47.0) % MCV (80.0-98.0) fL MCH (27.0-33.0) pg MCHC (31.0-35.0) g/dl RDW (11.0-16.0) % Plt Count (160-400) X10*3/uL MPV (9.4-12.3) fL Immature Gran % (Auto) (0.0-0.4) % Neut % (Auto) (45-73) % Lymph % (Auto) (20-40) % [place] % (Auto) (2-11) % Eos % (Auto) (0-4) % Baso % (Auto) (0-2) % Lymph # (Auto) (1.2-4.9) X10*3/uL [place] # (Auto) (0.1-1.2) X10*3/uL Eos # (Auto) (0.0-0.4) X10*3/uL Baso # (Auto) (0.0-0.2) X10*3/uL Abs Immat Gran (auto) (0.00-0.03) X10*3/uL Absolute Neuts (auto) (2.0-8.3) x10*3/uL Absolute Nucleated RBC (0.0-0.012) X10*3/uL Nucleated RBC % (auto) (0.0-0.2) /100WBC Sodium (135-145) mmol/L Potassium (3.3-5.1) mmol/L Chloride (96-108) mmol/L Carbon Dioxide (22-29) mmol/L Anion Gap (12-20) BUN (9-16) mg/dL Creatinine (0.5-1.4) mg/dL Estim Creat Clear Calc Estimated GFR Random Glucose (60-115) mg/dL Calcium (8.4-10.2) mg/dL Total Bilirubin (0.0-1.0) mg/dL Direct Bilirubin (0.0-0.5) mg/dL AST (5-31) U/L ALT (0-31) U/L Alkaline Phosphatase (39-117) U/L C-Reactive Protein (< or = 0.50) mg/dL Total Protein (6.5-8.0) g/dL Albumin (3.5-5.0) g/dL Lipase (8-78) U/L Urine Color Dark Yellow Urine Appearance Cloudy Urine pH 5.5 (5.0-9.0) Ur Specific [place] >= 1.030 H (1.005-1.025) Urine Protein 30 (1+) H (Neg-Trace) mg/dL Urine Glucose (UA) Negative (Negative) mg/dL Urine Ketones Negative (Negative) mg/dL Urine Blood Negative (Negative) Urine Nitrite Negative (Negative) Ur Leukocyte Esterase Negative (Negative) Urine RBC 0-2 (0-2) /HPF Urine WBC 6-10 H (0-5) /HPF Ur Squamous Epith Cells >20 (0-2) /HPF Urine Bacteria 4+ (None Seen) Hyaline Casts 0-2 (0-2) /LPF Urine Test NEGATIVE (NEGATIVE) COVID-19 (ALEJANDRA) (Negative) COVID-19 Clin Com <Zelalem Lee MD - Last Filed: 10/17/22 01:26> Discharge Plan Discharge Clinical Impression: Crohn's colitis <Natasha Fernandes NP - Last Filed: 10/16/22 16:08> Patient Disposition: Home, Self-Care <Natasha Fernandes NP - Last Filed: 10/16/22 16:08> Instructions: Crohn Disease (ED) <Natasha Fernandes NP - Last Filed: 10/16/22 16:08> Additional Instructions: Continue her Humira start taking prednisone for 5 days Drink plenty of fluids Oxycodone for pain Report to the ER/columnist/commentator if worsening of the pain/bleeding <Natasha Fernandes NP - Last Filed: 10/16/22 16:08> Prescriptions: New prednisone 20 mg tablet 40 mg PO DAILY Qty: 10 0RF oxycodone 5 mg tablet 5 mg PO Q6H PRN (Reason: pain) Qty: 20 0RF Rx Instructions: Partial Fill upon patient request. No Action Vitamin B-12 50 mcg lozenge 50 mcg PO DAILY Qty: 30 6RF vitamin A palmitate 10,000 unit capsule 10,000 unit PO DAILY 14 Days Qty: 14 0RF ergocalciferol (vitamin D2) 400 unit Capsule 400 unit PO DAILY dicyclomine 10 mg Capsule 10 mg PO QIDACHS PRN (Reason: abdominal pain) Qty: 90 0RF mesalamine [Delzicol] 400 mg Capsule (With Del Rel Tablets) 1,600 mg PO TID Qty: 90 0RF prednisone 20 mg tablet 35 mg PO DAILY ketoconazole 2 % cream 1 appl topical BID Qty: 60 2RF <Natasha Fernandes NP - Last Filed: 10/16/22 16:08> Interventions: ED Discharge Assessment Last Done: 10/16/22 23:21 <Natasha Fernandes NP - Last Filed: 10/16/22 16:08> Discharge Date/Time: 10/16/22 23:22 <Natasha Fernandes NP - Last Filed: 10/16/22 16:08>
[2022-10-16 16:23] LABS: MANUAL DIFF FLAG NO
[2022-10-16 16:25] LABS: Basophils Absolute Auto 0.1 X10*3/uL (0.0-0.2); Basophils Percent Auto 0.5 % (0-2); Eosinophils Absolute Auto 0.2 X10*3/uL (0.0-0.4); Eosinophils Percent Auto 1.7 % (0-4); Hematocrit 41.5 % (37.0-47.0); Hemoglobin 14.4 g/dl (12.0-16.0); Imm Gran Abs Auto 0.07 X10*3/uL (0.00-0.03); Imm Gran Pct Auto 0.5 % (0.0-0.4); Lymphocytes Absolute Auto 3.2 X10*3/uL (1.2-4.9); Lymphocytes Percent Auto 22.4 % (20-40); Mean Corpuscular HGB Conc 34.7 g/dl (31.0-35.0); Mean Corpuscular Hemoglobin 32.1 pg (27.0-33.0); Mean Corpuscular Volume 92.6 fL (80.0-98.0); Mean Platelet Volume 9.6 fL (9.4-12.3); Monocytes Percent Auto 6.8 % (2-11); Neutrophils Absolute Auto 9.8 x10*3/uL (2.0-8.3); Neutrophils Percent Auto 68.1 % (45-73); Platelet Count 336 X10*3/uL (160-400); Red Blood Count 4.48 X10*6/uL (4.20-5.50); White Blood Count 14.4 X10*3/uL (4.8-10.8)
[2022-10-16 16:26] LABS: Appearance Urine Cloudy; Color Urine Dark Yellow; Glucose Urine UA Negative (Negative); Leukocyte Esterase Urine Negative (Negative); Nitrite Urine Negative (Negative); PH 5.5 (5.0-9.0); Specific Gravity - Urine >= 1.030 (1.005-1.025); UMIC TRIGGER UACC YES; Urine Blood Negative (Negative); Urine Ketones Negative (Negative); Urine Protein 30 (1+) mg/dL (Neg-Trace)
[2022-10-16 16:28] LABS: UPreg QC Valid YES; Urine Pregnancy NEGATIVE (NEGATIVE)
[2022-10-16 16:31] LABS: Bacteria Urine 4+ (None Seen); Hyaline Casts Urine 0-2 /LPF (0-2); RBC Urine 0-2 /HPF (0-2); Squamous Epithelial Cell Urine >20 /HPF (0-2); UACC Culture Trigger YES
[2022-10-16 16:44] LABS: COVID-19 Test Negative (Negative); IDNOW Serial# 16C4AD1C
[2022-10-16 17:04] LABS: Alanine Aminotransferase 30 U/L (0-31); Albumin Level 4.2 g/dL (3.5-5.0); Alkaline Phosphatase 92 U/L (39-117); Anion Gap 9 (12-20); Aspartate Amino Transferase 22 U/L (5-31); Bilirubin Direct < 0.2 mg/dL (0.0-0.5); Bilirubin Total 0.5 mg/dL (0.0-1.0); Blood Urea Nitrogen 17 mg/dL (9-16); Calcium 9.6 mg/dL (8.4-10.2); Carbon Dioxide 23 mmol/L (22-29); Chloride 104 mmol/L (96-108); Creatinine Clr Calc Pharmacy 131.5; Estimated Glomerular Filt Rate > 60; Glucose Random 102 mg/dL (60-115); Lipase 13 U/L (8-78); Potassium 4.2 mmol/L (3.3-5.1); Sodium 132 mmol/L (135-145); Total Protein 7.7 g/dL (6.5-8.0)
[2022-10-16 20:10] LABS: C Reactive Protein 2.26 mg/dL (< or = 0.50)
[2022-10-16] MEDS: Morphine Sulfate 4 MG/ML CARTRIDGE IVPUSH (20:24)
[2022-10-16] MEDS: methylPREDNISolone Sod Succ 125 MG/2 ML VIAL IVPUSH (20:24)
[2022-10-16] MEDS: 0.9 % Sodium Chloride 1,000 ML 999 ML IV (20:24)
[2022-10-16] MEDS: ondansetron HCL 4 MG/2 ML VIAL IVPUSH (20:24)
[2022-10-16 20:36] VITALS: PULSE 87; RESP 17; TEMP 37.2; O2SAT 97
[2022-10-16] MEDS: iohexoL 350 MG/ML 100 ML INFUS..BTL IV (21:32)
[2022-10-16 23:14] VITALS: BP 154/99; PULSE 74; RESP 16; TEMP 37.1; O2SAT 97
== END 2022-10-16 23:22 | disposition home or self-care (01) ==
PROVIDERS: Emergency Provider Internal Medicine; PCP Internal Medicine
DX: K50.10 Crohn's disease of large intestine without complications (principal); K92.1 Melena; Z20.822 Contact with and (suspected) exposure to COVID-19; Z79.899 Other long term (current) drug therapy; Z87.891 Personal history of nicotine dependence
CPT/HCPCS: 74177; 80053; 81001; 81025; 82248; 83690; 85025; 86140; 87086; 87635; 96374; 96375; 99284; J2270; J2405; J2930; Q9967

== ENCOUNTER 2022-10-26 12:23 | Emergency (ER) | payer OTHER, SELFPAY ==
[2022-10-26 13:57] VITALS: BP 147/86; PULSE 93; RESP 17; TEMP 36; O2SAT 96; BMI 51.5
--- NOTE | 2022-10-26 13:57 | ED.ABDPAIN ---
HPI - Abdominal Pain General Chief Complaint: Abdominal Pain Stated Complaint: crohn's flare Time Seen by Provider: 10/26/22 19:20 Related Data Home Medications Medication Instructions Recorded Confirmed ergocalciferol (vitamin D2) 400 400 unit PO DAILY 10/19/20 10/30/20 unit capsule prednisone 20 mg tablet 35 mg PO DAILY 10/30/20 10/30/20 adalimumab 40 mg/0.8 mL 40 mg subcut Q2W 05/24/21 subcutaneous pen kit (Humira Pen) Previous Rx's Medication Instructions Recorded dicyclomine 10 mg capsule 10 mg PO QIDACHS PRN abdominal 10/23/20 pain #90 caps mesalamine 400 mg capsule (with 1,600 mg PO TID #90 ea 10/23/20 delayed release tablets inside) (Delzicol) ketoconazole 2 % topical cream 1 appl topical BID #60 grams 06/28/21 cyanocobalamin (vitamin B-12) 50 50 mcg PO DAILY #30 ea 07/28/21 mcg lozenges (Vitamin B-12) vitamin A palmitate 10,000 unit 10,000 unit PO DAILY 2 weeks #14 08/04/21 capsule caps oxycodone 5 mg tablet 5 mg PO Q6H PRN pain #20 tabs 10/16/22 prednisone 20 mg tablet 40 mg PO DAILY #10 tabs 10/16/22 oxycodone 5 mg tablet 5 mg PO TID PRN pain #14 tabs 10/26/22 prednisone 20 mg tablet 40 mg PO DAILY #20 tabs 10/26/22 Allergies Allergy/AdvReac Type Severity Reaction Status Date / Time No Known Allergies Allergy Unknown UNKNOWN Verified 01/19/22 21:29 [facility] Past Medical History Medical History Crohn's disease Crohn's disease Multiple sclerosis Surgical History History of tonsillectomy Previous section Family History Family History Maternal Grandmother Crohn's disease Mother H/O: hysterectomy Primary fibromyalgia Father Diabetes Sister Murder Brother No problems noted. Son No problems noted. Social History Social History Household Members: Family Housing: House Do you presently have visiting nurse or other home services: No Alcohol intake: current Alcohol intake frequency: a few times a week Alcohol type: hard liquor Patient Tobacco Use Status: Former Tobacco user Years Smoked: 10 Smoked in Last 30 Days: No Use of substances other than those prescribed or required for medical reasons: Yes Substance Use Type: Marijuana Substance Use Frequency: Weekly Advance Directives: No Advance Directives Information Provided: No Patient : No service: No Current occupational status: unemployed Physical Exam ED Vital Signs: BMI result Body Mass Index 51.5 Course Course Course Narrative: This is a?rapid medical exam.? Deferred HPI, ROS, PE to primary provider. 32 yo female with history of crohns on humira here with bloody stools, abdominal cramping with concern for flare. GI is Dr Null. Will check labs, UA, ur preg. VSS? Seen here 10/16/22 started on oral prednisone 40 mg daily for 5 days. Patient reports no improvement of symptoms and returns for same symptoms as above. Medical Decision Making Lab Data Result Diagrams: 10/26/22 15:47 10/26/22 15:47 Labs: Lab Results 10/26/22 10/26/22 10/26/22 Range/Units 15:47 15:47 15:47 WBC 12.2 H (4.8-10.8) X10*3/uL RBC 4.52 (4.20-5.50) X10*6/uL Hgb 14.7 (12.0-16.0) g/dl Hct 42.2 (37.0-47.0) % MCV 93.4 (80.0-98.0) fL MCH 32.5 (27.0-33.0) pg MCHC 34.8 (31.0-35.0) g/dl RDW 11.9 (11.0-16.0) % Plt Count 313 (160-400) X10*3/uL MPV 9.8 (9.4-12.3) fL Immature Gran % (Auto) 0.5 H (0.0-0.4) % Neut % (Auto) 66.4 (45-73) % Lymph % (Auto) 27.1 (20-40) % [place] % (Auto) 4.3 (2-11) % Eos % (Auto) 1.4 (0-4) % Baso % (Auto) 0.3 (0-2) % Lymph # (Auto) 3.3 (1.2-4.9) X10*3/uL [place] # (Auto) 0.5 (0.1-1.2) X10*3/uL Eos # (Auto) 0.2 (0.0-0.4) X10*3/uL Baso # (Auto) 0.0 (0.0-0.2) X10*3/uL Abs Immat Gran (auto) 0.06 H (0.00-0.03) X10*3/uL Absolute Neuts (auto) 8.1 (2.0-8.3) x10*3/uL Absolute Nucleated RBC 0.000 (0.0-0.012) X10*3/uL Nucleated RBC % (auto) 0.0 (0.0-0.2) /100WBC ESR 9 (0-20) MM/HR PT 11.5 (10.0-13.1) SEC INR 1.0 (0.9-1.1) Sodium (135-145) mmol/L Potassium (3.3-5.1) mmol/L Chloride (96-108) mmol/L Carbon Dioxide (22-29) mmol/L Anion Gap (12-20) BUN (9-16) mg/dL Creatinine (0.5-1.4) mg/dL Estim Creat Clear Calc Estimated GFR Random Glucose (60-115) mg/dL Calcium (8.4-10.2) mg/dL Total Bilirubin (0.0-1.0) mg/dL Direct Bilirubin (0.0-0.5) mg/dL AST (5-31) U/L ALT (0-31) U/L Alkaline Phosphatase (39-117) U/L C-Reactive Protein (< or = 0.50) mg/dL Total Protein (6.5-8.0) g/dL Albumin (3.5-5.0) g/dL Urine Color Urine Appearance Urine pH (5.0-9.0) Ur Specific [place] (1.005-1.025) Urine Protein (Neg-Trace) mg/dL Urine Glucose (UA) (Negative) mg/dL Urine Ketones (Negative) mg/dL Urine Blood (Negative) Urine Nitrite (Negative) Ur Leukocyte Esterase (Negative) Urine Test (NEGATIVE) COVID-19 (ALEJANDRA) (Negative) COVID-19 Clin Com 10/26/22 10/26/22 10/26/22 Range/Units 15:47 15:47 21:35 WBC (4.8-10.8) X10*3/uL RBC (4.20-5.50) X10*6/uL Hgb (12.0-16.0) g/dl Hct (37.0-47.0) % MCV (80.0-98.0) fL MCH (27.0-33.0) pg MCHC (31.0-35.0) g/dl RDW (11.0-16.0) % Plt Count (160-400) X10*3/uL MPV (9.4-12.3) fL Immature Gran % (Auto) (0.0-0.4) % Neut % (Auto) (45-73) % Lymph % (Auto) (20-40) % [place] % (Auto) (2-11) % Eos % (Auto) (0-4) % Baso % (Auto) (0-2) % Lymph # (Auto) (1.2-4.9) X10*3/uL [place] # (Auto) (0.1-1.2) X10*3/uL Eos # (Auto) (0.0-0.4) X10*3/uL Baso # (Auto) (0.0-0.2) X10*3/uL Abs Immat Gran (auto) (0.00-0.03) X10*3/uL Absolute Neuts (auto) (2.0-8.3) x10*3/uL Absolute Nucleated RBC (0.0-0.012) X10*3/uL Nucleated RBC % (auto) (0.0-0.2) /100WBC ESR (0-20) MM/HR PT (10.0-13.1) SEC INR (0.9-1.1) Sodium 136 (135-145) mmol/L Potassium 4.1 (3.3-5.1) mmol/L Chloride 104 (96-108) mmol/L Carbon Dioxide 24 (22-29) mmol/L Anion Gap 12 (12-20) BUN 14 (9-16) mg/dL Creatinine 0.85 (0.5-1.4) mg/dL Estim Creat Clear Calc 128.4 Estimated GFR > 60 Random Glucose 143 H (60-115) mg/dL Calcium 9.3 (8.4-10.2) mg/dL Total Bilirubin 0.5 (0.0-1.0) mg/dL Direct Bilirubin < 0.2 (0.0-0.5) mg/dL AST 18 (5-31) U/L ALT 27 (0-31) U/L Alkaline Phosphatase 86 (39-117) U/L C-Reactive Protein 2.58 H (< or = 0.50) mg/dL Total Protein 7.2 (6.5-8.0) g/dL Albumin 4.0 (3.5-5.0) g/dL Urine Color Yellow Urine Appearance Turbid Urine pH 5.5 (5.0-9.0) Ur Specific [place] >= 1.030 H (1.005-1.025) Urine Protein Trace (Neg-Trace) mg/dL Urine Glucose (UA) Negative (Negative) mg/dL Urine Ketones Trace (Negative) mg/dL Urine Blood Negative (Negative) Urine Nitrite Negative (Negative) Ur Leukocyte Esterase Negative (Negative) Urine Test (NEGATIVE) COVID-19 (ALEJANDRA) Negative (Negative) COVID-19 Clin Com See Note 10/26/22 Range/Units 21:35 WBC (4.8-10.8) X10*3/uL RBC (4.20-5.50) X10*6/uL Hgb (12.0-16.0) g/dl Hct (37.0-47.0) % MCV (80.0-98.0) fL MCH (27.0-33.0) pg MCHC (31.0-35.0) g/dl RDW (11.0-16.0) % Plt Count (160-400) X10*3/uL MPV (9.4-12.3) fL Immature Gran % (Auto) (0.0-0.4) % Neut % (Auto) (45-73) % Lymph % (Auto) (20-40) % [place] % (Auto) (2-11) % Eos % (Auto) (0-4) % Baso % (Auto) (0-2) % Lymph # (Auto) (1.2-4.9) X10*3/uL [place] # (Auto) (0.1-1.2) X10*3/uL Eos # (Auto) (0.0-0.4) X10*3/uL Baso # (Auto) (0.0-0.2) X10*3/uL Abs Immat Gran (auto) (0.00-0.03) X10*3/uL Absolute Neuts (auto) (2.0-8.3) x10*3/uL Absolute Nucleated RBC (0.0-0.012) X10*3/uL Nucleated RBC % (auto) (0.0-0.2) /100WBC ESR (0-20) MM/HR PT (10.0-13.1) SEC INR (0.9-1.1) Sodium (135-145) mmol/L Potassium (3.3-5.1) mmol/L Chloride (96-108) mmol/L Carbon Dioxide (22-29) mmol/L Anion Gap (12-20) BUN (9-16) mg/dL Creatinine (0.5-1.4) mg/dL Estim Creat Clear Calc Estimated GFR Random Glucose (60-115) mg/dL Calcium (8.4-10.2) mg/dL Total Bilirubin (0.0-1.0) mg/dL Direct Bilirubin (0.0-0.5) mg/dL AST (5-31) U/L ALT (0-31) U/L Alkaline Phosphatase (39-117) U/L C-Reactive Protein (< or = 0.50) mg/dL Total Protein (6.5-8.0) g/dL Albumin (3.5-5.0) g/dL Urine Color Urine Appearance Urine pH (5.0-9.0) Ur Specific [place] (1.005-1.025) Urine Protein (Neg-Trace) mg/dL Urine Glucose (UA) (Negative) mg/dL Urine Ketones (Negative) mg/dL Urine Blood (Negative) Urine Nitrite (Negative) Ur Leukocyte Esterase (Negative) Urine Test NEGATIVE (NEGATIVE) COVID-19 (ALEJANDRA) (Negative) COVID-19 Clin Com Medications Administered Discontinued Medications Generic Name Dose Route Start Last Admin Trade Name Freq PRN Reason Stop Dose Admin Sodium Chloride 1,000 mls @ 999 mls/hr 10/26/22 19:45 10/26/22 21:53 Ns IV 10/26/22 20:45 Infused .Q1H1M JANE Infusion Methylprednisolone Sodium Succinate 125 mg 10/26/22 19:39 10/26/22 19:50 Methylprednisolone Sod Succ 125 Mg/2 Ml Vial IVPUSH 10/26/22 19:40 125 mg ONCE ONE Administration Morphine Sulfate 4 mg 10/26/22 19:39 10/26/22 19:50 Morphine Sulfate 4 Mg/Ml Cartridge IVPUSH 10/26/22 19:40 4 mg ONCE ONE Administration Protocol Ondansetron HCl 4 mg 10/26/22 19:39 10/26/22 19:50 Ondansetron Hcl 4 Mg/2 Ml Vial IVPUSH 10/26/22 19:40 4 mg ONCE ONE Administration Discharge Plan Discharge Clinical Impression: Crohn's disease, Abdominal pain Patient Disposition: Home, Self-Care Instructions: Crohn Disease (ED), Abdominal Pain (ED) Additional Instructions: Be sure to follow-up with her guest services coordinator, Dr. Null, as soon as possible. Prednisone is for inflammation. We will started 40 mg and taper to 20 mg. Adjust dose based on recommendations from Dr. Null Prescriptions: New prednisone 20 mg tablet 40 mg PO DAILY Qty: 20 0RF Rx Instructions: Take 2 tablets, 40 mg, daily for the 1st 5 days. After that take 1 tablet, 20 mg, daily oxycodone 5 mg tablet 5 mg PO TID PRN (Reason: pain) Qty: 14 0RF Rx Instructions: Partial Fill upon patient request. No Action Vitamin B-12 50 mcg lozenge 50 mcg PO DAILY Qty: 30 6RF vitamin A palmitate 10,000 unit capsule 10,000 unit PO DAILY 14 Days Qty: 14 0RF ergocalciferol (vitamin D2) 400 unit Capsule 400 unit PO DAILY dicyclomine 10 mg Capsule 10 mg PO QIDACHS PRN (Reason: abdominal pain) Qty: 90 0RF mesalamine [Delzicol] 400 mg Capsule (With Del Rel Tablets) 1,600 mg PO TID Qty: 90 0RF prednisone 20 mg tablet 35 mg PO DAILY prednisone 20 mg tablet 40 mg PO DAILY Qty: 10 0RF oxycodone 5 mg tablet 5 mg PO Q6H PRN (Reason: pain) Qty: 20 0RF Rx Instructions: Partial Fill upon patient request. ketoconazole 2 % cream 1 appl topical BID Qty: 60 2RF Interventions: ED Discharge Assessment Last Done: 10/26/22 22:00 Discharge Date/Time: 10/26/22 22:00
--- OUTSIDE RECORDS SUMMARY | 2022-10-26 15:46 | XMS_ITS | Continuity of Care Document ---
:1990 Author Organization [facility] Address [address] [facility], 3[address] [facility], [address] [place] [address]- Care Team Providers Name Role Phone Kamran Rm MD Primary Care Physician [place] [facility] [place] Date(s): 03/16/20 - 03/23/20 [facility] [address] [place], [address] [facility], [address] [place] [address]- [facility] Attending Physician: Essie Avina MD Admitting Physician: Essie Avina MD Allergies, Adverse Reactions, Alerts Substance Reaction Severity Status NKA Active Medications baclofen 10 mg oral tablet 15 mg, 1.5, tablet, By Mouth, 3 times a day, # 135 tablet, Refills 3, Tot. Refills 3, Maintenance, 01/20/17 13:13:41, Route to Pharmacy Electronically, [id number], [facility] [id number], Dose increase Start Date: 01/20/17 Status: OrderedDelzicol See Instructions, By Mouth3 times a day, 0 Refills, Maintenance, 04/25/17 8:23:03 Start Date: 04/25/17 Status: OrderedMagnesium Chloride Daily, 0 Refills, Maintenance, 07/08/19 15:37:21 EDT Start Date: 07/08/19 Status: Orderednortriptyline 25 mg oral capsule 25 mg, 1, capsule, By Mouth, Daily at bedtime, # 30 capsule, Refills 5, Tot. Refills 5, Maintenance,05/19/17 13:43:32, Route to Pharmacy Electronically, [id number], [facility] [address] Start Date: 05/19/17 Status: OrderedPotassium Chloride Daily, 0 Refills, Maintenance, 07/08/19 15:37:46 EDT Start Date: 07/08/19 Status: OrderedSlow Fe (as elemental iron) 45 mg oral tablet, extended release 1 tablet = 45 mg, By Mouth, Every other day, # 45 tablet, 1 Refills, Maintenance, 03/16/20 22:00:00 EDT, ER Tablet, [facility][id number], 160, cm, 07/08/19 17:01:00 EDT, Height, 129.2, kg, 07/08/19 15:40:00 EDT, Dry Weight Start Date: 03/16/20 Status: OrderedTysabri 300 mg/15 mL intravenous concentrate See Instructions, 300 mg IV Infusion per prescribing information every 4 weeks, # 1 Doses, 5 Refills, Maintenance, 07/01/19 15:33:08 EDT Start Date: 07/01/19 Status: OrderedVitamin D3 2000 intl units oral capsule 1 capsule = 2,000 International_Units, By Mouth, Daily, # 30 capsule, 5 Refills, Maintenance, 06/17/19 15:30:26 EDT Start Date: 06/17/19 Status: Ordered Problem List Condition Effective Dates Status Health Status Informant Multiple sclerosis(Confirmed) Active Social History Social History Type Response Smoking Status Former smoker entered on: 08/03/15 Sex
--- OUTSIDE RECORDS SUMMARY | 2022-10-26 15:46 | XMS_ITS | Continuity of Care Document ---
:1990 Author Organization [facility] Address [address] [place] [address], [address] [facility], [address] [place] [address]- Care Team Providers Name Role Phone Kamran Rm MD Primary Care Physician [place] [facility] [place] [id number] Date(s): 07/09/19 - 11/06/19 [facility] [address] [facility], [address] [facility], [address] [place] [address]- [facility] Attending Physician: Essie Avina MD Admitting Physician: Essie Avina MD Allergies, Adverse Reactions, Alerts Substance Reaction Severity Status NKA Active Medications baclofen 10 mg oral tablet 15 mg, 1.5, tablet, By Mouth, 3 times a day, # 135 tablet, Refills 3, Tot. Refills 3, Maintenance, 01/20/17 13:13:41, Route to Pharmacy Electronically, [id number], [facility] [address], Dose increase Start Date: 01/20/17 Status: OrderedDelzicol [...] 5, Maintenance,05/19/17 13:43:32, Route to Pharmacy Electronically, [id number], [facility] [address] Start Date: 7/7/17 Status: OrderedPotassium Chloride Daily, 0 Refills, Maintenance, 07/08/19 15:37:46 EDT Start Date: 07/08/19 Status: OrderedTysabri 300 mg/15 mL intravenous concentrate [...]
--- OUTSIDE RECORDS SUMMARY | 2022-10-26 15:46 | XMS_ITS | Continuity of Care Document ---
:1990 Author Organization [facility] Address [address] [facility], 3rd Floor, [address] [place] [address]- Care Team Providers Name Role Phone Kamran Rm MD Primary Care Physician [place] [facility] [place] [id number] Date(s): 04/25/20 - 08/23/20 [facility] [address] [place], 3rd Floor, [address] [place] [address]- [facility] Attending Physician: Essie Avina MD Admitting Physician: Essie Avina MD Allergies, Adverse Reactions, Alerts Substance Reaction Severity Status NKA Active Medications baclofen 10 mg oral tablet 15 mg, 1.5, tablet, By Mouth, 3 times a day, # 135 tablet, Refills 3, Tot. Refills 3, Maintenance, 01/20/17 13:13:41, Route to Pharmacy Electronically, [id number], [facility] [address], Dose increase Start Date: 01/20/17 Status: OrderedDelzicol [...] 5, Maintenance,05/19/17 13:43:32, Route to Pharmacy Electronically, [id number], [facility] [address] Start Date: 7/7/17 Status: Orderedondansetron 4 mg oral tablet, disintegrating 1 tablet = 4 mg, By Mouth, 3 times a day, PRN Nausea & Vomiting, # 15 tablet, 0 Refills, Maintenance, 04/16/20 14:40:00 EDT, [facility] #[id number], 160, cm, 07/08/19 17:01:00 EDT, Height, 122.3, kg, 04/13/20 17:36:00 EDT, Dry Weight Start Date: 04/16/20 Status: OrderedPotassium Chloride Daily, 0 Refills, Maintenance, 07/08/19 15:37:46 EDT Start Date: 07/08/19 Status: OrderedSlow Fe (as elemental iron) 45 mg oral tablet, extended release 1 tablet = 45 mg, By Mouth, Every other day, # 45 tablet, 1 Refills, Maintenance, 03/16/20 22:00:00 EDT, ER Tablet, [facility] #[id number], 160, cm, 07/08/19 17:01:00 EDT, Height, 129.2, [...] Condition Effective Dates Status Health Status Informant Adjustment disorder with depressed Active mood(Confirmed) Multiple sclerosis(Confirmed) Active Social History Social History Type Response Smoking Status Former smoker entered on: 08/03/15 Sex
--- OUTSIDE RECORDS SUMMARY | 2022-10-26 15:46 | XMS_ITS | Continuity of Care Document ---
:1990 Author Organization [facility] Address [address] [facility], 3rd [facility], [address] [place] [address]- Care Team Providers Name Role Phone Kamran Rm MD Primary Care Physician Encounter [facility] [place] Date(s): 07/10/20 - 08/09/20 [facility] [address] [facility], 3rd [facility], [address] [place] [address]- [facility] Allergies, Adverse Reactions, Alerts Substance Reaction Severity Status NKA Active Medications baclofen 10 mg oral tablet 15 mg, 1.5, tablet, By Mouth, 3 times a day, # 135 tablet, Refills 3, Tot. Refills 3, Maintenance, 01/20/17 13:13:41, Route to Pharmacy Electronically, [id number], [facility] [id number], Dose increase Start Date: 01/20/17 Status: OrderedDelzicol [...] 5, Maintenance,05/19/17 13:43:32, Route to Pharmacy Electronically, [id number], [facility] [address] Start Date: 05/19/17 Status: Orderedondansetron 4 mg oral tablet, disintegrating 1 tablet = 4 mg, By Mouth, 3 times a day, PRN Nausea & Vomiting, # 15 tablet, 0 Refills, Maintenance, 04/16/20 14:40:00 EDT, [facility] #[id number], 160, cm, 07/08/19 17:01:00 EDT, Height, 122.3, kg, 04/13/20 17:36:00 EDT, Dry Weight Start Date: 04/16/20 Status: OrderedPotassium Chloride Daily, 0 Refills, Maintenance, 07/08/19 15:37:46 EDT Start Date: 07/08/19 Status: OrderedSlow Fe (as elemental iron) 45 mg oral tablet, extended release 1 tablet = 45 mg, By Mouth, Every other day, # 45 tablet, 1 Refills, Maintenance, 03/16/20 22:00:00 EDT, ER Tablet, [facility] #[id number], 160, cm, 07/08/19 17:01:00 EDT, Height, 129.2, [...]
--- OUTSIDE RECORDS SUMMARY | 2022-10-26 15:46 | XMS_ITS | Continuity of Care Document ---
:1990 Author Organization [facility] Address [address] [place] [address]- Care Team Providers Name Role Phone Kamran Rm MD Primary Care Physician En[place] [facility] [place] Date(s): 09/03/20 - 12/18/[address] [address]- Encounter Diagnosis Multiple sclerosis (Final) - Discharge Disposition: A-D/C Home Attending Physician: Essie Avina MD Admitting Physician: Essie Avina MD Referring Physician: Kamran Rm MD Allergies, Adverse Reactions, Alerts Substance Reaction Severity Status NKA Active Medications baclofen 10 mg oral tablet 15 mg, 1.5, tablet, By Mouth, 3 times a day, # 135 tablet, Refills 3, Tot. Refills 3, Maintenance, 01/20/17 13:13:41, Route to Pharmacy Electronically, [id number], [facility] [id number], Dose increase Start Date: 01/20/17 Status: OrderedDelzicol [...] 5, Maintenance,05/19/17 13:43:32, Route to Pharmacy Electronically, [id number], [employer] [facility] [address] Start Date: 05/19/17 Status: Orderedondansetron 4 mg oral tablet, disintegrating 1 tablet = 4 mg, By Mouth, 3 times a day, PRN Nausea & Vomiting, # 15 tablet, 0 Refills, Maintenance, 04/16/20 14:40:00 EDT, [facility] #[id number], 160, cm, 07/08/19 17:01:00 EDT, Height, 122.3, kg, 04/13/20 17:36:00 EDT, Dry Weight Start Date: 04/16/20 Status: OrderedPotassium Chloride Daily, 0 Refills, Maintenance, 07/08/19 15:37:46 EDT Start Date: 07/08/19 Status: OrderedSlow Fe (as elemental iron) 45 mg oral tablet, extended release 1 tablet = 45 mg, By Mouth, Every other day, # 45 tablet, 1 Refills, Maintenance, 03/16/20 22:00:00 EDT, ER Tablet, [facility] #[id number], 160, cm, 07/08/19 17:01:00 EDT, Height, 129.2, [...]
--- OUTSIDE RECORDS SUMMARY | 2022-10-26 15:46 | XMS_ITS | Continuity of Care Document ---
:1990 Author Organization [facility] Address [address] [place] [address]- Care Team Providers Name Role Phone Kamran Rm MD Primary Care Physician En[place] [facility] [place] Date(s): 11/18/19 - 12/25/[address] [address]- [facility] Attending Physician: Essie Avina MD Admitting Physician: Essie Avina MD Referring Physician: Essie Avina MD Allergies, Adverse Reactions, Alerts Substance Reaction Severity Status NKA Active Medications baclofen 10 mg oral tablet 15 mg, 1.5, tablet, By Mouth, 3 times a day, # 135 tablet, Refills 3, Tot. Refills 3, Maintenance, 01/20/17 13:13:41, Route to Pharmacy Electronically, [id number], [facility] [id number], Dose increase Start Date: 01/20/17 Status: OrderedDelzicol [...] 5, Maintenance,05/19/17 13:43:32, Route to Pharmacy Electronically, [id number], [facility] [id number] Start Date: 05/19/17 Status: OrderedPotassium Chloride Daily, [...]
--- OUTSIDE RECORDS SUMMARY | 2022-10-26 15:46 | XMS_ITS | Continuity of Care Document ---
:1990 Author Organization [facility] Address [address] [place] [address], 3rd [facility], [address] [place] [address]- Care Team Providers Name Role Phone Kamran Rm MD Primary Care Physician Encounter [facility] [place] Date(s): 04/29/21 - 05/29/21 [facility] [address] [facility], 3[address] [facility], [address] [place] [address]- Allergies, Adverse Reactions, Alerts Substance Reaction Severity Status NKA Active Medications baclofen 10 mg oral tablet 15 mg, 1.5, tablet, By Mouth, 3 times a day, # 135 tablet, Refills 3, Tot. Refills 3, Maintenance, 01/20/17 13:13:41, Route to Pharmacy Electronically, [id number], [facility] [id number], Dose increase Start Date: 01/20/17 Status: OrderedDelzicol [...] 5, Maintenance,05/19/17 13:43:32, Route to Pharmacy Electronically, [id number], [facility] [address] Start Date: 05/19/17 Status: Orderedondansetron 4 mg oral tablet, disintegrating 1 tablet = 4 mg, By Mouth, 3 times a day, PRN Nausea & Vomiting, # 15 tablet, 0 Refills, Maintenance, 04/16/20 14:40:00 EDT, [facility] #[id number], 160, cm, 07/08/19 17:01:00 EDT, Height, 122.3, kg, 04/13/20 17:36:00 EDT, Dry Weight Start Date: 04/16/20 Status: OrderedPotassium Chloride Daily, 0 Refills, Maintenance, 07/08/19 15:37:46 EDT Start Date: 07/08/19 Status: OrderedSlow Fe (as elemental iron) 45 mg oral tablet, extended release 1 tablet = 45 mg, By Mouth, Every other day, # 45 tablet, 1 Refills, Maintenance, 03/16/20 22:00:00 EDT, ER Tablet, [facility] #[id number], 160, cm, 07/08/19 17:01:00 EDT, Height, 129.2, [...]
--- OUTSIDE RECORDS SUMMARY | 2022-10-26 15:46 | XMS_ITS | Continuity of Care Document ---
:1990 Author Organization [facility] Address [address] [place] [address], 3rd [facility], [address] [place] [id number]- Care Team Providers Name Role Phone Kamran Rm MD Primary Care Physician Encounter [facility] Date(s): 02/26/21 - 03/28/21 [facility] [address] [facility], 3rd [facility], [address] [place] [id number]- Allergies, Adverse Reactions, Alerts Substance Reaction Severity Status NKA Active Medications baclofen 10 mg oral tablet 15 mg, 1.5, tablet, By Mouth, 3 times a day, # 135 tablet, Refills 3, Tot. Refills 3, Maintenance, 01/20/17 13:13:41, Route to Pharmacy Electronically, [id number], [facility] [id number], Dose increase Start Date: 01/20/17 Status: OrderedDelzicol [...] 5, Maintenance,05/19/17 13:43:32, Route to Pharmacy Electronically, [id number], [facility] [id number] Start Date: 05/19/17 Status: Orderedondansetron 4 mg oral tablet, disintegrating 1 tablet = 4 mg, By Mouth, 3 times a day, PRN Nausea & Vomiting, # 15 tablet, 0 Refills, Maintenance, 04/16/20 14:40:00 EDT, [facility] #[id number], 160, cm, 07/08/19 17:01:00 EDT, Height, 122.3, kg, 04/13/20 17:36:00 EDT, Dry Weight Start Date: 04/16/20 Status: OrderedPotassium Chloride Daily, 0 Refills, Maintenance, 07/08/19 15:37:46 EDT Start Date: 07/08/19 Status: OrderedSlow Fe (as elemental iron) 45 mg oral tablet, extended release 1 tablet = 45 mg, By Mouth, Every other day, # 45 tablet, 1 Refills, Maintenance, 03/16/20 22:00:00 EDT, ER Tablet, [facility] #[id number], 160, cm, 07/08/19 17:01:00 EDT, Height, 129.2, [...]
--- OUTSIDE RECORDS SUMMARY | 2022-10-26 15:46 | XMS_ITS | Continuity of Care Document ---
:1990 Author Organization [facility] Address [address] [facility], 3rd [facility], [address] [place] [id number]- Care Team Providers Name Role Phone Kamran Rm MD Primary Care Physician En[place] [facility] [id number] Date(s): 07/24/20 - 08/23/20 [facility] [address] [facility], 3rd [facility], [address] [place] [id number]- [facility] Attending Physician: Admtr, Ar8 Admitting Physician: Admtr, Ar8 Referring Physician: Admtr, Ar8 Allergies, Adverse Reactions, Alerts Substance Reaction Severity Status NKA Active Medications baclofen 10 mg oral tablet 15 mg, 1.5, tablet, By Mouth, 3 times a day, # 135 tablet, Refills 3, Tot. Refills 3, Maintenance, 01/20/17 13:13:41, Route to Pharmacy Electronically, [id number], [facility] [address], Dose increase Start Date: 01/20/17 Status: OrderedDelzicol [...] 5, Maintenance,05/19/17 13:43:32, Route to Pharmacy Electronically, [id number], [facility] [place] [address] Start Date: 05/19/17 Status: Orderedondansetron 4 mg oral tablet, disintegrating 1 tablet = 4 mg, By Mouth, 3 times a day, PRN Nausea & Vomiting, # 15 tablet, 0 Refills, Maintenance, 04/16/20 14:40:00 EDT, [facility] #[id number], 160, cm, 07/08/19 17:01:00 EDT, Height, 122.3, kg, 04/13/20 17:36:00 EDT, Dry Weight Start Date: 04/16/20 Status: OrderedPotassium Chloride Daily, 0 Refills, Maintenance, 07/08/19 15:37:46 EDT Start Date: 07/08/19 Status: OrderedSlow Fe (as elemental iron) 45 mg oral tablet, extended release 1 tablet = 45 mg, By Mouth, Every other day, # 45 tablet, 1 Refills, Maintenance, 03/16/20 22:00:00 EDT, ER Tablet, [facility] #[id number], 160, cm, 07/08/19 17:01:00 EDT, Height, 129.2, [...]
--- OUTSIDE RECORDS SUMMARY | 2022-10-26 15:46 | XMS_ITS | Continuity of Care Document ---
:1990 Author Organization [facility] Address [address] [place] [phone]- Care Team Providers Name Role Phone Kamran Rm MD Primary Care Physician Encounter [facility] Date(s): 04/14/22 - 05/18/[address] [address] Attending Physician: Cody LUNA, January Admitting Physician: Cody LUNA, January Referring Physician: Cody LUNA, January Allergies, Adverse Reactions, Alerts No Known Allergies Medications baclofen 10 mg oral tablet 15 mg, 1.5, tablet, By Mouth, 3 times a day, # 135 tablet, Refills 3, Tot. Refills 3, Maintenance, 01/20/17 13:13:41, Route to Pharmacy Electronically, [id number], [facility] [place] [place] [address], Dose increase Start Date: 01/20/17 Status: OrderedDelzicol [...] 5, Maintenance,05/19/17 13:43:32, Route to Pharmacy Electronically, [id number], [facility] [place] [place] [id number] Start Date: 05/19/17 Status: Orderedondansetron 4 mg oral tablet, disintegrating 1 tablet = 4 mg, By Mouth, 3 times a day, PRN Nausea & Vomiting, # 15 tablet, 0 Refills, Maintenance, 04/16/20 14:40:00 EDT, [facility] #[id number], 160, cm, 07/08/19 17:01:00 EDT, Height, 122.3, kg, 04/13/20 17:36:00 EDT, Dry Weight Start Date: 04/16/20 Status: OrderedPotassium Chloride Daily, 0 Refills, Maintenance, 07/08/19 15:37:46 EDT Start Date: 07/08/19 Status: OrderedSlow Fe (as elemental iron) 45 mg oral tablet, extended release 1 tablet = 45 mg, By Mouth, Every other day, # 45 tablet, 1 Refills, Maintenance, 03/16/20 22:00:00 EDT, ER Tablet, [facility] #[id number], 160, cm, 07/08/19 17:01:00 EDT, Height, 129.2, [...]
--- OUTSIDE RECORDS SUMMARY | 2022-10-26 15:46 | XMS_ITS ---
:1990 Author Organization [facility] Address [address] [place] [address] Care Team Providers Name Role Phone Alexandr Burrows Unavailable Unavailable PROBLEMS Type Condition ICD9-CM Code [id number] Code Onset Condition SNO MED Code Dates Status Problem Crohn''s disease K50.10 Active of large intestine without complication Problem GERD K21.9 Active [id number] (gastroesophageal reflux disease) Problem Crohns colitis, K50.111 Active 7620 006 with rectal bleeding Problem Crohns colitis, K50.10 Active 7620 006 without complications Problem Crohn's disease of K50.111 Active large intestine with rectal bleeding Problem Diarrhea, R19.7 Active [id number] unspecified type ALLERGIES No Known Allergies ENCOUNTERS Encounter Location Date Diagnosis [address] Oct, [facility] [address] [place] [address] Sep, Crohns c olitis, without [facility] [address] [place], [place] complicati ons K50.10 and [address] GERD (gastroesop hageal reflux disease) K21.[address] Aug, [facility] [address] [place] [address] [place] [address] May, [facility] [address] [place] [address] [place] [address] May, Crohn''s disease of large [facility] [address] [place], [place] intestine without [address] complication K50 .10 [facility] [address] 15 Apr, 2022 [facility] [address] [place] [address] [facility] [address] Nov, [facility] [address] [place] [address] [facility] [address] Sep, [facility] [address] [place] [address] [facility] [address] Jun, [facility] [address] [place] [address] [facility] [address] Jun, [facility] [address] [place] [address] [facility] [address] Apr, Crohns c olitis, without [facility] [address] [place] complicati ons K50.10 [address] [facility] [address] Feb, [facility] [address] [place] [address] [facility] [address] Feb, [facility] [address] [place] [address] [facility] [address] Feb, [facility] [address] [place] [address] [facility] [address] Jan, [facility] [address] [place] [address] [facility] [address] Jan, [facility] [address] [place] [address] [facility] [address] Jan, [facility] [address] [place] [address] [facility] [address] Nov, Crohns c olitis, with rectal [facility] [address] [place] bleeding K 50.111 [address] [facility] [address] Nov, [facility] [address] [place] [address] [facility] [address] Oct, [facility] [address] [place] [address] [facility] [address] Oct, [facility] [address] [place] [address] [facility] [address] Oct, [facility] [address] [place] [address] [facility] [address] Oct, [facility] [address] [place] [address] [facility] [address] Oct, [facility] [address] [place] [address] [facility] [address] Sep, [facility] [address] [place] [address] [facility] [address] Sep, [facility] [address] [place] [address] [facility] [address] Jul, [facility] [address] [place] [address] [facility] [address] Jun, Diarrhea , unspecified type [facility] [address] [place] R19.7 [address] [facility] [address] May, [facility] [address] [place] [address] [facility] [address] Oct, [facility] [address] [place] [address] [facility] [address] Sep, [facility] [address] [place] [address] [facility] [address] Sep, [facility] [address] [place] [address] [facility] [address] Jun, [facility] [address] [place] [address] [facility] [address] May, [facility] [address] [place] [address] [facility] [address] Apr, Crohn's disease of large [facility] [address] [place] intestine with rectal [address] bleeding K50.111 [facility] [address] Apr, [facility] [address] [place] [address] [facility] [address] Dec, Crohn's disease of large [facility] [address] [place] intestine with rectal [address] bleeding K50.111 [facility] [address] Nov, [facility] [address] [place] [address] [facility] [address] Aug, Crohn's disease of large [facility] [address] [place] intestine with rectal [address] bleeding K50.111 [facility] [address] Jul, [facility] [address] [place] [address] [facility] [address] May, Crohn's disease of large [facility] [address] [place] intestine with rectal [address] bleeding K50.111 [facility] [address] March, [facility] [address] [place] [address] [facility] [address] Feb, Crohn's disease of large [facility] [address] [place] intestine with rectal [address] bleeding K50.111 [facility] [address] Jan, [facility] [address] [place] [address] [facility] [address] Jan, [facility] [address] [place] [address] [facility] [address] Dec, Crohns c olitis, without [facility] [address] [place] complicati ons K50.10 [address] [facility] [address] Dec, Crohns c olitis, with rectal [facility] [address] [place] bleeding K 50.111 [address] [facility] [address] Dec, Crohns c olitis, with rectal [facility] [address] [place] bleeding K 50.111 [address] [facility] [address] Dec, Crohns c olitis, without [facility] [address] [place] complicati ons K50.10 [address] [facility] [address] Oct, Crohns c olitis, with rectal [facility] [address] [place] bleeding K 50.111 [address] [facility] [address] Oct, [facility] [address] [place] [address] [facility] [address] Sep, Crohns c olitis, with rectal [facility] [address] [place] bleeding K 50.111 [address] [facility] [address] Jun, [facility] [address] [place] [address] [facility] [address] March, [facility] [address] [place] [address] [facility] [address] Feb, [facility] [address] [place] [address] [facility] [address] Feb, CC (Croh n's colitis) 555.[address] [facility] [address] [place] [address] [facility] [address] Feb, [facility] [address] [place] [address] IMMUNIZATIONS No Known Immunizations SOCIAL HISTORY Never Assessed REASON FOR REFERRAL FUNCTIONAL STATUS PLAN OF CARE Activity Details Follow Up 6 Months Reason: Future Appointment Provider Name:Alexandr Burrows , 2023-03-21 01:00:00 PM, [address], [address], [place], [address], Pending Test HUMIRA LEVEL/AB (ADALIMUMAB LEVEL/AB) Pending Test LIVER PROFILE Pending Test CRP Pending Test CBC w DIFF Pending Test SED RATE (ESR) Pending Test LIVER PROFILE Pending Test CRP Pending Test CBC w DIFF Pending Test SED RATE (ESR) Pending Test CHEM 7 PROFILE Pending Test LIVER PROFILE Pending Test CRP Pending Test CBC w DIFF Pending Test SED RATE (ESR) Pending Test GIARDIA AG, STOOL EIA Pending Test OVA & PARASITES (O&P) Pending Test CULTURE, STOOL Pending Test STOOL WBC Pending Test C DIFFICILE RFLX PCR Pending Test LIVER PROFILE Pending Test CRP Pending Test CBC with MANUAL DIFFERENTIAL Pending Test SED RATE (ESR) Pending Test CLOSTRIDIUM DIFF TOXIN A&B ( C DIFF) Pending Test STOOL WBC Pending Test CULTURE, STOOL Pending Test LIVER PROFILE Pending Test CBC w DIFF Pending Test LIVER PROFILE Pending Test CBC w DIFF Pending Test LIVER PROFILE Pending Test AMYLASE Pending Test LIPASE Pending Test LIVER PROFILE Pending Test CBC w DIFF Pending Test LIVER PROFILE Pending Test CRP Pending Test CBC with MANUAL DIFFERENTIAL Pending Test SED RATE (ESR) Pending Test PROMETHEUS THIOPURINE METABO LITES (TPMT) Pending Test PROMETHEUS TPMT ENZYME Pending Test PROMETHEUS TPMT GENETICS Pending Test XR GI SMALL BOWEL SERIES Pending Test ELECTROLYTES Pending Test BUN Pending Test CREATININE Pending Test LIVER PROFILE Pending Test AMYLASE Pending Test LIPASE Pending Test CRP Pending Test CBC with MANUAL DIFFERENTIAL Pending Test SED RATE (ESR) Pending Test CLOSTRIDIUM DIFF TOXIN A&B ( C DIFF) Pending Test STOOL WBC Pending Test CULTURE, STOOL VITAL SIGNS Weight 302 lbs 2022-09-21 Weight 302 lbs 2021-04-29 Weight 260 lbs 2020-11-24 Weight 243 lbs 2017-05-04 Weight 239 lbs 2017-01-10 Weight 218 lbs 2016-06-01 Weight 212 lbs 2016-02-16 Weight 228 lbs 2015-11-10 Weight 232 lbs 2015-03-03 Height 64.5 in 2022-09-21 Height 64.5 in 2021-04-29 Height 64.5 in 2020-11-24 Height 64.5 in 2017-05-04 Height 64.5 in 2017-01-10 Height 64.5 in 2016-06-01 Height 64.5 in 2016-02-16 Height 64.5 in 2015-11-10 Height 64.5 in 2015-03-03 BMI 51.03 kg/m2 2022-09-21 BMI 51.03 kg/m2 2021-04-29 BMI 43.93 kg/m2 2020-11-24 BMI 41.06 kg/m2 2017-05-04 BMI 40.39 kg/m2 2017-01-10 BMI 36.84 kg/m2 2016-06-01 BMI 35.82 kg/m2 2016-02-16 BMI 38.53 kg/m2 2015-11-10 BMI 39.20 kg/m2 2015-03-03 Heart Rate 88 /min 2015-03-03 Temperature 97.8 degrees Fahrenheit 2022-09-21 Temperature 98.0 degrees Fahrenheit 2021-04-29 Blood pressure systolic 000 mm Hg 2022-09-21 Blood pressure diastolic 00 mm Hg 2022-09-21 MEDICATIONS Medication Instructions Dosage Frequency Start End Duration Statu s Date Date Delzicol 400 MG Orally three 4 capsule 8h 30 days N ot-Takin times a day g ProAir HFA 108 17 Active (90 Base) MCG/ACT Tylenol Active Zofran 4 MG Orally Q 4-6 1 tablet 30 Aug, day(s) Not- Takin hours prn 2015 g nausea Omeprazole 40 Orally Once a 1 Sep, day(s) Ac tive MG day for 2021 heartburn and reflux Cannabus Active Medical Marijuana CBD Humira Pen 40 Subcutaneous 1 Sep, 28 days Activ e MG/0.8ML Every other 2020 week Vitamin D Active Humira Pen 40 Subcutaneous Q 1 Act shama MG/0.8ML 2 weeks Dicyclomine HCl Orally Three 2 capsules 8h 29 Oct, day(s ) Active 10 MG times a day 2019 Imodium A-D 2 Orally Take 1 1 or 2 Sep, days Acti ve MG or 2 every 2021 morning and every afternoon to try to prevent diarrhea Omeprazole 40 Orally BID 1 capsule 12h Activ e MG Mesalamine 800 Orally Three 2 tablets 8h Oct, days No t-Takin MG times a day 2019 g PROCEDURES Procedure Date Ordered Result Body Site TV 21+ Minutes Nov 24, 2020 PATIENT NOT ELIG D/T ACTIVE DX HTN April 29, 2021 Pt scrn tbco id as non user April 29, 2021 SIGMOIDOSCOPY AND BIOPSY February 23, 2015 DOC MEDS VERIFIED W/PT OR RE April 29, 2021 RESULTS Name Result Date Reference Range Complete Blood Count Auto Diff 2022-06-02 White Blood Count 9.9 4.8-10.8 Red Blood Count 4.30 4.20-5.50 Hemoglobin 13.6 12.0-16.0 Hematocrit 40.4 37.0-47.0 Mean Corpuscular Volume 94.0 80.0-98. 0 Mean Corpuscular Hemoglobin 31.6 27.0 -33.0 Mean Corpuscular HGB Conc 33.7 31.0-3 5.0 Red Cell Distribution Width 11.9 11.0 -16.0 Platelet Count 309 160-400 Mean Platelet Volume 9.6 9.4-12.3 Neutrophils Percent Auto 64.4 45-73 Imm Gran Pct Auto 0.8 0.0-0.4 Lymphocytes Percent Auto 25.7 20-40 Monocytes Percent Auto 6.3 2-11 Eosinophils Percent Auto 2.4 0-4 Basophils Percent Auto 0.4 0-2 NRBC Pct Auto 0.0 0.0-0.2 Neutrophils Absolute Auto 6.4 2.0-8. 3 Imm Gran Abs Auto 0.08 0.00-0.03 Lymphocytes Absolute Auto 2.5 1.2-4. 9 Monocytes Absolute Auto 0.6 0.1-1.2 Eosinophils Absolute Auto 0.2 0.0-0. 4 Basophils Absolute Auto 0.0 0.0-0.2 NRBC Abs Auto 0.000 0.0-0.012 Erythrocyte Sedimentation Rate 2022-06-02 Erythrocyte Sedimentation Rate 12 0 -20 Liver Panel 2022-06-02 Bilirubin Total 0.5 0.0-1.0 Bilirubin Direct 0.2 0.0-0.5 Aspartate Amino Transferase 22 5-31 Alanine Aminotransferase 29 0-31 Total Protein 7.2 6.5-8.0 Albumin Level 3.8 3.5-5.0 Alkaline Phosphatase 75 39-117 C Reactive Protein 2022-06-02 C Reactive Protein 2.53 < or = 0.50 CT abdomen pelvis w con 2020-10-20 BASIC METABOLIC PROFILE FAST 2020-06-09 NA 138 135-145 K 4.1 3.3-5.1 CL 107 96-108 CO2 24 22-29 ANION GAP 11 12-20 FASTING BLOOD SUGAR 161 60-99 BUN 15 9-16 CREATININE 0.76 0.5-1.4 ESTIMATED GFR > 60 ESTIMATED CrCl 133.0 CALCIUM 8.1 8.4-10.2 IRON + IBC (FE) 2020-06-09 IRON 83 30-160 IBC 256 228-428 % SATURATION 32 15-50 FERRITIN 2020-06-09 FERRITIN 91 10-122 CRP 2020-06-09 CRP 0.95 < OR = 0.50 VITAMIN B12 AND FOLATE 2020-06-09 B12 394 200-900 FOLATE 10.4 > OR = 4.0 CBC w DIFF 2020-06-09 WBC 12.0 4.8-10.8 RBC 3.77 4.20-5.50 HEMOGLOBIN 11.8 12.0-16.0 HEMATOCRIT 35.2 37-47 MCV 93.4 80-98 MCH 31.3 27.0-33.0 MCHC 33.5 31.0-35.0 PLATELET COUNT 285 160-400 RDW 12.4 11.0-16.0 NEUTROPHILS 84.5 45-73 LYMPHOCYTES 10.9 20-40 MONOCYTES 2.6 2-11 EOSINOPHILS 0.0 0-4 BASOPHILS 0.1 0-2 ABSOLUTE NEUTROPHIL COUNT 10.1 2.0-8. 3 ABSOLUTE LYMPHOCYTE COUNT 1.3 1.2-4. 9 ABSOLUTE MONOCYTE COUNT 0.3 0.1-1.2 ABSOLUTE EOSINOPHIL COUNT 0.0 0.0-0. 4 ABSOLUTE BASOPHIL COUNT 0.0 0.0-0.2 SED RATE (ESR) 2020-06-09 SED RATE 7 0-20 CLOSTRIDIUM DIFF TOXIN A&B (C 2016-11-03 DIFF) CLOSTRIDIUM DIFF TOXIN A&B NEGATIVE NEGAT SHAMA STOOL WBC 2016-11-03 STOOL WBC NEGATIVE NEGATIVE CULTURE, STOOL 2016-10-31 CULTURE, STOOL STOOL CULTURE RESULT CULTURE, STOOL No Salmonella, Shigella, Campylobacter isolated. CULTURE, STOOL No Sorbitol-neg E. coli isolated. CULTURE, STOOL Contact lab if other pathogens are suspected. CULTURE, STOOL LIVER PROFILE 2016-10-26 PROTEIN, TOTAL 7.1 6.5-8.0 ALBUMIN 3.9 3.5-5.0 BILIRUBIN, TOTAL 0.4 0.0-1.0 BILIRUBIN, DIRECT < 0.2 0.0-0.5 ALK. PHOS. 114 39-117 GOT 17 5-31 GPT 22 0-31 CRP 2016-10-26 CRP 0.72 < OR = 0.50 CBC with MANUAL DIFFERENTIAL 2016-10-26 WBC 8.7 4.8-10.8 ABSOLUTE NEUTROPHIL COUNT 6.2 2.2-7. 9 RBC 4.08 4.20-5.50 HEMOGLOBIN 13.1 12.0-16.0 HEMATOCRIT 39.9 37-47 MCV 97.8 80-98 MCH 32.2 27.0-33.0 MCHC 32.9 31.0-35.0 PLATELET COUNT 254 160-400 RDW 12.1 11.0-16.0 SEGS 70 45-73 LYMPHOCYTES 13 20-40 MONOCYTES 9 2-11 EOSINOPHILS 8 0-4 PLATELET ESTIMATE NORMAL NORMAL PLATELET MORPHOLOGY NORMAL NORMAL RBC MORPHOLOGY NORMAL NORMAL SED RATE (ESR) 2016-10-26 SED RATE 6 0-20 CHEM 7 PROFILE 2016-02-04 NA 136 135-145 K 4.0 3.3-5.1 CL 104 96-108 CO2 25 22-29 ANION GAP 11 12-20 GLUCOSE,RANDOM 102 60-115 BUN 16 9-16 CREATININE 0.7 0.5-1.4 ESTIMATED GFR > 60 LIVER PROFILE 2016-02-04 PROTEIN, TOTAL 5.8 6.5-8.0 ALBUMIN 3.2 3.5-5.0 BILIRUBIN, TOTAL 0.4 0.0-1.0 BILIRUBIN, DIRECT 0.2 0.0-0.5 ALK. PHOS. 77 39-117 GOT 15 5-31 GPT 15 0-31 AMYLASE 2016-02-04 AMYLASE 31 28-100 LIPASE 2016-02-04 LIPASE < 4 8-78 CBC w DIFF 2016-02-04 WBC 4.5 4.8-10.8 ABSOLUTE NEUTROPHIL COUNT 2.7 2.2-7. 9 RBC 3.13 4.20-5.50 HEMOGLOBIN 10.2 12.0-16.0 HEMATOCRIT 30.8 37-47 MCV 98.3 80-98 MCH 32.5 27.0-33.0 MCHC 33.0 31.0-35.0 PLATELET COUNT 322 160-400 RDW 14.4 11.0-16.0 NEUTROPHILS 60.1 45-73 LYMPHOCYTES 29.3 20-40 MONOCYTES 8.4 2-11 EOSINOPHILS 1.2 0-4 BASOPHILS 0.9 0-2 PROMETHEUS THIOPURINE 2016-02-04 METABOLITES (TPMT) PROM THIOPURINE METABOLITES SEE NOTE PROMETHEUS TPMT ENZYME 2016-02-04 PROM TPMT ENZYME SEE NOTE PROMETHEUS TPMT GENETICS 2016-02-04 PROM TPMT GENETICS SEE NOTE BASIC METABOLIC PROFILE FAST 2016-01-12 NA 137 135-145 K 3.3 3.3-5.1 CL 100 96-108 CO2 28 22-29 ANION GAP 12 12-20 FASTING BLOOD SUGAR 81 60-99 BUN 15 9-16 CREATININE 0.7 0.5-1.4 ESTIMATED GFR > 60 ESTIMATED CrCl 138.6 CALCIUM 7.7 8.4-10.2 CBC with MANUAL DIFFERENTIAL 2016-01-12 WBC 8.8 4.8-10.8 ABSOLUTE NEUTROPHIL COUNT 5.3 2.2-7. 9 RBC 3.37 4.20-5.50 HEMOGLOBIN 10.7 12.0-16.0 HEMATOCRIT 33.0 37-47 MCV 97.9 80-98 MCH 31.9 27.0-33.0 MCHC 32.6 31.0-35.0 PLATELET COUNT 302 160-400 RDW 11.5 11.0-16.0 SEGS 47 45-73 BANDS 14 3-5 LYMPHOCYTES 26 20-40 MONOCYTES 12 2-11 EOSINOPHILS 1 0-4 PLATELET ESTIMATE NORMAL NORMAL PLATELET MORPHOLOGY NORMAL NORMAL RBC MORPHOLOGY 1+ ANISO NORMAL RBC MORPHOLOGY 1+ POIK NORMAL CBC with MANUAL DIFFERENTIAL 2016-01-11 WBC 8.3 4.8-10.8 ABSOLUTE NEUTROPHIL COUNT 5.3 2.2-7. 9 RBC 3.42 4.20-5.50 HEMOGLOBIN 10.8 12.0-16.0 HEMATOCRIT 33.6 37-47 MCV 98.2 80-98 MCH 31.4 27.0-33.0 MCHC 32.0 31.0-35.0 PLATELET COUNT 321 160-400 RDW 11.5 11.0-16.0 SEGS 45 45-73 BANDS 18 3-5 LYMPHOCYTES 28 20-40 MONOCYTES 9 2-11 WBC MORPHOLOGY TOXIC GRANULATION PLATELET ESTIMATE NORMAL NORMAL PLATELET MORPHOLOGY NORMAL NORMAL RBC MORPHOLOGY 1+ ANISO NORMAL RBC MORPHOLOGY 1+ MACRO NORMAL RBC MORPHOLOGY 1+ HYPO NORMAL CBC with MANUAL DIFFERENTIAL 2016-01-10 WBC 8.1 4.8-10.8 ABSOLUTE NEUTROPHIL COUNT 6.2 2.2-7. 9 RBC 3.44 4.20-5.50 HEMOGLOBIN 10.8 12.0-16.0 HEMATOCRIT 33.4 37-47 MCV 97.0 80-98 MCH 31.4 27.0-33.0 MCHC 32.4 31.0-35.0 PLATELET COUNT 313 160-400 RDW 11.8 11.0-16.0 SEGS 47 45-73 BANDS 26 3-5 LYMPHOCYTES 15 20-40 MONOCYTES 12 2-11 WBC MORPHOLOGY TOXIC GRANULATION PLATELET ESTIMATE NORMAL NORMAL PLATELET MORPHOLOGY NORMAL NORMAL RBC MORPHOLOGY 1+ HYPO NORMAL CBC with MANUAL DIFFERENTIAL 2016-01-09 WBC 8.5 4.8-10.8 ABSOLUTE NEUTROPHIL COUNT 6.6 2.2-7. 9 RBC 3.58 4.20-5.50 HEMOGLOBIN 11.4 12.0-16.0 HEMATOCRIT 34.8 37-47 MCV 97.3 80-98 MCH 32.0 27.0-33.0 MCHC 32.8 31.0-35.0 PLATELET COUNT 323 160-400 RDW 11.6 11.0-16.0 SEGS 52 45-73 BANDS 21 3-5 LYMPHOCYTES 12 20-40 MONOCYTES 15 2-11 PLATELET ESTIMATE NORMAL NORMAL PLATELET MORPHOLOGY NORMAL NORMAL RBC MORPHOLOGY NORMAL NORMAL BASIC METABOLIC PROFILE FAST 2016-01-08 NA 137 135-145 K 3.8 3.3-5.1 CL 102 96-108 CO2 26 22-29 ANION GAP 13 12-20 FASTING BLOOD SUGAR 122 60-99 BUN 11 9-16 CREATININE 0.6 0.5-1.4 ESTIMATED GFR > 60 ESTIMATED CrCl 161.7 CALCIUM 7.9 8.4-10.2 CBC with MANUAL DIFFERENTIAL 2016-01-08 WBC 10.1 4.8-10.8 ABSOLUTE NEUTROPHIL COUNT 8.1 2.2-7. 9 RBC 3.38 4.20-5.50 HEMOGLOBIN 11.0 12.0-16.0 HEMATOCRIT 33.2 37-47 MCV 98.4 80-98 MCH 32.6 27.0-33.0 MCHC 33.1 31.0-35.0 PLATELET COUNT 291 160-400 RDW 12.1 11.0-16.0 SEGS 63 45-73 BANDS 22 3-5 LYMPHOCYTES 10 20-40 MONOCYTES 5 2-11 PLATELET ESTIMATE NORMAL NORMAL PLATELET MORPHOLOGY NORMAL NORMAL RBC MORPHOLOGY 1+ HYPO NORMAL CLOSTRIDIUM DIFF TOXIN A&B (C 2016-01-08 DIFF) CLOSTRIDIUM DIFF TOXIN A&B NEGATIVE NEGAT SHAMA CULTURE, STOOL 2016-01-08 CULTURE, STOOL STOOL CULTURE RESULT CULTURE, STOOL No Salmonella, Shigella, Campylobacter isolated. CULTURE, STOOL No Sorbitol-neg E. coli isolated. CULTURE, STOOL Contact lab if other pathogens are suspected. CULTURE, STOOL CRP 2016-01-07 CRP 15.21 < OR = 0.50 SED RATE (ESR) 2016-01-07 SED RATE 23 0-20 XR ABD UPRIGHT AND CHEST 2016-01-07 CHEM 7 PROFILE 2016-01-07 NA 136 135-145 K 4.4 3.3-5.1 CL 105 96-108 CO2 24 22-29 ANION GAP 11 12-20 GLUCOSE,RANDOM 102 60-115 BUN 12 9-16 CREATININE 0.7 0.5-1.4 ESTIMATED GFR > 60 ESTIMATED CrCl 138.6 CBC w DIFF 2016-01-07 WBC 7.9 4.8-10.8 ABSOLUTE NEUTROPHIL COUNT 5.2 2.2-7. 9 RBC 3.32 4.20-5.50 HEMOGLOBIN 10.9 12.0-16.0 HEMATOCRIT 32.9 37-47 MCV 99.3 80-98 MCH 32.8 27.0-33.0 MCHC 33.0 31.0-35.0 PLATELET COUNT 305 160-400 RDW 12.4 11.0-16.0 NEUTROPHILS 66.0 45-73 LYMPHOCYTES 18.2 20-40 MONOCYTES 14.4 2-11 EOSINOPHILS 0.7 0-4 BASOPHILS 0.8 0-2 SED RATE (ESR) 2015-12-24 SED RATE 14 0-20 XR GI HIGH DENSITY SMALL BOWEL 2015-11-17 BASIC METABOLIC PROFILE FAST 2015-02-27 NA 138 135-145 K 3.2 3.3-5.1 CL 101 96-108 CO2 28 22-29 ANION GAP 12 12-20 FASTING BLOOD SUGAR 128 60-99 BUN 8 9-16 CREATININE 0.56 0.5-1.4 ESTIMATED GFR > 60 ESTIMATED CrCl 184.6 CALCIUM 7.6 8.4-10.2 LIVER PROFILE 2015-02-27 PROTEIN, TOTAL 4.9 6.5-8.0 ALBUMIN 2.5 3.5-5.0 BILIRUBIN, TOTAL 0.3 0.0-1.0 BILIRUBIN, DIRECT < 0.2 0.0-0.5 ALK. PHOS. 63 39-117 GOT 21 5-31 GPT 35 0-31 CRP 2015-02-27 CRP 2.57 < OR = 0.50 CBC with MANUAL DIFFERENTIAL 2015-02-27 WBC 10.3 4.8-10.8 RBC 3.78 4.20-5.50 HEMOGLOBIN 11.9 12.0-16.0 HEMATOCRIT 35.6 37-47 MCV 94.2 80-98 MCH 31.3 27.0-33.0 MCHC 33.3 31.0-35.0 PLATELET COUNT 376 160-400 RDW 11.3 11.0-16.0 SEGS 53 45-73 BANDS 17 3-5 METAMYELOCYTES 3 0-0 LYMPHOCYTES 22 20-40 MONOCYTES 5 2-11 PLATELET ESTIMATE NORMAL NORMAL PLATELET MORPHOLOGY NORMAL NORMAL RBC MORPHOLOGY NORMAL NORMAL ABSOLUTE NEUTROPHIL COUNT 7.2 2.2-7. 9 BASIC METABOLIC PROFILE FAST 2015-02-25 NA 139 135-145 K 3.3 3.3-5.1 CL 103 96-108 CO2 28 22-29 ANION GAP 11 12-20 FASTING BLOOD SUGAR 159 60-99 BUN 7 9-16 CREATININE 0.57 0.5-1.4 ESTIMATED GFR > 60 ESTIMATED CrCl 181.4 CALCIUM 7.9 8.4-10.2 CBC with MANUAL DIFFERENTIAL 2015-02-25 WBC 6.5 4.8-10.8 ABSOLUTE NEUTROPHIL COUNT 3.8 2.2-7. 9 RBC 3.70 4.20-5.50 HEMOGLOBIN 11.4 12.0-16.0 HEMATOCRIT 34.9 37-47 MCV 94.3 80-98 MCH 30.9 27.0-33.0 MCHC 32.7 31.0-35.0 PLATELET COUNT 370 160-400 RDW 11.5 11.0-16.0 SEGS 46 45-73 BANDS 15 3-5 LYMPHOCYTES 20 20-40 MONOCYTES 19 2-11 WBC MORPHOLOGY TOXIC GRANULATION PLATELET ESTIMATE NORMAL NORMAL PLATELET MORPHOLOGY NORMAL NORMAL RBC MORPHOLOGY 1+ HYPO NORMAL BASIC METABOLIC PROFILE FAST 2015-02-24 NA 135 135-145 K 3.4 3.3-5.1 CL 100 96-108 CO2 28 22-29 ANION GAP 10 12-20 FASTING BLOOD SUGAR 173 60-99 BUN 4 9-16 CREATININE 0.56 0.5-1.4 ESTIMATED GFR > 60 ESTIMATED CrCl 184.6 CALCIUM 8.0 8.4-10.2 CRP 2015-02-24 CRP 23.25 < OR = 0.50 CBC with MANUAL DIFFERENTIAL 2015-02-24 WBC 8.0 4.8-10.8 ABSOLUTE NEUTROPHIL COUNT 6.1 2.2-7. 9 RBC 3.76 4.20-5.50 HEMOGLOBIN 11.9 12.0-16.0 HEMATOCRIT 35.7 37-47 MCV 95.0 80-98 MCH 31.6 27.0-33.0 MCHC 33.3 31.0-35.0 PLATELET COUNT 328 160-400 RDW 11.3 11.0-16.0 SEGS 38 45-73 BANDS 33 3-5 METAMYELOCYTES 1 0-0 LYMPHOCYTES 15 20-40 MONOCYTES 13 2-11 WBC MORPHOLOGY TOXIC GRANULATION PLATELET ESTIMATE NORMAL NORMAL PLATELET MORPHOLOGY NORMAL NORMAL RBC MORPHOLOGY 1+ POLY NORMAL RBC MORPHOLOGY 1+ HYPO NORMAL SED RATE (ESR) 2015-02-24 SED RATE 21 0-20 GI BIOPSY 2015-02-23 G.I. BIOPSY REASON FOR VISIT crohn's, in hospital on 10/15/2022, Patient presents today for a f/u crohns, treatment for her Multiple Sclerosis, requesting lab results, pt called/ needs her humira , script, Pt no show waiting on ptcall back, Patient presents today for crohns, Patient presents today for crohn's, rash under armpit,? allergic reaction, Patient presents today for Crohn's, Pt no show, Crohn's , Crohn's, COVID Screen, symptoms/ Call later in week/ update, starting Humira today, needs order, PATIENT PRESENTS TODAY FOR crohn's, COVID Screen, patient presents today for f/u from crohns, COVID Ques. , fyi/can be addressed/needs script for dicyclomine. dr. burrows pt, please refill Mesalamine again, uncovered medicine, /HUMIRA APPPROVED . WAITING ON PT , Pt no show, patient presents today for Crohn's disease, abdominal pain, Crohn's disease, R/S OV, diarrhea with bright red blood. 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, r/s o/v, 3 month f/u, f/u from hospital from october cancellation, 4 month f/u, labs, Humira , She is worse, Crohn's fair up , f/u from [facility] of of colitis and crohns, patient cancelled and rescheduled/update patient coming in , waiting on cancellation for October appt for patient, no show, FOLLOW UP, Crohn's Insurance Providers [facility] Health Health Member Patient Patient Patient Patient Patient Subscriber Subscriber Subscriber Group Insurance Plan Plan Plan Plan ID Relationship Address Phone Name Date of ID Name Date of No Type Insurance Insurance Insurance Coverage to Subscriber Address Phone Name Dates [facility] [phone] [facility] self AIMEELEE [id number] [facility] [id number] [id number] Health PLASSE Plan DON'T USE DON'T Plan DON'T USE USE USE [facility] [id number] [facility] [phone] [facility] self [place] [id number] [address] [place] [address] [phone] MEDICAID self [place] 004 [id number] OF [place] [id number] [address] [place] [address] [facility] [id number] [facility] [phone] HEALTH NEW self [place] [id number] [place] [address] [facility] [place] [phone] [employer] [phone] [employer] [facility] CLAUDIA [id number] [place] [address]
--- OUTSIDE RECORDS SUMMARY | 2022-10-26 15:46 | XMS_ITS | Continuity of Care Document ---
:1990 Author Organization [facility] Address Unavailable , Care Team Providers Name Role Phone Kamran Rm MD Primary Care Physician Encounter [facility] Date(s): 08/17/21 - 09/16/21 [facility] Attending Physician: Juanita Riley Admitting Physician: Juanita Riley Referring Physician: Juanita Riley Allergies, Adverse Reactions, Alerts Substance Reaction Severity Status NKA Active Medications baclofen 10 mg oral tablet 15 mg, 1.5, tablet, By Mouth, 3 times a day, # 135 tablet, Refills 3, Tot. Refills 3, Maintenance, 01/20/17 13:13:41, Route to Pharmacy Electronically, [id number], [facility] [id number], Dose increase Start Date: 01/20/17 Status: OrderedDelzicol [...] 5, Maintenance,05/19/17 13:43:32, Route to Pharmacy Electronically, [id number], [facility] [id number] Start Date: 05/19/17 Status: Orderedondansetron 4 mg oral tablet, disintegrating 1 tablet = 4 mg, By Mouth, 3 times a day, PRN Nausea & Vomiting, # 15 tablet, 0 Refills, Maintenance, 04/16/20 14:40:00 EDT, [facility][id number], 160, cm, 07/08/19 17:01:00 EDT, Height, 122.3, kg, 04/13/20 17:36:00 EDT, Dry Weight Start Date: 04/16/20 Status: OrderedPotassium Chloride Daily, 0 Refills, Maintenance, 07/08/19 15:37:46 EDT Start Date: 07/08/19 Status: OrderedSlow Fe (as elemental iron) 45 mg oral tablet, extended release 1 tablet = 45 mg, By Mouth, Every other day, # 45 tablet, 1 Refills, Maintenance, 03/16/20 22:00:00 EDT, ER Tablet, [facility] #[id number], 160, cm, 07/08/19 17:01:00 EDT, Height, 129.2, [...]
--- OUTSIDE RECORDS SUMMARY | 2022-10-26 15:46 | XMS_ITS | Continuity of Care Document ---
:1990 Author Organization [facility] Address [address] [place] [address]- Care Team Providers Name Role Phone Kamran Rm MD Primary Care Physician Encounter [facility] Date(s): 10/18/19 - 01/27/[address] [address]- [facility] Encounter Diagnosis Multiple sclerosis (Final) - Discharge Disposition: A-D/C Home Attending Physician: Essei Avina MD Admitting Physician: Essie Avina MD Referring Physician: Kamran Rm MD Allergies, Adverse Reactions, Alerts Substance Reaction Severity Status NKA Active Medications baclofen 10 mg oral tablet 15 mg, 1.5, tablet, By Mouth, 3 times a day, # 135 tablet, Refills 3, Tot. Refills 3, Maintenance, 01/20/17 13:13:41, Route to Pharmacy Electronically, [id number], [facility] [address], Dose increase Start Date: 01/20/17 Status: OrderedDelzicol [...] 5, Maintenance,05/19/17 13:43:32, Route to Pharmacy Electronically, [id number], [facility] [address] Start Date: 05/19/17 Status: OrderedPotassium Chloride Daily, [...] Status Health Status Informant Multiple sclerosis(Confirmed) Active Vital Signs Most recent to oldest 1 2 3 [Reference Range]: Weight 124.3 kg 118 kg (11/25/19 5:28 PM) (10/28/19 6:24 PM) Oxygen Saturation [94-100 100 % 96 % 98 % %] (12/30/19 7:28 PM) (12/30/19 5:48 PM) (11/25/19 7:1 2 PM) Pulse Rate [55-90 bpm] 84 bpm 79 bpm 69 bpm (12/30/19 7:28 PM) (12/30/19 5:48 PM) (11/25/19 7:1 2 PM) Blood Pressure 129/85 mm Hg 134/75 mm Hg 129/79 mm Hg [90-138/55-84 mm Hg] (12/30/19 7:28 PM) (12/30/19 5:48 PM) ( 0 7:12 PM) Respiratory Rate [16-30 18 br/min 18 br/min 18 br/mi n br/min] (12/30/19 7:28 PM) (12/30/19 5:48 PM) (11/25/19 7:1 2 PM) Temperature [96.8-100.4 98 DegF 97.6 DegF 98.0 Deg F DegF] (12/30/19 7:28 PM) (12/30/19 5:48 PM) (11/25/19 7:1 2 PM) Mode of Delivery (Oxygen) Room air Room air Room a ir (12/30/19 7:28 PM) (11/25/19 7:12 PM) (11/25/19 5:2 8 PM) Blood pressure sites Arm, right Arm, left Arm, left (12/30/19 7:28 PM) (11/25/19 7:12 PM) (11/25/19 5:2 8 PM) Temperature Route Oral Oral Oral (12/30/19 7:28 PM) (12/30/19 5:48 PM) (11/25/19 7:1 2 PM) Weight Obtained Via Patient/family stated (10/28/19 6:24 PM) Social History Social History Type Response Smoking Status Former smoker entered on: 08/03/15 Sex
--- OUTSIDE RECORDS SUMMARY | 2022-10-26 15:46 | XMS_ITS | Continuity of Care Document ---
:1988 Author Organization [facility] Address [address] [place] [address]- Care Team Providers Name Role Phone Kamran Rm MD Primary Care Physician Encounter [facility] Date(s): 07/25/19 - 10/30/[address] [address]- [facility] Attending Physician: Essie Avina MD Admitting Physician: Essie Avina MD Referring Physician: Essie Avina MD Allergies, Adverse Reactions, Alerts Substance Reaction Severity Status NKA Active Medications baclofen 10 mg oral tablet 15 mg, 1.5, tablet, By Mouth, 3 times a day, # 135 tablet, Refills 3, Tot. Refills 3, Maintenance, 01/20/17 13:13:41, Route to Pharmacy Electronically, [id number], [facility] [address], Dose increase Start Date: 01/20/17 Status: OrderedDelzicol [...] 5, Maintenance,05/19/17 13:43:32, Route to Pharmacy Electronically, [id number], [facility] [address] Start Date: 7/7/17 Status: OrderedPotassium Chloride Daily, [...]
--- OUTSIDE RECORDS SUMMARY | 2022-10-26 15:46 | XMS_ITS | Continuity of Care Document ---
:1990 Author Organization [facility] Address Unavailable , Care Team Providers Name Role Phone Kamran Rm MD Primary Care Physician [facility] [facility] Date(s): 05/19/21 - 09/16/21 [facility] Attending Physician: Essie Avina MD Admitting Physician: Essie Avina MD Allergies, Adverse Reactions, Alerts Substance Reaction Severity Status NKA Active Medications baclofen 10 mg oral tablet 15 mg, 1.5, tablet, By Mouth, 3 times a day, # 135 tablet, Refills 3, Tot. Refills 3, Maintenance, 01/20/17 13:13:41, Route to Pharmacy Electronically, [id number], [facility] [id number], Dose increase Start Date: 01/20/17 Status: OrderedDelzicol [...] 5, Maintenance,05/19/17 13:43:32, Route to Pharmacy Electronically, [id number], [facility] [address] Start Date: 05/19/17 Status: Orderedondansetron 4 mg oral tablet, disintegrating 1 tablet = 4 mg, By Mouth, 3 times a day, PRN Nausea & Vomiting, # 15 tablet, 0 Refills, Maintenance, 04/16/20 14:40:00 EDT, [facility] #[id number], 160, cm, 07/08/19 17:01:00 EDT, Height, 122.3, kg, 04/13/20 17:36:00 EDT, Dry Weight Start Date: 04/16/20 Status: OrderedPotassium Chloride Daily, 0 Refills, Maintenance, 07/08/19 15:37:46 EDT Start Date: 07/08/19 Status: OrderedSlow Fe (as elemental iron) 45 mg oral tablet, extended release 1 tablet = 45 mg, By Mouth, Every other day, # 45 tablet, 1 Refills, Maintenance, 03/16/20 22:00:00 EDT, ER Tablet, [facility] #[id number], 160, cm, 07/08/19 17:01:00 EDT, Height, 129.2, [...]
--- OUTSIDE RECORDS SUMMARY | 2022-10-26 15:46 | XMS_ITS | Continuity of Care Document ---
:1990 Author Organization [facility] Address [address] [place] [address], [address] Floor, [address] [place] [address]- Care Team Providers Name Role Phone Kamran Rm MD Primary Care Physician Encounter [facility] Date(s): 11/18/20 - 12/18/20 [facility] [address] [facility], 3rd [facility], [address] [place] [address] Allergies, Adverse Reactions, Alerts Substance Reaction Severity Status NKA Active Medications baclofen 10 mg oral tablet 15 mg, 1.5, tablet, By Mouth, 3 times a day, # 135 tablet, Refills 3, Tot. Refills 3, Maintenance, 01/20/17 13:13:41, Route to Pharmacy Electronically, [id number], [facility] [id number], Dose increase Start Date: 01/20/17 Status: OrderedDelzicol [...] 5, Maintenance,05/19/17 13:43:32, Route to Pharmacy Electronically, [id number], [facility] [id number] Start Date: 05/19/17 Status: Orderedondansetron 4 mg oral tablet, disintegrating 1 tablet = 4 mg, By Mouth, 3 times a day, PRN Nausea & Vomiting, # 15 tablet, 0 Refills, Maintenance, 04/16/20 14:40:00 EDT, [facility] #[id number], 160, cm, 07/08/19 17:01:00 EDT, Height, 122.3, kg, 04/13/20 17:36:00 EDT, Dry Weight Start Date: 04/16/20 Status: OrderedPotassium Chloride Daily, 0 Refills, Maintenance, 07/08/19 15:37:46 EDT Start Date: 07/08/19 Status: OrderedSlow Fe (as elemental iron) 45 mg oral tablet, extended release 1 tablet = 45 mg, By Mouth, Every other day, # 45 tablet, 1 Refills, Maintenance, 03/16/20 22:00:00 EDT, ER Tablet, [facility] #[id number], 160, cm, 07/08/19 17:01:00 EDT, Height, 129.2, [...]
--- OUTSIDE RECORDS SUMMARY | 2022-10-26 15:46 | XMS_ITS | Continuity of Care Document ---
:1988 Author Organization [facility] Address [address] [place] [address]- Care Team Providers Name Role Phone Kamran Rm MD Primary Care Physician Encounter [facility] Date(s): 02/10/20 - 09/03/[address] [address]- [facility] Encounter Diagnosis Multiple sclerosis (Final) - [...] Maintenance, 01/20/17 13:13:41, Route to Pharmacy Electronically, [id number], [facility] [id number], Dose increase Start Date: 01/20/17 Status: OrderedDelzicol [...] 5, Maintenance,05/19/17 13:43:32, Route to Pharmacy Electronically, [id number], [facility] [address] Start Date: 05/19/17 Status: Orderedondansetron 4 mg oral tablet, disintegrating 1 tablet = 4 mg, By Mouth, 3 times a day, PRN Nausea & Vomiting, # 15 tablet, 0 Refills, Maintenance, 04/16/20 14:40:00 EDT, [facility] #[id number], 160, cm, 07/08/19 17:01:00 EDT, Height, 122.3, kg, 04/13/20 17:36:00 EDT, Dry Weight Start Date: 04/16/20 Status: OrderedPotassium Chloride Daily, 0 Refills, Maintenance, 07/08/19 15:37:46 EDT Start Date: 07/08/19 Status: OrderedSlow Fe (as elemental iron) 45 mg oral tablet, extended release 1 tablet = 45 mg, By Mouth, Every other day, # 45 tablet, 1 Refills, Maintenance, 03/16/20 22:00:00 EDT, ER Tablet, [facility] #[id number], 160, cm, 07/08/19 17:01:00 EDT, Height, 129.2, [...] with depressed Active mood(Confirmed) Multiple sclerosis(Confirmed) Active Vital Signs Most recent to oldest [Reference 1 2 3 Range]: Oxygen Saturation [94-100 %] 100 % 98 % 99 % (04/13/20 7:38 PM) (04/13/20 5:36 PM) (03/13/20 8:47 P M) Pulse Rate [55-90 bpm] 66 bpm 64 bpm 91 bpm (04/13/20 7:38 PM) (04/13/20 5:36 PM) *H* (03/13/20 8:47 PM) Blood Pressure [90-138/55-84 mm 124/77 mm Hg 134/97 mm Hg 113/51 mm Hg Hg] (04/13/20 7:38 PM) (04/13/20 5:36 PM) (03/13/20 8:47 P M) Respiratory Rate [16-30 br/min] 20 br/min 18 br/min 18 br/min (04/13/20 7:38 PM) (04/13/20 5:36 PM) (03/13/20 8:47 P M) Temperature [96.8-100.4 DegF] 97.6 DegF 97.9 DegF 98 .6 DegF (04/13/20 7:38 PM) (04/13/20 5:36 PM) (03/13/20 8:47 P M) Mode of Delivery (Oxygen) Room air Room air Room a ir (04/13/20 7:38 PM) (04/13/20 5:36 PM) (03/13/20 8:47 P M) Blood pressure sites Arm, right Arm, right Arm, left (04/13/20 7:38 PM) (04/13/20 5:36 PM) (03/13/20 8:47 P M) Temperature Route Oral Oral Oral (04/13/20 7:38 PM) (04/13/20 5:36 PM) (03/13/20 8:47 P M) Dry Weight 122.3 kg (04/13/20 5:36 PM) Social History Social History Type Response Smoking Status Former smoker entered on: 08/03/15 Sex
--- OUTSIDE RECORDS SUMMARY | 2022-10-26 15:46 | XMS_ITS | Continuity of Care Document ---
:1988 Author Organization [facility] Address [address] [place] [address], [address]rd [facility], [address] [place] [address]- Care Team Providers Name Role Phone Kamran Rm MD Primary Care Physician Encounter [facility] Date(s): 10/13/20 - 11/12/20 [facility] [address] [facility], [address]rd [facility], [address] [place] [id number] Allergies, Adverse Reactions, Alerts Substance Reaction Severity Status NKA Active Medications baclofen 10 mg oral tablet 15 mg, 1.5, tablet, By Mouth, 3 times a day, # 135 tablet, Refills 3, Tot. Refills 3, Maintenance, 01/20/17 13:13:41, Route to Pharmacy Electronically, [id number], [facility] [id number], Dose increase Start Date: 01/20/17 Status: OrderedDelzicol [...] 5, Maintenance,05/19/17 13:43:32, Route to Pharmacy Electronically, [id number], [facility] [id number] Start Date: 05/19/17 Status: Orderedondansetron 4 mg oral tablet, disintegrating 1 tablet = 4 mg, By Mouth, 3 times a day, PRN Nausea & Vomiting, # 15 tablet, 0 Refills, Maintenance, 04/16/20 14:40:00 EDT, [facility] #[id number], 160, cm, 07/08/19 17:01:00 EDT, Height, 122.3, kg, 04/13/20 17:36:00 EDT, Dry Weight Start Date: 04/16/20 Status: OrderedPotassium Chloride Daily, 0 Refills, Maintenance, 07/08/19 15:37:46 EDT Start Date: 07/08/19 Status: OrderedSlow Fe (as elemental iron) 45 mg oral tablet, extended release 1 tablet = 45 mg, By Mouth, Every other day, # 45 tablet, 1 Refills, Maintenance, 03/16/20 22:00:00 EDT, ER Tablet, [facility] #[id number], 160, cm, 07/08/19 17:01:00 EDT, Height, 129.2, [...]
[2022-10-26 15:54] LABS: MANUAL DIFF FLAG NO
[2022-10-26 15:56] LABS: Basophils Percent Auto 0.3 % (0-2); Eosinophils Absolute Auto 0.2 X10*3/uL (0.0-0.4); Eosinophils Percent Auto 1.4 % (0-4); Hematocrit 42.2 % (37.0-47.0); Hemoglobin 14.7 g/dl (12.0-16.0); Imm Gran Abs Auto 0.06 X10*3/uL (0.00-0.03); Imm Gran Pct Auto 0.5 % (0.0-0.4); Lymphocytes Absolute Auto 3.3 X10*3/uL (1.2-4.9); Lymphocytes Percent Auto 27.1 % (20-40); Mean Corpuscular HGB Conc 34.8 g/dl (31.0-35.0); Mean Corpuscular Hemoglobin 32.5 pg (27.0-33.0); Mean Corpuscular Volume 93.4 fL (80.0-98.0); Mean Platelet Volume 9.8 fL (9.4-12.3); Monocytes Absolute Auto 0.5 X10*3/uL (0.1-1.2); Monocytes Percent Auto 4.3 % (2-11); Neutrophils Absolute Auto 8.1 x10*3/uL (2.0-8.3); Neutrophils Percent Auto 66.4 % (45-73); Platelet Count 313 X10*3/uL (160-400); Red Blood Count 4.52 X10*6/uL (4.20-5.50); Red Cell Distribution Width 11.9 % (11.0-16.0); White Blood Count 12.2 X10*3/uL (4.8-10.8)
[2022-10-26 16:02] LABS: Prothrombin Time 11.5 SEC (10.0-13.1)
[2022-10-26 16:12] LABS: COVID-19 Test Negative (Negative)
[2022-10-26 16:13] LABS: Alanine Aminotransferase 27 U/L (0-31); Alkaline Phosphatase 86 U/L (39-117); Anion Gap 12 (12-20); Aspartate Amino Transferase 18 U/L (5-31); Bilirubin Direct < 0.2 mg/dL (0.0-0.5); Bilirubin Total 0.5 mg/dL (0.0-1.0); Blood Urea Nitrogen 14 mg/dL (9-16); C Reactive Protein 2.58 mg/dL (< or = 0.50); Calcium 9.3 mg/dL (8.4-10.2); Carbon Dioxide 24 mmol/L (22-29); Chloride 104 mmol/L (96-108); Creatinine Clr Calc Pharmacy 128.4; Estimated Glomerular Filt Rate > 60; Glucose Random 143 mg/dL (60-115); Potassium 4.1 mmol/L (3.3-5.1); Sodium 136 mmol/L (135-145); Total Protein 7.2 g/dL (6.5-8.0)
[2022-10-26 16:51] LABS: Erythrocyte Sedimentation Rate 9 MM/HR (0-20)
[2022-10-26 19:29] VITALS: BP 139/88; PULSE 94; RESP 16; TEMP 37.2; O2SAT 100
--- NOTE | 2022-10-26 19:41 | ED_ITS ---
HPI - Abdominal Pain General Chief Complaint: Abdominal Pain Stated Complaint: crohn's flare Time Seen by Provider: 10/26/22 19:20 Source: patient History of Present Illness HPI narrative: Patient presents complaining of abdominal pain. She states the pain started this morning and feels like a typical Crohn's flare. She says the last few weeks she has been having issues with abdominal pain. She was seen here in this emergency department and given a 5 day prednisone course. She finished that 2 days ago. She states she felt better while on the prednisone. But today the pain returned. She states she has chronic low-grade GI bleeding and has not had a significant change in matter the diarrhea. No nausea vomiting this time but did have some nausea prior to her last ER visit. Denies fevers or chills. She spoke with her stonecutter assistant, Dr. Null today. She will be making a follow-up appointment shortly. In the meantime she is requesting treatment for the discomfort and to restart the prednisone, this time with a longer-term taper. Precipitating factors for her Crohn's flares typically are foods as well as stressors. Related Data Home Medications Medication Instructions Recorded Confirmed ergocalciferol (vitamin D2) 400 400 unit PO DAILY 10/19/20 10/30/20 unit capsule prednisone 20 mg tablet 35 mg PO DAILY 10/30/20 10/30/20 adalimumab 40 mg/0.8 mL 40 mg subcut Q2W 05/24/21 subcutaneous pen kit (Humira Pen) Previous Rx's Medication Instructions Recorded dicyclomine 10 mg capsule 10 mg PO QIDACHS PRN abdominal 10/23/20 pain #90 caps mesalamine 400 mg capsule (with 1,600 mg PO TID #90 ea 10/23/20 delayed release tablets inside) (Delzicol) ketoconazole 2 % topical cream 1 appl topical BID #60 grams 06/28/21 cyanocobalamin (vitamin B-12) 50 50 mcg PO DAILY #30 ea 07/28/21 mcg lozenges (Vitamin B-12) vitamin A palmitate 10,000 unit 10,000 unit PO DAILY 2 weeks #14 08/04/21 capsule caps oxycodone 5 mg tablet 5 mg PO Q6H PRN pain #20 tabs 10/16/22 prednisone 20 mg tablet 40 mg PO DAILY #10 tabs 10/16/22 oxycodone 5 mg tablet 5 mg PO TID PRN pain #14 tabs 10/26/22 prednisone 20 mg tablet 40 mg PO DAILY #20 tabs 10/26/22 Allergies Allergy/AdvReac Type Severity Reaction Status Date / Time No Known Allergies Allergy Unknown UNKNOWN Verified 01/19/22 21:29 Review of Systems Comments: No fevers or chills Comments: No Chest pain Comments: No dyspnea or cough Comments: Abdominal pain. No nausea vomiting. Chronic diarrhea and chronic bright red blood per rectum without recent change Comments: No urinary symptoms Comments: No rash Comments: History of MS with some left-sided numbness which is unchanged from her [facility] Past Medical History Medical History Crohn's disease Crohn's disease Multiple sclerosis Surgical History History of tonsillectomy Previous section Family History Family History Maternal Grandmother Crohn's disease Mother H/O: hysterectomy Primary fibromyalgia Father Diabetes Sister Murder Brother No problems noted. Son No problems noted. Social History Social History Household Members: Family Housing: House Do you presently have visiting nurse or other home services: No Alcohol intake: current Alcohol intake frequency: a few times a week Alcohol type: hard liquor Patient Tobacco Use Status: Former Tobacco user Years Smoked: 10 Smoked in Last 30 Days: No Use of substances other than those prescribed or required for medical reasons: Yes Substance Use Type: Marijuana Substance Use Frequency: Weekly Advance Directives: No Advance Directives Information Provided: No Patient : No service: No Current occupational status: unemployed Physical Exam ED Vital Signs: Vital Signs - 24 hr 10/26/22 13:57 10/26/22 19:29 Temperature 96.8 F 98.9 F Pulse Rate 93 94 Respiratory Rate 17 16 Blood Pressure 147/86 H 139/88 Pulse Oximetry 96 100 Oxygen Delivery Method Room Air Room Air BMI result Body Mass Index 51.5 Const Other: Awake and alert in no acute distress Resp Other: Clear and equal bilaterally without wheezes rales or rhonchi Cardio Other: Regular rate and rhythm without murmurs rubs or gallops GI Other: Soft. Some left upper quadrant tenderness without guarding or rebound. Nondistended. Normal bowel sounds Skin Other: Warm pink and dry without obvious rash Neuro Other: No obvious focal neuro deficits Course Course Course Narrative: Probable Crohn's flare but with CT scan 10 days ago that showed no obvious inflammatory changes or other acute abnormalities. Patient is stable. White count is mildly elevated consistent with recent steroids. No obvious signs of infection. I agree with plan to restart prednisone, but with a taper and further guidance by Gastroenterology. In the meantime in emergency department will treat for comfort with IV fluids, low-dose IV morphine, and Zofran. IV Solu-Medrol for 1st dose of steroids 21:38. Patient is feeling better after IV fluids and pain medication and IV steroids. She is stable for discharge home Medical Decision Making Lab Data Result Diagrams: 10/26/22 15:47 10/26/22 15:47 Labs: Lab Results 10/26/22 10/26/22 10/26/22 Range/Units 15:47 15:47 15:47 WBC 12.2 H (4.8-10.8) X10*3/uL RBC 4.52 (4.20-5.50) X10*6/uL Hgb 14.7 (12.0-16.0) g/dl Hct 42.2 (37.0-47.0) % MCV 93.4 (80.0-98.0) fL MCH 32.5 (27.0-33.0) pg MCHC 34.8 (31.0-35.0) g/dl RDW 11.9 (11.0-16.0) % Plt Count 313 (160-400) X10*3/uL MPV 9.8 (9.4-12.3) fL Immature Gran % (Auto) 0.5 H (0.0-0.4) % Neut % (Auto) 66.4 (45-73) % Lymph % (Auto) 27.1 (20-40) % Lane % (Auto) 4.3 (2-11) % Eos % (Auto) 1.4 (0-4) % Baso % (Auto) 0.3 (0-2) % Lymph # (Auto) 3.3 (1.2-4.9) X10*3/uL Lane # (Auto) 0.5 (0.1-1.2) X10*3/uL Eos # (Auto) 0.2 (0.0-0.4) X10*3/uL Baso # (Auto) 0.0 (0.0-0.2) X10*3/uL Abs Immat Gran (auto) 0.06 H (0.00-0.03) X10*3/uL Absolute Neuts (auto) 8.1 (2.0-8.3) x10*3/uL Absolute Nucleated RBC 0.000 (0.0-0.012) X10*3/uL Nucleated RBC % (auto) 0.0 (0.0-0.2) /100WBC ESR 9 (0-20) MM/HR PT 11.5 (10.0-13.1) SEC INR 1.0 (0.9-1.1) Sodium (135-145) mmol/L Potassium (3.3-5.1) mmol/L Chloride (96-108) mmol/L Carbon Dioxide (22-29) mmol/L Anion Gap (12-20) BUN (9-16) mg/dL Creatinine (0.5-1.4) mg/dL Estim Creat Clear Calc Estimated GFR Random Glucose (60-115) mg/dL Calcium (8.4-10.2) mg/dL Total Bilirubin (0.0-1.0) mg/dL Direct Bilirubin (0.0-0.5) mg/dL AST (5-31) U/L ALT (0-31) U/L Alkaline Phosphatase (39-117) U/L C-Reactive Protein (< or = 0.50) mg/dL Total Protein (6.5-8.0) g/dL Albumin (3.5-5.0) g/dL COVID-19 (ALEJANDRA) (Negative) COVID-19 Clin Com 10/26/22 10/26/22 Range/Units 15:47 15:47 WBC (4.8-10.8) X10*3/uL RBC (4.20-5.50) X10*6/uL Hgb (12.0-16.0) g/dl Hct (37.0-47.0) % MCV (80.0-98.0) fL MCH (27.0-33.0) pg MCHC (31.0-35.0) g/dl RDW (11.0-16.0) % Plt Count (160-400) X10*3/uL MPV (9.4-12.3) fL Immature Gran % (Auto) (0.0-0.4) % Neut % (Auto) (45-73) % Lymph % (Auto) (20-40) % Lane % (Auto) (2-11) % Eos % (Auto) (0-4) % Baso % (Auto) (0-2) % Lymph # (Auto) (1.2-4.9) X10*3/uL Lane # (Auto) (0.1-1.2) X10*3/uL Eos # (Auto) (0.0-0.4) X10*3/uL Baso # (Auto) (0.0-0.2) X10*3/uL Abs Immat Gran (auto) (0.00-0.03) X10*3/uL Absolute Neuts (auto) (2.0-8.3) x10*3/uL Absolute Nucleated RBC (0.0-0.012) X10*3/uL Nucleated RBC % (auto) (0.0-0.2) /100WBC ESR (0-20) MM/HR PT (10.0-13.1) SEC INR (0.9-1.1) Sodium 136 (135-145) mmol/L Potassium 4.1 (3.3-5.1) mmol/L Chloride 104 (96-108) mmol/L Carbon Dioxide 24 (22-29) mmol/L Anion Gap 12 (12-20) BUN 14 (9-16) mg/dL Creatinine 0.85 (0.5-1.4) mg/dL Estim Creat Clear Calc 128.4 Estimated GFR > 60 Random Glucose 143 H (60-115) mg/dL Calcium 9.3 (8.4-10.2) mg/dL Total Bilirubin 0.5 (0.0-1.0) mg/dL Direct Bilirubin < 0.2 (0.0-0.5) mg/dL AST 18 (5-31) U/L ALT 27 (0-31) U/L Alkaline Phosphatase 86 (39-117) U/L C-Reactive Protein 2.58 H (< or = 0.50) mg/dL Total Protein 7.2 (6.5-8.0) g/dL Albumin 4.0 (3.5-5.0) g/dL COVID-19 (ALEJANDRA) Negative (Negative) COVID-19 Clin Com See Note Medications Administered Discontinued Medications Generic Name Dose Route Start Last Admin Trade Name Freq PRN Reason Stop Dose Admin Sodium Chloride 1,000 mls @ 999 mls/hr 10/26/22 19:45 10/26/22 19:49 Ns IV 10/26/22 20:45 999 mls/hr .Q1H1M JANE Administration Methylprednisolone Sodium Succinate 125 mg 10/26/22 19:39 10/26/22 19:50 Methylprednisolone Sod Succ 125 Mg/2 Ml Vial IVPUSH 10/26/22 19:40 125 mg ONCE ONE Administration Morphine Sulfate 4 mg 10/26/22 19:39 10/26/22 19:50 Morphine Sulfate 4 Mg/Ml Cartridge IVPUSH 10/26/22 19:40 4 mg ONCE ONE Administration Protocol Ondansetron HCl 4 mg 10/26/22 19:39 10/26/22 19:50 Ondansetron Hcl 4 Mg/2 Ml Vial IVPUSH 10/26/22 19:40 4 mg ONCE ONE Administration Discharge Plan Discharge Clinical Impression: Crohn's disease, Abdominal pain Patient Disposition: Home, Self-Care Instructions: Crohn Disease (ED), Abdominal Pain (ED) Additional Instructions: Be sure to follow-up with her stonecutter assistant, Dr. Null, as soon as possible. Prednisone is for inflammation. We will started 40 mg and taper to 20 mg. Adjust dose based on recommendations from Dr. Null Prescriptions: New prednisone 20 mg tablet 40 mg PO DAILY Qty: 20 0RF Rx Instructions: Take 2 tablets, 40 mg, daily for the 1st 5 days. After that take 1 tablet, 20 mg, daily oxycodone 5 mg tablet 5 mg PO TID PRN (Reason: pain) Qty: 14 0RF Rx Instructions: Partial Fill upon patient request. No Action Vitamin B-12 50 mcg lozenge 50 mcg PO DAILY Qty: 30 6RF vitamin A palmitate 10,000 unit capsule 10,000 unit PO DAILY 14 Days Qty: 14 0RF ergocalciferol (vitamin D2) 400 unit Capsule 400 unit PO DAILY dicyclomine 10 mg Capsule 10 mg PO QIDACHS PRN (Reason: abdominal pain) Qty: 90 0RF mesalamine [Delzicol] 400 mg Capsule (With Del Rel Tablets) 1,600 mg PO TID Qty: 90 0RF prednisone 20 mg tablet 35 mg PO DAILY prednisone 20 mg tablet 40 mg PO DAILY Qty: 10 0RF oxycodone 5 mg tablet 5 mg PO Q6H PRN (Reason: pain) Qty: 20 0RF Rx Instructions: Partial Fill upon patient request. ketoconazole 2 % cream 1 appl topical BID Qty: 60 2RF
[2022-10-26] MEDS: 0.9 % Sodium Chloride 1,000 ML 999 ML IV (19:49)
[2022-10-26] MEDS: ondansetron HCL 4 MG/2 ML VIAL IVPUSH (19:50)
[2022-10-26] MEDS: methylPREDNISolone Sod Succ 125 MG/2 ML VIAL IVPUSH (19:50)
[2022-10-26] MEDS: Morphine Sulfate 4 MG/ML CARTRIDGE IVPUSH (19:50)
[2022-10-26 21:38] VITALS: BP 122/57; PULSE 78; TEMP 37.2; O2SAT 96
[2022-10-26 21:43] LABS: Appearance Urine Turbid; Color Urine Yellow; Glucose Urine UA Negative (Negative); Leukocyte Esterase Urine Negative (Negative); Nitrite Urine Negative (Negative); PH 5.5 (5.0-9.0); Specific Gravity - Urine >= 1.030 (1.005-1.025); Urine Blood Negative (Negative); Urine Ketones Trace mg/dL (Negative); Urine Protein Trace mg/dL (Neg-Trace)
[2022-10-26 21:44] LABS: UPreg QC Valid YES; Urine Pregnancy NEGATIVE (NEGATIVE)
--- NOTE | 2022-10-26 21:59 | PC.NURSE ---
IV access removed. Pt tolerated well. Discharge instructions reviewed with pt. Pt verbalizes understanding.
== END 2022-10-26 22:00 | disposition home or self-care (01) ==
PROVIDERS: Nurse Practitioner Family; Emergency Provider Emergency Medicine; PCP Internal Medicine
DX: R10.9 Unspecified abdominal pain (principal); K50.90 Crohn's disease, unspecified, without complications; Z20.822 Contact with and (suspected) exposure to COVID-19; G35 Multiple sclerosis; F12.90 Cannabis use, unspecified, uncomplicated; E66.01 Morbid (severe) obesity due to excess calories; Z68.43 Body mass index [BMI] 50.0-59.9, adult; Z87.891 Personal history of nicotine dependence; Z79.899 Other long term (current) drug therapy
CPT/HCPCS: 80048; 80076; 81003; 81025; 85025; 85610; 85652; 86140; 87635; 96361; 96374; 96375; 99284; J2270; J2405; J2930

== ENCOUNTER 2024-08-06 20:14 | Emergency (ER) | payer OTHER, SELFPAY ==
[2024-08-06 20:17] VITALS: BP 136/84; PULSE 84; RESP 18; TEMP 37.1; O2SAT 97; BMI 51.5
[2024-08-06 20:35] LABS: MANUAL DIFF FLAG NO
[2024-08-06 20:37] LABS: Basophils Absolute Auto 0.1 X10*3/uL (0.0-0.2); Basophils Percent Auto 0.5 % (0-2); Eosinophils Absolute Auto 0.4 X10*3/uL (0.0-0.4); Eosinophils Percent Auto 3.7 % (0-4); Hematocrit 39.1 % (37.0-47.0); Hemoglobin 13.8 g/dl (12.0-16.0); Imm Gran Abs Auto 0.03 X10*3/uL (0.00-0.03); Imm Gran Pct Auto 0.3 % (0.0-0.4); Lymphocytes Absolute Auto 2.7 X10*3/uL (1.2-4.9); Lymphocytes Percent Auto 26.9 % (20-40); Mean Corpuscular HGB Conc 35.3 g/dl (31.0-35.0); Mean Corpuscular Hemoglobin 32.6 pg (27.0-33.0); Mean Corpuscular Volume 92.4 fL (80.0-98.0); Mean Platelet Volume 9.5 fL (9.4-12.3); Monocytes Absolute Auto 0.5 X10*3/uL (0.1-1.2); Monocytes Percent Auto 4.9 % (2-11); Neutrophils Absolute Auto 6.3 x10*3/uL (2.0-8.3); Neutrophils Percent Auto 63.7 % (45-73); Platelet Count 350 X10*3/uL (160-400); Red Blood Count 4.23 X10*6/uL (4.20-5.50); Red Cell Distribution Width 11.9 % (11.0-16.0); White Blood Count 9.9 X10*3/uL (4.8-10.8)
--- NOTE | 2024-08-06 20:46 | ED.ABDPAIN ---
HPI - Abdominal Pain General Chief Complaint: Abdominal Pain Stated Complaint: abd pain h/o Chrohns Time Seen by Provider: 08/07/24 01:21 Source: patient Mode of arrival: ambulatory Limitations: no limitations History of Present Illness ED Provider: edwin HARP narrative: Patient's history of Crohn's disease used to and Humira about 2 years ago stopped taking it was doing good for last 2 years for last few weeks noticed diffuse lower abdominal cramps and for last few days noticed small amount of blood when she moves her bowel with nausea vomiting no abdominal distention no vomiting does have nausea no fever no chills Related Data Home Medications ?Medication ?Instructions ?Recorded ?Confirmed ergocalciferol (vitamin D2) 400 400 unit PO DAILY 10/19/20 10/30/20 unit capsule prednisone 20 mg tablet 35 mg PO DAILY 10/30/20 10/30/20 adalimumab 40 mg/0.8 mL 40 mg subcut Q2W 05/24/21 subcutaneous pen kit (Humira Pen) Previous Rx's ?Medication ?Instructions ?Recorded dicyclomine 10 mg capsule 10 mg PO QIDACHS PRN abdominal 10/23/20 pain #90 caps mesalamine 400 mg capsule (with 1,600 mg (4 x 400 mg) PO TID #90 ea 10/23/20 delayed release tablets inside) (Delzicol) ketoconazole 2 % topical cream 1 appl topical BID #60 grams 06/28/21 cyanocobalamin (vitamin B-12) 50 50 mcg PO DAILY #30 ea 07/28/21 mcg lozenges (Vitamin B-12) vitamin A palmitate 3,000 mcg 10,000 unit PO DAILY 2 weeks #14 08/04/21 (10,000 unit) capsule caps oxycodone 5 mg tablet 5 mg PO Q6H PRN pain #20 tabs 10/16/22 prednisone 20 mg tablet 40 mg (2 x 20 mg) PO DAILY #10 tabs 10/16/22 oxycodone 5 mg tablet 5 mg PO TID PRN pain #14 tabs 10/26/22 prednisone 20 mg tablet 40 mg (2 x 20 mg) PO DAILY #20 tabs 10/26/22 prednisone 10 mg tablet 10 mg PO DIRECTED #30 tabs 08/07/24 Allergies Allergy/AdvReac Type Severity Reaction Status Date / Time No Known Allergies Allergy Unknown UNKNOWN Verified 08/06/24 20:20 Review of Systems Review of Systems Yes all other systems are reviewed and are negative [facility] Past Medical History Medical History Crohn's disease Multiple sclerosis Crohn's disease Surgical History History of tonsillectomy Previous section Family History Family History Maternal Grandmother Crohn's disease Mother H/O: hysterectomy Primary fibromyalgia Father Diabetes Sister Murder Brother No problems noted. Son No problems noted. Social History Social History Household Members: Family Housing: House Do you presently have visiting nurse or other home services: No Alcohol intake: current Alcohol intake frequency: a few times a week Alcohol type: hard liquor Comment: pt awake, lying in bed Patient Tobacco Use Status: Former Tobacco user Years Smoked: 10 Smoked in Last 30 Days: No Use of substances other than those prescribed or required for medical reasons: No Substance Use Type: Marijuana Advance Directives: No Advance Directives Information Provided: No Do you have a plan to hurt others: No Plan Patient : No service: No Current occupational status: unemployed Physical Exam ED Vital Signs: Vital Signs - 24 hr 08/06/24 20:17 08/07/24 02:24 08/07/24 03:49 Temperature 98.7 F 98.2 F 98.5 F Pulse Rate 84 80 79 Respiratory Rate 18 17 18 Blood Pressure 136/84 128/75 131/77 Pulse Oximetry 97 95 97 Oxygen Delivery Method Room Air Room Air Room Air 08/07/24 04:19 Temperature 98.5 F Pulse Rate 79 Respiratory Rate 18 Blood Pressure 131/77 Pulse Oximetry 97 Oxygen Delivery Method Room Air BMI result Body Mass Index 51.5 Appearance: Alert. Oriented X3. No acute distress. Eyes: No pallor or icterus ENT: Pharynx normal. Oral Mucosa moist Neck: Normal inspection. Neck supple. CVS: Normal heart rate and rhythm. Pulses normal. Respiratory: No respiratory distress. Equal air entry bilateral, no wheezing/rales/rhonchi Abdomen: Soft and deep tenderness suprapubic right lower abdomen no guarding no rebound tenderness Bowel sounds are present, no mass palpable, no CVA tenderness Skin: Skin warm and dry. Normal skin color. Normal skin turgor. Extremities: No lower extremity edema. No calf tenderness Neuro: Oriented X 3. Course Course Course Narrative: Rapid medical exam performed by Torri Kulkarni PA-C. 33-year-old female with a history of Crohn's disease presents with abdominal pain x3 days. Pain most prominent over lower abdomen, associated nausea vomiting and bloody bowel movements. Denies fever. On exam, patient's abdomen is soft, obese, generalized tenderness to palpation, no objective guarding. We will be screening basic labs including inflammatory markers. Patient is hemodynamically stable, she can return to the weight room pending further assessment, she will likely require CT scan. Medical Decision Making Medical Decision Making [facility] Narrative: Patient with Crohn disease not taking any medication comes here with over abdominal pain with blood in stool stable labs slightly elevated CRP abdomen soft no rebound tenderness. Patient was given IV steroids in the ER will discharge patient home on oral prednisone advised to follow up with her internal review and audit compliance Differential Diagnosis Differential Diagnoses: The differential diagnosis associated with the presentation includes Lab Data [facility] Lab Attestation statement: I reviewed the patient's lab results. 08/06/24 20:31 08/06/24 20:31 Labs: Lab Results 08/06/24 Range/Units 20:31 WBC 9.9 (4.8-10.8) X10*3/uL RBC 4.23 (4.20-5.50) X10*6/uL Hgb 13.8 (12.0-16.0) g/dl Hct 39.1 (37.0-47.0) % MCV 92.4 (80.0-98.0) fL MCH 32.6 (27.0-33.0) pg MCHC 35.3 H (31.0-35.0) g/dl RDW 11.9 (11.0-16.0) % Plt Count 350 (160-400) X10*3/uL MPV 9.5 (9.4-12.3) fL Immature Gran % (Auto) 0.3 (0.0-0.4) % Neut % (Auto) 63.7 (45-73) % Lymph % (Auto) 26.9 (20-40) % [place] % (Auto) 4.9 (2-11) % Eos % (Auto) 3.7 (0-4) % Baso % (Auto) 0.5 (0-2) % Lymph # (Auto) 2.7 (1.2-4.9) X10*3/uL [place] # (Auto) 0.5 (0.1-1.2) X10*3/uL Eos # (Auto) 0.4 (0.0-0.4) X10*3/uL Baso # (Auto) 0.1 (0.0-0.2) X10*3/uL Abs Immat Gran (auto) 0.03 (0.00-0.03) X10*3/uL Absolute Neuts (auto) 6.3 (2.0-8.3) x10*3/uL Absolute Nucleated RBC 0.000 (0.0-0.012) X10*3/uL Nucleated RBC % (auto) 0.0 (0.0-0.2) /100WBC ESR 16 (0-20) MM/HR Sodium 139 (135-145) mmol/L Potassium 4.1 (3.3-5.1) mmol/L Chloride 108 (96-108) mmol/L Carbon Dioxide 25 (22-29) mmol/L Anion Gap 10 L (12-20) BUN 14 (9-16) mg/dL Creatinine 0.74 (0.5-1.4) mg/dL Estim Creat Clear Calc 146.1 Estimated GFR > 60 Random Glucose 113 (60-115) mg/dL Calcium 9.1 (8.4-10.2) mg/dL Magnesium 1.9 (1.6-2.6) mg/dL Total Bilirubin 0.1 (0.0-1.0) mg/dL AST 17 (5-31) U/L ALT 26 (0-31) U/L Alkaline Phosphatase 103 (39-117) U/L C-Reactive Protein 3.32 H (< or = 0.50) mg/dL Total Protein 7.5 (6.5-8.0) g/dL Albumin 3.8 (3.5-5.0) g/dL Beta HCG, Quant < 2 mIU/mL Medications Administered Discontinued Medications Generic Name Dose Route Start Last Admin Trade Name Freq PRN Reason Stop Dose Admin Sodium Chloride 1,000 mls @ 999 mls/hr 08/07/24 01:53 08/07/24 04:01 Ns IV 08/07/24 02:53 Infused .Q1H1M ONE Infusion Ketorolac Tromethamine 30 mg 08/07/24 01:53 08/07/24 02:36 Ketorolac Tromethamine 30 Mg/Ml Vial IVPUSH 08/07/24 01:54 30 mg ONCE ONE Administration Methylprednisolone Sodium Succinate 125 mg 08/07/24 01:53 08/07/24 02:36 Methylprednisolone Sod Succ 125 Mg/2 Ml Vial IVPUSH 08/07/24 01:54 125 mg ONCE ONE Administration Discharge Plan Discharge Clinical Impression: Crohn's disease Patient Disposition: Home, Self-Care Instructions: Crohn Disease (ED) Additional Instructions: Take prednisone tapering doses as prescribed Follow up with your internal review and audit compliance Prescriptions: New prednisone 10 mg tablet 10 mg PO DIRECTED Qty: 30 0RF Rx Instructions: see taper instructions; 40 mg Daily x3 days, 30 mg daily x3 days, 20 mg daily x3 days, 10 mg daily x3 days No Action Vitamin B-12 50 mcg lozenge 50 mcg PO DAILY Qty: 30 6RF vitamin A palmitate 10,000 unit capsule 10,000 unit PO DAILY 14 Days Qty: 14 0RF ergocalciferol (vitamin D2) 400 unit Capsule 400 unit PO DAILY dicyclomine 10 mg Capsule 10 mg PO QIDACHS PRN (Reason: abdominal pain) Qty: 90 0RF mesalamine [Delzicol] 400 mg Capsule (With Del Rel Tablets) 1,600 mg PO TID Qty: 90 0RF prednisone 20 mg tablet 35 mg PO DAILY prednisone 20 mg tablet 40 mg PO DAILY Qty: 10 0RF oxycodone 5 mg tablet 5 mg PO Q6H PRN (Reason: pain) Qty: 20 0RF Rx Instructions: Partial Fill upon patient request. prednisone 20 mg tablet 40 mg PO DAILY Qty: 20 0RF Rx Instructions: Take 2 tablets, 40 mg, daily for the 1st 5 days. After that take 1 tablet, 20 mg, daily oxycodone 5 mg tablet 5 mg PO TID PRN (Reason: pain) Qty: 14 0RF Rx Instructions: Partial Fill upon patient request. ketoconazole 2 % cream 1 appl topical BID Qty: 60 2RF Interventions: ED Discharge Assessment Last Done: 08/07/24 04:19 Discharge Date/Time: 08/07/24 04:26 Print Language: Lithuanian
[2024-08-06 20:52] LABS: Alanine Aminotransferase 26 U/L (0-31); Albumin Level 3.8 g/dL (3.5-5.0); Alkaline Phosphatase 103 U/L (39-117); Anion Gap 10 (12-20); Aspartate Amino Transferase 17 U/L (5-31); Bilirubin Total 0.1 mg/dL (0.0-1.0); Blood Urea Nitrogen 14 mg/dL (9-16); C Reactive Protein 3.32 mg/dL (< or = 0.50); Calcium 9.1 mg/dL (8.4-10.2); Carbon Dioxide 25 mmol/L (22-29); Chloride 108 mmol/L (96-108); Creatinine Clr Calc Pharmacy 146.1; Estimated Glomerular Filt Rate > 60; Glucose Random 113 mg/dL (60-115); Magnesium 1.9 mg/dL (1.6-2.6); Potassium 4.1 mmol/L (3.3-5.1); Sodium 139 mmol/L (135-145); Total Protein 7.5 g/dL (6.5-8.0)
[2024-08-06 21:11] LABS: HCG Quantitative < 2 mIU/mL
[2024-08-06 22:01] LABS: Erythrocyte Sedimentation Rate 16 MM/HR (0-20)
[2024-08-07 02:24] VITALS: BP 128/75; PULSE 80; RESP 17; TEMP 36.8; O2SAT 95
[2024-08-07] MEDS: Ketorolac Tromethamine 30 MG/ML VIAL IVPUSH (02:36)
[2024-08-07] MEDS: 0.9 % Sodium Chloride 1,000 ML 999 ML IV (02:36)
[2024-08-07] MEDS: methylPREDNISolone Sod Succ 125 MG/2 ML VIAL IVPUSH (02:36)
[2024-08-07 03:49] VITALS: BP 131/77; PULSE 79; RESP 18; TEMP 36.9; O2SAT 97
[2024-08-07 04:19] VITALS: BP 131/77; PULSE 79; RESP 18; TEMP 36.9; O2SAT 97
== END 2024-08-07 04:26 | disposition home or self-care (01) ==
PROVIDERS: Physician Assistant Medical; Emergency Provider Internal Medicine; PCP Internal Medicine
DX: K50.90 Crohn's disease, unspecified, without complications (principal); R11.2 Nausea with vomiting, unspecified; Z79.899 Other long term (current) drug therapy; Z87.891 Personal history of nicotine dependence
CPT/HCPCS: 36415; 80053; 83735; 84702; 85025; 85652; 86140; 96361; 96374; 96375; 99284; 99285; J1885; J2919

== ENCOUNTER 2024-11-14 22:30 | Emergency (ER) | payer OTHER, SELFPAY ==
--- NOTE | ~2024-11-14 | XR_ITS ---
CLINICAL HISTORY: fecal impaction 1 view abdomen Comparison: CR - XR KUB - 10/19/20 21:26 EST Findings: No pneumoperitoneum or pneumatosis. No dilated loops of bowel or evidence for bowel obstruction. Moderate colonic stool burden identified over the right hemiabdomen. Radiopaque IUD in place over the pelvis. No acute fractures. IMPRESSION: 1. Nonobstructed bowel-gas pattern. 2. Moderate colonic stool burden visualized over the right hemiabdomen. This document has been electronically signed by: Noble Gutierrez MD on 11/15/2024 04:13:03
[2024-11-14 22:32] VITALS: BP 127/97; PULSE 98; RESP 19; TEMP 36.9; O2SAT 98; BMI 51.5
[2024-11-15] VITALS: BP 153/104; PULSE 91; RESP 20; TEMP 36.7; O2SAT 97
--- NOTE | 2024-11-15 00:31 | ED_ITS ---
HPI - Abdominal Pain General Chief Complaint: Abdominal Pain Stated Complaint: constipation Time Seen by Provider: 11/15/24 00:30 Source: patient Mode of arrival: ambulatory Limitations: no limitations History of Present Illness ED Provider: HPI narrative: Patient's history of Crohn's disease been constipated for last 1 week was seen at [facility] yesterday had a CT scan which showed constipation patient has tried Dulcolax , comes here for constipation no nausea no vomiting Related Data Home Medications ?Medication ?Instructions ?Recorded ?Confirmed ergocalciferol (vitamin D2) 400 400 unit PO DAILY 10/19/20 10/30/20 unit capsule prednisone 20 mg tablet 35 mg PO DAILY 10/30/20 10/30/20 adalimumab 40 mg/0.8 mL 40 mg subcut Q2W 05/24/21 subcutaneous pen kit (Humira Pen) Previous Rx's ?Medication ?Instructions ?Recorded dicyclomine 10 mg capsule 10 mg PO QIDACHS PRN abdominal 10/23/20 pain #90 caps mesalamine 400 mg capsule (with 1,600 mg (4 x 400 mg) PO TID #90 ea 10/23/20 delayed release tablets inside) (Delzicol) ketoconazole 2 % topical cream 1 appl topical BID #60 grams 06/28/21 cyanocobalamin (vitamin B-12) 50 50 mcg PO DAILY #30 ea 07/28/21 mcg lozenges (Vitamin B-12) vitamin A palmitate 3,000 mcg 10,000 unit PO DAILY 2 weeks #14 08/04/21 (10,000 unit) capsule caps oxycodone 5 mg tablet 5 mg PO Q6H PRN pain #20 tabs 10/16/22 prednisone 20 mg tablet 40 mg (2 x 20 mg) PO DAILY #10 tabs 10/16/22 oxycodone 5 mg tablet 5 mg PO TID PRN pain #14 tabs 10/26/22 prednisone 20 mg tablet 40 mg (2 x 20 mg) PO DAILY #20 tabs 10/26/22 prednisone 10 mg tablet 10 mg PO DIRECTED #30 tabs 08/07/24 Allergies Allergy/AdvReac Type Severity Reaction Status Date / Time No Known Allergies Allergy Unknown UNKNOWN Verified 11/14/24 22:39 Review of Systems Review of Systems Yes all other systems are reviewed and are negative PMFSH Past Medical History Medical History Crohn's disease Multiple sclerosis Crohn's disease Surgical History History of tonsillectomy Previous section Family History Family History Maternal Grandmother Crohn's disease Mother H/O: hysterectomy Primary fibromyalgia Father Diabetes Sister Murder Brother No problems noted. Son No problems noted. Social History Social History Household Members: Family Housing: House Do you presently have visiting nurse or other home services: No Alcohol intake: current Alcohol intake frequency: a few times a week Alcohol type: hard liquor Comment: pt awake, lying in bed Patient Tobacco Use Status: Former Tobacco user Years Smoked: 10 Smoked in Last 30 Days: No Use of substances other than those prescribed or required for medical reasons: Yes Substance Use Type: Marijuana Substance Use Frequency: Weekly Any prior treatment program specific to substance use: No Advance Directives: No Advance Directives Information Provided: Yes Do you have a plan to hurt others: No Plan service: No Current occupational status: unemployed Physical Exam ED Vital Signs: Vital Signs - 24 hr 11/14/24 22:32 11/15/24 00:00 Temperature 98.4 F 98.1 F Pulse Rate 98 91 Respiratory Rate 19 20 Blood Pressure 127/97 H 153/104 H Pulse Oximetry 98 97 Oxygen Delivery Method Room Air Room Air BMI result Body Mass Index 51.5 Appearance: Alert. Oriented X3. No acute distress obese Eyes: PERRLA, No Nystagmus ENT: Pharynx normal. Oral Mucosa moist Neck: Normal inspection. Neck supple. CVS: Normal heart rate and rhythm. Pulses normal. Respiratory: No respiratory distress. Equal air entry bilateral, no wheezing/rales/rhonchi Abdomen: Soft and nontender. Bowel sounds are present, no mass palpable, no CVA tenderness Skin: Skin warm and dry. Normal skin color. Normal skin turgor. Extremities: No lower extremity edema. No calf tenderness Neuro: Oriented X 3. No motor deficit. Medical Decision Making Medical Decision Making MDM Narrative: Patient with constipation with no fecal impaction was given milk of magnesia and Senokot in the ER advised to follow up as outpatient Medications Administered Discontinued Medications Generic Name Dose Route Start Last Admin Trade Name Freq PRN Reason Stop Dose Admin Lidocaine HCl 10 ml 11/15/24 02:10 11/15/24 02:36 Lidocaine Hcl 2 % Urojet 10 Ml Jel.Pf.Romario TOPICAL 11/15/24 02:11 10 ml ONCE ONE Administration Magnesium Citrate 300 ml 11/15/24 01:45 11/15/24 02:11 Magnesium Citrate 300 Ml Solution PO 11/15/24 01:46 300 ml ONCE ONE Administration Ondansetron HCl 4 mg 11/15/24 03:46 11/15/24 03:49 Ondansetron Odt 4 Mg Tab.Rapdis TRANSLINGU 11/15/24 03:47 4 mg ONCE ONE Administration Senna 17.2 mg 11/15/24 03:38 11/15/24 04:13 Sennosides 8.6 Mg Tablet PO 11/15/24 03:39 Not Given ONCE ONE Discharge Plan Discharge Clinical Impression: Constipation Patient Disposition: Home, Self-Care Instructions: Constipation (ED) Additional Instructions: Take stool softener as advised MiraLax and senna Follow up with your PCP/senior stock plan administrator Prescriptions: No Action Vitamin B-12 50 mcg lozenge 50 mcg PO DAILY Qty: 30 6RF vitamin A palmitate 10,000 unit capsule 10,000 unit PO DAILY 14 Days Qty: 14 0RF ergocalciferol (vitamin D2) 400 unit Capsule 400 unit PO DAILY dicyclomine 10 mg Capsule 10 mg PO QIDACHS PRN (Reason: abdominal pain) Qty: 90 0RF mesalamine [Delzicol] 400 mg Capsule (With Del Rel Tablets) 1,600 mg PO TID Qty: 90 0RF prednisone 20 mg tablet 35 mg PO DAILY prednisone 20 mg tablet 40 mg PO DAILY Qty: 10 0RF oxycodone 5 mg tablet 5 mg PO Q6H PRN (Reason: pain) Qty: 20 0RF Rx Instructions: Partial Fill upon patient request. prednisone 20 mg tablet 40 mg PO DAILY Qty: 20 0RF Rx Instructions: Take 2 tablets, 40 mg, daily for the 1st 5 days. After that take 1 tablet, 20 mg, daily oxycodone 5 mg tablet 5 mg PO TID PRN (Reason: pain) Qty: 14 0RF Rx Instructions: Partial Fill upon patient request. prednisone 10 mg tablet 10 mg PO DIRECTED Qty: 30 0RF Rx Instructions: see taper instructions; 40 mg Daily x3 days, 30 mg daily x3 days, 20 mg daily x3 days, 10 mg daily x3 days ketoconazole 2 % cream 1 appl topical BID Qty: 60 2RF Interventions: ED Discharge Assessment Last Done: 11/15/24 04:17 Discharge Date/Time: 11/15/24 04:18 Print Language: French
[2024-11-15 02:00] VITALS: BP 152/93; PULSE 101; RESP 16; TEMP 36.7; O2SAT 99
[2024-11-15] MEDS: Magnesium Citrate 300 ML SOLUTION PO (02:11)
[2024-11-15] MEDS: Lidocaine HCl 2 % Urojet 10 ML JEL.PF.APP TOPICAL (02:36)
[2024-11-15] MEDS: Ondansetron ODT 4 MG TAB.RAPDIS TRANSLINGU (03:49)
[2024-11-15 04:00] VITALS: BP 116/62; PULSE 93; RESP 18; TEMP 36.8; O2SAT 94
[2024-11-15 04:17] VITALS: BP 116/62; PULSE 93; RESP 18; TEMP 36.8; O2SAT 94
== END 2024-11-15 04:18 | disposition home or self-care (01) ==
PROVIDERS: Emergency Provider Internal Medicine; PCP Internal Medicine
DX: K59.00 Constipation, unspecified (principal); G35 Multiple sclerosis; Z87.891 Personal history of nicotine dependence; Z79.899 Other long term (current) drug therapy
CPT/HCPCS: 74018; 99284

== ENCOUNTER → 2024-11-15 02:47 | Outpatient (BNV) | payer OTHER, SELFPAY | PROVIDERS: Emergency Provider Internal Medicine; PCP Internal Medicine; Visit Provider Radiology Diagnostic Radiology | DX: K56.41 Fecal impaction (principal) | CPT/HCPCS: 74018 ==

== ENCOUNTER 2024-11-27 14:16 | Outpatient (REF) | payer OTHER, SELFPAY ==
[2024-11-27 16:06] LABS: MANUAL DIFF FLAG NO
[2024-11-27 16:09] LABS: Basophils Percent Auto 0.2 % (0-2); Hematocrit 39.2 % (37.0-47.0); Hemoglobin 12.9 g/dl (12.0-16.0); Imm Gran Abs Auto 0.07 X10*3/uL (0.00-0.03); Imm Gran Pct Auto 0.6 % (0.0-0.4); Lymphocytes Absolute Auto 0.9 X10*3/uL (1.2-4.9); Lymphocytes Percent Auto 8.2 % (20-40); Mean Corpuscular HGB Conc 32.9 g/dl (31.0-35.0); Mean Corpuscular Hemoglobin 30.5 pg (27.0-33.0); Mean Corpuscular Volume 92.7 fL (80.0-98.0); Mean Platelet Volume 9.4 fL (9.4-12.3); Monocytes Absolute Auto 0.2 X10*3/uL (0.1-1.2); Monocytes Percent Auto 1.7 % (2-11); Neutrophils Percent Auto 89.3 % (45-73); Platelet Count 469 X10*3/uL (160-400); Red Blood Count 4.23 X10*6/uL (4.20-5.50); Red Cell Distribution Width 11.8 % (11.0-16.0); White Blood Count 11.2 X10*3/uL (4.8-10.8)
[2024-11-27 16:50] LABS: Erythrocyte Sedimentation Rate 30 MM/HR (0-20)
[2024-11-27 17:02] LABS: Alanine Aminotransferase 18 U/L (0-31); Albumin Level 3.6 g/dL (3.5-5.0); Alkaline Phosphatase 77 U/L (39-117); Anion Gap 8 (12-20); Aspartate Amino Transferase 15 U/L (5-31); Bilirubin Direct < 0.2 mg/dL (0.0-0.5); Bilirubin Total 0.2 mg/dL (0.0-1.0); Blood Urea Nitrogen 14 mg/dL (9-16); C Reactive Protein 6.78 mg/dL (< or = 0.50); Carbon Dioxide 27 mmol/L (22-29); Chloride 105 mmol/L (96-108); Estimated Glomerular Filt Rate > 60; Glucose Random 183 mg/dL (60-115); Sodium 136 mmol/L (135-145); Total Protein 7.3 g/dL (6.5-8.0)
== END 2024-11-27 14:17 | disposition home or self-care (01) ==
LOC: HO.HMGCLDS 14:16
PROVIDERS: PCP Internal Medicine; Visit Provider Internal Medicine
DX: K50.111 Crohn's disease of large intestine with rectal bleeding (principal)
CPT/HCPCS: 36415; 80051; 80076; 82565; 82947; 84520; 85025; 85652; 86140

== ENCOUNTER 2024-11-29 05:30 | Outpatient (REF) | payer OTHER, SELFPAY ==
[2024-11-29 11:38] LABS: CDiff Gene PCR NEGATIVE (Negative)
[2024-11-29 12:45] LABS: Adenovirus F 40/41 Not Detected (Not Detect.); Astrovirus Not Detected (Not Detect.); Campylobacter Not Detected (Not Detect.); Cryptosporidium Not Detected (Not Detect.); Cyclospora cayetanensis Not Detected (Not Detect.); E. coli EAEC Not Detected (Not Detect.); E. coli EPEC Not Detected (Not Detect.); E. coli ETEC Not Detected (Not Detect.); E. coli STEC Not Detected (Not Detect.); Entamoeba histolytica Not Detected (Not Detect.); Giardia lamblia Not Detected (Not Detect.); Norovirus GI/GII Not Detected (Not Detect.); Plesiomonas shigelloides Not Detected (Not Detect.); Rotavirus A Not Detected (Not Detect.); Salmonella Not Detected (Not Detect.); Sapovirus Not Detected (Not Detect.); Shigella sp./EIEC Not Detected (Not Detect.); Vibrio Not Detected (Not Detect.); Vibrio Cholerae Not Detected (Not Detect.); Yersinia enterocolitica Not Detected (Not Detect.)
== END 2024-11-29 05:31 | disposition home or self-care (01) ==
LOC: HO.HMGCLNP 05:30
PROVIDERS: Visit Provider Internal Medicine
DX: K50.111 Crohn's disease of large intestine with rectal bleeding (principal)
CPT/HCPCS: 83993; 87493; 87507

== ENCOUNTER 2025-02-19 12:09 | Outpatient (REF) | payer OTHER, SELFPAY ==
[2025-02-19 13:24] LABS: MANUAL DIFF FLAG NO
[2025-02-19 13:45] LABS: Basophils Percent Auto 0.2 % (0-2); Eosinophils Percent Auto 0.1 % (0-4); Hematocrit 38.7 % (37.0-47.0); Hemoglobin 12.9 g/dl (12.0-16.0); Imm Gran Abs Auto 0.07 X10*3/uL (0.00-0.03); Imm Gran Pct Auto 0.5 % (0.0-0.4); Lymphocytes Absolute Auto 1.1 X10*3/uL (1.2-4.9); Lymphocytes Percent Auto 8.2 % (20-40); Mean Corpuscular HGB Conc 33.3 g/dl (31.0-35.0); Mean Corpuscular Hemoglobin 31.2 pg (27.0-33.0); Mean Corpuscular Volume 93.7 fL (80.0-98.0); Mean Platelet Volume 9.9 fL (9.4-12.3); Monocytes Absolute Auto 0.2 X10*3/uL (0.1-1.2); Monocytes Percent Auto 1.8 % (2-11); Neutrophils Percent Auto 89.2 % (45-73); Platelet Count 306 X10*3/uL (160-400); Red Blood Count 4.13 X10*6/uL (4.20-5.50); Red Cell Distribution Width 13.7 % (11.0-16.0); White Blood Count 13.4 X10*3/uL (4.8-10.8)
--- OUTSIDE RECORDS SUMMARY | 2025-02-19 14:11 | XMS_ITS | Encounter Summary ---
Author Organization [facility] Address [address] [place] [address] Phone Care Team Providers Care Sr. Social Media & Mobile Manager Name Role Phone Unavailable Primary Care Provider Unavailabl e Encounter Details Date Type Department Care Team ([facility] Contact Info) Description 06/29/2017 Conversion Encounter [facility] - [address] [address] Social History Tobacco Use Types Packs/Day Years Used Date Smoking Tobacco: Never Assessed Comments Unknown Sex and Gender Information Value Date Recorded Sex Assigned at Not on file Legal Sex Female 4:11 PM EDT Gender Identity Not on file Sexual Orientation Not on file documented as of this encounter Plan of Treatment Not on file documented as of this encounter Visit Diagnoses Not on filedocumented in this encounter
--- OUTSIDE RECORDS SUMMARY | 2025-02-19 14:11 | XMS_ITS ---
Author Organization [facility] Address [address] [place] [address] Care Team Providers Care Dog Hair Clipper Name Role Phone Jag LUNA, Kamran Primary Care Provider Rishabha Alexandr Phelps Unavailable [phone] REASON FOR VISIT Update on Stelara/ update01/31/2025 increase dicyclomine? stelara approved Medications Medication SIG (Take, Route, Fr equency, Duration) Notes Start Date End Date Status predniSONE 5 MG 8 pills(40mg) daily for 1 week, and the decrease by 1 pill(5mg) per week Orally Once a day for 56 days 06/09/2020 Active Imodium A-D 2 MG 1 or 2 capsules ever y 6 hours if needed for diarrhea Orally Every 6 hours if needed for diarrhea for 30 days 01/20/2025 Active Dicyclomine HCl 10 MG 1 or 2 capsules ev katerin 6 hours for abdominal pain and cramps Orally Every 6 hours for abdominal pain and cramps for 30 days 01/20/2025 Active Problems Problem Type SNOMED Code ICD Code Onset Dates Problem Status W/U Status Risk Notes Problem Crohn's disease of large bowel (4181800) Crohn''s disease of colon with other complication (K50.118) Active confirmed Encounters Encounter Location Date Provider Diagnosis [facility] [address] [place] [phone] 01/03/2025 Alexandr Null Crohn''s disease of colon with other complication K50.118 Assessments Encounter Date Diagnosis (ICD Code) Assessment Notes Treatment Notes Treatment Clinical Notes Section Notes 01/03/2025 Crohn''s disease of colon with other complication (ICD-10 - K50.118) Plan Of Treatment Medication Medication Name Sig Start Date Stop Date Notes predniSONE 5 MG 8 pills(40mg) daily for 1 week, and the decrease by 1 pill(5mg) per week Orally Once a day for 56 days 06/09/2020 Imodium A-D 2 MG 1 or 2 capsules ever y 6 hours if needed for diarrhea Orally Every 6 hours if needed for diarrhea for 30 days 01/20/2025 Dicyclomine HCl 10 MG 1 or 2 capsules ev katerin 6 hours for abdominal pain and cramps Orally Every 6 hours for abdominal pain and cramps for 30 days 01/20/2025 Pending Test Test Name Order Date CBC w DIFF 01/03/2025 T Spot TB 01/03/2025 Hepatitis B Profile 01/03/2025 Next Appt Details Provider Name:Alexandr Null , 05/09/2025 01:40:00 PM, [address] [place] [address], [address], [phone], Progress Notes * ABDIMARCOOB:[birth year] (34 yo F)Acc No.[id number]:01/03/2025 Patient:?TRAM NEWTONMARY :1990???Age:34 Y???Sex:Female Address:[address] [place] [address], [address] * Refills? Refill predniSONE Tablet, 5 MG, Orally, 275, 8 pills(40mg) daily for 1 week, and the decrease by 1 pill(5mg) per week, Once a day, 56 days, Refills=0 Start Dicyclomine HCl Capsule, 10 MG, Orally, 120, 1 or 2 capsules every 6 hours for abdominal pain and cramps, Every 6 hours for abdominal pain and cramps, 30 days, Refills=5 Start Imodium A-D Capsule, 2 MG, Orally, 120, 1 or 2 capsules every 6 hours if needed for diarrhea, Every 6 hours if needed for diarrhea, 30 days, Refills=5 Subjective: * Chief Complaints: * ???Update on Stelara/ upda te01/31/2025 increase dicyclomine? stelara approved * Medical History:? * Surgical History:? * Hospitalization/Major Diagno stic Procedure:? * Medications:? Objective: * Vitals:? * Physical Examination:? Assessment: * Assessment: 1.?Crohn''s disease of colon with other complication - K50.118 (Primary)??? Plan: * Treatment: 2.?Others? Refill predniSONE Tablet, 5 MG, 8 pills(40mg) daily for 1 week, and the decrease by 1 pill(5mg) per week, Orally, Once a day, 56 days, 275, Refills 0;?Start Dicyclomine HCl Capsule, 10 MG, 1 or 2 capsules every 6 hours for abdominal pain and cramps, Orally, Every 6 hours for abdominal pain and cramps, 30 days, 120, Refills 5;?Start Imodium A-D Capsule, 2 MG, 1 or 2 capsules every 6 hours if needed for diarrhea, Orally, Every 6 hours if needed for diarrhea, 30 days, 120, Refills 5.?? * Procedure Codes:? * true * Date:? Generated for Beckie hines/Kathy/eTransmitting on:?02/19/2025 02:11 PM EDT
--- OUTSIDE RECORDS SUMMARY | 2025-02-19 14:11 | XMS_ITS ---
Author Organization [facility] Address [address] [facility] [address] [place] [address] Care Team Providers Care Sales Support Coordinator Name Role Phone Kamran Rm MD Primary Care Provider Alexandr Dutta [phone] Encounters Encounter Location Date Provider Diagnosis [facility] [address] [place] [address] [address] [place] [address] 02/07/2025 Alexandr Null Plan Of Treatment Next Appt Details Provider Name:Alexandr Null , 05/09/2025 01:40:00 PM, [address] [facility] [address] [facility], [address], [place], [address], Progress Notes * LUCILA NEWTONEDOB:[birth year] (34 yo F)Acc No.[id number]:02/07/2025 Patient:?CLAUDIA NEWTON :1990???Age:34 Y???Sex:Female Address:[address] [place] [address], [address] * true * Date:? Generated for Printi donny/Kathy/eTransmitting on:?02/19/2025 02:11 PM EDT
--- OUTSIDE RECORDS SUMMARY | 2025-02-19 14:11 | XMS_ITS | Clinical Summary ---
Author Organization [facility] Address [address] [place] [address] Phone Care Team Providers Care Crosscutter Name Role Phone Unavailable Primary Care Provider Unavailabl e Immunizations Immunization Administration Dates Next Due DTP 05/12/1999, 9,01/10/1999,1992,12/13/1990 Hep B, ped/adol 02/07/2000,12/08/1999,05/25/1999 Hib (PRP-T) 09/12/1990 IPV 06/12/1999, 9,02/10/1999,1992,12/13/1990 MMR 02/27/2001,12/08/1999,08/12/1999 Td (adult) (MBL), 2 Lf tetan us toxoid, PF, adsorbed 12/08/1999 Family History Relation Name Status Comments Brother Alive Brother: Alive and well Father Alive Father: Alive a nd well Half-Sister Alive Half sister (P) : Alive and well Maternal Grandmother Materna l grandmother: ovarian cysts Mother Alive Mother: ovarian cysts Paternal Grandfather Paterna l grandfather: Diabetes mellitus, Paternal Grandmother Paterna l grandmother: thyroid Sister Alive Sister: Alive a nd well Social History Tobacco Use Types Packs/Day Years Used Date Smoking Tobacco: Never Assessed Comments Unknown Sex and Gender Information Value Date Recorded Sex Assigned at Not on file Legal Sex Female 4:11 PM EDT Gender Identity Not on file Sexual Orientation Not on file Plan of Treatment Health Maintenance Due Date Last Done Comments Varicella Vaccines (1 of 2 - 13+ 2-dose series) 2001 DTaP,Tdap,and Td Vaccines (7 - Tdap) 12/08/2009 12/08/1999, 05/12/1999, 03/12/1999, Additional history exists Influenza Vaccines (#1) 2024 COVID-19 Vaccine ( season) 2024 HIB Vaccines Completed 09/12/1990 IPV Vaccines Completed 06/12/1999, 03/15, 02/10/1999, Additional history exists Hepatitis B Vaccines Completed 02/07/2000, 12/08/1999, 05/25/1999 MMR Vaccines Completed 02/27/2001, 11/14, 08/12/1999 HPV Vaccines Aged Out No longer eligi ble based on patient's age to complete this topic Hepatitis A Vaccines Aged Out No long er eligible based on patient's age to complete this topic Men B Vaccine Aged Out No longer elig ible based on patient's age to complete this topic Meningococcal Vaccine Aged Out No ulysses frances eligible based on patient's age to complete this topic Pneumococcal Vaccine Aged Out No long er eligible based on patient's age to complete this topic
--- OUTSIDE RECORDS SUMMARY | 2025-02-19 14:11 | XMS_ITS ---
Author Organization [facility] Address [address] [facility] [address] [place] [address] Care Team Providers Care Clerical Adjudicator Name Role Phone Kamran Rm MD Primary Care Provider Alexandr Dutta [phone] REASON FOR VISIT infusion orders are all set Encounters Encounter Location Date Provider Diagnosis [facility] [address] [place] [address] [address] [place] [address] 02/07/2025 Alexandr Null Plan Of Treatment Next Appt Details Provider Name:Alexandr Null , 05/09/2025 01:40:00 PM, [address] [place] [address], [address], [place], [address], Progress Notes * LUCILA NEWTONEDOB:[birth year] (34 yo F)Acc No.[id number]:02/07/2025 Patient:?CLAUDIA NEWTON :1990???Age:34 Y???Sex:Female Address:[address] [place] [address], [address] * * Date:?
[2025-02-20 05:29] LABS: HBS Num1 0.72 mIU/mL (0-7.99); HBc Num1 0.19 S/CO (0.00-0.79); HBsAGNum1 0.28 S/CO (0.00-0.99); Hepatitis B Core Antibody Nonreactive (Nonreactive); Hepatitis B Surface Antigen Negative (Negative); ~Hepatitis B Surface Antibody NONREACTIVE (Nonreactive)
[2025-02-22 10:10] LABS: TS Negative Control Passed; TS Panel A 0; TS Panel B 0; TS Positive Control Passed; TSpotTB Negative (Negative)
== END 2025-02-19 12:10 | disposition home or self-care (01) ==
LOC: HO.HMGCLDS 12:09
PROVIDERS: Visit Provider Internal Medicine
DX: K50.118 Crohn's disease of large intestine with other complication (principal)
CPT/HCPCS: 36415; 85025; 86481; 86704; 86706; 87340

== ENCOUNTER 2025-02-21 12:01 | Outpatient (RCR) | payer OTHER, SELFPAY ==
[2025-02-21 12:07] VITALS: BP 152/103; PULSE 82; RESP 16; TEMP 36.7; O2SAT 97
[2025-02-21] MEDS: Ustekinumab 520 MG in 0.9 % Sodium Chloride 146 ML 250 MG IV (12:54)
== END 2025-02-21 13:59 | disposition home or self-care (01) ==
LOC: HO.INF 12:01
PROVIDERS: Visit Provider Internal Medicine
DX: K50.90 Crohn's disease, unspecified, without complications (principal)
CPT/HCPCS: 96365; J3358

== ENCOUNTER 2025-03-03 12:53 | Outpatient (REF) | payer OTHER, SELFPAY ==
--- OUTSIDE RECORDS SUMMARY | 2025-03-03 13:20 | XMS_ITS | Clinical Summary ---
Author Organization [facility] Address [address] [place] [address] Phone Care Team Providers Care Cyber Threat Analyst Name Role Phone Unavailable Primary Care Provider [...]
[2025-03-03 16:46] LABS: Influenza A PCR NEGATIVE (Negative); Influenza B PCR NEGATIVE (Negative); Resp Syncy Virus RNA Qual PCR NEGATIVE (Negative); SARS COV2 PCR INHOUSE NEGATIVE (Negative)
== END 2025-03-03 12:54 | disposition home or self-care (01) ==
LOC: HO.LAB 12:53
PROVIDERS: Nurse Practitioner Family; PCP Internal Medicine
DX: J06.9 Acute upper respiratory infection, unspecified (principal)
CPT/HCPCS: 0241U

== ENCOUNTER 2025-03-03 12:53 | Outpatient (AMB) | payer OTHER, SELFPAY ==
--- NOTE | 2025-03-03 12:54 | AM.OFFWIN_ITS ---
Intake Vital Signs 03/03/25 12:55 Weight 300 lb BP 124/90 H Blood Pressure Location Lt brachial Position Sitting Pulse 92 Pulse Source Pulse Oximeter Temp 98.0 F Temp Source Oral Pulse Oximetry (%) 98 Oxygen Delivery Method Room Air Intake Visit Reasons: EP-nose congestion, cough, red eyes Intake Note: Patient here for red eyes w/discharge, runny nose,cough that has been present for a couple of days. Patient Tobacco Use Status: Former Tobacco user Allergies No Known Allergies Allergy (Unknown, Verified 03/03/25 12:56) UNKNOWN Do you need a note to return to daycare/school/sports/work: Yes HPI HPI Comments History of Present Illness Details 34 y/o Female patient who presents to [facility] walk in clinic with c/o URI symptoms for 2 days. Pt c/o red eyes w/discharge, runny nose,cough and chest congestion. [facility] Medical History (Updated 03/03/25 @ 13:10 by Hannah Acevedo NP) Acute respiratory disease Crohn's disease Multiple sclerosis Crohn's disease Surgical History History of tonsillectomy Previous section Family History Maternal Grandmother Crohn's disease Mother H/O: hysterectomy Primary fibromyalgia Father Diabetes Sister Murder Brother No problems noted. Son No problems noted. Social History Household Members: Family Housing: House Do you presently have visiting nurse or other home services: No Alcohol intake: current Alcohol intake frequency: a few times a week Alcohol type: hard liquor Comment: pt awake, lying in bed Patient Tobacco Use Status: Former Tobacco user Years Smoked: 10 Substance Use Type: Marijuana service: No Current occupational status: unemployed Review of Systems Const All systems reviewed & are unremarkable except as noted in HPI and below Physical Exam Vital Signs: Last Vital Signs Temp 98.0 F 03/03/25 12:55 Pulse 92 03/03/25 12:55 BP 124/90 H 03/03/25 12:55 Pulse Ox 98 03/03/25 12:55 Oxygen Delivery Method Room Air 03/03/25 12:55 Const General: no acute distress; No comfortable Nutritional Appearance: obese morbidly obese Orientation/consciousness: patient oriented x3 HEENT Head: Yes normocephalic Ears: external ears normal and TM abnormal bulging and with fluid behind the TM bilateral General nose exam: Nasal discharge present Face and sinus: Yes sinuses nontender Mouth: moist mucous membranes Throat: Yes uvula midline Eyes Pupils: Equal, round and reactive pupils present EOM: EOMs intact bilaterally Resp Effort & Inspection: normal respiratory effort and able to speak in complete sentences Auscultation: clear to auscultation bilaterally, no crackles, no rales, no rhonchi and no wheezes Cardio Heart sounds: S1 normal heart sound present and S2 normal heart sound present Neuro General: patient oriented x3 Cranial nerves: Yes Equal, round and reactive pupils present Assessment & Plan Assessment & Plan (1) Acute respiratory disease: Code(s): J06.9 - Acute upper respiratory infection, unspecified Plan: Ordered SARs OTC cold/cough remedies Rest and hydrate well with warm fluids. Acetaminophen for pain relief. Orders: Orders SARS-CoV2/FLU/RSV Today J06.9 - Acute upper respiratory infection, unspecified Medications: New pseudoephedrine HCl ER (Sudafed 12 Hour) 120 mg PO Q12H 20 tabs 0RF Nasal congestion J06.9 - Acute upper respiratory infection, unspecified dextromethorphan polistirex ER (Delsym 12 hour) 10 mL PO Q12H 89 mL 0RF cough J06.9 - Acute upper respiratory infection, unspecified oxymetazoline 0.05% (Afrin (oxymetazoline)) 2 sprays intranasal Q12H PRN 22 mL 0RF nasal congestion 3 days J06.9 - Acute upper respiratory infection, unspecified Coding Level of Care Code Est Pt Level 4 (81847) Diagnoses Acute respiratory disease J06.9 Time Spent (min) 20
[2025-03-03 12:55] VITALS: BP 124/90; PULSE 92; TEMP 36.7; O2SAT 98
== END 2025-03-03 13:19 | disposition home or self-care (01) ==
PROVIDERS: PCP Internal Medicine; Visit Provider Nurse Practitioner Family
DX: J06.9 Acute upper respiratory infection, unspecified (principal)

== ENCOUNTER 2025-06-13 06:38 | Outpatient (REF) | payer OTHER, SELFPAY ==
--- OUTSIDE RECORDS SUMMARY | 2025-06-13 06:41 | XMS_ITS | Encounter Summary ---
Author Organization [facility] Address [address] [place] [address] Phone Care Team Providers Care Family Dinner Service Specialist Name Role Phone Unavailable Primary Care Provider Unavailabl e Encounter Details Date Type Department Care Team ([facility] Contact Info) Description 06/29/2017 Conversion Encounter [facility] - [address] [address] Social History Tobacco Use Types Packs/Day Years [...]
--- OUTSIDE RECORDS SUMMARY | 2025-06-13 06:41 | XMS_ITS | Clinical Summary ---
Author Organization [facility] Address [address] [place] [address] Phone Care Team Providers Care Lifestyle Block Farmer Name Role Phone Kamran Rm MD Primary Care Provider Allergies No known active allergies Medications adalimumab (HUMIRA) 40 mg/0.8 mL pen kit Inject 40 mg under the skin every 14 (fourteen) days. Active cholecalciferol (VITAMIN D3) 25 MCG (1,000 unit) tablet Take 500 Units by mouth daily. Active Social History Tobacco Use Types Packs/Day Years Used Date Smoking Tobacco: Never Assessed Education Answer Date Recorded Are you interested in more education? Not on job e 03/11/2023 Are you concerned about learning? Not on file 03/11/2023 No 03/11/2023 No 03/11/2023 Digital Access Answer Date Recorded No 04/11/2023 No 04/11/2023 Reliable internet access at home? Not on file 04/11/2023 Device with a working camera? Not on file Comments Unknown Sex and Gender Information Value Date Recorded Sex Assigned at Female 07/04/2022 2:48 PM EDT Legal Sex Female 2:41 PM EDT Gender Identity Female 07/04/2022 2:48 PM EDT Sexual Orientation Bisexual 08/24/2022 11 :58 AM EDT Last Filed Vital Signs Vital Sign Reading Time Taken Comments Blood Pressure 164/79 08/24/2022 12:51 PM EDT Pulse 82 08/24/2022 12:51 PM EDT Temperature 37 C (98.6 F) 08/24/2022 12:51 PM EDT Respiratory Rate - - Oxygen Saturation 97% 08/24/2022 12:51 PM EDT Inhaled Oxygen Concentration - - Weight - - Height - - Body Mass Index - - Plan of Treatment Health Maintenance Due Date Last Done Comments COVID-19 VACCINE (#1) 1993 SMOKING Hx and SMOKELESS TOB ACCO SCREENING 2001 HEPATITIS C SCREENING 2006 PNEUMOCOCCAL VACCINES (0-49 years) (1 of 2 - PCV) 2007 PAP SMEAR 2009 Adult Td,Tdap Booster 12/08/2009 12/08/1999 DEPRESSION SCREENING 08/24/2023 08/24/2022 HIB VACCINES Completed 09/12/1990 HIV ONE-TIME SCREENING (18-6 5 YEARS) Completed 08/24/2022 HEPATITIS A VACCINES Aged Out No long er eligible based on patient's age to complete this topic MENINGOCOCCAL VACCINES (ACWY) Aged Out No longer eligible based on patient's age to complete this topic MENINGOCOCCAL VACCINES (B) Aged Out N o longer eligible based on patient's age to complete this topic Medical Devices Not on file Insurance [employer] [facility] [employer] [facility] [employer] [facility] TOGETHER [employer] TOGETHER [facility] Care Teams Lifestyle Block Farmer Relationship Specialty Start Date End Date Kamran Rm MD [address] [place] [address] Dr Ler[place] [id number] PCP - General Internal Medicine 07/04/22 Additional Source Comments The information contained in this document represents components of the legal health record. It is not the complete legal health record.[facility]
[2025-06-13 10:53] LABS: MANUAL DIFF FLAG NO
[2025-06-13 11:00] LABS: Hematocrit 38.6 % (37.0-47.0); Hemoglobin 13.0 g/dl (12.0-16.0); Imm Gran Abs Auto 0.05 X10*3/uL (0.00-0.03); Imm Gran Pct Auto 0.5 % (0.0-0.4); Lymphocytes Absolute Auto 2.7 X10*3/uL (1.2-4.9); Mean Corpuscular HGB Conc 33.7 g/dl (31.0-35.0); Mean Corpuscular Hemoglobin 31.1 pg (27.0-33.0); Mean Corpuscular Volume 92.3 fL (80.0-98.0); NRBC Abs Auto 0.000 X10*3/uL (0.0-0.012); NRBC Pct Auto 0.0 /100WBC (0.0-0.2); Platelet Count 351 X10*3/uL (160-400); Red Blood Count 4.18 X10*6/uL (4.20-5.50); White Blood Count 9.9 X10*3/uL (4.8-10.8)
[2025-06-13 11:26] LABS: Alanine Aminotransferase 20 U/L (0-31); Albumin Level 3.7 g/dL (3.5-5.0); Alkaline Phosphatase 71 U/L (39-117); Anion Gap 11 (12-20); Aspartate Amino Transferase 23 U/L (5-31); Blood Urea Nitrogen 12 mg/dL (9-16); Calcium 8.5 mg/dL (8.4-10.2); Carbon Dioxide 25 mmol/L (22-29); Chloride 106 mmol/L (96-108); Estimated Glomerular Filt Rate > 60; Potassium 4.0 mmol/L (3.3-5.1); Sodium 138 mmol/L (135-145); Total Protein 7.0 g/dL (6.5-8.0)
== END 2025-06-13 06:39 | disposition home or self-care (01) ==
LOC: HO.HMGCLDS 06:38
PROVIDERS: Visit Provider Internal Medicine
DX: K50.111 Crohn's disease of large intestine with rectal bleeding (principal); R19.7 Diarrhea, unspecified
CPT/HCPCS: 36415; 80048; 80076; 80299; 82542; 85025; 85652; 86140

== ENCOUNTER 2025-06-24 09:30 | Outpatient (REF) | payer OTHER, SELFPAY ==
--- OUTSIDE RECORDS SUMMARY | 2025-06-25 07:29 | XMS_ITS | Clinical Summary ---
Author Organization [facility] Address [address] [place] [phone] Phone Care Team Providers Care Religion Professor Name Role Phone Kamran Rm MD Primary [...] topic Medical Devices Not on file Insurance [employer] [facility] [email or web address] [employer] [facility] [email or web address] [employer] [facility] [facility] [facility] Care Teams Religion Professor Relationship Specialty Start Date End Date Kamran Rm MD [address] [place] [address] Dr Leroy [place] [id number] PCP - General Internal Medicine 07/04/22 Additional Source Comments The information contained in this document represents components of the legal health record. It is not the complete legal health record.[facility]
--- OUTSIDE RECORDS SUMMARY | 2025-06-25 07:29 | XMS_ITS | Encounter Summary ---
Author Organization [facility] Address [address] [place] [phone] Phone Care Team Providers Care Machine Molder Name Role Phone Unavailable Primary Care Provider Unavailabl e Encounter Details Date Type Department Care Team ([facility] Contact Info) Description 06/29/2017 Conversion Encounter [facility] - [address] [address] Social History Tobacco Use Types Packs/Day Years [...]
[2025-07-03 00:44] LABS: Calprotectin, Fecal 1620 mcg/g
== END 2025-06-24 09:31 | disposition home or self-care (01) ==
LOC: HO.HMGCLNP 09:30
PROVIDERS: Visit Provider Internal Medicine
DX: K50.111 Crohn's disease of large intestine with rectal bleeding (principal); R19.7 Diarrhea, unspecified
CPT/HCPCS: 83993